=== PATIENT | female | born 1990 | race Caucasian/White ===

== ENCOUNTER 2016-06-21 19:31 | Inpatient (IN) | payer OTHER ==
[2016-06-21] MEDS ORDERED: Ondansetron INJ* 2 MG/ML VIAL IV ONE (19:47)
[2016-06-21] MEDS ORDERED: LORazepam INJ* 2 MG/ML 1 ML VIAL IV PUSH ONE (19:47)
[2016-06-21] MEDS ORDERED: NS 0.9% 1000 ML* 1,000 ML IV ONE ×2 (19:47→22:04)
[2016-06-21 20:26] LABS: Add Diff/Slide Review? Slide Review Added; Comments Flag Yes; Hematocrit 42 % (35-47); Hemoglobin 14.4 g/dl (12.0-16.0); Mean Corpuscular HGB Conc 34 g/dl (31-36); Mean Corpuscular Hemoglobin 31 pg (27-31); Mean Corpuscular Volume 91 fL (80-97); Mean Platelet Volume 9 um3 (7.4-10.4); Red Blood Count 4.63 10^6/ul (4.0-5.4); Red Cell Distribution Width 13 % (10.5-15); White Blood Count 10.9 10^3/ul (3.5-10.8)
[2016-06-21 20:47] LABS: Acetaminophen < 15 mcg/mL; Alcohol < 10 mg/dL (<10); Salicylate < 2.50 mg/dL (<30)
[2016-06-21 21:05] LABS: ALT 10 U/L (7-52); Albumin 3.9 g/dL (3.2-5.2); Alkaline Phosphatase 56 U/L (34-104); BUN/Creatinine Ratio 13.5 (8-20); Blood Urea Nitrogen 10 mg/dL (6-24); CO2 Carbon Dioxide 19 mmol/L (22-32); Calcium 9.1 mg/dL (8.6-10.3); Chloride 110 mmol/L (101-111); EGFR Non-African American 94.9 (>60); Globulin 2.8 g/dL (2-4); Glucose 117 mg/dL (70-100); Sodium 138 mmol/L (133-145); Total Protein 6.7 g/dL (6.4-8.9)
[2016-06-21 21:07] LABS: AST 14 U/L (13-39); Anion Gap 9 mmol/L (2-11); Potassium 3.5 mmol/L (3.5-5.0)
[2016-06-21 21:08] LABS: TSH (Thyroid Stimulating Horm) 0.39 mcIU/mL (0.34-5.60)
[2016-06-21 22:29] LABS: Urine Bilirubin Negative (Negative); Urine Glucose Negative (Negative); Urine Nitrite Negative (Negative)
[2016-06-21 22:46] LABS: Benzodiazepine Urine Screen None Detected (None Detect)
--- NOTE | 2016-06-21 22:47 | ED ---
Gabriela Escamilla Michael, scribed for Sarah Frias MD on 06/21/16 at 2013 . Substance Abuse/Use - HPI Summary HPI Summary: 25 y/o female was BIBA to the ED after an overdose today. The pt reports to taking 10 tablets of 30 mg Buspar between 1100 and 1400 today. She also took 15- 20 Prazosin at 1730. She notes an increased recent stress for "multiple bad things". The pt also c/o self-cutting on left forearm, decreased sleep, anxiety , nausea, and denies diarrhea. The EMS report she had chest pain and rapid palpitations. - History Of Current Complaint Chief Complaint: EDOverdose Stated Complaint: SI/OVERDOSE Time Seen by Provider: 06/21/16 19:37 Hx Obtained From: Patient, EMS, Medical Records Hx Last Menstrual Period: 03/05/16 Onset/Duration of Drug/ETOH Abuse: Hours Ingestion History: Type/Name Of Drug - See HPI, Amount Ingested - she HPI Overdose Characteristics: Oral Timing Of Abuse: Binge Use Severity Initially: Moderate Severity Currently: Moderate Character: Anxious Aggravating Factor(s): Recent Stress Associated Signs And Symptoms: Negative - diarrhea, Sleep Disturbance, Palpitations, Chest Pain, Nausea, Intentional Ingestion, Other: - self-cutting - Allergies/Home Medications Allergies/Adverse Reactions: Allergies Allergy/AdvReac Type Severity Reaction Status Date / Time Penicillins [PCN] Allergy Hives Verified 06/21/16 19:55 Trazodone Allergy Hives Verified 06/21/16 19:55 Zolpidem [From Ambien] Allergy See Comment Verified 06/21/16 19:55 PMH/Surg Hx/FS Hx/Imm Hx Endocrine/Hematology History: Denies: Hx Diabetes, Hx Thyroid Disease Cardiovascular History: Denies: Hx Hypertension Respiratory History: Denies: Hx Asthma, Hx Chronic Obstructive Pulmonary Disease (COPD) GI History: Denies: Hx Ulcer Neurological History: Reports: Other Neuro Impairments/Disorders - HX of banging head Psychiatric History: Reports: Hx Anxiety, Hx Eating Disorder - hx bulimia, Hx Depression, Hx Post Traumatic Stress Disorder, Hx Inpatient Treatment, Hx Community Mental Health Tx, Hx Suicide Attempt, Other Psychiatric Issues/ Disorders - HX suicide attempts Denies: Hx of Violent Episodes Against Others - Surgical History Surgery Procedure, Year, and Place: RUE fx Infectious Disease History: No Infectious Disease History: Denies: Hx Hepatitis, Hx Human Immunodeficiency Virus (HIV), Traveled Outside the [place] in Last 30 Days - Family History Known Family History: Positive: Hypertension, Respiratory Disease - COPD, Other - aunt - bipolar disorder, depression. mom/sister/grandmother - anxiety. Family History: FHx of anxiety, depression - Social History Alcohol Use: None Hx Substance Use: Yes Substance Use Type: Reports: Marijuana Substance Use Comment - Amount & Last Used: Occassional use Hx Tobacco Use: Yes Smoking Status (MU): Heavy Every Day Tobacco Smoker Type: Cigarettes Amount Used/How Often: 1 ppd Have You Smoked in the Last Year: Yes Review of Systems Positive: Other - overdose and self-cutting. Negative: Fever Positive: Palpitations, Chest Pain Positive: Nausea. Negative: Diarrhea Positive: Anxious, Other - decreased sleep All Other Systems Reviewed And Are Negative: Yes Physical Exam Triage Information Reviewed: Yes Vital Signs On Initial Exam: Initial Vitals Temp Pulse Resp BP Pulse Ox 97.9 F 131 18 109/58 98 06/21/16 19:35 06/21/16 19:35 06/21/16 19:35 06/21/16 19:35 06/21/16 19:35 Vital Signs Reviewed: Yes Appearance: Positive: Well-Appearing, No Pain Distress Skin: Positive: Warm, Skin Color Reflects Adequate Perfusion, Dry, Other - abrasions LUE from cutting Eyes: Positive: EOMI, [place] ROS[place] ENT: Positive: Pharynx normal, TMs normal Neck: Positive: Supple, Nontender Respiratory/Lung Sounds: Positive: Clear to Auscultation, Breath Sounds Present. Negative: Rales, Rhonchi, Wheezes Cardiovascular: Positive: RRR, Other - no gallops. Negative: Murmur, Rub Abdomen Description: Positive: Nontender, Soft, Other: - no rebound. Negative: Distended, Guarding Musculoskeletal: Positive: Strength/ROM Intact. Negative: Edema Left, Edema Right Neurological: Positive: Sensory/Motor Intact, Alert, Oriented to Person Place, Time, CN Intact II-III Psychiatric: Positive: Affect/Mood Appropriate Diagnostics - Vital Signs Vital Signs Temp Pulse Resp BP Pulse Ox 06/21/16 19:55 20 06/21/16 19:35 97.9 F 131 18 109/58 98 - Laboratory Lab Results: Lab Results 06/21/16 06/21/16 06/21/16 Range/Units 19:47 19:47 22:15 WBC 10.9 H (3.5-10.8) 10^3/ul RBC 4.63 (4.0-5.4) 10^6/ul Hgb 14.4 (12.0-16.0) g/dl Hct 42 (35-47) % MCV 91 (80-97) fL MCH 31 (27-31) pg MCHC 34 (31-36) g/dl RDW 13 (10.5-15) % Plt Count 78 L (150-450) 10^3/ul MPV 9 (7.4-10.4) um3 Neut % (Auto) 67.1 (38-83) % Lymph % (Auto) 25.9 (25-47) % [place] % (Auto) 6.1 (1-9) % Eos % (Auto) 0.2 (0-6) % Baso % (Auto) 0.7 (0-2) % Absolute Neuts (auto) 7.3 (1.5-7.7) 10^3/ul Absolute Lymphs (auto) 2.8 (1.0-4.8) 10^3/ul Absolute Monos (auto) 0.7 (0-0.8) 10^3/ul Absolute Eos (auto) 0 (0-0.6) 10^3/ul Absolute Basos (auto) 0.1 (0-0.2) 10^3/ul Absolute Nucleated RBC 0.01 10^3/ul Nucleated RBC % 0.1 Sodium 138 (133-145) mmol/L Potassium 3.5 (3.5-5.0) mmol/L Chloride 110 (101-111) mmol/L Carbon Dioxide 19 L (22-32) mmol/L Anion Gap 9 (2-11) mmol/L BUN 10 (6-24) mg/dL Creatinine 0.74 (0.51-0.95) mg/dL Est GFR ( Amer) 122.0 (>60) Est GFR (Non-Af Amer) 94.9 (>60) BUN/Creatinine Ratio 13.5 (8-20) Glucose 117 H (70-100) mg/dL Calcium 9.1 (8.6-10.3) mg/dL Total Bilirubin 0.30 (0.2-1.0) mg/dL AST 14 (13-39) U/L ALT 10 (7-52) U/L Alkaline Phosphatase 56 (34-104) U/L Troponin I 0.00 (<0.04) ng/mL Total Protein 6.7 (6.4-8.9) g/dL Albumin 3.9 (3.2-5.2) g/dL Globulin 2.8 (2-4) g/dL Albumin/Globulin Ratio 1.4 (1-3) TSH 0.39 (0.34-5.60) mcIU/mL Urine Color Yellow Urine Appearance Cloudy Urine pH 5.0 (5-9) Ur Specific [place] 1.029 (1.010-1.030) Urine Protein Negative (Negative) Urine Ketones Trace H (Negative) Urine Blood Negative (Negative) Urine Nitrate Negative (Negative) Urine Bilirubin Negative (Negative) Urine Urobilinogen Negative (Negative) Ur Leukocyte Esterase Negative (Negative) Urine Glucose Negative (Negative) Salicylates < 2.50 (<30) mg/dL Acetaminophen < 15 mcg/mL Serum Alcohol < 10 (<10) mg/dL Result Diagrams: 06/21/16 19:47 06/21/16 19:47 Lab Statement: Any lab studies that have been ordered have been reviewed, and results considered in the medical decision making process. - EKG EK EKG Rhythm: Sinus Tachycardia - 120 bpm EKG Comparison: No Significant Change Course/Dx - Course Course Of Treatment: Consulted posion control-pt will be given Ativan for tachycardia, Trop, and will be medically cleared after 6 hours at 0200 after her second Trop. baseline labs look good first trop is negative. Will sign pt out to Dr. Baldwin for further disposition - Diagnoses Provider Diagnoses: Drug overdose, intentional Discharge - Discharge Plan Condition: Stable Disposition: OTHER Discharge Disposition Comment: disposition to be decided by mental health team The documentation as recorded by the Gabriela crouch Michael accurately reflects the service I personally performed and the decisions made by me, Sarah Frias MD.
[2016-06-22] MEDS ORDERED: Nicotine GUM* 2 MG PO PRN (11:47)
[2016-06-22] MEDS ORDERED: Acetaminophen TAB* 325 MG PO PRN (11:47)
[2016-06-22] MEDS ORDERED: Nicotine Inhaler* 10 MG AMP INH PRN (11:47)
[2016-06-22] MEDS ORDERED: Al Hydrox/Mg Hydrox/Simet LIQ* 30 ML UDC PO PRN (11:47)
[2016-06-22] MEDS: clonazePAM TAB(*) 0.5 MG PO SCH ×2 (15:55→20:21)
[2016-06-22] MEDS: Prazosin CAP* 1 MG PO SCH (20:21)
[2016-06-22] MEDS: Prazosin CAP* 5 MG PO SCH (20:21)
[2016-06-22] MEDS: QUEtiapine TAB* 100 MG PO SCH (20:21)
[2016-06-22] MEDS: Topiramate TAB(*) 100 MG PO SCH (20:21)
[2016-06-23] MEDS: clonazePAM TAB(*) 0.5 MG PO SCH ×3 (08:13→21:25)
[2016-06-23] MEDS: Topiramate TAB(*) 100 MG PO SCH ×2 (08:13→21:27)
[2016-06-23] MEDS: cloNIDine TAB* 0.1 MG PO PRN (15:36)
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
[2016-06-23] MEDS: Cyclobenzaprine TAB* 10 MG PO SCH (21:25)
[2016-06-23] MEDS: Prazosin CAP* 5 MG PO SCH (21:26)
[2016-06-23] MEDS: QUEtiapine TAB* 100 MG PO SCH (21:27)
[2016-06-23] MEDS: Prazosin CAP* 1 MG PO SCH (21:27)
[2016-06-24] MEDS: clonazePAM TAB(*) 0.5 MG PO SCH ×4 (10:01→20:10)
[2016-06-24] MEDS: Topiramate TAB(*) 100 MG PO SCH ×2 (10:01→20:10)
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
[2016-06-24] MEDS: cloNIDine TAB* 0.1 MG PO PRN (15:16)
[2016-06-24] MEDS: Cyclobenzaprine TAB* 10 MG PO SCH (20:09)
[2016-06-24] MEDS: QUEtiapine TAB* 100 MG PO SCH (20:10)
[2016-06-24] MEDS: Prazosin CAP* 5 MG PO SCH (21:13)
[2016-06-24] MEDS: Prazosin CAP* 1 MG PO SCH (21:14)
[2016-06-25] MEDS: clonazePAM TAB(*) 0.5 MG PO SCH ×3 (10:32→20:43)
[2016-06-25] MEDS: Topiramate TAB(*) 100 MG PO SCH ×2 (10:33→20:44)
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
[2016-06-25] MEDS: cloNIDine TAB* 0.1 MG PO PRN (18:22)
[2016-06-25] MEDS: Prazosin CAP* 1 MG PO SCH (20:43)
[2016-06-25] MEDS: Prazosin CAP* 5 MG PO SCH (20:43)
[2016-06-25] MEDS: Cyclobenzaprine TAB* 10 MG PO SCH (20:44)
[2016-06-25] MEDS: QUEtiapine TAB* 100 MG PO SCH (20:44)
[2016-06-26] MEDS: clonazePAM TAB(*) 0.5 MG PO SCH ×3 (10:16→21:36)
[2016-06-26] MEDS: Topiramate TAB(*) 100 MG PO SCH ×2 (10:16→21:37)
[2016-06-26] MEDS: cloNIDine TAB* 0.1 MG PO PRN ×2 (10:17→16:44)
[2016-06-26] MEDS: QUEtiapine TAB* 100 MG PO SCH (21:36)
[2016-06-26] MEDS: Prazosin CAP* 1 MG PO SCH (21:36)
[2016-06-26] MEDS: Prazosin CAP* 5 MG PO SCH (21:36)
[2016-06-26] MEDS: Cyclobenzaprine TAB* 10 MG PO SCH (21:36)
[2016-06-27] MEDS: clonazePAM TAB(*) 0.5 MG PO SCH ×3 (09:55→20:41)
[2016-06-27] MEDS: Topiramate TAB(*) 100 MG PO SCH ×2 (09:55→20:41)
[2016-06-27] MEDS: cloNIDine TAB* 0.1 MG PO PRN ×2 (09:55→16:50)
--- NOTE | 2016-06-27 18:21 | PN ---
Subjective - Subjective Service Type: 75552 Hosp care 15 min low complexity Subjective: Basically no change of her mental status and continues to be labile, irritable, confrontational, looking for a reason to start crying and mostly staying to self. continues to verbalize wish to be and wanting to take maximum amount of meds/drugs to end her life if sent home today. Says she has no where to go, no money or support in the community. Objective - Appearance Appearance: Obese Dysmorphic Features: No Hygiene: Normal Grooming: Fairly Well Kept - Behavior Psychomotor Activities: Normal Exhibits Abnormal Movement: No - Attitude and Relatedness Attitude and Relatedness: Irritable Eye Contact: Poor - Speech Quality: Unpressured Latencies: Normal Quantity: Appropriate - Mood Patient's Decription of Mood: "Terrible" - Affect Observed Affect: Tearful - Thought Process Patient's Thought Process: Coherent, Goal Directed Thought Content: Yes Passive Wish, Yes Suicidal Planning - OD, No Homicidal Ideation, No Paranoid Ideation - Sensorium Experiencing Hallucinations: No, Sensorium is Clear Type of Hallucinations: Visual: No, Auditory: No, Command: No - Level of Consciousness Orientation: Yes Intact, Yes Orientated to Time, Yes Orientated to Place, Yes Orientated to Person - Impulse Control Impulse Control: Poor - Insight and Judgement Insight and Judgement: Impaired - Group Participation Particating in Group Activities: No - Medication Management Medication Management Adherence: Yes Assessment - Assessment Merits Inpatient Hospitalization: For Stabilization, Pending Safe DC Plan Inpatient DSM-IV Dx: Unspecified Depressive DO Plan - Plan Treatment Plan: Name: GREG CRAWFORD Birthdate: 1990 [id number] Continued Medication Management: Continue Outpt Medication Medications: Current Medications Acetaminophen (Tylenol Tab*) 650 mg PO Q4H PRN PRN Reason: for pain; or Temp >101 F Al Hydrox/Mg Hydrox/Simethicone (Maalox Plus*) 30 ml PO Q4H PRN PRN Reason: INDIGESTION Clonazepam (Klonopin Tab(*)) 0.5 mg PO TID [facility] Last Admin: 06/27/16 14:28 Dose: 0.5 mg Clonidine HCl (Catapres Tab*) 0.05 mg PO TID PRN PRN Reason: ANXIETY Last Admin: 06/27/16 16:50 Dose: 0.05 mg Cyclobenzaprine HCl (Flexeril Tab*) 5 mg PO BEDTIME [facility] Last Admin: 06/26/16 21:36 Dose: Not Given Nicotine (Nicotine Inhaler*) 10 mg INH Q2H PRN PRN Reason: CRAVING Nicotine Polacrilex (Nicotine Gum*) 2 mg PO Q2H PRN PRN Reason: CRAVING Prazosin HCl (Minipress Cap*) 5 mg PO BEDTIME [facility] Last Admin: 06/26/16 21:36 Dose: Not Given Prazosin HCl (Minipress Cap*) 3 mg PO BEDTIME [facility] Last Admin: 06/26/16 21:36 Dose: Not Given Quetiapine Fumarate (Seroquel Tab*) 200 mg PO BEDTIME [facility] Last Admin: 06/26/16 21:36 Dose: Not Given Topiramate (Topamax(*)) 100 mg PO BID [facility] Last Admin: 06/27/16 09:55 Dose: 100 mg - Discharge Plan Discharge Plan: Outpatient Follow Up Outpatient Program: [facility]
[2016-06-27] MEDS: Prazosin CAP* 1 MG PO SCH (20:39)
[2016-06-27] MEDS: QUEtiapine TAB* 100 MG PO SCH (20:40)
[2016-06-27] MEDS: Prazosin CAP* 5 MG PO SCH (20:40)
[2016-06-27] MEDS: Cyclobenzaprine TAB* 10 MG PO SCH (20:41)
[2016-06-28] MEDS: Topiramate TAB(*) 100 MG PO SCH ×2 (09:35→21:30)
[2016-06-28] MEDS: clonazePAM TAB(*) 0.5 MG PO SCH ×3 (09:35→21:10)
[2016-06-28] MEDS: cloNIDine TAB* 0.1 MG PO PRN ×2 (09:36→15:31)
--- NOTE | 2016-06-28 15:24 | PN ---
Subjective - Subjective Service Type: 07604 Hosp care 15 min low complexity Subjective: Greg continues to remain to self with occsional crying outburst. Says she doesn't see a reason to continue like this and wishes to take all her meds if sent home. Reports that shot time hospitalization has not been helpful to her and she want to go to a [facility] care facility this time. Objective - Appearance Appearance: Healthy Appearing Dysmorphic Features: No Hygiene: Normal Grooming: Well Kept - Behavior Psychomotor Activities: Normal Exhibits Abnormal Movement: No - Attitude and Relatedness Attitude and Relatedness: Appropriate Eye Contact: Poor - Speech Quality: Unpressured Latencies: Normal Quantity: Copious - Mood Patient's Decription of Mood: "Terrible" - Affect Observed Affect: Tearful - Thought Process Patient's Thought Process: Coherent, Goal Directed, Circumstantial Thought Content: Yes Passive Wish, No Suicidal Planning, No Homicidal Ideation, No Paranoid Ideation - Sensorium Experiencing Hallucinations: No, Sensorium is Clear Type of Hallucinations: Visual: No, Auditory: No, Command: No - Level of Consciousness Level of Consciousness: Alert Orientation: Yes Intact, Yes Orientated to Time, Yes Orientated to Place, Yes Orientated to Person - Impulse Control Impulse Control: Tenuous - Insight and Judgement Insight and Judgement: Poor - Group Participation Particating in Group Activities: No - Medication Management Medication Management Adherence: Yes Assessment - Assessment Merits Inpatient Hospitalization: For Immediate Safety, For Stabilization, Pending Safe DC Plan Inpatient DSM-IV Dx: Unspecified Depressive DO Plan - Plan Treatment Plan: Name: GREG CRAWFORD Birthdate: 1990 [id number] Continued Medication Management: Continue Outpt Medication Medications: Current Medications Acetaminophen (Tylenol Tab*) 650 mg PO Q4H PRN PRN Reason: for pain; or Temp >101 F Al Hydrox/Mg Hydrox/Simethicone (Maalox Plus*) 30 ml PO Q4H PRN PRN Reason: INDIGESTION Clonazepam (Klonopin Tab(*)) 0.5 mg PO TID [facility] Last Admin: 06/28/16 14:29 Dose: 0.5 mg Clonidine HCl (Catapres Tab*) 0.05 mg PO TID PRN PRN Reason: ANXIETY Last Admin: 06/28/16 09:36 Dose: 0.05 mg Cyclobenzaprine HCl (Flexeril Tab*) 5 mg PO BEDTIME [facility] Last Admin: 06/27/16 20:41 Dose: 5 mg Nicotine (Nicotine Inhaler*) 10 mg INH Q2H PRN PRN Reason: CRAVING Nicotine Polacrilex (Nicotine Gum*) 2 mg PO Q2H PRN PRN Reason: CRAVING Prazosin HCl (Minipress Cap*) 5 mg PO BEDTIME [facility] Last Admin: 06/27/16 20:40 Dose: 5 mg Prazosin HCl (Minipress Cap*) 3 mg PO BEDTIME [facility] Last Admin: 06/27/16 20:39 Dose: 3 mg Quetiapine Fumarate (Seroquel Tab*) 200 mg PO BEDTIME [facility] Last Admin: 06/27/16 20:40 Dose: 200 mg Topiramate (Topamax(*)) 100 mg PO BID [facility] Last Admin: 06/28/16 09:35 Dose: 100 mg - Discharge Plan Outpatient Program: [facility]
[2016-06-28] MEDS: Prazosin CAP* 1 MG PO SCH (21:11)
[2016-06-28] MEDS: Prazosin CAP* 5 MG PO SCH (21:11)
[2016-06-28] MEDS: QUEtiapine TAB* 100 MG PO SCH (21:12)
[2016-06-28] MEDS: Cyclobenzaprine TAB* 10 MG PO SCH (21:13)
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
[2016-06-29] MEDS: clonazePAM TAB(*) 0.5 MG PO SCH (11:01)
[2016-06-29] MEDS: Topiramate TAB(*) 100 MG PO SCH (11:01)
[2016-06-29] MEDS: QUEtiapine TAB* 25 MG PO PRN ×2 (11:19→18:10)
[2016-06-29] MEDS: Prenatal Vitamin TAB PO SCH (15:32)
[2016-06-29] MEDS: QUEtiapine TAB* 100 MG PO SCH (21:10)
[2016-06-30] MEDS: Prenatal Vitamin TAB PO SCH (08:16)
[2016-06-30] MEDS: QUEtiapine TAB* 25 MG PO PRN ×2 (08:17→17:02)
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
[2016-06-30] MEDS: QUEtiapine TAB* 100 MG PO SCH (21:08)
[2016-07-01 07:57] VITALS: BP 124/70
[2016-07-01] MEDS: Prenatal Vitamin TAB PO SCH (08:21)
--- NOTE | 2016-07-01 20:20 | DS ---
DISCHARGE SUMMARY: DATE OF ADMISSION: 06/22/16 DATE OF DISCHARGE: 07/01/16 DISCHARGE DIAGNOSES: As follows: [place] I: Unspecified depressive disorder, posttraumatic stress disorder. [place] II: Borderline personality disorder. [place] III: First trimester . [place] IV: Severe primary support and housing stressors. [place] V: At the time of admission was 30 and at the time of discharge is 60. CONDITION AT THE TIME OF DISCHARGE: Stable. The patient is denying suicidality. In fact, she is future oriented indicating that her intention is to carry her to term and have the baby. She is agreeable with outpatient followup treatment at [facility] and she has been cooperative with our efforts to place some social service supports around her during this time of . The patient is tolerating her medications well and she denies any thoughts of hurting herself or anyone else. MENTAL STATUS EXAM: The patient is a young white female with dyed reddish- purple hair, who is wearing a nose ring. She is dressed in casual, comfortable clothing and she appears to be well groomed. The patient is calm and cooperative. She is easy to establish a rapport with. Speech has a normal rate , tone, and volume. Mood is euthymic with a full affect. Thought process is linear and goal directed. Thought content is significant for her desire to be a fit mother for her baby and to resolve some of the differences between her and her boyfriend, who is presumably the child's father. She is denying suicidal or homicidal ideation. She denies auditory or visual hallucinations. Insight and judgment appear to be fair given the fact that she is willing to follow up with outpatient mental health and obstetric services in the community. Cognitively, she is awake and alert with what appears to be an average intellect. DISCHARGE INSTRUCTIONS: To the patient are as follows: A. Medications: 1. The patient is taking Seroquel 200 mg p.o. q.h.s. 2. She is also taking Seroquel 25 mg p.o. q.6h. p.r.n. for anxiety. 3. She has been placed on a vitamin supplement daily. B. Diet is regular. C. Activities as tolerated. The patient was a smoker until discovering her . At this time, she is indicating that she has no intention to continue smoking and she declines nicotine replacement therapy given the fact that she does not want this getting into the baby's system either. D. Followup care. She will have a followup appointment with [facility]. She will also be following up with obstetric services through [facility]. HOSPITAL COURSE - PART A: Reason for admission: The patient is a 25-year-old single white female with a history of very severe borderline personality disorder, who is well-known to me from two recent admissions here on the behavioral health unit in May of 2016, who now returns to our facility via the ambulance after intentionally taking an overdose of approximately 7 tablets of BuSpar and 20 tablets of prazosin. The patient does have a long history of similar behavior and states that at this time, she has had over 50 inpatient psychiatric admissions in her lifetime. She also has a history of cutting and it is notable that she has numerous superficial cuts to her left arm. The patient is upset with her boyfriend indicating they had had some type of argument and she is stating "everybody gives up on me eventually, I know you will too." She was extremely emotional crying most of the time during the evaluation and we could not get her to contract for safety and therefore, she has been readmitted to our facility. At this time, she continues to endorse suicidal ideations, indicating that she will either overdose on her medications or jump in front of a car if she were allowed to go home. HOSPITAL COURSE - PART B: Psychiatric treatment rendered: The patient was admitted to the adult behavioral health unit and placed on q.15-minute checks for her own safety. We resumed her medications as prescribed on an outpatient basis including Seroquel, Topamax, Klonopin, prazosin, and BuSpar. The patient continued to be suicidal and hopeless about the future until discovering on routine screening that she is approximately 2 weeks' . The patient was quite shocked by this given her assertion that she thought that her boyfriend was impotent. At any rate, she took it in stride and actually appeared to have some reduction in her anxiety and depression. Due to fears of teratogenicity, we discontinued Topamax, Klonopin, prazosin, and BuSpar, but left her on Seroquel 200 at night. We did allow her to have up to 25 mg of Seroquel every 6 hours as needed for anxiety. She was also placed on a vitamin. Her serum beta hCG was repeated and noted to be a larger than the previous day indicating that, for all we know at this point, the is viable. The patient was agreeable to being referred to case management services as well as the "[facility]" which is for women with limited social support. There, she will be receiving referral for obstetric services as well as the [facility] for nutritional assistance. The patient is now denying suicidality. In fact, she is quite future-oriented wanting to be a good mother for her child. She has contacted both her boyfriend and her family to rally social support and they appeared to be helping her. She is eager for discharge today and willing to follow up with [facility]. [id number]/CPS #: [id number] FELICIANO
== END 2016-07-01 13:10 | disposition home or self-care (01) | DRG 754 ==
LOC: ED 19:31 → BSU 06-22 14:42
PROVIDERS: ADMIT Psychiatry & Neurology Psychiatry; ATTEND Psychiatry & Neurology Psychiatry
PROC: GZ3ZZZZ Medication Management (ICD-10-PCS; principal; 2016-06-22)
DX: F32.9 Major depressive disorder, single episode, unspecified (principal); F50.2 Bulimia nervosa; Z91.5 Personal history of self-harm; Z91.410 Personal history of adult physical and sexual abuse; Z88.2 Allergy status to sulfonamides; Z88.8 Allergy status to other drugs, medicaments and biological substances; Z81.1 Family history of alcohol abuse and dependence; Z81.4 Family history of other substance abuse and dependence; F17.210 Nicotine dependence, cigarettes, uncomplicated; F60.3 Borderline personality disorder; F43.10 Post-traumatic stress disorder, unspecified; T43.592A Poisoning by other antipsychotics and neuroleptics, intentional self-harm, initial encounter; F41.9 Anxiety disorder, unspecified; Z82.49 Family history of ischemic heart disease and other diseases of the circulatory system; Z81.8 Family history of other mental and behavioral disorders; Z82.5 Family history of asthma and other chronic lower respiratory diseases; F12.90 Cannabis use, unspecified, uncomplicated; Z33.1 Pregnant state, incidental
CPT/HCPCS: 36415; 80053; 80307; 80320; 80329; 81003; 84443; 84484; 84702; 85025; 93005; 99222; 99231; 99232; 99233; 99238; 99406; A9270-GY; G0480; J2060; J2405

== ENCOUNTER 2016-07-10 15:55 | Emergency (ER) | payer OTHER ==
[2016-07-10 16:07] VITALS: BP 123/78
[2016-07-10 17:12] LABS: Hematocrit 42 % (35-47); Hemoglobin 14.2 g/dl (12.0-16.0); Mean Corpuscular HGB Conc 34 g/dl (31-36); Mean Corpuscular Hemoglobin 31 pg (27-31); Mean Corpuscular Volume 91 fL (80-97); Mean Platelet Volume 7 um3 (7.4-10.4); Red Blood Count 4.58 10^6/ul (4.0-5.4); Red Cell Distribution Width 13 % (10.5-15); White Blood Count 7.7 10^3/ul (3.5-10.8)
[2016-07-10 17:15] LABS: Urine Bacteria Absent (Absent); Urine Bilirubin Negative (Negative); Urine Glucose Negative (Negative); Urine Nitrite Negative (Negative)
[2016-07-10 17:31] LABS: Albumin 4.2 g/dL (3.2-5.2); BUN/Creatinine Ratio 12.1 (8-20); Calcium 9.2 mg/dL (8.6-10.3); EGFR African American 139.2 (>60); EGFR Non-African American 108.3 (>60); Globulin 2.9 g/dL (2-4); Potassium 3.4 mmol/L (3.5-5.0); Total Bilirubin 0.3 mg/dL (0.2-1.0); Total Protein 7.1 g/dL (6.4-8.9)
--- NOTE | 2016-07-10 18:40 | RAD ---
Indication: Early . Real-time sonography of the was performed utilizing endovaginal technique. There is a small gestational sac with a mean sac size of 10 mm. No evidence of pole is noted. A yolk sac is identified. There may be a crescent of subchorionic hemorrhage noted. The right ovary measures 2.9 x 2.2 x 1.7 cm. Left ovary measures 2.5 x 3.7 x 1.9 cm. IMPRESSION: There is an intrauterine gestational sac however no pole is identified. A yolk sac is identified. There may be a small subchorionic hemorrhage noted. Follow-up exam is suggested.
--- NOTE | 2016-07-10 20:56 | ED ---
Sergio Escamilla Billy, scribed for Jarocho Funes MD on 07/10/16 at 1708 . GI/ HPI - HPI Summary HPI Summary: Patient is a 25 year-old female coming to [facility] presenting with vaginal bleeding starting 2 hours ago. She describes bright red blood that she can " feel flowing." She is approximately 6 weeks , LMP > 1 month ago. She also describes intermittent, cramping abdominal pain starting 2 weeks ago, worsening over time since onset. She also reports that she has been vomiting until several days ago. She denies any abnormal vaginal discharge. She denies any history of STD. A0. - History of Current Complaint Chief Complaint: EDVaginalBleeding Time Seen by Provider: 07/10/16 16:13 Stated Complaint: VAG BLEEDING Hx Obtained From: Patient Onset/Duration: Started Hours Ago, Still Present Timing: Constant Severity: Moderate Current Severity: Moderate Vaginal Bleeding Description: Bright Red Pain Intensity: 2 Additional Signs & Symptoms: Positive: Vaginal Bleeding - Additional Pertinent History Primary Care Physician: ANEESH - Allergy/Home Medications Allergies/Adverse Reactions: Allergies Allergy/AdvReac Type Severity Reaction Status Date / Time Penicillins [PCN] Allergy Hives Verified 06/22/16 16:24 Trazodone Allergy Hives Verified 06/22/16 16:24 Zolpidem [From Ambien] Allergy See Comment Verified 06/22/16 16:24 PMH/Surg Hx/FS Hx/Imm Hx Endocrine/Hematology History: Denies: Hx Diabetes, Hx Thyroid Disease Cardiovascular History: Denies: Hx Hypertension Respiratory History: Reports: Hx Chronic Bronchitis Denies: Hx Asthma, Hx Chronic Obstructive Pulmonary Disease (COPD) GI History: Denies: Hx Ulcer Sensory History: Reports: Hx Contacts or Glasses Opthamlomology History: Reports: Hx Contacts or Glasses Neurological History: Reports: Hx Headaches, Other Neuro Impairments/Disorders - HX of banging head Psychiatric History: Reports: Hx Anxiety, Hx Eating Disorder - hx bulimia, Hx Depression, Hx Post Traumatic Stress Disorder, Hx Inpatient Treatment, Hx Community Mental Health Tx, Hx Suicide Attempt, Hx of Violent Episodes Against Others, Other Psychiatric Issues/Disorders - HX suicide attempts - Surgical History Surgery Procedure, Year, and Place: RUE fx Infectious Disease History: No Infectious Disease History: Denies: Hx Hepatitis, Hx Human Immunodeficiency Virus (HIV), Traveled Outside the US in Last 30 Days - Family History Known Family History: Positive: Hypertension, Respiratory Disease - COPD, Other - aunt - bipolar disorder, depression. mom/sister/grandmother - anxiety. Family History: FHx of anxiety, depression - Social History Alcohol Use: None Hx Substance Use: Yes Substance Use Type: Reports: Marijuana Substance Use Comment - Amount & Last Used: occasionaly Hx Tobacco Use: Yes Smoking Status (MU): Former Smoker Type: Cigarettes Amount Used/How Often: 1 ppd Have You Smoked in the Last Year: Yes Review of Systems Positive: Abdominal Pain Positive: other - vaginal bleeding. Negative: discharge All Other Systems Reviewed And Are Negative: Yes Physical Exam Triage Information Reviewed: Yes Vital Signs On Initial Exam: Initial Vitals Temp Pulse Resp BP Pulse Ox 98.3 F 98 16 123/78 99 07/10/16 16:02 07/10/16 16:02 07/10/16 16:02 07/10/16 16:02 07/10/16 16:02 Vital Signs Reviewed: Yes Appearance: Positive: Well-Appearing - Nontoxic, No Pain Distress Eyes: Positive: ALMA ROSA ENT: Positive: Other - MMM Neck: Positive: Supple, Nontender, No Lymphadenopathy Respiratory/Lung Sounds: Positive: Clear to Auscultation, Breath Sounds Present. Negative: Rales, Wheezes Cardiovascular: Positive: RRR, Other - No gallops., S1, S2. Negative: Murmur, Rub Abdomen Description: Positive: Other: - Mild pelvic tenderness.. Negative: CVA Tenderness (R), CVA Tenderness (L) Pelvic Exam: Positive: other - With Jessie (RN) as female driller and reamer: External: older-appearing dark blood. Internal: no lesions, there is no pooling of blood, but there is a small amount of blood in the vaginal vault, which appears older and quite dark. No tissue, no cervical friability, no dischharge, no active bleeding. No CMT. Musculoskeletal: Positive: Other - Calves are soft and nontender.. Negative: Edema Left, Edema Right Neurological: Positive: Alert, Oriented to Person Place, Time Psychiatric: Positive: Affect/Mood Appropriate - Logical and coherent. AVPU Assessment: Alert - [place] Coma Scale Coma Scale Total: 15 Diagnostics - Vital Signs Vital Signs Temp Pulse Resp BP Pulse Ox 07/10/16 16:02 98.3 F 98 16 123/78 99 - Laboratory Lab Results: Lab Results 07/10/16 07/10/16 07/10/16 Range/Units 17:06 17:06 17:06 WBC 7.7 (3.5-10.8) 10^3/ul RBC 4.58 (4.0-5.4) 10^6/ul Hgb 14.2 (12.0-16.0) g/dl Hct 42 (35-47) % MCV 91 (80-97) fL MCH 31 (27-31) pg MCHC 34 (31-36) g/dl RDW 13 (10.5-15) % Plt Count 245 (150-450) 10^3/ul MPV 7 L (7.4-10.4) um3 Neut % (Auto) 67.2 (38-83) % Lymph % (Auto) 23.9 L (25-47) % [place] % (Auto) 7.7 (1-9) % Eos % (Auto) 0.8 (0-6) % Baso % (Auto) 0.4 (0-2) % Absolute Neuts (auto) 5.2 (1.5-7.7) 10^3/ul Absolute Lymphs (auto) 1.9 (1.0-4.8) 10^3/ul Absolute Monos (auto) 0.6 (0-0.8) 10^3/ul Absolute Eos (auto) 0.1 (0-0.6) 10^3/ul Absolute Basos (auto) 0 (0-0.2) 10^3/ul Absolute Nucleated RBC 0 10^3/ul Nucleated RBC % 0.1 INR (Anticoag Therapy) 0.97 (0.89-1.11) APTT 26.9 (26.0-36.3) seconds Sodium (133-145) mmol/L Potassium (3.5-5.0) mmol/L Chloride (101-111) mmol/L Carbon Dioxide (22-32) mmol/L Anion Gap (2-11) mmol/L BUN (6-24) mg/dL Creatinine (0.51-0.95) mg/dL Est GFR ( Amer) (>60) Est GFR (Non-Af Amer) (>60) BUN/Creatinine Ratio (8-20) Glucose (70-100) mg/dL Calcium (8.6-10.3) mg/dL Total Bilirubin (0.2-1.0) mg/dL AST (13-39) U/L ALT (7-52) U/L Alkaline Phosphatase (34-104) U/L Total Protein (6.4-8.9) g/dL Albumin (3.2-5.2) g/dL Globulin (2-4) g/dL Albumin/Globulin Ratio (1-3) Beta HCG, Quant mIU/mL Urine Color Yellow Urine Appearance Cloudy Urine pH 5.0 (5-9) Ur Specific [place] 1.020 (1.010-1.030) Urine Protein Negative (Negative) Urine Ketones Trace H (Negative) Urine Blood 3+ H (Negative) Urine Nitrate Negative (Negative) Urine Bilirubin Negative (Negative) Urine Urobilinogen Negative (Negative) Ur Leukocyte Esterase Negative (Negative) Urine WBC (Auto) Trace(0-5/hpf) (Absent) Urine RBC (Auto) 3+(>10/hpf) H (Absent) Ur Squamous Epith Cells Present H (Absent) Urine Bacteria Absent (Absent) Urine Glucose Negative (Negative) Urine Ascorbic Acid * H (Negative) Blood Type Antibody Screen 07/10/16 07/10/16 Range/Units 17:06 17:06 WBC (3.5-10.8) 10^3/ul RBC (4.0-5.4) 10^6/ul Hgb (12.0-16.0) g/dl Hct (35-47) % MCV (80-97) fL MCH (27-31) pg MCHC (31-36) g/dl RDW (10.5-15) % Plt Count (150-450) 10^3/ul MPV (7.4-10.4) um3 Neut % (Auto) (38-83) % Lymph % (Auto) (25-47) % [place] % (Auto) (1-9) % Eos % (Auto) (0-6) % Baso % (Auto) (0-2) % Absolute Neuts (auto) (1.5-7.7) 10^3/ul Absolute Lymphs (auto) (1.0-4.8) 10^3/ul Absolute Monos (auto) (0-0.8) 10^3/ul Absolute Eos (auto) (0-0.6) 10^3/ul Absolute Basos (auto) (0-0.2) 10^3/ul Absolute Nucleated RBC 10^3/ul Nucleated RBC % INR (Anticoag Therapy) (0.89-1.11) APTT (26.0-36.3) seconds Sodium 134 (133-145) mmol/L Potassium 3.4 L (3.5-5.0) mmol/L Chloride 103 (101-111) mmol/L Carbon Dioxide 25 (22-32) mmol/L Anion Gap 6 (2-11) mmol/L BUN 8 (6-24) mg/dL Creatinine 0.66 (0.51-0.95) mg/dL Est GFR ( Amer) 139.2 (>60) Est GFR (Non-Af Amer) 108.3 (>60) BUN/Creatinine Ratio 12.1 (8-20) Glucose 79 (70-100) mg/dL Calcium 9.2 (8.6-10.3) mg/dL Total Bilirubin 0.30 (0.2-1.0) mg/dL AST 16 (13-39) U/L ALT 11 (7-52) U/L Alkaline Phosphatase 53 (34-104) U/L Total Protein 7.1 (6.4-8.9) g/dL Albumin 4.2 (3.2-5.2) g/dL Globulin 2.9 (2-4) g/dL Albumin/Globulin Ratio 1.4 (1-3) Beta HCG, Quant 9602.00 mIU/mL Urine Color Urine Appearance Urine pH (5-9) Ur Specific [place] (1.010-1.030) Urine Protein (Negative) Urine Ketones (Negative) Urine Blood (Negative) Urine Nitrate (Negative) Urine Bilirubin (Negative) Urine Urobilinogen (Negative) Ur Leukocyte Esterase (Negative) Urine WBC (Auto) (Absent) Urine RBC (Auto) (Absent) Ur Squamous Epith Cells (Absent) Urine Bacteria (Absent) Urine Glucose (Negative) Urine Ascorbic Acid (Negative) Blood Type A Negative Antibody Screen Negative Result Diagrams: 07/10/16 17:06 07/10/16 17:06 Lab Statement: Any lab studies that have been ordered have been reviewed, and results considered in the medical decision making process. - Ultrasound No standard instances Ultrasound Interpretation Completed By: Radiologist - Transvaginal US: There is an intrauterine gestational sac however no pole is identified. A yolk sac is identified. There may be a small subchorionic hemorrhage noted. Follow-up exam is suggested. GIGU Course/Dx - Course Assessment/Plan: Vaginal bleeding and cramping early in . Gestational sack and yolk sac identified. No ectopic identified. She has ob f/u but they wanted to wait until she was at least 10 wks . B negative. We will give rhogam. She agrees to return for severe bleeding which was described, fever, increasing pain. otherwise she will f/u here in 3-5 days for repeat hcg as there is a small chance that she could continue to have a . this is unlikely and more likely this will progress to miscarriage and likely this is blighted ovum at very early stage. - Diagnoses Differential Diagnoses - Female: , Pelvic Inflammatory Disease, Peptic Ulcer Disease, Threatened , Tubo-Ovarian Abscess Provider Diagnoses: Threatened miscarriage Discharge - Discharge Plan Condition: Good Disposition: HOME Patient Education Materials: Threatened Miscarriage (ED) Referrals: No Primary Care Phys,NOPCP [Primary Care Provider] - Claudia Ty MD [Medical Doctor] - Additional Instructions: You may also f/u at the Obstetrics doctor that you have already contacted earlier. The documentation as recorded by the Sergio crouch Billy accurately reflects the service I personally performed and the decisions made by me, Jarocho Funes MD.
[2016-07-10] MEDS ORDERED: RHO D Immune Globulin (HUMAN)* 300 MCG = 1,500 I.U. INJ IM SCH (21:00)
== END 2016-07-10 21:58 | disposition home or self-care (01) ==
LOC: ED 15:55
DX: O20.0 Threatened abortion (principal); N93.9 Abnormal uterine and vaginal bleeding, unspecified; Z87.891 Personal history of nicotine dependence; Z3A.00 Weeks of gestation of pregnancy not specified
CPT/HCPCS: 36415; 76817; 80053; 81003; 81015; 84702; 85025; 85610; 85730; 86850; 86900; 86901; 87480; 87491; 87510; 87591; 87661; 99282; J2790

== ENCOUNTER 2016-07-23 00:44 | Emergency (ER) | payer OTHER ==
[2016-07-23 02:28] VITALS: BP 114/68
--- NOTE | 2016-07-23 04:55 | ED ---
Abdominal Pain/Female - HPI Summary HPI Summary: Patient presents for evaluation. Patient has known and miscarriage verified at two different hospitals. Has intermittent nausea and no OBGYN FU. She is uncertain why she is in the ED. - History of Current Complaint Chief Complaint: EDVaginalBleeding Stated Complaint: VAG BLEEDING Time Seen by Provider: 07/23/16 01:41 Hx Last Menstrual Period: 03/05/16 Pain Intensity: 0 Pain Scale Used: 0-10 Numeric Allergies/Adverse Reactions: Allergies Allergy/AdvReac Type Severity Reaction Status Date / Time Penicillins [PCN] Allergy Hives Verified 06/22/16 16:24 Trazodone Allergy Hives Verified 06/22/16 16:24 Zolpidem [From Ambien] Allergy See Comment Verified 06/22/16 16:24 PMH/Surg Hx/FS Hx/Imm Hx Previously Healthy: Yes Endocrine/Hematology History: Denies: Hx Diabetes, Hx Thyroid Disease Cardiovascular History: Denies: Hx Hypertension Respiratory History: Reports: Hx Chronic Bronchitis Denies: Hx Asthma, Hx Chronic Obstructive Pulmonary Disease (COPD) GI History: Denies: Hx Ulcer Sensory History: Reports: Hx Contacts or Glasses Opthamlomology History: Reports: Hx Contacts or Glasses Neurological History: Reports: Hx Headaches, Other Neuro Impairments/Disorders - HX of banging head Psychiatric History: Reports: Hx Anxiety, Hx Eating Disorder - hx bulimia, Hx Depression, Hx Post Traumatic Stress Disorder, Hx Inpatient Treatment, Hx Community Mental Health Tx, Hx Suicide Attempt, Hx of Violent Episodes Against Others, Other Psychiatric Issues/Disorders - HX suicide attempts - Surgical History Surgery Procedure, Year, and Place: RUE fx Infectious Disease History: No Infectious Disease History: Denies: Hx Hepatitis, Hx Human Immunodeficiency Virus (HIV), Traveled Outside the [place] in Last 30 Days - Family History Known Family History: Positive: Hypertension, Respiratory Disease - COPD, Other - aunt - bipolar disorder, depression. mom/sister/grandmother - anxiety. Family History: FHx of anxiety, depression - Social History Alcohol Use: None Hx Substance Use: Yes Substance Use Type: Reports: Marijuana Substance Use Comment - Amount & Last Used: occasionaly Hx Tobacco Use: Yes Smoking Status (MU): Former Smoker Type: Cigarettes Amount Used/How Often: 1 ppd Have You Smoked in the Last Year: Yes Review of Systems Positive: other - Vaginal Bleeding All Other Systems Reviewed And Are Negative: Yes Physical Exam Triage Information Reviewed: Yes Vital Signs On Initial Exam: Initial Vitals Temp Pulse Resp BP Pulse Ox 98.4 F 135 20 136/80 98 07/23/16 00:49 07/23/16 00:49 07/23/16 00:49 07/23/16 00:49 07/23/16 00:49 Vital Signs Reviewed: Yes Appearance: Positive: Well-Appearing, No Pain Distress, Well-Nourished Skin: Positive: Warm, Skin Color Reflects Adequate Perfusion, Dry Neck: Positive: Supple, Nontender Respiratory/Lung Sounds: Positive: Clear to Auscultation, Breath Sounds Present Cardiovascular: Positive: RRR, Pulses are Symmetrical in both Upper and Lower Extremities, Tachycardia Abdomen Description: Positive: Nontender, No Organomegaly, Soft Musculoskeletal: Positive: Normal, Strength/ROM Intact Neurological: Positive: Normal, Sensory/Motor Intact, Alert, Oriented to Person Place, Time, CN Intact II-III, Reflexes Intact, Normal Gait Diagnostics - Vital Signs Vital Signs Temp Pulse Resp BP Pulse Ox 07/23/16 02:27 98.2 F 98 18 114/68 07/23/16 00:49 98.4 F 135 20 136/80 98 - Laboratory Lab Statement: Any lab studies that have been ordered have been reviewed, and results considered in the medical decision making process. Abdominal Pain Fem Course/Dx - Diagnoses Differential Diagnosis: Positive: , Other - She is visibly upset, but uncertain as to what she is needing from her ED visit. Instead keeps asking what she should do to arrange FU. We discussed the alrady given 3 references for FU. She has yet to follow through. When offered US, lab testing, she is uncertain whether she wants them done. Deferred mental health evaluation for possible anxiety over the which was unplanned. Provider Diagnoses: Incomplete miscarriage Discharge - Discharge Plan Condition: Stable Disposition: HOME Prescriptions: Ondansetron TAB* [Zofran Tab*] 8 mg PO Q6H PRN #10 tab MDD 4 tablets per day PRN Reason: Nausea Patient Education Materials: Miscarriage (ED) Referrals: Hernando Shah MD [Medical Doctor] - 3 Days No Primary Care Phys,NOPCP [Primary Care Provider] -
== END 2016-07-23 02:27 | disposition home or self-care (01) ==
LOC: ED 00:44
DX: O03.4 Incomplete spontaneous abortion without complication (principal); Z88.0 Allergy status to penicillin; F41.9 Anxiety disorder, unspecified; F32.9 Major depressive disorder, single episode, unspecified; F43.10 Post-traumatic stress disorder, unspecified; O99.341 Other mental disorders complicating pregnancy, first trimester; O99.331 Smoking (tobacco) complicating pregnancy, first trimester; F17.210 Nicotine dependence, cigarettes, uncomplicated
CPT/HCPCS: 99282

== ENCOUNTER 2016-09-09 15:48 | Inpatient (IN) | payer OTHER ==
[2016-09-09 16:27] LABS: Hematocrit 40 % (35-47); Hemoglobin 13.9 g/dl (12.0-16.0); Mean Corpuscular HGB Conc 35 g/dl (31-36); Mean Corpuscular Hemoglobin 31 pg (27-31); Mean Corpuscular Volume 90 fL (80-97); Mean Platelet Volume 8 um3 (7.4-10.4); Red Blood Count 4.45 10^6/ul (4.0-5.4); Red Cell Distribution Width 13 % (10.5-15); White Blood Count 10.4 10^3/ul (3.5-10.8)
[2016-09-09 16:29] LABS: Urine Bilirubin Negative (Negative); Urine Glucose Negative (Negative); Urine Nitrite Negative (Negative)
[2016-09-09 16:55] LABS: Benzodiazepine Urine Screen None Detected (None Detect)
[2016-09-09 16:56] LABS: ALT 12 U/L (7-52); AST 16 U/L (13-39); Albumin 4.2 g/dL (3.2-5.2); Alkaline Phosphatase 66 U/L (34-104); Anion Gap 6 mmol/L (2-11); Blood Urea Nitrogen 13 mg/dL (6-24); CO2 Carbon Dioxide 24 mmol/L (22-32); Calcium 9.4 mg/dL (8.6-10.3); Chloride 106 mmol/L (101-111); EGFR African American 141.7 (>60); EGFR Non-African American 110.2 (>60); Globulin 2.9 g/dL (2-4); Glucose 80 mg/dL (70-100); Potassium 3.7 mmol/L (3.5-5.0); Sodium 136 mmol/L (133-145); Total Protein 7.1 g/dL (6.4-8.9)
[2016-09-09 17:35] LABS: Acetaminophen < 15 mcg/mL; Alcohol < 10 mg/dL (<10); Salicylate < 2.50 mg/dL (<30)
[2016-09-09 17:44] LABS: TSH (Thyroid Stimulating Horm) 0.62 mcIU/mL (0.34-5.60)
[2016-09-09] MEDS ORDERED: Al Hydrox/Mg Hydrox/Simet LIQ* 30 ML UDC PO PRN (18:32)
[2016-09-09] MEDS ORDERED: Acetaminophen TAB* 325 MG PO PRN (18:32)
[2016-09-09] MEDS ORDERED: QUEtiapine TAB* 25 MG PO PRN (18:33)
--- NOTE | 2016-09-09 18:38 | ED ---
Sergio Escamilla Billy, scribed for Raymon Canchola MD on 09/09/16 at 1658 . Psychiatric Complaint - HPI Summary HPI Summary: Patient is a 25 year-old female sent to [facility] by her counselor for MHE. Patient reports SI without any clear and definite plans. She reports sleep disturbance. Denies any auditory/visual hallucinations or paranoid delusions. She has been seen in [facility] numerous times in the past for similar symptoms. Significant psychiatric history. - History Of Current Complaint Chief Complaint: EDMentalHealth Time Seen by Provider: 09/09/16 15:56 Hx Obtained From: Patient Hx Last Menstrual Period: 03/05/16 Onset/Duration: Gradual Onset, Still Present Timing: Constant Severity Initially: Moderate Severity Currently: Moderate Character: Depressed Aggravating Factor(s): Nothing Alleviating Factor(s): Nothing Associated Signs And Symptoms: Positive: Sleep Disturbance. Negative: Hallucinating, Paranoid Behavior Related History: Positive For: Prior Psychiatric Issues Has Suicidal: Reports: Thoughts. Denies: With A Plan Has Homicidal: Denies: Thoughts, With A Plan - Allergies/Home Medications Allergies/Adverse Reactions: Allergies Allergy/AdvReac Type Severity Reaction Status Date / Time Penicillins [PCN] Allergy Hives Verified 06/22/16 16:24 Trazodone Allergy Hives Verified 06/22/16 16:24 Zolpidem [From Ambien] Allergy See Comment Verified 06/22/16 16:24 PMH/Surg Hx/FS Hx/Imm Hx Endocrine/Hematology History: Denies: Hx Diabetes, Hx Thyroid Disease Cardiovascular History: Denies: Hx Hypertension Respiratory History: Reports: Hx Chronic Bronchitis Denies: Hx Asthma, Hx Chronic Obstructive Pulmonary Disease (COPD) GI History: Denies: Hx Ulcer Sensory History: Reports: Hx Contacts or Glasses Opthamlomology History: Reports: Hx Contacts or Glasses Neurological History: Reports: Hx Headaches, Other Neuro Impairments/Disorders - HX of banging head Psychiatric History: Reports: Hx Anxiety, Hx Eating Disorder - hx bulimia, Hx Depression, Hx Post Traumatic Stress Disorder, Hx Inpatient Treatment, Hx Community Mental Health Tx, Hx Suicide Attempt, Hx of Violent Episodes Against Others, Other Psychiatric Issues/Disorders - HX suicide attempts - Surgical History Surgery Procedure, Year, and Place: RUE fx Infectious Disease History: No Infectious Disease History: Denies: Hx Hepatitis, Hx Human Immunodeficiency Virus (HIV), Traveled Outside the [place] in Last 30 Days - Family History Known Family History: Positive: Hypertension, Respiratory Disease - COPD, Other - aunt - bipolar disorder, depression. mom/sister/grandmother - anxiety. Family History: FHx of anxiety, depression - Social History Alcohol Use: None Hx Substance Use: Yes Substance Use Type: Reports: Marijuana Substance Use Comment - Amount & Last Used: occasionaly Hx Tobacco Use: Yes Smoking Status (MU): Former Smoker Type: Cigarettes Amount Used/How Often: 1 ppd Have You Smoked in the Last Year: Yes Review of Systems Negative: Fever Positive: Depressed, Other - SI All Other Systems Reviewed And Are Negative: Yes Physical Exam - Summary Physical Exam Summary: The patient is well-nourished in no acute distress and in no acute pain. The skin is warm and dry and skin color reflects adequate perfusion. Multiple superficial lacerations on the left arm. HEENT: The head is normocephalic and atraumatic. The pupils are equal and reactive. The conjunctivae are clear and without drainage. Nares are patent and without drainage. Mouth reveals moist mucous membranes and the throat is without erythema and exudate. The external ears are intact. The ear canals are patent and without drainage. The tympanic membranes are intact. Neck is supple with full range of motion and non-tender. There is no neck vein distension. Respiratory: Chest is non-tender. Lungs are clear to auscultation and breath sounds are symmetrical and equal. Cardiovascular: Hear is regular rate and rhythm. There is no murmur or rub auscultated. There is no peripheral edema and pulses are symmetrical and equal. Abdomen: The abdomen is soft and non-tender. There are normal bowel sounds heard in all four quadrants and there is no organomegaly palpated. Musculoskeletal: There is no back pain noted. Extremities are non-tender with full range of motion. There is good capillary refill. There is no peripheral edema or calf tenderness elicited. Neurological: Patient is alert and oriented to person, place and time. The patient has symmetrical motor strength in all four extremities. Psychiatric: The patient has a flat affect. Depressed. SI without a clear plan. Triage Information Reviewed: Yes Vital Signs On Initial Exam: Initial Vitals Temp Pulse Resp BP Pulse Ox 98.8 F 89 16 115/69 98 09/09/16 16:35 09/09/16 16:35 09/09/16 16:35 09/09/16 16:35 09/09/16 16:35 Vital Signs Reviewed: Yes Diagnostics - Vital Signs Vital Signs Temp Pulse Resp BP Pulse Ox 09/09/16 16:35 98.8 F 89 16 115/69 98 - Laboratory Lab Results: Lab Results 09/09/16 09/09/16 09/09/16 Range/Units 16:05 16:05 16:05 WBC 10.4 (3.5-10.8) 10^3/ul RBC 4.45 (4.0-5.4) 10^6/ul Hgb 13.9 (12.0-16.0) g/dl Hct 40 (35-47) % MCV 90 (80-97) fL MCH 31 (27-31) pg MCHC 35 (31-36) g/dl RDW 13 (10.5-15) % Plt Count 263 (150-450) 10^3/ul MPV 8 (7.4-10.4) um3 Neut % (Auto) 69.4 (38-83) % Lymph % (Auto) 23.4 L (25-47) % [place] % (Auto) 5.9 (1-9) % Eos % (Auto) 0.5 (0-6) % Baso % (Auto) 0.8 (0-2) % Absolute Neuts (auto) 7.2 (1.5-7.7) 10^3/ul Absolute Lymphs (auto) 2.4 (1.0-4.8) 10^3/ul Absolute Monos (auto) 0.6 (0-0.8) 10^3/ul Absolute Eos (auto) 0.1 (0-0.6) 10^3/ul Absolute Basos (auto) 0.1 (0-0.2) 10^3/ul Absolute Nucleated RBC 0.01 10^3/ul Nucleated RBC % 0.1 Sodium Pending Potassium Pending Chloride Pending Carbon Dioxide Pending Anion Gap Pending BUN Pending Creatinine Pending Est GFR ( Amer) Pending Est GFR (Non-Af Amer) Pending BUN/Creatinine Ratio Pending Glucose Pending Calcium Pending Total Bilirubin Pending AST Pending ALT Pending Alkaline Phosphatase Pending Total Protein Pending Albumin Pending Globulin Pending Albumin/Globulin Ratio Pending TSH Pending Beta HCG, Quant < 0.60 mIU/mL Urine Color Yellow Urine Appearance Clear Urine pH 6.0 (5-9) Ur Specific [place] 1.024 (1.010-1.030) Urine Protein Negative (Negative) Urine Ketones Negative (Negative) Urine Blood Negative (Negative) Urine Nitrate Negative (Negative) Urine Bilirubin Negative (Negative) Urine Urobilinogen Negative (Negative) Ur Leukocyte Esterase Negative (Negative) Urine Glucose Negative (Negative) Salicylates Pending Acetaminophen Pending Serum Alcohol Pending Result Diagrams: 09/09/16 16:05 09/09/16 16:05 Lab Statement: Any lab studies that have been ordered have been reviewed, and results considered in the medical decision making process. Course/Dx - Course Assessment/Plan: Patient is a 25 year-old female coming to [facility] for MHE. Labs reviewed in the ED. Patient is medically clear for MHE at 1633. We signed voluntary admit paper and she will be admitted to the [facility]. - Differential Dx/Clinical Impression Differential Diagnosis/HQI/PQRI: Positive: Bipolar Disorder, Depression, Suicidal Ideation Provider Diagnosis: Depression Discharge - Discharge Plan Condition: Stable Disposition: PSYCHIATRIC FACILITY-[facility] Referrals: No Primary Care Phys,NOPCP [Primary Care Provider] - The documentation as recorded by the Sergio crouch Billy accurately reflects the service I personally performed and the decisions made by Jesika smith Drew, MD.
[2016-09-09] MEDS: cloNIDine TAB* 0.1 MG PO SCH (20:20)
[2016-09-09] MEDS: CloZAPine TAB* 100 MG TAB PO SCH (20:20)
[2016-09-09] MEDS: QUEtiapine TAB* 100 MG PO SCH (20:20)
[2016-09-10] MEDS ORDERED: Influenza VAC *QUAD* 2016-17* 0.5 ML SYRINGE IM ONE (09:00)
[2016-09-10] MEDS: cloNIDine TAB* 0.1 MG PO SCH ×2 (09:27→20:26)
[2016-09-10] MEDS: Vitamin THERAPEUTIC TAB PO SCH (09:27)
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
[2016-09-10] MEDS: QUEtiapine TAB* 100 MG PO SCH (20:25)
[2016-09-10] MEDS: Topiramate TAB(*) 25 MG PO SCH (20:26)
[2016-09-10] MEDS: CloZAPine TAB* 100 MG TAB PO SCH (20:39)
[2016-09-10] MEDS ORDERED: traZODone TAB* 50 MG TAB PO SCH (21:00)
[2016-09-11] MEDS: Topiramate TAB(*) 25 MG PO SCH ×2 (09:01→20:54)
[2016-09-11] MEDS: Vitamin THERAPEUTIC TAB PO SCH (09:01)
[2016-09-11] MEDS: cloNIDine TAB* 0.1 MG PO SCH ×2 (09:01→20:53)
[2016-09-11] MEDS: QUEtiapine TAB* 25 MG PO PRN ×2 (10:13→17:33)
[2016-09-11] MEDS: CloZAPine TAB* 100 MG TAB PO SCH (20:53)
[2016-09-11] MEDS: QUEtiapine TAB* 100 MG PO SCH (20:54)
[2016-09-12] MEDS: cloNIDine TAB* 0.1 MG PO SCH ×2 (08:17→20:14)
[2016-09-12] MEDS: Vitamin THERAPEUTIC TAB PO SCH (08:17)
[2016-09-12] MEDS: Topiramate TAB(*) 25 MG PO SCH ×2 (08:17→20:14)
[2016-09-12] MEDS: QUEtiapine TAB* 25 MG PO PRN ×2 (10:47→17:41)
--- NOTE | 2016-09-12 12:22 | PN ---
Subjective - Subjective Subjective: I had the opportunity to meet with Greg in her room today for follow-up visit. Greg did not readily make eye contact, admitted that she was feeling "edgy" stating that she is having trouble "looking" at people because she feels irritable, and because of this, she is opting to stay in her room. She is reporting that she is still having nightmares and that she feels tired from her current medication regimen. Educated, re: side effects associated with her current medications. She acknowledged same and reported that she feels "anxious" but sleepy. Objective - Appearance Dysmorphic Features: No Hygiene: Normal Grooming: Disheveled - Behavior Psychomotor Activities: Normal Exhibits Abnormal Movement: No - Attitude and Relatedness Attitude and Relatedness: Irritable Eye Contact: Poor - Speech Quality: Unpressured Latencies: Normal Quantity: Appropriate - Mood Patient's Decription of Mood: "Irritable" - Affect Observed Affect: Constricted Affect Consistent with: Dysphoria - Thought Process Patient's Thought Process: Coherent Thought Content: Yes Passive Wish, No Suicidal Planning, No Homicidal Ideation, No Paranoid Ideation - Sensorium Experiencing Hallucinations: No, Sensorium is Clear Type of Hallucinations: Visual: No, Auditory: No, Command: No - Level of Consciousness Level of Consciousness: Lethargic Orientation: Yes Intact, Yes Orientated to Time, Yes Orientated to Place, Yes Orientated to Person - Impulse Control Impulse Control: Impaired - Insight and Judgement Insight and Judgement: Fair - Medication Management Medication Management Adherence: Yes Plan - Plan Treatment Plan: Name: GREG CRAWFORD Birthdate: 1990 [id number] Medications: Current Medications Acetaminophen (Tylenol Tab*) 650 mg PO Q4H PRN PRN Reason: PAIN or TEMP > 101 F Al Hydrox/Mg Hydrox/Simethicone (Maalox Plus*) 30 ml PO Q4H PRN PRN Reason: INDIGESTION Clonidine HCl (Catapres Tab*) 0.1 mg PO BID [facility] Last Admin: 09/12/16 08:17 Dose: 0.1 mg Clozapine (Clozapine Tab*) 100 mg PO BEDTIME [facility] Last Admin: 09/11/16 20:53 Dose: Not Given Multivitamins (Theragran Tab*) 1 tab PO DAILY [facility] Last Admin: 09/12/16 08:17 Dose: 1 tab Quetiapine Fumarate (Seroquel Tab*) 200 mg PO BEDTIME [facility] Last Admin: 09/11/16 20:54 Dose: 200 mg Quetiapine Fumarate (Seroquel Tab*) 100 mg PO TID PRN PRN Reason: ANXIETY Last Admin: 09/12/16 10:47 Dose: 100 mg Topiramate (Topamax(*)) 50 mg PO BID [facility] Last Admin: 09/12/16 08:17 Dose: 50 mg
[2016-09-12] MEDS: QUEtiapine TAB* 100 MG PO SCH (20:14)
[2016-09-12] MEDS: CloZAPine TAB* 100 MG TAB PO SCH (22:32)
[2016-09-13] MEDS: cloNIDine TAB* 0.1 MG PO SCH ×2 (08:19→20:55)
[2016-09-13] MEDS: Topiramate TAB(*) 25 MG PO SCH ×2 (08:19→20:55)
[2016-09-13] MEDS: Vitamin THERAPEUTIC TAB PO SCH (08:19)
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
[2016-09-13] MEDS ORDERED: CloZAPine TAB* 25 MG TAB PO SCH ×2 (10:23→21:00)
[2016-09-13] MEDS: QUEtiapine TAB* 100 MG PO SCH (20:55)
[2016-09-14 07:44] VITALS: BP 110/60
[2016-09-14] MEDS: Topiramate TAB(*) 25 MG PO SCH (08:31)
[2016-09-14] MEDS: cloNIDine TAB* 0.1 MG PO SCH (08:31)
[2016-09-14] MEDS: Vitamin THERAPEUTIC TAB PO SCH (08:31)
--- NOTE | 2016-09-14 11:49 | PN ---
MHU: Group Therapy Note - Service Type Service Type: 44907 Group Psychotherapy - Cognitive Behavioral Group Therapy ( CBT):Patient was attentive and participatory in CBT programming this morning, and remained in good behavioral control. Patient expressed positive insights regarding relevant treatment interventions and goals.
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
== END 2016-09-14 15:30 | disposition home or self-care (01) | DRG 755 ==
LOC: ED 15:48 → BSU 18:49
PROVIDERS: ADMIT Psychiatry & Neurology Psychiatry; ATTEND Psychiatry & Neurology Psychiatry
DX: F43.10 Post-traumatic stress disorder, unspecified (principal); F60.3 Borderline personality disorder; F17.210 Nicotine dependence, cigarettes, uncomplicated; Z79.899 Other long term (current) drug therapy; Z88.0 Allergy status to penicillin; Z88.8 Allergy status to other drugs, medicaments and biological substances; Z81.1 Family history of alcohol abuse and dependence; Z81.3 Family history of other psychoactive substance abuse and dependence
CPT/HCPCS: 36415; 80053; 80307; 80320; 80329; 81003; 84443; 84702; 85025; 90686; 90853; 99222; 99231; 99238; A9270-GY; G0480

== ENCOUNTER 2016-10-11 14:01 | Inpatient (IN) | payer MEDICAID, OTHER ==
[2016-10-11] MEDS ORDERED: LORazepam TAB(*) 1 MG PO ONE (14:30)
--- NOTE | 2016-10-11 14:37 | ED ---
Psychiatric Complaint - HPI Summary HPI Summary: Patient arrives to the ED from counselors office with CC of worsening anxiety since yesterday. She denies recent stressors. She notes to taking Topimax last night with ETOH. She takes seroquel daily and is prescribed Klonidine but refuses to take it d/t the side effects so hasn't been using it. She endorses self-cutting behavior recently last evening, but nothing today. Denies SI/HI. Has not ingested other medications and denies other ETOH use other than last evening. She is a smoker and lives with her . She states there is a chance of . She also endorses pain near her eyes, but denies other pain. Denies urinary symptoms, weakness, N/V/C/D or abdominal pain. - History Of Current Complaint Chief Complaint: EDMentalHealth Time Seen by Provider: 10/11/16 14:19 Hx Obtained From: Patient Hx Last Menstrual Period: 03/05/16 ?: No Onset/Duration: Gradual Onset Timing: Constant Severity Initially: Moderate Severity Currently: Moderate Character: Depressed, Anxious Aggravating Factor(s): Nothing Alleviating Factor(s): Medication, Counseling Associated Signs And Symptoms: Positive: Paranoid Behavior, Sleep Disturbance, Appetite Change Related History: Positive For: Prior Psychiatric Issues Ingestion History: Type/Name Of Drug - topimax and ETOH, Approximate Time Of Ingestion - last evening - Risk Factor(s) Completed Suicide Risk Factors: [place], Past Suicide Attempt - Allergies/Home Medications Allergies/Adverse Reactions: Allergies Allergy/AdvReac Type Severity Reaction Status Date / Time Penicillins [PCN] Allergy Hives Verified 09/09/16 21:25 Trazodone Allergy Hives Verified 09/09/16 21:25 Zolpidem [From Ambien] Allergy See Comment Verified 09/09/16 21:25 PMH/Surg Hx/FS Hx/Imm Hx Previously Healthy: Yes Endocrine/Hematology History: Denies: Hx Diabetes, Hx Thyroid Disease Cardiovascular History: Denies: Hx Hypertension Respiratory History: Reports: Hx Chronic Bronchitis Denies: Hx Asthma, Hx Chronic Obstructive Pulmonary Disease (COPD) GI History: Denies: Hx Ulcer Sensory History: Reports: Hx Contacts or Glasses Denies: Hx Hearing Aid Opthamlomology History: Reports: Hx Contacts or Glasses Neurological History: Reports: Hx Headaches, Other Neuro Impairments/Disorders - HX of banging head Psychiatric History: Reports: Hx Anxiety, Hx Eating Disorder - hx bulimia, Hx Depression, Hx Post Traumatic Stress Disorder, Hx Inpatient Treatment, Hx Community Mental Health Tx, Hx Suicide Attempt, Hx of Violent Episodes Against Others, Other Psychiatric Issues/Disorders - HX suicide attempts - Surgical History Surgery Procedure, Year, and Place: RUE fx Infectious Disease History: No Infectious Disease History: Denies: Hx Hepatitis, Hx Human Immunodeficiency Virus (HIV), Traveled Outside the [place] in Last 30 Days - Family History Known Family History: Positive: Hypertension, Respiratory Disease - COPD, Other - aunt - bipolar disorder, depression. mom/sister/grandmother - anxiety. Family History: FHx of anxiety, depression - Social History Alcohol Use: Occasionally Hx Substance Use: Yes Substance Use Type: Reports: Marijuana Substance Use Comment - Amount & Last Used: occasionaly Hx Tobacco Use: Yes Smoking Status (MU): Former Smoker Type: Cigarettes Amount Used/How Often: 1 ppd Have You Smoked in the Last Year: Yes Review of Systems Constitutional: Negative Cardiovascular: Negative Respiratory: Negative Gastrointestinal: Negative Positive: no symptoms reported, see HPI Musculoskeletal: Negative Positive: Other - self cutting to left forearm over dorsum Positive: Headache Positive: Anxious, Depressed All Other Systems Reviewed And Are Negative: Yes Physical Exam Triage Information Reviewed: Yes Vital Signs On Initial Exam: Initial Vitals Temp Pulse Resp BP Pulse Ox 98.1 F 102 22 121/83 96 10/11/16 14:18 10/11/16 14:18 10/11/16 14:18 10/11/16 14:18 10/11/16 14:18 Vital Signs Reviewed: Yes Appearance: Positive: Well-Appearing, No Pain Distress, Well-Nourished Skin: Positive: Warm, Skin Color Reflects Adequate Perfusion Head/Face: Positive: Normal Head/Face Inspection Eyes: Positive: EOMI, ALMA ROSA, Conjunctiva Clear Neck: Positive: Supple, Nontender, No Lymphadenopathy Respiratory/Lung Sounds: Positive: Clear to Auscultation, Breath Sounds Present Cardiovascular: Positive: Normal, RRR, Pulses are Symmetrical in both Upper and Lower Extremities Musculoskeletal: Positive: Normal, Strength/ROM Intact Neurological: Positive: Sensory/Motor Intact, Alert, Oriented to Person Place, Time Psychiatric: Positive: Anxious, Depressed AVPU Assessment: Alert - Vowinckel Coma Scale Best Eye Response: 4 - Spontaneous Best Motor Response: 6 - Obeys Commands Best Verbal Response: 5 - Oriented Coma Scale Total: 15 Diagnostics - Vital Signs Vital Signs Temp Pulse Resp BP Pulse Ox 10/11/16 14:18 98.1 F 102 22 121/83 96 - Laboratory Result Diagrams: 10/11/16 14:37 10/11/16 14:37 Lab Statement: Any lab studies that have been ordered have been reviewed, and results considered in the medical decision making process. Course/Dx - Course Course Of Treatment: Patients labs drawn with HCG d/t suspician of . Patient arrives with noticable self-injury of cutting hbehavior over dorsum of left arm. She states worsening anxiety with depression. She is refusing to take her prescribed Klonidine and states she took topimax last night with ETOH. She arrives today as a 945 from her counselors office for worsening anxiety. Denies SI/HI. MHU evaluation. - Differential Dx/Clinical Impression Differential Diagnosis/HQI/PQRI: Positive: Alcohol Intoxication, Anxiety, Depression, Suicidal Gesture Provider Diagnosis: Depression, Mood disorder Discharge - Discharge Plan Condition: Stable Disposition: [facility]
[2016-10-11 14:38] LABS: Urine Bilirubin Negative (Negative); Urine Glucose Negative (Negative); Urine Nitrite Negative (Negative)
[2016-10-11 14:48] LABS: Benzodiazepine Urine Screen None Detected (None Detect)
[2016-10-11 14:53] LABS: Hematocrit 44 % (35-47); Hemoglobin 14.7 g/dl (12.0-16.0); Mean Corpuscular HGB Conc 33 g/dl (31-36); Mean Corpuscular Hemoglobin 30 pg (27-31); Mean Corpuscular Volume 90 fL (80-97); Mean Platelet Volume 8 um3 (7.4-10.4); Red Blood Count 4.88 10^6/ul (4.0-5.4); Red Cell Distribution Width 13 % (10.5-15); White Blood Count 10.5 10^3/ul (3.5-10.8)
[2016-10-11 15:08] LABS: ALT 12 U/L (7-52); AST 16 U/L (13-39); Albumin 4.3 g/dL (3.2-5.2); Alkaline Phosphatase 62 U/L (34-104); Anion Gap 7 mmol/L (2-11); BUN/Creatinine Ratio 17.1 (8-20); Blood Urea Nitrogen 13 mg/dL (6-24); CO2 Carbon Dioxide 21 mmol/L (22-32); Calcium 9.4 mg/dL (8.6-10.3); Chloride 106 mmol/L (101-111); EGFR African American 118.3 (>60); Globulin 3.3 g/dL (2-4); Glucose 86 mg/dL (70-100); Potassium 3.8 mmol/L (3.5-5.0); Sodium 134 mmol/L (133-145); Total Protein 7.6 g/dL (6.4-8.9)
[2016-10-11 15:28] LABS: Acetaminophen < 15 mcg/mL; Alcohol < 10 mg/dL (<10); Salicylate < 2.50 mg/dL (<30)
[2016-10-11 15:38] LABS: TSH (Thyroid Stimulating Horm) 0.55 mcIU/mL (0.34-5.60)
[2016-10-11 16:04] LABS: Benzodiazepine Urine Screen None Detected (None Detect)
--- NOTE | 2016-10-11 19:54 | ED ---
Cyn Escamilla Auryana, scribed for Raymon Canchola MD on 10/11/16 at 1952 . Progress - Progress Note Progress Note: 19: 50 signed 9.13 Voluntary admission to [facility] behavioral [facility] diagnosis: depression, mood disorder - Consult/PCP Time Called: 15:45 Course/Dx - Diagnoses Provider Diagnoses: Depression, Mood disorder - Provider Notifications Discussed Care Of Patient With: Behavioral health staff Time Discussed With Above Provider: 19:50 - sign voluntary admission Instructed by Provider To: Admit As Inpatient - to [facility] behavioral [facility] The documentation as recorded by the Cyn crouch Auryana accurately reflects the service I personally performed and the decisions made by , Raymon Canchola MD.
[2016-10-12] MEDS ORDERED: Al Hydrox/Mg Hydrox/Simet LIQ* 30 ML UDC PO PRN (04:50)
[2016-10-12] MEDS ORDERED: Acetaminophen TAB* 325 MG PO PRN (04:50)
[2016-10-12] MEDS: Vitamin THERAPEUTIC TAB PO SCH (08:16)
[2016-10-12] MEDS: Topiramate TAB(*) 25 MG PO SCH ×2 (08:16→21:27)
[2016-10-12] MEDS: cloNIDine TAB* 0.1 MG PO SCH ×2 (08:16→21:27)
[2016-10-12] MEDS: QUEtiapine TAB* 100 MG PO PRN ×2 (08:17→15:40)
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
[2016-10-12] MEDS: QUEtiapine TAB* 100 MG PO SCH (21:26)
[2016-10-13] MEDS: Topiramate TAB(*) 25 MG PO SCH ×2 (09:08→20:23)
[2016-10-13] MEDS: cloNIDine TAB* 0.1 MG PO SCH ×2 (09:08→20:24)
[2016-10-13] MEDS: Vitamin THERAPEUTIC TAB PO SCH (09:08)
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
[2016-10-13] MEDS: QUEtiapine TAB* 100 MG PO PRN (18:49)
[2016-10-13] MEDS: QUEtiapine TAB* 100 MG PO SCH (20:24)
[2016-10-14] MEDS: Topiramate TAB(*) 25 MG PO SCH (08:33)
[2016-10-14] MEDS: Vitamin THERAPEUTIC TAB PO SCH (08:33)
[2016-10-14] MEDS: cloNIDine TAB* 0.1 MG PO SCH ×2 (08:33→21:13)
--- NOTE | 2016-10-14 13:31 | PN ---
MHU: Group Therapy Note - Service Type Service Type: [id number] Group Psychotherapy - Cognitive Behavioral Group Therapy ( CBT):Patient presented in CBT programming as disorganized and disruptive in discussion and needed repeated redirection to attend to presented materials.
--- NOTE | 2016-10-14 13:46 | PN ---
Subjective - Subjective Service Type: 47355 Hosp care 15 min low complexity Subjective: The patient is tearful and labile, at one point slamming her fist against the wall. She is still not able to tolerate eating anything and questions whether her topiramate is causing this. She is not participating in group and is isolative mostly to her room. Objective - Appearance Appearance: Well Developed/Nourished Dysmorphic Features: No Hygiene: Normal Grooming: Well Kept - Behavior Psychomotor Activities: Normal Exhibits Abnormal Movement: No - Attitude and Relatedness Attitude and Relatedness: Needy Eye Contact: Poor - Speech Quality: Unpressured Latencies: Normal Quantity: Appropriate - Mood Patient's Decription of Mood: "Terrible" - Affect Observed Affect: Tearful - Thought Process Patient's Thought Process: Coherent Thought Content: Yes Suicidal Planning, No Passive Wish, No Homicidal Ideation, No Paranoid Ideation - Sensorium Experiencing Hallucinations: No, Sensorium is Clear Type of Hallucinations: Visual: No, Auditory: No, Command: No - Level of Consciousness Level of Consciousness: Agitated Orientation: Yes Intact, Yes Orientated to Time, Yes Orientated to Place, Yes Orientated to Person - Impulse Control Impulse Control: Tenuous - Insight and Judgement Insight and Judgement: Fair - Group Participation Particating in Group Activities: No - Medication Management Medication Management Adherence: Yes Assessment - Assessment Merits Inpatient Hospitalization: For Immediate Safety, For Stabilization Inpatient DSM-IV Dx: PTSD Clinical Impression: 25 y.o. single, white female with a history of early life trauma, complex PTSD and borderline PD, who returns to the hospital on a 9.45 from [facility], where she presented with symptoms of severe dissociation and suicidality with plans to either cut herself or overdose on medications. Plan - Plan Treatment Plan: Name: GREG CRAWFORD Birthdate: 1990 [id number] We have continued outpatient medications including quetiapine, topiramate and clonidine. Will d/c topiramate, as may be suppressing appetite. Low dose clonazepam available prn for anxiety. A healthy, supportive relationship is offered. Continued Medication Management: Continue Outpt Medication Medications: Current Medications Acetaminophen (Tylenol Tab*) 650 mg PO Q4H PRN PRN Reason: PAIN or TEMP > 101 F Al Hydrox/Mg Hydrox/Simethicone (Maalox Plus*) 30 ml PO Q4H PRN PRN Reason: INDIGESTION Clonidine HCl (Catapres Tab*) 0.1 mg PO BID [facility] Last Admin: 10/14/16 08:33 Dose: 0.1 mg Multivitamins (Theragran Tab*) 1 tab PO DAILY [facility] Last Admin: 10/14/16 08:33 Dose: 1 tab Quetiapine Fumarate (Seroquel Tab*) 200 mg PO BEDTIME [facility] Last Admin: 10/13/16 20:24 Dose: 200 mg Quetiapine Fumarate (Seroquel Tab*) 100 mg PO TID PRN PRN Reason: ANXIETY Last Admin: 10/13/16 18:49 Dose: 100 mg - Discharge Plan Discharge Plan: Inpatient Hospitalization
[2016-10-14] MEDS: clonazePAM TAB(*) 0.5 MG PO PRN (13:49)
[2016-10-14] MEDS: QUEtiapine TAB* 100 MG PO PRN (18:38)
[2016-10-14] MEDS: QUEtiapine TAB* 100 MG PO SCH ×2 (21:20→21:40)
[2016-10-15] MEDS: clonazePAM TAB(*) 0.5 MG PO PRN (06:51)
[2016-10-15 08:03] VITALS: BP 118/71
[2016-10-15] MEDS: Vitamin THERAPEUTIC TAB PO SCH (08:18)
[2016-10-15] MEDS: cloNIDine TAB* 0.1 MG PO SCH (08:18)
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
== END 2016-10-15 15:25 | disposition home or self-care (01) | DRG 882 ==
LOC: ED 14:01 → BSU 23:20
PROVIDERS: ADMIT Psychiatry & Neurology Psychiatry; ATTEND Psychiatry & Neurology Psychiatry
PROC: GZHZZZZ Group Psychotherapy (ICD-10-PCS; principal; 2016-10-14)
DX: F43.10 Post-traumatic stress disorder, unspecified (principal); F50.2 Bulimia nervosa; F60.3 Borderline personality disorder; Z62.810 Personal history of physical and sexual abuse in childhood; F32.9 Major depressive disorder, single episode, unspecified; F41.9 Anxiety disorder, unspecified; J42 Unspecified chronic bronchitis; F12.90 Cannabis use, unspecified, uncomplicated; Z91.410 Personal history of adult physical and sexual abuse; Z88.0 Allergy status to penicillin; Z88.8 Allergy status to other drugs, medicaments and biological substances; Z81.1 Family history of alcohol abuse and dependence; Z81.4 Family history of other substance abuse and dependence; Z91.5 Personal history of self-harm; Z82.49 Family history of ischemic heart disease and other diseases of the circulatory system; Z82.5 Family history of asthma and other chronic lower respiratory diseases; Z81.8 Family history of other mental and behavioral disorders; Z87.891 Personal history of nicotine dependence; Z72.89 Other problems related to lifestyle
CPT/HCPCS: 36415; 80053; 80307; 80320; 80329; 81003; 84443; 84702; 85025; 90853; 99222; 99231; 99238; 99406; A9270-GY; G0480

== ENCOUNTER 2016-10-21 18:42 | Inpatient (IN) | payer MEDICAID ==
[2016-10-21 20:10] LABS: Hematocrit 40 % (35-47); Hemoglobin 13.4 g/dl (12.0-16.0); Mean Corpuscular HGB Conc 34 g/dl (31-36); Mean Corpuscular Hemoglobin 31 pg (27-31); Mean Corpuscular Volume 90 fL (80-97); Mean Platelet Volume 8 um3 (7.4-10.4); Red Blood Count 4.39 10^6/ul (4.0-5.4); Red Cell Distribution Width 13 % (10.5-15); White Blood Count 9.4 10^3/ul (3.5-10.8)
[2016-10-21 20:12] LABS: Urine Bilirubin Negative (Negative); Urine Glucose Negative (Negative); Urine Nitrite Negative (Negative)
[2016-10-21] MEDS ORDERED: Ondansetron ODT TAB* 4 MG PO ONE (20:19)
[2016-10-21 20:21] LABS: ALT 9 U/L (7-52); AST 16 U/L (13-39); Albumin 3.9 g/dL (3.2-5.2); Alkaline Phosphatase 56 U/L (34-104); Anion Gap 5 mmol/L (2-11); BUN/Creatinine Ratio 14.7 (8-20); Blood Urea Nitrogen 11 mg/dL (6-24); CO2 Carbon Dioxide 24 mmol/L (22-32); Chloride 105 mmol/L (101-111); EGFR African American 120.1 (>60); EGFR Non-African American 93.4 (>60); Globulin 3.1 g/dL (2-4); Glucose 89 mg/dL (70-100); Potassium 3.8 mmol/L (3.5-5.0); Sodium 134 mmol/L (133-145)
[2016-10-21 20:23] LABS: Benzodiazepine Urine Screen None Detected (None Detect)
[2016-10-21 20:30] LABS: Acetaminophen < 15 mcg/mL; Alcohol < 10 mg/dL (<10); Salicylate < 2.50 mg/dL (<30)
[2016-10-21 20:41] LABS: TSH (Thyroid Stimulating Horm) 1.19 mcIU/mL (0.34-5.60)
[2016-10-21] MEDS ORDERED: Albuterol HFA INHALER* 8 gm MDI INH PRN (21:03)
--- NOTE | 2016-10-21 22:30 | ED ---
Neela Escamilla Alok, scribed for Jude Blunt MD on 10/21/16 at 2036 . Psychiatric Complaint - HPI Summary HPI Summary: 25F presents to the ED after cutting her left arm. Pt has cut her arm before and takes seroquel and klonopin for depression. Pt has h/o suicide attempts. - History Of Current Complaint Chief Complaint: EDMentalHealth Time Seen by Provider: 10/21/16 19:52 Hx Obtained From: Patient Hx Last Menstrual Period: 03/05/16 Severity Initially: Moderate Severity Currently: Moderate Character: Depressed Has Suicidal: Reports: Has Prior Attempt(s) - Allergies/Home Medications Allergies/Adverse Reactions: Allergies Allergy/AdvReac Type Severity Reaction Status Date / Time Penicillins [PCN] Allergy Hives Verified 09/09/16 21:25 Trazodone Allergy Hives Verified 09/09/16 21:25 Zolpidem [From Ambien] Allergy See Comment Verified 09/09/16 21:25 PMH/Surg Hx/FS Hx/Imm Hx Endocrine/Hematology History: Denies: Hx Diabetes, Hx Thyroid Disease Cardiovascular History: Denies: Hx Hypertension Respiratory History: Reports: Hx Chronic Bronchitis Denies: Hx Asthma, Hx Chronic Obstructive Pulmonary Disease (COPD) GI History: Denies: Hx Ulcer Sensory History: Reports: Hx Contacts or Glasses Denies: Hx Hearing Aid Opthamlomology History: Reports: Hx Contacts or Glasses Neurological History: Reports: Hx Headaches, Other Neuro Impairments/Disorders - HX of banging head Psychiatric History: Reports: Hx Anxiety, Hx Eating Disorder - hx bulimia, Hx Depression, Hx Post Traumatic Stress Disorder, Hx Inpatient Treatment, Hx Community Mental Health Tx, Hx Suicide Attempt, Hx of Violent Episodes Against Others, Other Psychiatric Issues/Disorders - HX suicide attempts - Surgical History Surgery Procedure, Year, and Place: RUE fx Infectious Disease History: Denies: Hx Hepatitis, Hx Human Immunodeficiency Virus (HIV), Traveled Outside the [place] in Last 30 Days - Family History Known Family History: Positive: Hypertension, Respiratory Disease - COPD, Other - aunt - bipolar disorder, depression. mom/sister/grandmother - anxiety. Family History: FHx of anxiety, depression - Social History Occupation: Unemployed Alcohol Use: states she drank several times prior to admission- "unlike me" Hx Substance Use: Yes Substance Use Type: Reports: Marijuana Substance Use Comment - Amount & Last Used: drug screen positive for marijuana Hx Tobacco Use: Yes Smoking Status (MU): Light Every Day Tobacco Smoker Type: Cigarettes Amount Used/How Often: 1/2 PPD Have You Smoked in the Last Year: Yes Review of Systems Negative: Fever Positive: Other - multiple superficial lacerations left forearm All Other Systems Reviewed And Are Negative: Yes Physical Exam Triage Information Reviewed: Yes Vital Signs On Initial Exam: Initial Vitals Temp Pulse Resp BP Pulse Ox 97.9 F 88 16 137/92 100 10/21/16 18:49 10/21/16 18:49 10/21/16 18:49 10/21/16 18:49 10/21/16 18:49 Vital Signs Reviewed: Yes Appearance: Positive: Well-Appearing, No Pain Distress Skin: Positive: Other - multiple superficial lacerations left dorsal forearm Head/Face: Positive: Normal Head/Face Inspection Eyes: Positive: Normal ENT: Positive: Normal ENT inspection Neck: Positive: Supple, Nontender Respiratory/Lung Sounds: Positive: Clear to Auscultation, Breath Sounds Present Cardiovascular: Positive: RRR Abdomen Description: Positive: Nontender, Soft Bowel Sounds: Positive: Present Musculoskeletal: Positive: Normal Neurological: Positive: Normal Psychiatric: Positive: Other - Flat/Affect Diagnostics - Vital Signs Vital Signs Temp Pulse Resp BP Pulse Ox 10/21/16 20:08 98.0 F 60 16 101/61 98 10/21/16 18:49 97.9 F 88 16 137/92 100 - Laboratory Lab Results: Lab Results 10/21/16 10/21/16 10/21/16 Range/Units 19:30 19:30 19:42 WBC 9.4 (3.5-10.8) 10^3/ul RBC 4.39 (4.0-5.4) 10^6/ul Hgb 13.4 (12.0-16.0) g/dl Hct 40 (35-47) % MCV 90 (80-97) fL MCH 31 (27-31) pg MCHC 34 (31-36) g/dl RDW 13 (10.5-15) % Plt Count 250 (150-450) 10^3/ul MPV 8 (7.4-10.4) um3 Neut % (Auto) 62.8 (38-83) % Lymph % (Auto) 30.5 (25-47) % Dodge % (Auto) 5.2 (1-9) % Eos % (Auto) 1.1 (0-6) % Baso % (Auto) 0.4 (0-2) % Absolute Neuts (auto) 5.9 (1.5-7.7) 10^3/ul Absolute Lymphs (auto) 2.9 (1.0-4.8) 10^3/ul Absolute Monos (auto) 0.5 (0-0.8) 10^3/ul Absolute Eos (auto) 0.1 (0-0.6) 10^3/ul Absolute Basos (auto) 0 (0-0.2) 10^3/ul Absolute Nucleated RBC 0.01 10^3/ul Nucleated RBC % 0.1 Sodium (133-145) mmol/L Potassium (3.5-5.0) mmol/L Chloride (101-111) mmol/L Carbon Dioxide (22-32) mmol/L Anion Gap (2-11) mmol/L BUN (6-24) mg/dL Creatinine (0.51-0.95) mg/dL Est GFR ( Amer) (>60) Est GFR (Non-Af Amer) (>60) BUN/Creatinine Ratio (8-20) Glucose (70-100) mg/dL Calcium (8.6-10.3) mg/dL Total Bilirubin (0.2-1.0) mg/dL AST (13-39) U/L ALT (7-52) U/L Alkaline Phosphatase (34-104) U/L Total Protein (6.4-8.9) g/dL Albumin (3.2-5.2) g/dL Globulin (2-4) g/dL Albumin/Globulin Ratio (1-3) TSH Beta HCG, Quant Urine Color Straw Urine Appearance Clear Urine pH 7.0 (5-9) Ur Specific [place] 1.008 L (1.010-1.030) Urine Protein Negative (Negative) Urine Ketones Negative (Negative) Urine Blood Negative (Negative) Urine Nitrate Negative (Negative) Urine Bilirubin Negative (Negative) Urine Urobilinogen Negative (Negative) Ur Leukocyte Esterase Negative (Negative) Urine Glucose Negative (Negative) Salicylates (<30) mg/dL Urine Opiates Screen None detected (None Detect) Acetaminophen mcg/mL Ur Barbiturates Screen None detected (None Detect) Ur Phencyclidine Scrn None detected (None Detect) Ur Amphetamines Screen None detected (None Detect) U Benzodiazepines Scrn None detected (None Detect) Urine Cocaine Screen None detected (None Detect) U Cannabinoids Screen Presumptive positive H (None Detect) Serum Alcohol (<10) mg/dL 10/21/16 Range/Units 19:42 WBC (3.5-10.8) 10^3/ul RBC (4.0-5.4) 10^6/ul Hgb (12.0-16.0) g/dl Hct (35-47) % MCV (80-97) fL MCH (27-31) pg MCHC (31-36) g/dl RDW (10.5-15) % Plt Count (150-450) 10^3/ul MPV (7.4-10.4) um3 Neut % (Auto) (38-83) % Lymph % (Auto) (25-47) % Dodge % (Auto) (1-9) % Eos % (Auto) (0-6) % Baso % (Auto) (0-2) % Absolute Neuts (auto) (1.5-7.7) 10^3/ul Absolute Lymphs (auto) (1.0-4.8) 10^3/ul Absolute Monos (auto) (0-0.8) 10^3/ul Absolute Eos (auto) (0-0.6) 10^3/ul Absolute Basos (auto) (0-0.2) 10^3/ul Absolute Nucleated RBC 10^3/ul Nucleated RBC % Sodium 134 (133-145) mmol/L Potassium 3.8 (3.5-5.0) mmol/L Chloride 105 (101-111) mmol/L Carbon Dioxide 24 (22-32) mmol/L Anion Gap 5 (2-11) mmol/L BUN 11 (6-24) mg/dL Creatinine 0.75 (0.51-0.95) mg/dL Est GFR ( Amer) 120.1 (>60) Est GFR (Non-Af Amer) 93.4 (>60) BUN/Creatinine Ratio 14.7 (8-20) Glucose 89 (70-100) mg/dL Calcium 9.0 (8.6-10.3) mg/dL Total Bilirubin 0.30 (0.2-1.0) mg/dL AST 16 (13-39) U/L ALT 9 (7-52) U/L Alkaline Phosphatase 56 (34-104) U/L Total Protein 7.0 (6.4-8.9) g/dL Albumin 3.9 (3.2-5.2) g/dL Globulin 3.1 (2-4) g/dL Albumin/Globulin Ratio 1.3 (1-3) TSH Pending Beta HCG, Quant Pending Urine Color Urine Appearance Urine pH (5-9) Ur Specific [place] (1.010-1.030) Urine Protein (Negative) Urine Ketones (Negative) Urine Blood (Negative) Urine Nitrate (Negative) Urine Bilirubin (Negative) Urine Urobilinogen (Negative) Ur Leukocyte Esterase (Negative) Urine Glucose (Negative) Salicylates < 2.50 (<30) mg/dL Urine Opiates Screen (None Detect) Acetaminophen < 15 mcg/mL Ur Barbiturates Screen (None Detect) Ur Phencyclidine Scrn (None Detect) Ur Amphetamines Screen (None Detect) U Benzodiazepines Scrn (None Detect) Urine Cocaine Screen (None Detect) U Cannabinoids Screen (None Detect) Serum Alcohol < 10 (<10) mg/dL Result Diagrams: 10/21/16 19:42 10/21/16 19:42 Lab Statement: Any lab studies that have been ordered have been reviewed, and results considered in the medical decision making process. Course/Dx - Differential Dx/Clinical Impression Provider Diagnosis: Depression, Laceration of left upper arm Discharge - Discharge Plan Condition: Stable Disposition: OTHER Discharge Disposition Comment: change of shift The documentation as recorded by the Neela crouch Alok accurately reflects the service I personally performed and the decisions made by me, Jude Blunt MD.
[2016-10-22] MEDS ORDERED: Acetaminophen TAB* 325 MG PO PRN (08:14)
[2016-10-22] MEDS ORDERED: Nicotine Inhaler* 10 MG AMP INH PRN (08:14)
[2016-10-22] MEDS ORDERED: Nicotine GUM* 2 MG PO PRN (08:14)
[2016-10-22] MEDS ORDERED: Al Hydrox/Mg Hydrox/Simet LIQ* 30 ML UDC PO PRN (08:14)
[2016-10-22] MEDS ORDERED: Mouth Piece, Nicotine* 1 EACH CARTRIDGE INH SCH (08:14)
[2016-10-22] MEDS: clonazePAM TAB(*) 0.5 MG PO PRN (09:17)
[2016-10-22] MEDS: cloNIDine TAB* 0.1 MG PO SCH ×2 (09:18→21:10)
[2016-10-22] MEDS: QUEtiapine TAB* 100 MG PO PRN (09:18)
[2016-10-22] MEDS: Vitamin THERAPEUTIC TAB PO SCH (09:18)
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
[2016-10-22] MEDS: QUEtiapine TAB* 100 MG PO SCH (21:10)
[2016-10-23] MEDS: cloNIDine TAB* 0.1 MG PO SCH ×2 (08:17→21:37)
[2016-10-23] MEDS: Vitamin THERAPEUTIC TAB PO SCH (08:17)
[2016-10-23] MEDS: QUEtiapine TAB* 100 MG PO PRN (08:20)
--- NOTE | 2016-10-23 13:16 | PN ---
Subjective - Subjective Subjective: Today I had the opportunity to see Greg on follow-up. Greg was seen in her room and was in bed, but did sit up when I entered her room to speak with her. She is reporting that she is still having high levels of anxiety, and states that the anti-anxiety medication is making her quite sleepy. She is also concerned about her ongoing issues with "losing time." She discussed with me today her multiple recent hospitalizations and the acknowledgement that her brother is a "big trigger" for her. Her left forearm area remains wrapped, she is denying any pain in the area; reporting only "itching." She continues to acknowledge the presence of suicidal ideation if discharged- but assures me that she is "safe in here" (referring to the hospital). Case reviewed with Dr. Gould. Objective - Appearance Dysmorphic Features: No Hygiene: Normal Grooming: Disheveled - Behavior Psychomotor Activities: Normal Exhibits Abnormal Movement: No - Attitude and Relatedness Attitude and Relatedness: Cooperative Eye Contact: Fair - Speech Quality: Unpressured Latencies: Normal Quantity: Appropriate - Mood Patient's Decription of Mood: "Anxious" - Affect Observed Affect: Constricted - Thought Process Patient's Thought Process: Coherent Thought Content: Yes Passive Wish - Admits to same when questioned, Yes Suicidal Planning - If discharged, No Homicidal Ideation, No Paranoid Ideation - Sensorium Experiencing Hallucinations: No, Sensorium is Clear Type of Hallucinations: Visual: No, Auditory: No, Command: No - Level of Consciousness Level of Consciousness: Lethargic Orientation: Yes Orientated to Place, Yes Orientated to Person, No Orientated to Time - Impulse Control Impulse Control: Tenuous - Insight and Judgement Insight and Judgement: Fair - Group Participation Particating in Group Activities: No Assessment - Assessment Clinical Impression: Greg is a 25 year old female admitted after cutting left arm in a suicide attempt who is reporting dissociative symptoms and maintains suicidal ideation, if discharged. Plan - Plan Treatment Plan: Name: GREG CRAWFORD Birthdate: 1990 [id number] Medications: Current Medications Acetaminophen (Tylenol Tab*) 650 mg PO Q4H PRN PRN Reason: PAIN or TEMP > 101 F Al Hydrox/Mg Hydrox/Simethicone (Maalox Plus*) 30 ml PO Q4H PRN PRN Reason: INDIGESTION Clonazepam (Klonopin Tab(*)) 0.5 mg PO TID PRN PRN Reason: AGITATION, ANXIETY, INSOMNIA Last Admin: 10/22/16 09:17 Dose: 0.5 mg Clonidine HCl (Catapres Tab*) 0.1 mg PO BID [facility] Last Admin: 10/23/16 08:17 Dose: 0.1 mg Device (Nicotine Mouth Piece*) 1 each INH .[facility] Multivitamins (Theragran Tab*) 1 tab PO DAILY [facility] Last Admin: 10/23/16 08:17 Dose: 1 tab Nicotine (Nicotine Inhaler*) 10 mg INH Q2H PRN PRN Reason: CRAVING Nicotine Polacrilex (Nicotine Gum*) 2 mg PO Q2H PRN PRN Reason: CRAVING Quetiapine Fumarate (Seroquel Tab*) 100 mg PO TID PRN PRN Reason: ANXIETY Last Admin: 10/23/16 08:20 Dose: 100 mg Quetiapine Fumarate (Seroquel Tab*) 200 mg PO BEDTIME [facility] Last Admin: 10/22/16 21:10 Dose: 200 mg
[2016-10-23] MEDS: clonazePAM TAB(*) 0.5 MG PO PRN ×2 (16:35→20:04)
[2016-10-23] MEDS: QUEtiapine TAB* 100 MG PO SCH (20:03)
[2016-10-24] MEDS: QUEtiapine TAB* 100 MG PO PRN (08:09)
[2016-10-24] MEDS: Vitamin THERAPEUTIC TAB PO SCH (09:42)
[2016-10-24] MEDS: cloNIDine TAB* 0.1 MG PO SCH ×2 (09:42→23:15)
[2016-10-24] MEDS: clonazePAM TAB(*) 0.5 MG PO PRN ×2 (15:52→20:20)
[2016-10-24] MEDS: QUEtiapine TAB* 100 MG PO SCH (23:15)
[2016-10-25] MEDS ORDERED: diPHENhydraMINE PO* 50 MG PO PRN (00:55)
[2016-10-25] MEDS: cloNIDine TAB* 0.1 MG PO SCH ×2 (01:21→09:47)
[2016-10-25] MEDS: QUEtiapine TAB* 100 MG PO SCH (01:21)
[2016-10-25 07:37] VITALS: BP 109/66
[2016-10-25] MEDS: Vitamin THERAPEUTIC TAB PO SCH (09:47)
[2016-10-25] MEDS: clonazePAM TAB(*) 0.5 MG PO PRN (09:48)
--- NOTE | 2016-10-26 00:33 | DS ---
DISCHARGE SUMMARY: DATE OF ADMISSION: 10/22/16 DATE OF DISCHARGE: 10/25/16 DISCHARGE DIAGNOSES: As follows: Shelton I: Complex posttraumatic stress disorder. Shelton II: Borderline personality disorder. Shelton III: None. Shelton IV: Severe primary support, housing stressors. Shelton V: At the time of admission was 30 and at the time of discharge is 55. CONDITION AT THE TIME OF DISCHARGE: Improved. The patient is no longer having thoughts of cutting herself or harming herself in any way. She is future oriented indicating that she would like to follow up with her outpatient provider on , October 28. She has been visited both by her fiance, Sina, as well as her mother, who are both in agreement with the discharge plan and they are here to pick her up and take her home. The patient gives numerous reason for wanting to stay alive, most notably her pending marriage to her fiance. Furthermore, the patient is tolerating her medications well and she is compliant with these and looking to continue taking them on an outpatient basis. One change in her set of stressors is that we have identified her social isolation as a main trigger for this admission. It is being recommended that she seek residential treatment in [facility] and this process has already been started by the [facility]. We are strongly in support of this plan and the patient is in agreement to move forward with this on the outpatient basis. MENTAL STATUS EXAM: At the time of discharge is as follows: The patient is a young white female with dyed blue hair, which is short. She has a nasal piercing. She is dressed in casual comfortable clothing including black T-shirt and black shorts. She appears to be fairly well groomed. The patient is calm and cooperative, expressive, and making good eye contact with this clinician. Her speech has a normal rate, tone, and volume. Mood is anxious with a corresponding anxious affect. Thought process is linear and goal directed. Thought content is significant for her desire to be discharged from the hospital. She denies suicidal or homicidal ideations. She denies auditory or visualization hallucinations. There is no evidence of paranoid thought process. Insight and judgment are fair giving her willingness to follow up with outpatient services. Cognitively, she is awake and alert with what would appear to be an average intellect. DISCHARGE INSTRUCTIONS: For the patient are as follows: A. Medications: 1. The patient is taking quetiapine 200 mg p.o. nightly. 2. She takes clonidine 0.1 mg p.o. b.i.d. 3. She is also taking quetiapine 100 mg 3 times daily on an as needed basis for anxiety. 4. Klonopin 0.5 mg up to 3 times daily also p.r.n. for anxiety. B. Diet: Regular. C. Activities: As tolerated. The patient is strongly encouraged to abstain from tobacco products; however, she is declining the offer of continuing nicotine replacement therapy indicating her preference at this time to continue smoking cigarettes. There are no diagnostic studies pending at the time of discharge. D. Followup Care: The patient has a followup appointment at [facility] on , 10/28/16. HOSPITAL COURSE: As follows: PART-A. Reason for admission: The patient is a 25-year-old, single, white female with a history of very severe borderline personality disorder as well as affective problems and early life trauma, who is well known to me from 5 recent admissions here on the behavioral health unit between May 2016 and October 2016 , who now returns to our facility via ambulance only 6 days following her most recent discharge and again presenting with suicidal ideation. Apparently, the patient has cut herself earlier on the day of her presentation and had similarly cut herself the day just prior to that. She endorses ongoing suicidal ideations stating that she is tired of living like this and does not believe that she will ever feel better. She expresses that she feels like she is wasting people's time and that when they try to help her, they can never fully get her feeling better. She indicates that she has a large quantity of medications that she has been keeping at home, which she can take to end her life. She states that she has attempted suicide in the past and felt disappointment when this was not successful. She was ambivalent about admission but was agreeable to come in on a voluntary basis. Symptoms at the time of admission include depressed mood with associated neurovegetative symptoms as well as dissociative anxiety. PART-B. Psychiatric treatment rendered: The patient was admitted to the adult behavioral health unit where she was placed on q.30-minute checks for her own safety. She did act out on one occasion banging her head against the wall of her bathroom and needed to be redirected from this. She was socially isolative throughout the hospitalization and never did engage in group therapies. It seems at this time that the stressor is that she is highly socially isolative living in [place]. Because of this, her providers at [facility] had already initiated the process of getting her into an SRO, which she understands is a process that will take some time. She was visited by both her mother and her fiance. The patient did note that the day of discharge is her birthday and she stated that she wanted to spend this with her family and the family felt that she could be safely treated on an outpatient basis at this time. The patient's wounds to her left forearm were cared for, cleaned, and bandaged appropriately. She is denying any thoughts of cutting herself at this time. I do think the best thing for her would be to get into an SRO and start getting back into social activities including finishing her college degree, perhaps at [employer]. We did not make any changes to her medications at this time and she was continued on quetiapine, clonidine, and clonazepam. She tolerated these well and is agreeable with continuing them on an outpatient basis. At this time, we feel that her acute suicidality is resolved and she is requesting treatment in a less restrictive setting. Given her history of doing poorly on inpatient units, it is my sense that sooner she gets out of the inpatient setting, the healthier she will be. For this reason, she is being discharged to follow up treatment at [facility]. She and her family are in agreement with this. [id number]/[facility] #: [id number] FELICIANO
== END 2016-10-25 12:30 | disposition home or self-care (01) | DRG 755 ==
LOC: ED 18:42 → BSU 10-22 02:45
PROVIDERS: ADMIT Psychiatry & Neurology Psychiatry; ATTEND Psychiatry & Neurology Psychiatry
DX: F43.10 Post-traumatic stress disorder, unspecified (principal); R45.851 Suicidal ideations; F60.3 Borderline personality disorder; F17.210 Nicotine dependence, cigarettes, uncomplicated; Z79.899 Other long term (current) drug therapy; Z88.0 Allergy status to penicillin; Z88.8 Allergy status to other drugs, medicaments and biological substances; Z81.1 Family history of alcohol abuse and dependence; Z81.3 Family history of other psychoactive substance abuse and dependence
CPT/HCPCS: 36415; 80053; 80307; 80320; 80329; 81003; 84443; 84702; 85025; 99222; 99231; 99238; A9270-GY; G0480

== ENCOUNTER 2016-12-29 12:43 | Inpatient (IN) | payer OTHER ==
[2016-12-29 13:14] LABS: Hematocrit 41 % (35-47); Hemoglobin 13.8 g/dl (12.0-16.0); Mean Corpuscular HGB Conc 34 g/dl (31-36); Mean Corpuscular Hemoglobin 31 pg (27-31); Mean Corpuscular Volume 93 fL (80-97); Mean Platelet Volume 8 um3 (7.4-10.4); Red Blood Count 4.42 10^6/ul (4.0-5.4); Red Cell Distribution Width 14 % (10.5-15); White Blood Count 9.2 10^3/ul (3.5-10.8)
[2016-12-29 13:20] LABS: Urine Bilirubin Negative (Negative); Urine Glucose Negative (Negative); Urine Nitrite Negative (Negative)
[2016-12-29 13:29] LABS: ALT 9 U/L (7-52); AST 14 U/L (13-39); Albumin 4.2 g/dL (3.2-5.2); Alkaline Phosphatase 78 U/L (34-104); Anion Gap 6 mmol/L (2-11); BUN/Creatinine Ratio 13.3 (8-20); Blood Urea Nitrogen 8 mg/dL (6-24); CO2 Carbon Dioxide 24 mmol/L (22-32); Calcium 9.2 mg/dL (8.6-10.3); Chloride 104 mmol/L (101-111); EGFR African American 154.2 (>60); EGFR Non-African American 119.9 (>60); Globulin 2.8 g/dL (2-4); Glucose 94 mg/dL (70-100); Sodium 134 mmol/L (133-145)
[2016-12-29] MEDS ORDERED: LORazepam TAB(*) 0.5 MG PO ONE (13:33)
[2016-12-29 13:41] LABS: Acetaminophen < 15 mcg/mL; Alcohol < 10 mg/dL (<10); Benzodiazepine Urine Screen None Detected (None Detect); Salicylate < 2.50 mg/dL (<30)
[2016-12-29 13:51] LABS: TSH (Thyroid Stimulating Horm) 0.27 mcIU/mL (0.34-5.60)
[2016-12-29] MEDS ORDERED: Acetaminophen TAB* 325 MG PO PRN (14:16)
[2016-12-29] MEDS: Vitamin THERAPEUTIC TAB PO SCH (15:59)
[2016-12-29] MEDS: Nicotine Inhaler* 10 MG AMP INH PRN (17:15)
[2016-12-29] MEDS ORDERED: Mouth Piece, Nicotine* 1 EACH CARTRIDGE ONE (17:16)
--- NOTE | 2016-12-29 17:46 | ED ---
Boyd Escamilla Alfonso, scribed for Flako Laurent MD on 12/29/16 at 1337 . Altered Mental Status - HPI Summary HPI Summary: This patient is a 26 year old F BIBA with police 945 to [facility] with a chief complaint of SI since yesterday. Patient states I got sent here for mental health because I took a whole 30 day prescription of Seroquel yesterday and meant to bring glass to hurt myself but I forgot it. She reportsI was hoping I would sleep for 4 days and , I slept for 24 hours and felt like I am hallucinating, and I want it to be over. Pt rates the pain 4/10 in severity. Symptoms aggravated by drug abuse and alleviated by nothing. - History Of Current Complaint Chief Complaint: EDMentalHealth Stated Complaint: 945 Time Seen by Provider: 12/29/16 12:49 Hx Obtained From: Patient Onset/Duration: Still Present Timing: Constant, Lasting Days - Yesterday Severity Initially: Moderate Severity Currently: Moderate Aggravating Factor(s): Drug Abuse Alleviating Factor(s): Nothing Associated Signs And Symptoms: Positive: Negative Has Suicidal: Thoughts, With A Plan - Allergies/Home Medications Allergies/Adverse Reactions: Allergies Allergy/AdvReac Type Severity Reaction Status Date / Time Penicillins [PCN] Allergy Hives Verified 09/09/16 21:25 Trazodone Allergy Hives Verified 09/09/16 21:25 Zolpidem [From Ambien] Allergy See Comment Verified 09/09/16 21:25 Home Medications: Home Medications QUEtiapine TAB* [Seroquel TAB*] 100 mg PO DAILY 12/29/16 [History Confirmed ] PMH/Surg Hx/FS Hx/Imm Hx Endocrine/Hematology History: Denies: Hx Diabetes, Hx Thyroid Disease Cardiovascular History: Denies: Hx Hypertension Respiratory History: Reports: Hx Chronic Bronchitis Denies: Hx Asthma, Hx Chronic Obstructive Pulmonary Disease (COPD) GI History: Denies: Hx Ulcer Sensory History: Reports: Hx Contacts or Glasses Denies: Hx Hearing Aid Opthamlomology History: Reports: Hx Contacts or Glasses Neurological History: Reports: Hx Headaches, Other Neuro Impairments/Disorders - HX of banging head Psychiatric History: Reports: Hx Anxiety, Hx Eating Disorder, Hx Depression, Hx Post Traumatic Stress Disorder, Hx Inpatient Treatment, Hx Community Mental Health Tx, Hx Suicide Attempt, Hx of Violent Episodes Against Others, Other Psychiatric Issues/Disorders - HX suicide attempts - Surgical History Surgery Procedure, Year, and Place: SIGRIDE trey Infectious Disease History: No Infectious Disease History: Denies: Hx Hepatitis, Hx Human Immunodeficiency Virus (HIV), Traveled Outside the [place] in Last 30 Days - Family History Known Family History: Positive: Hypertension, Respiratory Disease - COPD, Other - aunt - bipolar disorder, depression. mom/sister/grandmother - anxiety. Family History: FHx of anxiety, depression - Social History Alcohol Use: Occasionally Hx Substance Use: Yes Substance Use Type: Reports: Marijuana Substance Use Comment - Amount & Last Used: drug screen positive for marijuana Hx Tobacco Use: Yes Smoking Status (MU): Light Every Day Tobacco Smoker Type: Cigarettes Amount Used/How Often: 1/2 PPD Have You Smoked in the Last Year: Yes Review of Systems Negative: Fever Neurological: Other - Positive SI and Seroquel abuse. All Other Systems Reviewed And Are Negative: Yes Physical Exam - Summary Physical Exam Summary: VITAL SIGNS: Reviewed. GENERAL: Patient is a well-developed and nourished female who is lying comfortable in the stretcher. Patient is not in any acute respiratory distress. HEAD AND FACE: No signs of trauma. No ecchymosis, hematomas or skull depressions. No sinus tenderness. EYES: PERRLA, EOMI x 2, No injected conjunctiva, no nystagmus. EARS: Hearing grossly intact. Ear canals and tympanic membranes are within normal limits. MOUTH: Oropharynx within normal limits. NECK: Supple, trachea is midline, no adenopathy, no JVD, no carotid bruit, no c- spine tenderness, neck with full ROM. CHEST: Symmetric, no tenderness at palpation LUNGS: Clear to auscultation bilaterally. No wheezing or crackles. CVS: Regular rate and rhythm, S1 and S2 present, no murmurs or gallops appreciated. ABDOMEN: Soft, non-tender. No signs of distention. No rebound no guarding, and no masses palpated. Bowel sounds are normal. EXTREMITIES: FROM in all major joints, no edema, no cyanosis or clubbing. NEURO: Alert and oriented x 3. No acute neurological deficits. Speech is normal and follows commands. SKIN: Dry and warm PSYCH: Anxiety and suicidal thoughts with a plan. Triage Information Reviewed: Yes Vital Signs On Initial Exam: Initial Vitals Temp Pulse Resp BP Pulse Ox 98.6 F 95 18 131/69 98 12/29/16 12:47 12/29/16 12:47 12/29/16 12:47 12/29/16 12:47 12/29/16 12:47 Vital Signs Reviewed: Yes - Oxford Coma Scale Coma Scale Total: 15 Diagnostics - Vital Signs Vital Signs Temp Pulse Resp BP Pulse Ox 12/29/16 12:47 98.6 F 95 18 131/69 98 - Laboratory Lab Results: Lab Results 12/29/16 12/29/16 12/29/16 Range/Units 13:05 13:05 13:05 WBC 9.2 (3.5-10.8) 10^3/ul RBC 4.42 (4.0-5.4) 10^6/ul Hgb 13.8 (12.0-16.0) g/dl Hct 41 (35-47) % MCV 93 (80-97) fL MCH 31 (27-31) pg MCHC 34 (31-36) g/dl RDW 14 (10.5-15) % Plt Count 247 (150-450) 10^3/ul MPV 8 (7.4-10.4) um3 Neut % (Auto) 78.8 (38-83) % Lymph % (Auto) 15.4 L (25-47) % [place]ier % (Auto) 4.7 (1-9) % Eos % (Auto) 0.4 (0-6) % Baso % (Auto) 0.7 (0-2) % Absolute Neuts (auto) 7.3 (1.5-7.7) 10^3/ul Absolute Lymphs (auto) 1.4 (1.0-4.8) 10^3/ul Absolute Monos (auto) 0.4 (0-0.8) 10^3/ul Absolute Eos (auto) 0 (0-0.6) 10^3/ul Absolute Basos (auto) 0.1 (0-0.2) 10^3/ul Absolute Nucleated RBC 0 10^3/ul Nucleated RBC % 0 Sodium 134 (133-145) mmol/L Potassium 4.0 (3.5-5.0) mmol/L Chloride 104 (101-111) mmol/L Carbon Dioxide 24 (22-32) mmol/L Anion Gap 6 (2-11) mmol/L BUN 8 (6-24) mg/dL Creatinine 0.60 (0.51-0.95) mg/dL Est GFR ( Amer) 154.2 (>60) Est GFR (Non-Af Amer) 119.9 (>60) BUN/Creatinine Ratio 13.3 (8-20) Glucose 94 (70-100) mg/dL Calcium 9.2 (8.6-10.3) mg/dL Total Bilirubin 0.30 (0.2-1.0) mg/dL AST 14 (13-39) U/L ALT 9 (7-52) U/L Alkaline Phosphatase 78 (34-104) U/L Total Protein 7.0 (6.4-8.9) g/dL Albumin 4.2 (3.2-5.2) g/dL Globulin 2.8 (2-4) g/dL Albumin/Globulin Ratio 1.5 (1-3) TSH Pending Urine Color Colorless Urine Appearance Clear Urine pH 6.0 (5-9) Ur Specific [place] 1.002 L (1.010-1.030) Urine Protein Negative (Negative) Urine Ketones Negative (Negative) Urine Blood Negative (Negative) Urine Nitrate Negative (Negative) Urine Bilirubin Negative (Negative) Urine Urobilinogen Negative (Negative) Ur Leukocyte Esterase Negative (Negative) Urine Glucose Negative (Negative) Salicylates Pending Acetaminophen Pending Serum Alcohol Pending Result Diagrams: 12/29/16 13:05 12/29/16 13:05 Lab Statement: Any lab studies that have been ordered have been reviewed, and results considered in the medical decision making process. Altered Mental Statu Course/Dx - Course Course Of Treatment: This patient is a 26 year old F BIBA with police 945 to [facility] with a chief complaint of SI since yesterday. Patient states I got sent here for mental health because I took a whole 30 day prescription of Seroquel yesterday and meant to bring glass to hurt myself but I forgot it. She reports I was hoping I would sleep for 4 days and , I slept for 24 hours and felt like I am hallucinating, and I want it to be over. Pt rates the pain 4/10 in severity. Symptoms aggravated and alleviated by nothing. Assessment/Plan: Test results without any significant abnormalities, except for TSH at a low level. Urine toxicology positive for cannabinoids. Patient medically cleared and will be awaiting a MHE. Dr. Lanza from psychiatry did a mental health evaluation and accepted the patient under his services for further work up and management. Diagnosis for this patient is borderline personality disorder and PTSD. - Diagnoses Discharge Diagnoses: Borderline personality disorder, PTSD (post-traumatic stress disorder) Discharge - Discharge Plan Condition: Stable Disposition: ADMITTED TO [facility] The documentation as recorded by the Boyd crouch Alfonso accurately reflects the service I personally performed and the decisions made by me, Flako Laurent MD.
[2016-12-29] MEDS: clonazePAM TAB(*) 0.5 MG PO PRN (20:14)
[2016-12-29] MEDS ORDERED: QUEtiapine TAB* 100 MG PO SCH (21:00)
[2016-12-30] MEDS: clonazePAM TAB(*) 0.5 MG PO PRN (08:24)
[2016-12-30] MEDS: Vitamin THERAPEUTIC TAB PO SCH (08:25)
[2016-12-30] MEDS ORDERED: QUEtiapine XR TAB* 50 MG ONE (13:14)
[2016-12-30] MEDS ORDERED: QUEtiapine XR TAB* 50 MG PO ONE (14:00)
[2016-12-30] MEDS: clonazePAM TAB(*) 1 MG PO PRN (16:16)
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
[2016-12-30] MEDS: Nicotine Inhaler* 10 MG AMP INH PRN (17:40)
[2016-12-30] MEDS: Al Hydrox/Mg Hydrox/Simet LIQ* 30 ML UDC PO PRN (18:08)
[2016-12-30] MEDS: QUEtiapine XR TAB* 200 MG PO SCH (20:54)
[2016-12-31] MEDS: QUEtiapine XR TAB* 50 MG PO SCH (09:33)
[2016-12-31] MEDS: Vitamin THERAPEUTIC TAB PO SCH (09:34)
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
[2016-12-31] MEDS: clonazePAM TAB(*) 1 MG PO PRN ×2 (13:18→18:18)
[2016-12-31] MEDS: QUEtiapine XR TAB* 200 MG PO SCH (20:32)
[2016-12-31] MEDS ORDERED: Mouth Piece, Nicotine* 1 EACH CARTRIDGE ONE (20:35)
[2016-12-31] MEDS: Nicotine Inhaler* 10 MG AMP INH PRN (20:36)
[2017-01-01] MEDS: QUEtiapine XR TAB* 50 MG PO SCH (08:06)
[2017-01-01] MEDS: Vitamin THERAPEUTIC TAB PO SCH (08:06)
[2017-01-01 08:11] LABS: HDL Cholesterol 35.9 mg/dL
[2017-01-01] MEDS: Nicotine Inhaler* 10 MG AMP INH PRN (08:30)
[2017-01-01] MEDS: clonazePAM TAB(*) 1 MG PO PRN ×3 (09:37→20:30)
[2017-01-01] MEDS: Al Hydrox/Mg Hydrox/Simet LIQ* 30 ML UDC PO PRN (17:11)
[2017-01-01] MEDS: QUEtiapine XR TAB* 200 MG PO SCH (20:31)
[2017-01-02] MEDS: Vitamin THERAPEUTIC TAB PO SCH (08:20)
[2017-01-02] MEDS: QUEtiapine XR TAB* 50 MG PO SCH (08:20)
[2017-01-02] MEDS: clonazePAM TAB(*) 1 MG PO PRN ×3 (08:20→19:53)
--- NOTE | 2017-01-02 18:53 | PN ---
Subjective - Subjective Service Type: 38556 Hosp care 15 min low complexity Subjective: No change of mental status as per nursing reports and patient report. During assessment Jamia showed her typical dramatic mood and affect with frequent obscene language and curse words and claims that no one wants or willing to help her and nothing works for her and so on. Asys she cannot sleep more than 2 hours at nights and no one cares about that. Objective - Appearance Appearance: Healthy Appearing Dysmorphic Features: No Hygiene: Normal Grooming: Fairly Well Kept - Behavior Psychomotor Activities: Normal Exhibits Abnormal Movement: No - Attitude and Relatedness Attitude and Relatedness: Irritable Eye Contact: Poor - Speech Quality: Pressured Latencies: Short Quantity: Terse - Mood Patient's Decription of Mood: "Terrible" - Affect Observed Affect: Tearful - Thought Process Patient's Thought Process: Coherent, Circumstantial, Over Inclusive Thought Content: No Passive Wish, No Suicidal Planning, No Homicidal Ideation, No Paranoid Ideation - Sensorium Experiencing Hallucinations: No, Sensorium is Clear Type of Hallucinations: Visual: No, Auditory: No, Command: No - Level of Consciousness Orientation: Yes Intact, Yes Orientated to Time, Yes Orientated to Place, Yes Orientated to Person - Impulse Control Impulse Control: Tenuous - Insight and Judgement Insight and Judgement: Poor - Group Participation Particating in Group Activities: No - Medication Management Medication Management Adherence: Yes Assessment - Assessment Merits Inpatient Hospitalization: For Stabilization, Pending Safe DC Plan Inpatient DSM-IV Dx: PTSD Plan - Plan Treatment Plan: Name: GREG CRAWFORD Birthdate: 1990 [id number] Continued Medication Management: Continue Outpt Medication Medications: Current Medications Acetaminophen (Tylenol Tab*) 650 mg PO Q4H PRN PRN Reason: for pain; or Temp >101 F Last Admin: 12/31/16 16:54 Dose: 650 mg Al Hydrox/Mg Hydrox/Simethicone (Maalox Plus*) 30 ml PO Q4H PRN PRN Reason: INDIGESTION Last Admin: 01/01/17 17:11 Dose: 30 ml Clonazepam (Klonopin Tab(*)) 1 mg PO TID PRN PRN Reason: AGITATION, ANXIETY, OR SLEEP Last Admin: 01/02/17 15:16 Dose: 1 mg Multivitamins (Theragran Tab*) 1 tab PO DAILY [facility] Last Admin: 01/02/17 08:20 Dose: 1 tab Nicotine (Nicotine Inhaler*) 10 mg INH Q2H PRN PRN Reason: CRAVING Last Admin: 01/01/17 08:30 Dose: 10 mg Quetiapine Fumarate (Seroquel Xr Tab*) 100 mg PO DAILY [facility] Last Admin: 01/02/17 08:20 Dose: 100 mg Quetiapine Fumarate (Seroquel Xr Tab*) 200 mg PO BEDTIME [facility] Last Admin: 01/01/17 20:31 Dose: 200 mg - Discharge Plan Discharge Plan: Outpatient Follow Up Outpatient Program: [facility]
[2017-01-02] MEDS ORDERED: diPHENhydraMINE PO* 50 MG PO PRN (19:01)
[2017-01-02] MEDS ORDERED: diPHENhydraMINE PO* 50 MG PO ONE (19:04)
[2017-01-02] MEDS: QUEtiapine XR TAB* 200 MG PO SCH (19:53)
[2017-01-03 07:46] VITALS: BP 107/69
[2017-01-03] MEDS: QUEtiapine XR TAB* 50 MG PO SCH (08:30)
[2017-01-03] MEDS: Vitamin THERAPEUTIC TAB PO SCH (08:30)
[2017-01-03] MEDS: clonazePAM TAB(*) 1 MG PO PRN (08:31)
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
== END 2017-01-03 13:30 | disposition home or self-care (01) | DRG 755 ==
LOC: ED 12:43 → BSU 15:37
PROVIDERS: ADMIT Psychiatry & Neurology Psychiatry; ATTEND Psychiatry & Neurology Psychiatry
DX: F43.10 Post-traumatic stress disorder, unspecified (principal); F50.9 Eating disorder, unspecified; F32.9 Major depressive disorder, single episode, unspecified; F12.90 Cannabis use, unspecified, uncomplicated; F60.3 Borderline personality disorder; F41.9 Anxiety disorder, unspecified; Z91.410 Personal history of adult physical and sexual abuse; Z88.0 Allergy status to penicillin; Z88.8 Allergy status to other drugs, medicaments and biological substances; Z81.1 Family history of alcohol abuse and dependence; F10.10 Alcohol abuse, uncomplicated; Y90.9 Presence of alcohol in blood, level not specified; F17.210 Nicotine dependence, cigarettes, uncomplicated; Z56.0 Unemployment, unspecified; J42 Unspecified chronic bronchitis; Z82.49 Family history of ischemic heart disease and other diseases of the circulatory system; Z81.8 Family history of other mental and behavioral disorders; Z83.6 Family history of other diseases of the respiratory system; T43.592A Poisoning by other antipsychotics and neuroleptics, intentional self-harm, initial encounter; Y92.9 Unspecified place or not applicable
CPT/HCPCS: 36415; 80053; 80061; 80307; 80320; 80329; 81003; 83036; 84443; 85025; 99222; 99231; 99238; A9270-GY; G0480

== ENCOUNTER 2017-01-09 23:02 | Inpatient (IN) | payer OTHER ==
[2017-01-10 00:56] LABS: Hematocrit 43 % (35-47); Hemoglobin 14.7 g/dl (12.0-16.0); Mean Corpuscular HGB Conc 34 g/dl (31-36); Mean Corpuscular Hemoglobin 31 pg (27-31); Mean Corpuscular Volume 92 fL (80-97); Mean Platelet Volume 9 um3 (7.4-10.4); Red Blood Count 4.68 10^6/ul (4.0-5.4); Red Cell Distribution Width 14 % (10.5-15); White Blood Count 15.2 10^3/ul (3.5-10.8)
[2017-01-10 01:04] LABS: Urine Bilirubin Negative (Negative); Urine Glucose Negative (Negative); Urine Nitrite Negative (Negative)
[2017-01-10 01:09] LABS: ALT 10 U/L (7-52); AST 15 U/L (13-39); Acetaminophen < 15 mcg/mL; Albumin 4.1 g/dL (3.2-5.2); Alcohol < 10 mg/dL (<10); Alkaline Phosphatase 67 U/L (34-104); Anion Gap 5 mmol/L (2-11); BUN/Creatinine Ratio 14.6 (8-20); Blood Urea Nitrogen 13 mg/dL (6-24); CO2 Carbon Dioxide 24 mmol/L (22-32); Calcium 9.2 mg/dL (8.6-10.3); Chloride 104 mmol/L (101-111); EGFR African American 97.8 (>60); EGFR Non-African American 76.1 (>60); Globulin 3.2 g/dL (2-4); Glucose 97 mg/dL (70-100); Potassium 4.1 mmol/L (3.5-5.0); Salicylate < 2.50 mg/dL (<30); Sodium 133 mmol/L (133-145); Total Protein 7.3 g/dL (6.4-8.9)
[2017-01-10 01:11] LABS: Benzodiazepine Urine Screen None Detected (None Detect)
[2017-01-10 01:21] LABS: TSH (Thyroid Stimulating Horm) 0.61 mcIU/mL (0.34-5.60)
--- NOTE | 2017-01-10 01:29 | ED ---
Psychiatric Complaint - HPI Summary HPI Summary: 26F presents to ED because she wants to kill herself. She states she will take insulin. She has history of cutting her self. She states that she is only living for her without him she would kill herself. She states her symptoms are getting worst due to the way people are treating her. She does smoke marijuana and cigarettes. She does admit to abdominal pain which says is due to anxiety. - History Of Current Complaint Chief Complaint: EDMentalHealth Time Seen by Provider: 01/10/17 00:15 Hx Last Menstrual Period: 03/05/16 - Allergies/Home Medications Allergies/Adverse Reactions: Allergies Allergy/AdvReac Type Severity Reaction Status Date / Time Penicillins [PCN] Allergy Hives Verified 01/10/17 13:58 Trazodone Allergy Hives Verified 01/10/17 13:58 Zolpidem [From Ambien] Allergy See Comment Verified 01/10/17 13:58 PMH/Surg Hx/FS Hx/Imm Hx Endocrine/Hematology History: Denies: Hx Diabetes, Hx Thyroid Disease Cardiovascular History: Denies: Hx Hypertension Respiratory History: Reports: Hx Chronic Bronchitis Denies: Hx Asthma, Hx Chronic Obstructive Pulmonary Disease (COPD) GI History: Denies: Hx Ulcer Sensory History: Reports: Hx Contacts or Glasses Denies: Hx Hearing Aid Opthamlomology History: Reports: Hx Contacts or Glasses Neurological History: Reports: Hx Headaches, Other Neuro Impairments/Disorders - HX of banging head Psychiatric History: Reports: Hx Anxiety, Hx Eating Disorder, Hx Depression, Hx Post Traumatic Stress Disorder, Hx Inpatient Treatment, Hx Community Mental Health Tx, Hx Suicide Attempt, Hx of Violent Episodes Against Others, Hx Substance Abuse - marijuana regularly, Other Psychiatric Issues/Disorders - HX suicide attempts - Surgical History Surgery Procedure, Year, and Place: RUE fx Infectious Disease History: No Infectious Disease History: Denies: Hx Hepatitis, Hx Human Immunodeficiency Virus (HIV), Traveled Outside the [place] in Last 30 Days - Family History Known Family History: Positive: Hypertension, Respiratory Disease - COPD, Other - aunt - bipolar disorder, depression. mom/sister/grandmother - anxiety. Family History: FHx of anxiety, depression - Social History Alcohol Use: Occasionally Alcohol Amount: PT denies drinking any alcohol Hx Substance Use: Yes Substance Use Type: Reports: Marijuana Substance Use Comment - Amount & Last Used: today Hx Tobacco Use: Yes Smoking Status (MU): Heavy Every Day Tobacco Smoker Type: Cigarettes Amount Used/How Often: 1/2 PPD Have You Smoked in the Last Year: Yes Review of Systems Negative: Fever Negative: Chest Pain Negative: Shortness Of Breath Positive: Abdominal Pain Positive: Depressed All Other Systems Reviewed And Are Negative: Yes Physical Exam Triage Information Reviewed: Yes Vital Signs On Initial Exam: Initial Vitals Temp Pulse Resp BP Pulse Ox 98.3 F 101 18 127/80 98 01/09/17 23:04 01/09/17 23:04 01/09/17 23:04 01/09/17 23:04 01/09/17 23:04 Vital Signs Reviewed: Yes Appearance: Positive: Well-Appearing Skin: Positive: Other - multiple cuts on arms Head/Face: Positive: Normal Head/Face Inspection Eyes: Positive: Normal, Conjunctiva Clear Respiratory/Lung Sounds: Positive: Clear to Auscultation, Breath Sounds Present Cardiovascular: Positive: Normal, RRR Abdomen Description: Positive: Nontender, Soft Bowel Sounds: Positive: Present - Clara Coma Scale Coma Scale Total: 15 Diagnostics - Vital Signs Vital Signs Temp Pulse Resp BP Pulse Ox 01/09/17 23:48 98.3 F 101 18 127/80 99 01/09/17 23:04 98.3 F 101 18 127/80 98 - Laboratory Lab Results: Lab Results 01/09/17 01/09/17 01/09/17 Range/Units 23:34 23:34 23:34 WBC 15.2 H (3.5-10.8) 10^3/ul RBC 4.68 (4.0-5.4) 10^6/ul Hgb 14.7 (12.0-16.0) g/dl Hct 43 (35-47) % MCV 92 (80-97) fL MCH 31 (27-31) pg MCHC 34 (31-36) g/dl RDW 14 (10.5-15) % Plt Count 285 (150-450) 10^3/ul MPV 9 (7.4-10.4) um3 Neut % (Auto) 76.5 (38-83) % Lymph % (Auto) 18.1 L (25-47) % [place] % (Auto) 4.3 (1-9) % Eos % (Auto) 0.7 (0-6) % Baso % (Auto) 0.4 (0-2) % Absolute Neuts (auto) 11.6 H (1.5-7.7) 10^3/ul Absolute Lymphs (auto) 2.7 (1.0-4.8) 10^3/ul Absolute Monos (auto) 0.7 (0-0.8) 10^3/ul Absolute Eos (auto) 0.1 (0-0.6) 10^3/ul Absolute Basos (auto) 0.1 (0-0.2) 10^3/ul Absolute Nucleated RBC 0 10^3/ul Nucleated RBC % 0 Sodium 133 (133-145) mmol/L Potassium 4.1 (3.5-5.0) mmol/L Chloride 104 (101-111) mmol/L Carbon Dioxide 24 (22-32) mmol/L Anion Gap 5 (2-11) mmol/L BUN 13 (6-24) mg/dL Creatinine 0.89 (0.51-0.95) mg/dL Est GFR ( Amer) 97.8 (>60) Est GFR (Non-Af Amer) 76.1 (>60) BUN/Creatinine Ratio 14.6 (8-20) Glucose 97 (70-100) mg/dL Calcium 9.2 (8.6-10.3) mg/dL Total Bilirubin 0.30 (0.2-1.0) mg/dL AST 15 (13-39) U/L ALT 10 (7-52) U/L Alkaline Phosphatase 67 (34-104) U/L Total Protein 7.3 (6.4-8.9) g/dL Albumin 4.1 (3.2-5.2) g/dL Globulin 3.2 (2-4) g/dL Albumin/Globulin Ratio 1.3 (1-3) TSH 0.61 (0.34-5.60) mcIU/mL Urine Color Yellow Urine Appearance Cloudy Urine pH 6.0 (5-9) Ur Specific [place] 1.021 (1.010-1.030) Urine Protein Negative (Negative) Urine Ketones Trace H (Negative) Urine Blood Negative (Negative) Urine Nitrate Negative (Negative) Urine Bilirubin Negative (Negative) Urine Urobilinogen Negative (Negative) Ur Leukocyte Esterase Negative (Negative) Urine Glucose Negative (Negative) Urine Ascorbic Acid * H (Negative) Salicylates < 2.50 (<30) mg/dL Urine Opiates Screen (None Detect) Acetaminophen < 15 mcg/mL Ur Barbiturates Screen (None Detect) Ur Phencyclidine Scrn (None Detect) Ur Amphetamines Screen (None Detect) U Benzodiazepines Scrn (None Detect) Urine Cocaine Screen (None Detect) U Cannabinoids Screen (None Detect) Serum Alcohol < 10 (<10) mg/dL 01/09/17 Range/Units 23:34 WBC (3.5-10.8) 10^3/ul RBC (4.0-5.4) 10^6/ul Hgb (12.0-16.0) g/dl Hct (35-47) % MCV (80-97) fL MCH (27-31) pg MCHC (31-36) g/dl RDW (10.5-15) % Plt Count (150-450) 10^3/ul MPV (7.4-10.4) um3 Neut % (Auto) (38-83) % Lymph % (Auto) (25-47) % [place] % (Auto) (1-9) % Eos % (Auto) (0-6) % Baso % (Auto) (0-2) % Absolute Neuts (auto) (1.5-7.7) 10^3/ul Absolute Lymphs (auto) (1.0-4.8) 10^3/ul Absolute Monos (auto) (0-0.8) 10^3/ul Absolute Eos (auto) (0-0.6) 10^3/ul Absolute Basos (auto) (0-0.2) 10^3/ul Absolute Nucleated RBC 10^3/ul Nucleated RBC % Sodium (133-145) mmol/L Potassium (3.5-5.0) mmol/L Chloride (101-111) mmol/L Carbon Dioxide (22-32) mmol/L Anion Gap (2-11) mmol/L BUN (6-24) mg/dL Creatinine (0.51-0.95) mg/dL Est GFR ( Amer) (>60) Est GFR (Non-Af Amer) (>60) BUN/Creatinine Ratio (8-20) Glucose (70-100) mg/dL Calcium (8.6-10.3) mg/dL Total Bilirubin (0.2-1.0) mg/dL AST (13-39) U/L ALT (7-52) U/L Alkaline Phosphatase (34-104) U/L Total Protein (6.4-8.9) g/dL Albumin (3.2-5.2) g/dL Globulin (2-4) g/dL Albumin/Globulin Ratio (1-3) TSH (0.34-5.60) mcIU/mL Urine Color Urine Appearance Urine pH (5-9) Ur Specific Pavilion (1.010-1.030) Urine Protein (Negative) Urine Ketones (Negative) Urine Blood (Negative) Urine Nitrate (Negative) Urine Bilirubin (Negative) Urine Urobilinogen (Negative) Ur Leukocyte Esterase (Negative) Urine Glucose (Negative) Urine Ascorbic Acid (Negative) Salicylates (<30) mg/dL Urine Opiates Screen None detected (None Detect) Acetaminophen mcg/mL Ur Barbiturates Screen None detected (None Detect) Ur Phencyclidine Scrn None detected (None Detect) Ur Amphetamines Screen None detected (None Detect) U Benzodiazepines Scrn None detected (None Detect) Urine Cocaine Screen None detected (None Detect) U Cannabinoids Screen Presumptive positive H (None Detect) Serum Alcohol (<10) mg/dL Result Diagrams: 01/09/17 23:34 01/09/17 23:34 Lab Statement: Any lab studies that have been ordered have been reviewed, and results considered in the medical decision making process. Course/Dx - Course Course Of Treatment: 26F presents to ED because she wants to kill herself. She states she will take insulin. She has history of cutting her self. She states that she is only living for her without him she would kill herself. She states her symptoms are getting worst due to the way people are treating her. She does smoke marijuana and cigarettes. She does admit to abdominal pain which says is due to anxiety. nontender abdominal exam. declined GI cocktail, medically clear to [facility]. signed out to dr mas pending [facility] - Differential Dx/Clinical Impression Differential Diagnosis/HQI/PQRI: Positive: Depression, Suicidal Ideation, Suicidal Gesture Provider Diagnosis: Persistent mood [affective] disorder, unspecified Discharge - Discharge Plan Condition: Good Disposition: PSYCHIATRIC FACILITY-[facility] [place]
[2017-01-10] MEDS ORDERED: Nicotine GUM* 2 MG PO PRN (11:16)
[2017-01-10] MEDS ORDERED: Al Hydrox/Mg Hydrox/Simet LIQ* 30 ML UDC PO PRN (11:16)
[2017-01-10] MEDS ORDERED: Nicotine Inhaler* 10 MG AMP INH PRN (11:16)
[2017-01-10] MEDS ORDERED: Acetaminophen TAB* 325 MG PO PRN (11:16)
--- NOTE | 2017-01-10 12:01 | ED ---
Progress - Progress Note Progress Note: voluntary admission in stable condition dx: ptsd - Consult/PCP Time Called: 01:09 Course/Dx - Course Course Of Treatment: 26F presents to ED because she wants to kill herself. She states she will take insulin. She has history of cutting her self. She states that she is only living for her without him she would kill herself. She states her symptoms are getting worst due to the way people are treating her. She does smoke marijuana and cigarettes. She does admit to abdominal pain which says is due to anxiety. nontender abdominal exam. declined GI cocktail, medically clear to [facility]. - Diagnoses Provider Diagnoses: Persistent mood [affective] disorder, unspecified
[2017-01-10] MEDS: clonazePAM TAB(*) 1 MG PO PRN (13:43)
[2017-01-10] MEDS ORDERED: LORazepam INJ* 2 MG/ML 1 ML VIAL IM ONE (18:10)
[2017-01-10] MEDS ORDERED: LORazepam INJ* 2 MG/ML 1 ML VIAL ONE (18:13)
[2017-01-10] MEDS ORDERED: QUEtiapine TAB* 100 MG PO SCH (21:00)
[2017-01-11 07:54] VITALS: BP 99/59
[2017-01-11] MEDS ORDERED: QUEtiapine TAB* 100 MG PO SCH (09:00)
[2017-01-11] MEDS: clonazePAM TAB(*) 1 MG PO PRN (10:39)
[2017-01-11] MEDS ORDERED: Nicotine Inhaler* 10 MG AMP INH PRN (12:17)
[2017-01-11] MEDS ORDERED: Nicotine GUM* 2 MG PO PRN (12:17)
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
== END 2017-01-11 12:55 | disposition home or self-care (01) | DRG 755 ==
LOC: ED 23:02 → BSU 01-10 11:16
PROVIDERS: ADMIT Psychiatry & Neurology Psychiatry; ATTEND Psychiatry & Neurology Psychiatry
DX: F43.10 Post-traumatic stress disorder, unspecified (principal); R45.851 Suicidal ideations; F12.10 Cannabis abuse, uncomplicated; F60.3 Borderline personality disorder; Z79.899 Other long term (current) drug therapy; Z88.0 Allergy status to penicillin; Z88.8 Allergy status to other drugs, medicaments and biological substances; F17.210 Nicotine dependence, cigarettes, uncomplicated
CPT/HCPCS: 36415; 80053; 80307; 80320; 80329; 81003; 84443; 85025; A9270-GY; G0480; J2060

== ENCOUNTER 2017-01-19 15:52 | Emergency (ER) | payer OTHER ==
[2017-01-19 16:25] LABS: Urine Bilirubin Negative (Negative); Urine Glucose Negative (Negative); Urine Nitrite Negative (Negative)
[2017-01-19 16:37] LABS: Hematocrit 41 % (35-47); Mean Corpuscular HGB Conc 34 g/dl (31-36); Mean Corpuscular Hemoglobin 32 pg (27-31); Mean Corpuscular Volume 93 fL (80-97); Mean Platelet Volume 8 um3 (7.4-10.4); Red Blood Count 4.42 10^6/ul (4.0-5.4); Red Cell Distribution Width 14 % (10.5-15); White Blood Count 9.5 10^3/ul (3.5-10.8)
[2017-01-19 16:41] LABS: Benzodiazepine Urine Screen None Detected (None Detect)
[2017-01-19 17:08] LABS: ALT 9 U/L (7-52); AST 14 U/L (13-39); Alkaline Phosphatase 57 U/L (34-104); Anion Gap 3 mmol/L (2-11); BUN/Creatinine Ratio 16.1 (8-20); Blood Urea Nitrogen 10 mg/dL (6-24); CO2 Carbon Dioxide 28 mmol/L (22-32); Calcium 9.1 mg/dL (8.6-10.3); Chloride 106 mmol/L (101-111); EGFR African American 148.5 (>60); EGFR Non-African American 115.5 (>60); Globulin 2.8 g/dL (2-4); Glucose 91 mg/dL (70-100); Potassium 3.6 mmol/L (3.5-5.0); Sodium 137 mmol/L (133-145); Total Protein 6.8 g/dL (6.4-8.9)
[2017-01-19 17:31] LABS: Acetaminophen < 15 mcg/mL; Alcohol < 10 mg/dL (<10); Salicylate < 2.50 mg/dL (<30)
[2017-01-19 17:41] LABS: TSH (Thyroid Stimulating Horm) 0.34 mcIU/mL (0.34-5.60)
--- NOTE | 2017-01-19 21:09 | ED ---
Warren Escamilla Angela, scribed for Alberto Graves MD on 01/19/17 at 1612 . Psychiatric Complaint - HPI Summary HPI Summary: 26 y/o female presents to the ED via EMS from [facility] on a 9.45 due to instability. Pt reports she was told by her therapist she was "reckless." She admits SI. Pt denies any drug or alcohol use today. - History Of Current Complaint Chief Complaint: EDMentalHealth Time Seen by Provider: 01/19/17 16:05 Hx Obtained From: Patient, EMS Hx Last Menstrual Period: 03/05/16 Onset/Duration: Still Present Character: Angry - "reckless" Aggravating Factor(s): Nothing Alleviating Factor(s): Nothing - Allergies/Home Medications Allergies/Adverse Reactions: Allergies Allergy/AdvReac Type Severity Reaction Status Date / Time Penicillins [PCN] Allergy Hives Verified 01/10/17 13:58 Trazodone Allergy Hives Verified 01/10/17 13:58 Zolpidem [From Ambien] Allergy See Comment Verified 01/10/17 13:58 Home Medications: Home Medications Gabapentin TAB(NF) [Neurontin 600 mg TAB(NF)] 600 mg PO TID 01/19/17 [History Confirmed 01/19/17] QUEtiapine TAB* [Seroquel TAB*] 100 mg PO QAM 01/19/17 [History Confirmed ] PMH/Surg Hx/FS Hx/Imm Hx Endocrine/Hematology History: Denies: Hx Diabetes, Hx Thyroid Disease Cardiovascular History: Denies: Hx Hypertension Respiratory History: Reports: Hx Chronic Bronchitis Denies: Hx Asthma, Hx Chronic Obstructive Pulmonary Disease (COPD) GI History: Denies: Hx Ulcer Sensory History: Reports: Hx Contacts or Glasses Denies: Hx Hearing Aid Opthamlomology History: Reports: Hx Contacts or Glasses Neurological History: Reports: Hx Headaches, Other Neuro Impairments/Disorders - HX of banging head Psychiatric History: Reports: Hx Anxiety, Hx Eating Disorder, Hx Depression, Hx Post Traumatic Stress Disorder, Hx Inpatient Treatment, Hx Community Mental Health Tx, Hx Suicide Attempt, Hx of Violent Episodes Against Others, Hx Substance Abuse - marijuana regularly, Other Psychiatric Issues/Disorders - HX suicide attempts - Surgical History Surgery Procedure, Year, and Place: RUE fx Infectious Disease History: Denies: Hx Hepatitis, Hx Human Immunodeficiency Virus (HIV) - Family History Known Family History: Positive: Hypertension, Respiratory Disease - COPD, Other - aunt - bipolar disorder, depression. mom/sister/grandmother - anxiety. Family History: FHx of anxiety, depression - Social History Alcohol Use: Occasionally Alcohol Amount: PT denies drinking any alcohol Hx Substance Use: Yes Substance Use Type: Reports: Marijuana Substance Use Comment - Amount & Last Used: today Hx Tobacco Use: Yes Smoking Status (MU): Heavy Every Day Tobacco Smoker Type: Cigarettes Amount Used/How Often: 1/2 PPD Have You Smoked in the Last Year: Yes Review of Systems Negative: Fever Positive: Other - Suicidal ideation. "Reckless" All Other Systems Reviewed And Are Negative: Yes Physical Exam - Summary Physical Exam Summary: General: well-appearing, no pain distress Skin: warm, color reflects adequate perfusion, dry. She has healing scars on left forearm completely scabbed. No new cuts to L forearm. Head: normal Eyes: EOMI, [place] ROSA ENT: normal Neck: supple, nontender Respiratory: CTA, breath sounds present Cardiovascular: RRR Abdomen: soft, nontender Bowel: present Musculoskeletal: normal, strength/ROM intact Neurological: normal, sensory/motor intact, A&O x3 Psychological: Pt is slightly angry. Triage Information Reviewed: Yes Vital Signs On Initial Exam: Initial Vitals Temp Pulse Resp BP Pulse Ox 98.3 F 96 18 114/65 97 01/19/17 16:11 01/19/17 16:11 01/19/17 16:11 01/19/17 16:11 01/19/17 16:11 Vital Signs Reviewed: Yes Diagnostics - Vital Signs Vital Signs Temp Pulse Resp BP Pulse Ox 01/19/17 16:11 98.3 F 96 18 114/65 97 - Laboratory Lab Results: Lab Results 01/19/17 01/19/17 01/19/17 Range/Units 16:11 16:11 16:24 WBC 9.5 (3.5-10.8) 10^3/ul RBC 4.42 (4.0-5.4) 10^6/ul Hgb 14.0 (12.0-16.0) g/dl Hct 41 (35-47) % MCV 93 (80-97) fL MCH 32 H (27-31) pg MCHC 34 (31-36) g/dl RDW 14 (10.5-15) % Plt Count 280 (150-450) 10^3/ul MPV 8 (7.4-10.4) um3 Neut % (Auto) 72.5 (38-83) % Lymph % (Auto) 21.8 L (25-47) % [place] % (Auto) 4.6 (1-9) % Eos % (Auto) 0.5 (0-6) % Baso % (Auto) 0.6 (0-2) % Absolute Neuts (auto) 6.9 (1.5-7.7) 10^3/ul Absolute Lymphs (auto) 2.1 (1.0-4.8) 10^3/ul Absolute Monos (auto) 0.4 (0-0.8) 10^3/ul Absolute Eos (auto) 0.1 (0-0.6) 10^3/ul Absolute Basos (auto) 0.1 (0-0.2) 10^3/ul Absolute Nucleated RBC 0 10^3/ul Nucleated RBC % 0 Sodium (133-145) mmol/L Potassium (3.5-5.0) mmol/L Chloride (101-111) mmol/L Carbon Dioxide (22-32) mmol/L Anion Gap (2-11) mmol/L BUN (6-24) mg/dL Creatinine (0.51-0.95) mg/dL Est GFR ( Amer) (>60) Est GFR (Non-Af Amer) (>60) BUN/Creatinine Ratio (8-20) Glucose (70-100) mg/dL Calcium (8.6-10.3) mg/dL Total Bilirubin (0.2-1.0) mg/dL AST (13-39) U/L ALT (7-52) U/L Alkaline Phosphatase (34-104) U/L Total Protein (6.4-8.9) g/dL Albumin (3.2-5.2) g/dL Globulin (2-4) g/dL Albumin/Globulin Ratio (1-3) TSH (0.34-5.60) mcIU/mL Beta HCG, Quant mIU/mL Urine Color Yellow Urine Appearance Clear Urine pH 5.0 (5-9) Ur Specific Reading 1.012 (1.010-1.030) Urine Protein Negative (Negative) Urine Ketones Negative (Negative) Urine Blood Negative (Negative) Urine Nitrate Negative (Negative) Urine Bilirubin Negative (Negative) Urine Urobilinogen Negative (Negative) Ur Leukocyte Esterase Negative (Negative) Urine Glucose Negative (Negative) Urine Ascorbic Acid * H (Negative) Salicylates (<30) mg/dL Urine Opiates Screen None detected (None Detect) Acetaminophen mcg/mL Ur Barbiturates Screen None detected (None Detect) Ur Phencyclidine Scrn None detected (None Detect) Ur Amphetamines Screen None detected (None Detect) U Benzodiazepines Scrn None detected (None Detect) Urine Cocaine Screen None detected (None Detect) U Cannabinoids Screen Presumptive positive H (None Detect) Serum Alcohol (<10) mg/dL 01/19/17 Range/Units 16:24 WBC (3.5-10.8) 10^3/ul RBC (4.0-5.4) 10^6/ul Hgb (12.0-16.0) g/dl Hct (35-47) % MCV (80-97) fL MCH (27-31) pg MCHC (31-36) g/dl RDW (10.5-15) % Plt Count (150-450) 10^3/ul MPV (7.4-10.4) um3 Neut % (Auto) (38-83) % Lymph % (Auto) (25-47) % [place] % (Auto) (1-9) % Eos % (Auto) (0-6) % Baso % (Auto) (0-2) % Absolute Neuts (auto) (1.5-7.7) 10^3/ul Absolute Lymphs (auto) (1.0-4.8) 10^3/ul Absolute Monos (auto) (0-0.8) 10^3/ul Absolute Eos (auto) (0-0.6) 10^3/ul Absolute Basos (auto) (0-0.2) 10^3/ul Absolute Nucleated RBC 10^3/ul Nucleated RBC % Sodium 137 (133-145) mmol/L Potassium 3.6 (3.5-5.0) mmol/L Chloride 106 (101-111) mmol/L Carbon Dioxide 28 (22-32) mmol/L Anion Gap 3 (2-11) mmol/L BUN 10 (6-24) mg/dL Creatinine 0.62 (0.51-0.95) mg/dL Est GFR ( Amer) 148.5 (>60) Est GFR (Non-Af Amer) 115.5 (>60) BUN/Creatinine Ratio 16.1 (8-20) Glucose 91 (70-100) mg/dL Calcium 9.1 (8.6-10.3) mg/dL Total Bilirubin 0.30 (0.2-1.0) mg/dL AST 14 (13-39) U/L ALT 9 (7-52) U/L Alkaline Phosphatase 57 (34-104) U/L Total Protein 6.8 (6.4-8.9) g/dL Albumin 4.0 (3.2-5.2) g/dL Globulin 2.8 (2-4) g/dL Albumin/Globulin Ratio 1.4 (1-3) TSH 0.34 (0.34-5.60) mcIU/mL Beta HCG, Quant < 0.60 mIU/mL Urine Color Urine Appearance Urine pH (5-9) Ur Specific Reading (1.010-1.030) Urine Protein (Negative) Urine Ketones (Negative) Urine Blood (Negative) Urine Nitrate (Negative) Urine Bilirubin (Negative) Urine Urobilinogen (Negative) Ur Leukocyte Esterase (Negative) Urine Glucose (Negative) Urine Ascorbic Acid (Negative) Salicylates < 2.50 (<30) mg/dL Urine Opiates Screen (None Detect) Acetaminophen < 15 mcg/mL Ur Barbiturates Screen (None Detect) Ur Phencyclidine Scrn (None Detect) Ur Amphetamines Screen (None Detect) U Benzodiazepines Scrn (None Detect) Urine Cocaine Screen (None Detect) U Cannabinoids Screen (None Detect) Serum Alcohol < 10 (<10) mg/dL Result Diagrams: 01/19/17 16:24 01/19/17 16:24 Lab Statement: Any lab studies that have been ordered have been reviewed, and results considered in the medical decision making process. Course/Dx - Course Course Of Treatment: Medically cleared at 18:11. MHE PENDING AT SHIFT CHANGE. - Differential Dx/Clinical Impression Provider Diagnosis: Mental health problem Discharge - Discharge Plan Condition: Stable Disposition: OTHER Discharge Disposition Comment: Pt will be signed out pending dispo and is awaiting MH eval. Referrals: No Primary Care Phys,NOPCP [Primary Care Provider] - The documentation as recorded by the Warren crouch Angela accurately reflects the service I personally performed and the decisions made by me, Alberto Graves MD.
[2017-01-19 22:43] VITALS: BP 104/62
== END 2017-01-19 22:15 | disposition home or self-care (01) ==
LOC: ED 15:52
DX: F99 Mental disorder, not otherwise specified (principal); F17.210 Nicotine dependence, cigarettes, uncomplicated; Z88.0 Allergy status to penicillin
CPT/HCPCS: 36415; 80053; 80307; 80320; 80329; 81003; 84443; 84702; 85025; 99284; G0480

== ENCOUNTER 2017-02-01 11:33 | Inpatient (IN) | payer OTHER ==
--- NOTE | 2017-02-01 11:59 | ED ---
Psychiatric Complaint - HPI Summary HPI Summary: Pt here as 945 - reports her counselor called her in today as she did not deny SI during appt. When asking pt how she feels, she says not well over past month. Lives with and he has not been feeling well and she doesn't handle it well - too stressful and she takes his comments personally. Denies abuse. Reports stopping a medication yesterday and restarting seroquel today but admits it was not ER version as chart reveals h/o seroquel OD. She denies current use of ETOH, drugs coping but does report somewhat routine sativa use which she states doesn't help her, just makes her numb. Smokes occasionally and is requesting nicotine gum while here today. She would also like a test. Has had a cough over the month. Intermittent and no trouble breathing, no SOB, no CP. Denies h/o asthma but admits to using albuterl in the past for relief of bronchitis - does not feel she needs this at this time and declines chest XR. Denies fever, chills, N/V/D, ab pain, no dysuria, no vaginal sx reported. Bruising easier past month - not sure if she's anemic and does not have a PCP. "I just don't feel good in general". NOTE: h/o eating d/o. Asked if she feels this has been triggered lately - not really but tough to say. - History Of Current Complaint Hx Obtained From: Patient Hx Last Menstrual Period: 03/05/16 <Nanda Strauss - Last Filed: 02/01/17 18:11> <Felicia Hand - Last Filed: 02/01/17 23:16> <Reena Alcaraz - Last Filed: 02/03/17 08:37> - History Of Current Complaint Chief Complaint: EDMentalHealth Time Seen by Provider: 02/01/17 11:41 - Allergies/Home Medications Allergies/Adverse Reactions: Allergies Allergy/AdvReac Type Severity Reaction Status Date / Time Penicillins [PCN] Allergy Hives Verified 01/10/17 13:58 Trazodone Allergy Hives Verified 01/10/17 13:58 Zolpidem [From Ambien] Allergy See Comment Verified 01/10/17 13:58 PMH/Surg Hx/FS Hx/Imm Hx Previously Healthy: Yes Endocrine/Hematology History: Denies: Hx Anticoagulant Therapy, Hx Blood Disorders, Hx Diabetes, Hx Thyroid Disease, Hx Unexplained Bleeding Cardiovascular History: Denies: Hx Hypertension Respiratory History: Reports: Hx Chronic Bronchitis Denies: Hx Asthma, Hx Chronic Obstructive Pulmonary Disease (COPD) GI History: Denies: Hx Ulcer Sensory History: Reports: Hx Contacts or Glasses Denies: Hx Hearing Aid Opthamlomology History: Reports: Hx Contacts or Glasses Neurological History: Reports: Hx Headaches, Other Neuro Impairments/Disorders - HX of banging head Psychiatric History: Reports: Hx Anxiety, Hx Eating Disorder - restricts and purges, Hx Depression, Hx Post Traumatic Stress Disorder, Hx Inpatient Treatment , Hx Community Mental Health Tx, Hx Suicide Attempt, Hx of Violent Episodes Against Others, Hx Substance Abuse - marijuana regularly, Other Psychiatric Issues/Disorders - HX suicide attempts - Surgical History Surgery Procedure, Year, and Place: RUE fx Infectious Disease History: Denies: Hx Hepatitis, Hx Human Immunodeficiency Virus (HIV) - Family History Known Family History: Positive: Hypertension, Respiratory Disease - COPD, Other - aunt - bipolar disorder, depression. mom/sister/grandmother - anxiety. Family History: FHx of anxiety, depression - Social History Alcohol Use: Occasionally Alcohol Amount: PT denies drinking any alcohol Hx Substance Use: Yes Substance Use Type: Reports: Marijuana Substance Use Comment - Amount & Last Used: today Hx Tobacco Use: Yes Smoking Status (MU): Heavy Every Day Tobacco Smoker Type: Cigarettes Amount Used/How Often: 1/2 PPD Have You Smoked in the Last Year: Yes <Nanda Strauss - Last Filed: 02/01/17 18:11> Previously Healthy: Yes <Reena Alcaraz - Last Filed: 02/03/17 08:37> Review of Systems Constitutional: Other - see HPI Negative: Fever, Chills Eyes: Negative ENT: Negative Negative: Sore Throat, Ear Ache, Nasal Discharge Cardiovascular: Negative Positive: Cough - see HPI. Negative: Shortness Of Breath Gastrointestinal: Negative Genitourinary: Negative Musculoskeletal: Negative Positive: Bruising - see HPI Neurological: Negative Psychological: Other - see HPI All Other Systems Reviewed And Are Negative: Yes <Nanda Strauss - Last Filed: 02/01/17 18:11> Physical Exam Triage Information Reviewed: Yes Vital Signs Reviewed: Yes Appearance: Positive: Well-Appearing, No Pain Distress, Well-Nourished Skin: Positive: Warm, Dry - healing areas of ecchymosis diffusely dispersed over LE's; healed linear lacerations over Lt UE Head/Face: Positive: Normal Head/Face Inspection Eyes: Positive: Normal, EOMI, Conjunctiva Clear ENT: Positive: Normal ENT inspection, Hearing grossly normal, Pharynx normal - mucosa moist Neck: Positive: Supple - no gross thyromegaly Respiratory/Lung Sounds: Positive: Clear to Auscultation, Breath Sounds Present. Negative: Rales, Rhonchi, Stridor, Wheezes Cardiovascular: Positive: Normal, RRR, S1, S2. Negative: Murmur, Rub Abdomen Description: Positive: Nontender, No Organomegaly, Soft Bowel Sounds: Positive: Present Musculoskeletal: Positive: Normal, Strength/ROM Intact Neurological: Positive: Normal, Sensory/Motor Intact, Alert, Oriented to Person Place, Time, CN Intact II-III Psychiatric: Positive: Other - mildy irritable but overall calm and cooperative - when asked about SI, pt clearly states "I'm not going to implicate myself but my counselor just knows" <Nanda Strauss - Last Filed: 02/01/17 18:11> Vital Signs On Initial Exam: Initial Vitals Temp Pulse Resp BP Pulse Ox 98.1 F 74 16 107/59 99 02/01/17 11:48 02/01/17 11:48 02/01/17 11:48 02/01/17 11:48 02/01/17 11:48 <Reena Alcaraz - Last Filed: 02/03/17 08:37> Diagnostics - Laboratory Result Diagrams: 02/01/17 12:10 02/01/17 12:10 Lab Statement: Any lab studies that have been ordered have been reviewed, and results considered in the medical decision making process. <Nanda Strauss - Last Filed: 02/01/17 18:11> - Vital Signs Vital Signs Temp Pulse Resp BP Pulse Ox 02/02/17 06:55 98.4 F 110 16 123/73 02/01/17 19:05 16 02/01/17 13:24 98.2 F 68 16 120/80 98 02/01/17 11:48 98.1 F 74 16 107/59 99 - Laboratory Lab Results: Lab Results 02/01/17 02/01/17 02/01/17 Range/Units 11:39 11:39 12:10 WBC 10.1 (3.5-10.8) 10^3/ul RBC 4.69 (4.0-5.4) 10^6/ul Hgb 14.7 (12.0-16.0) g/dl Hct 43 (35-47) % MCV 91 (80-97) fL MCH 32 H (27-31) pg MCHC 35 (31-36) g/dl RDW 14 (10.5-15) % Plt Count 244 (150-450) 10^3/ul MPV 9 (7.4-10.4) um3 Neut % (Auto) 77.6 (38-83) % Lymph % (Auto) 15.7 L (25-47) % [place] % (Auto) 5.7 (1-9) % Eos % (Auto) 0.2 (0-6) % Baso % (Auto) 0.8 (0-2) % Absolute Neuts (auto) 7.9 H (1.5-7.7) 10^3/ul Absolute Lymphs (auto) 1.6 (1.0-4.8) 10^3/ul Absolute Monos (auto) 0.6 (0-0.8) 10^3/ul Absolute Eos (auto) 0 (0-0.6) 10^3/ul Absolute Basos (auto) 0.1 (0-0.2) 10^3/ul Absolute Nucleated RBC 0.01 10^3/ul Nucleated RBC % 0.1 Sodium (133-145) mmol/L Potassium (3.5-5.0) mmol/L Chloride (101-111) mmol/L Carbon Dioxide (22-32) mmol/L Anion Gap (2-11) mmol/L BUN (6-24) mg/dL Creatinine (0.51-0.95) mg/dL Est GFR ( Amer) (>60) Est GFR (Non-Af Amer) (>60) BUN/Creatinine Ratio (8-20) Glucose (70-100) mg/dL Calcium (8.6-10.3) mg/dL Iron (50-212) ug/dL TIBC (250-450) mcg/dL % Saturation (15-55) % Unsat Iron Binding ug/dL Ferritin (11-307) ng/mL Total Bilirubin (0.2-1.0) mg/dL AST (13-39) U/L ALT (7-52) U/L Alkaline Phosphatase (34-104) U/L Total Protein (6.4-8.9) g/dL Albumin (3.2-5.2) g/dL Globulin (2-4) g/dL Albumin/Globulin Ratio (1-3) TSH (0.34-5.60) mcIU/mL Beta HCG, Quant mIU/mL Urine Color Yellow Urine Appearance Clear Urine pH 6.0 (5-9) Ur Specific [place] 1.015 (1.010-1.030) Urine Protein Negative (Negative) Urine Ketones Negative (Negative) Urine Blood Negative (Negative) Urine Nitrate Negative (Negative) Urine Bilirubin Negative (Negative) Urine Urobilinogen Negative (Negative) Ur Leukocyte Esterase Negative (Negative) Urine Glucose Negative (Negative) Urine Ascorbic Acid * H (Negative) Salicylates (<30) mg/dL Urine Opiates Screen None detected (None Detect) Acetaminophen mcg/mL Ur Barbiturates Screen None detected (None Detect) Ur Phencyclidine Scrn None detected (None Detect) Ur Amphetamines Screen None detected (None Detect) U Benzodiazepines Scrn None detected (None Detect) Urine Cocaine Screen None detected (None Detect) U Cannabinoids Screen Presumptive positive H (None Detect) Serum Alcohol (<10) mg/dL 02/01/17 Range/Units 12:10 WBC (3.5-10.8) 10^3/ul RBC (4.0-5.4) 10^6/ul Hgb (12.0-16.0) g/dl Hct (35-47) % MCV (80-97) fL MCH (27-31) pg MCHC (31-36) g/dl RDW (10.5-15) % Plt Count (150-450) 10^3/ul MPV (7.4-10.4) um3 Neut % (Auto) (38-83) % Lymph % (Auto) (25-47) % [place] % (Auto) (1-9) % Eos % (Auto) (0-6) % Baso % (Auto) (0-2) % Absolute Neuts (auto) (1.5-7.7) 10^3/ul Absolute Lymphs (auto) (1.0-4.8) 10^3/ul Absolute Monos (auto) (0-0.8) 10^3/ul Absolute Eos (auto) (0-0.6) 10^3/ul Absolute Basos (auto) (0-0.2) 10^3/ul Absolute Nucleated RBC 10^3/ul Nucleated RBC % Sodium 133 (133-145) mmol/L Potassium 4.0 (3.5-5.0) mmol/L Chloride 106 (101-111) mmol/L Carbon Dioxide 22 (22-32) mmol/L Anion Gap 5 (2-11) mmol/L BUN 13 (6-24) mg/dL Creatinine 0.63 (0.51-0.95) mg/dL Est GFR ( Amer) 145.8 (>60) Est GFR (Non-Af Amer) 113.4 (>60) BUN/Creatinine Ratio 20.6 H (8-20) Glucose 93 (70-100) mg/dL Calcium 9.5 (8.6-10.3) mg/dL Iron 33 L (50-212) ug/dL TIBC 354 (250-450) mcg/dL % Saturation 9 L (15-55) % Unsat Iron Binding 321 ug/dL Ferritin 13.0 (11-307) ng/mL Total Bilirubin 0.30 (0.2-1.0) mg/dL AST 16 (13-39) U/L ALT 9 (7-52) U/L Alkaline Phosphatase 60 (34-104) U/L Total Protein 7.6 (6.4-8.9) g/dL Albumin 4.4 (3.2-5.2) g/dL Globulin 3.2 (2-4) g/dL Albumin/Globulin Ratio 1.4 (1-3) TSH 0.57 (0.34-5.60) mcIU/mL Beta HCG, Quant < 0.60 mIU/mL Urine Color Urine Appearance Urine pH (5-9) Ur Specific [place] (1.010-1.030) Urine Protein (Negative) Urine Ketones (Negative) Urine Blood (Negative) Urine Nitrate (Negative) Urine Bilirubin (Negative) Urine Urobilinogen (Negative) Ur Leukocyte Esterase (Negative) Urine Glucose (Negative) Urine Ascorbic Acid (Negative) Salicylates < 2.50 (<30) mg/dL Urine Opiates Screen (None Detect) Acetaminophen < 15 mcg/mL Ur Barbiturates Screen (None Detect) Ur Phencyclidine Scrn (None Detect) Ur Amphetamines Screen (None Detect) U Benzodiazepines Scrn (None Detect) Urine Cocaine Screen (None Detect) U Cannabinoids Screen (None Detect) Serum Alcohol < 10 (<10) mg/dL Result Diagrams: 02/01/17 12:10 02/01/17 12:10 Lab Statement: Any lab studies that have been ordered have been reviewed, and results considered in the medical decision making process. <Reena Alcaraz - Last Filed: 02/03/17 08:37> Course/Dx - Course Course Of Treatment: Pt here w/ reported concerns for suicide. High risk w/ previous attempts and recent med change with stressful home environment. Pt reports weight loss over the month from not eating and easy bruising. Labs indicate stable Fe def anemia - recommend starting iron supplement with follow- up labs in 1-3 months. Recommend admission to [facility]. Signed out to Felicia Hand PA-C at 18:14 <Nanda Strauss - Last Filed: 02/01/17 18:11> <Felicia Hand - Last Filed: 02/01/17 23:16> <Reena Alcaraz - Last Filed: 02/03/17 08:37> - Differential Dx/Clinical Impression Provider Diagnosis: Borderline personality disorder, PTSD (post-traumatic stress disorder) Discharge - Discharge Plan Discharge Disposition Comment: signed out to Felicia Hand PA-C <Nanda Strauss - Last Filed: 02/01/17 18:11> <Felicia Hand - Last Filed: 02/01/17 23:16> <Reena Alcaraz - Last Filed: 02/03/17 08:37> - Discharge Plan Condition: Fair Disposition: ADMITTED TO [facility] Attestation Statement User Type: Provider <Reena Alcaraz - Last Filed: 02/03/17 08:37> Addendum entered and electronically signed by Felicia Hand PA 02/01/17 23: 17: ED Addendum Addendum: sign out from Nanda Strauss PA-C. patient was later signed out to Dr Blunt/ Dr Edwards who had to have a doc to doc with [facility] due to no psychiatrist on site. no concerns. normal PE exam. Accepted at [facility] by Dr Villarreal at 9:30pm per Dr Blunt.
[2017-02-01 12:00] LABS: Urine Bilirubin Negative (Negative); Urine Glucose Negative (Negative); Urine Nitrite Negative (Negative)
[2017-02-01 12:21] LABS: Benzodiazepine Urine Screen None Detected (None Detect)
[2017-02-01 12:27] LABS: Hematocrit 43 % (35-47); Hemoglobin 14.7 g/dl (12.0-16.0); Mean Corpuscular HGB Conc 35 g/dl (31-36); Mean Corpuscular Hemoglobin 32 pg (27-31); Mean Corpuscular Volume 91 fL (80-97); Mean Platelet Volume 9 um3 (7.4-10.4); Red Blood Count 4.69 10^6/ul (4.0-5.4); Red Cell Distribution Width 14 % (10.5-15); White Blood Count 10.1 10^3/ul (3.5-10.8)
[2017-02-01 12:43] LABS: ALT 9 U/L (7-52); AST 16 U/L (13-39); Albumin 4.4 g/dL (3.2-5.2); Alkaline Phosphatase 60 U/L (34-104); Anion Gap 5 mmol/L (2-11); BUN/Creatinine Ratio 20.6 (8-20); Blood Urea Nitrogen 13 mg/dL (6-24); CO2 Carbon Dioxide 22 mmol/L (22-32); Calcium 9.5 mg/dL (8.6-10.3); Chloride 106 mmol/L (101-111); EGFR African American 145.8 (>60); EGFR Non-African American 113.4 (>60); Globulin 3.2 g/dL (2-4); Glucose 93 mg/dL (70-100); Sodium 133 mmol/L (133-145); Total Protein 7.6 g/dL (6.4-8.9)
[2017-02-01 13:02] LABS: Acetaminophen < 15 mcg/mL; Alcohol < 10 mg/dL (<10); Iron 33 ug/dL (50-212); Salicylate < 2.50 mg/dL (<30); Total Iron Binding Capacity 354 mcg/dL (250-450); Transferrin 253 mg/dL (203-362)
[2017-02-01 13:12] LABS: TSH (Thyroid Stimulating Horm) 0.57 mcIU/mL (0.34-5.60)
[2017-02-01] MEDS ORDERED: LORazepam TAB(*) 1 MG PO ONE (18:35)
[2017-02-01] MEDS: Nicotine GUM* 2 MG PO PRN (19:05)
[2017-02-02] MEDS ORDERED: LORazepam TAB(*) 1 MG PO ONE (10:27)
[2017-02-02] MEDS: QUEtiapine TAB* 100 MG PO SCH ×2 (12:13→20:31)
[2017-02-02] MEDS: clonazePAM TAB(*) 1 MG PO PRN (12:14)
[2017-02-02] MEDS: Nicotine GUM* 2 MG PO PRN ×2 (12:20→18:34)
--- NOTE | 2017-02-02 14:01 | ED ---
Progress - Progress Note Progress Note: The patient is a sign out from Dr. Blunt. I discussed patient care with the patients case briefer, who supplies the patients history. The patient has been a patient at the [facility] 9-11 times in the past two months. Dr. Lieberman, psychiatry, believes that the patient has not received adequate treatment from this facility, so he recommends transfer to higher level of care. Previously, the patient was an inpatient at [facility] 3 years ago. About 1 year ago, the patient started to come to [facility]. I went to the flex unit to evaluate the patient. When I first saw her, she was sleeping. The patient inquires what is the plan of care going forward. She denies any medical complaints at this time. Regarding her psychiatric state, the patient reports suicidal ideation recently. The patient will be transferred to higher level of care at [facility]. 00:32: Hold on transfer to [facility], pending verifiction of whether [facility] can provide higher level of care vs lateral transfer. For re-eval in am with Dr. Lieberman. 10:00am: Per Dr. Lieberman, admit [facility]. Abbey Edwards MD 02/02/17 10:00am - Consult/PCP Time Called: 13:00 Course/Dx - Course Course Of Treatment: Pt here w/ reported concerns for suicide. High risk w/ previous attempts and recent med change with stressful home environment. Pt reports weight loss over the month from not eating and easy bruising. Labs indicate stable Fe def anemia - recommend starting iron supplement with follow- up labs in 1-3 months. Recommend admission to [facility]. Signed out to Felicia Hand PA-C at 18:14 - Diagnoses Provider Diagnoses: Borderline personality disorder, PTSD (post-traumatic stress disorder)
--- NOTE | 2017-02-02 14:03 | ED ---
Vimal Escamilla Thomas, scribed for Amna Edwards MD on 02/01/17 at 2248 . Progress - Progress Note Progress Note: The patient is a sign out from Dr. Blunt. I discussed patient care with the patients bilingual patient support caseworker, who supplies the patients history. The patient [facility] a [facility] at the [facility] 9[facility]11 times in the past two months. Dr. Lieberman, psychiatry, believes that the patient has not received adequate treatment from this facility, so he recommends transfer to higher level of care. Previously, the patient was an inpatient at [facility] 3 years ago. About 1 year ago, the patient started to come to [facility]. I went to the flex unit to evaluate the patient. When I first saw her, she was sleeping. The patient inquires what is the plan of care going forward. She denies any medical complaints at this time. Regarding her psychiatric state, the patient reports suicidal ideation recently. The patient will be transferred to higher level of care at [facility]. Course/Dx - Diagnoses Provider Diagnoses: Borderline personality disorder, PTSD (post-traumatic stress disorder) The documentation as recorded by the Vimal crouch Thomas accurately reflects the service I personally performed and the decisions made by me, Amna Edwards MD.
[2017-02-02] MEDS: Gabapentin CAP(*) 300 MG PO SCH ×2 (14:34→20:31)
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
[2017-02-03] MEDS: clonazePAM TAB(*) 1 MG PO PRN ×2 (08:49→16:07)
[2017-02-03] MEDS: Gabapentin CAP(*) 300 MG PO SCH ×3 (08:49→21:01)
[2017-02-03] MEDS: QUEtiapine TAB* 100 MG PO SCH ×2 (08:49→21:02)
[2017-02-03] MEDS: Nicotine GUM* 2 MG PO PRN ×4 (08:51→21:02)
--- NOTE | 2017-02-03 11:31 | PN ---
Subjective - Subjective Service Type: 70374 Hosp care 15 min low complexity Subjective: Greg is seen along with ANNIE Martinez. Jamia bob is dysphoric with symptoms of derealization "like my mind is floating somewhere above [place] and I'm seeing myself through a huge telescope." She is c/o chest pain, although EKG is normal. The patient is pessimistic and hopeless. "I feel like there's nothing I can do to make my life any better and it's basically unfair that I'm still alive." She continues to endorse passive SI. Objective - Appearance Appearance: Well Developed/Nourished Dysmorphic Features: No Hygiene: Normal Grooming: Disheveled - Behavior Psychomotor Activities: Normal Exhibits Abnormal Movement: No - Attitude and Relatedness Attitude and Relatedness: Needy Eye Contact: Poor - Speech Quality: Unpressured Latencies: Normal Quantity: Appropriate - Mood Patient's Decription of Mood: "Terrible" - Affect Observed Affect: Tearful Affect Consistent with: Dysphoria - Thought Process Patient's Thought Process: Coherent Thought Content: Yes Passive Wish, No Suicidal Planning, No Homicidal Ideation, No Paranoid Ideation - Sensorium Experiencing Hallucinations: No, Sensorium is Clear Type of Hallucinations: Visual: No, Auditory: No, Command: No - Level of Consciousness Level of Consciousness: Alert Orientation: Yes Intact, Yes Orientated to Time, Yes Orientated to Place, Yes Orientated to Person - Impulse Control Impulse Control: Poor - Insight and Judgement Insight and Judgement: Impaired - Group Participation Particating in Group Activities: No - Medication Management Medication Management Adherence: Yes Assessment - Assessment Merits Inpatient Hospitalization: For Immediate Safety, For Stabilization Inpatient DSM-IV Dx: PTSD Clinical Impression: 26 y.o. engaged, white female with an extensive history of early life trauma, mood instability, borderline personality pathology and complex PTSD who presents on a 9.45 status from [facility] due to lessening self care and SI. Plan - Plan Treatment Plan: Name: GREG CRAWFORD Birthdate: 1990 [id number] We have resumed outpatient meds, including quetiapine 100mg PO qam and 200mg PO qhs, gabapentin 600mg PO TID and prn clonazepam. She is encouraged to participate in the milieu as much as is tolerable. She has signed a behavioral contract to promise not to destroy property on the unit while admitted and refrain from self-harm. Continued Medication Management: Continue Outpt Medication Medications: Current Medications Acetaminophen (Tylenol Tab*) 650 mg PO Q4H PRN PRN Reason: for pain; or Temp >101 F Al Hydrox/Mg Hydrox/Simethicone (Maalox Plus*) 30 ml PO Q4H PRN PRN Reason: INDIGESTION Clonazepam (Klonopin Tab(*)) 1 mg PO Q8H PRN PRN Reason: AGITATION/ANXIETY/INSOMNIA Last Admin: 02/03/17 08:49 Dose: 1 mg Gabapentin (Neurontin Cap(*)) 600 mg PO TID [facility] Last Admin: 02/03/17 08:49 Dose: 600 mg Nicotine Polacrilex (Nicotine Gum*) 2 mg PO Q2H PRN PRN Reason: CRAVING Last Admin: 02/03/17 11:00 Dose: 2 mg Quetiapine Fumarate (Seroquel Tab*) 100 mg PO DAILY [facility] Last Admin: 02/03/17 08:49 Dose: 100 mg Quetiapine Fumarate (Seroquel Tab*) 200 mg PO BEDTIME [facility] Last Admin: 02/02/17 20:31 Dose: 200 mg - Discharge Plan Discharge Plan: Inpatient Hospitalization
--- NOTE | 2017-02-03 11:41 | PN ---
MHU: Group Therapy Note - Service Type Service Type: [id number] Group Psychotherapy - Cognitive Behavioral Group Therapy ( CBT):Patient was attentive and participatory in CBT programming this morning, and remained in good behavioral control. Patient expressed positive insights regarding relevant treatment interventions and goals.
[2017-02-03] MEDS: Al Hydrox/Mg Hydrox/Simet LIQ* 30 ML UDC PO PRN (16:53)
[2017-02-04] MEDS: clonazePAM TAB(*) 1 MG PO PRN ×2 (07:50→16:32)
[2017-02-04] MEDS: Gabapentin CAP(*) 300 MG PO SCH ×3 (07:50→20:26)
[2017-02-04] MEDS: QUEtiapine TAB* 100 MG PO SCH ×2 (07:51→20:27)
[2017-02-04 09:15] LABS: HDL Cholesterol 49.3 mg/dL
[2017-02-04] MEDS: Nicotine GUM* 2 MG PO PRN ×3 (10:30→18:42)
[2017-02-04] MEDS: Al Hydrox/Mg Hydrox/Simet LIQ* 30 ML UDC PO PRN (12:54)
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
[2017-02-05] MEDS: Nicotine GUM* 2 MG PO PRN ×2 (06:33→12:55)
[2017-02-05] MEDS: Gabapentin CAP(*) 300 MG PO SCH ×3 (08:47→21:27)
[2017-02-05] MEDS: QUEtiapine TAB* 100 MG PO SCH ×2 (08:48→21:26)
[2017-02-05] MEDS: clonazePAM TAB(*) 1 MG PO PRN ×2 (08:48→16:12)
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
[2017-02-05] MEDS ORDERED: Mouth Piece, Nicotine* 1 EACH CARTRIDGE ONE (16:11)
[2017-02-05] MEDS: Nicotine Inhaler* 10 MG AMP INH PRN (16:12)
[2017-02-05] MEDS: Mouth Piece, Nicotine* 1 EACH CARTRIDGE INH SCH (16:12)
[2017-02-06] MEDS: Gabapentin CAP(*) 300 MG PO SCH ×3 (08:13→20:52)
[2017-02-06] MEDS: QUEtiapine TAB* 100 MG PO SCH ×2 (08:14→20:51)
[2017-02-06] MEDS: Acetaminophen TAB* 325 MG PO PRN (08:15)
[2017-02-06] MEDS: Nicotine GUM* 2 MG PO PRN (10:47)
[2017-02-06] MEDS: Mouth Piece, Nicotine* 1 EACH CARTRIDGE INH SCH (10:49)
[2017-02-06] MEDS: Nicotine Inhaler* 10 MG AMP INH PRN ×2 (10:50→16:40)
[2017-02-06] MEDS: clonazePAM TAB(*) 1 MG PO PRN (11:25)
[2017-02-06] MEDS: clonazePAM TAB(*) 1 MG PO SCH ×2 (14:31→20:52)
[2017-02-07] MEDS: Nicotine Inhaler* 10 MG AMP INH PRN (08:23)
[2017-02-07] MEDS: QUEtiapine TAB* 100 MG PO SCH ×2 (08:24→20:55)
[2017-02-07] MEDS: Gabapentin CAP(*) 300 MG PO SCH ×3 (08:24→20:53)
[2017-02-07] MEDS: clonazePAM TAB(*) 1 MG PO SCH ×3 (08:24→20:54)
--- NOTE | 2017-02-07 11:56 | PN ---
MHU: Group Therapy Note - Service Type Service Type: [id number] Group Psychotherapy - Cognitive Behavioral Group Therapy ( CBT):Patient was attentive and participatory in CBT programming this morning, and remained in good behavioral control. Patient expressed positive insights regarding relevant treatment interventions and goals.
--- NOTE | 2017-02-07 12:01 | PN ---
Subjective - Subjective Service Type: 02182 Hosp care 15 min low complexity Subjective: Patient seen along with SW Zuleima Michelle. 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 Patient agrees to have SW [facility] to pursue [facility] placement. Patient also willing to fill out her own SPO[employer] application to pursue more permanent supportive housing in the community. Patient reportedly cut herself with a plastic fork over the weekend and states she is struggling with the behavior contract that stipulates that she must attend groups and avoid self-harm and property destruction. She also complains of over-sedation from medications, particularly in the AM, making group participation more difficult. She does not feel safe leaving the hospital. Objective - Appearance Appearance: Well Developed/Nourished Dysmorphic Features: No Hygiene: Normal Grooming: Fairly Well Kept - Behavior Psychomotor Activities: Normal Exhibits Abnormal Movement: No - Attitude and Relatedness Attitude and Relatedness: Needy Eye Contact: Fair - Speech Quality: Unpressured Latencies: Normal Quantity: Appropriate - Mood Patient's Decription of Mood: "Terrible" - Affect Observed Affect: Tearful Affect Consistent with: Dysphoria - Thought Process Patient's Thought Process: Coherent Thought Content: Yes Suicidal Planning, No Passive Wish, No Homicidal Ideation, No Paranoid Ideation - Sensorium Experiencing Hallucinations: No, Sensorium is Clear Type of Hallucinations: Visual: No, Auditory: No, Command: No - Level of Consciousness Level of Consciousness: Alert Orientation: Yes Intact, Yes Orientated to Time, Yes Orientated to Place, Yes Orientated to Person - Impulse Control Impulse Control: Poor - Insight and Judgement Insight and Judgement: Impaired - Group Participation Particating in Group Activities: No - Medication Management Medication Management Adherence: Yes Assessment - Assessment Merits Inpatient Hospitalization: For Immediate Safety, For Stabilization Inpatient DSM-IV Dx: PTSD Clinical Impression: 26 y.o. engaged, white female with an extensive history of early life trauma, mood instability, borderline personality pathology and complex PTSD who presents on a 9.45 status from [facility] due to lessening self care and SI. Plan - Plan Treatment Plan: Name: GREG CRAWFORD Birthdate: 1990 [id number] We have resumed outpatient meds, including quetiapine 100mg PO qam and 200mg PO qhs, gabapentin 600mg PO TID and prn clonazepam. Will decrease AM quetiapine to 50mg to improve sedation. She is encouraged to participate in the milieu as much as is tolerable. She has signed a behavioral contract to promise not to destroy property on the unit while admitted and refrain from self-harm. Patient will now require housing placement. Continued Medication Management: Continue Outpt Medication Medications: Current Medications Acetaminophen (Tylenol Tab*) 650 mg PO Q4H PRN PRN Reason: for pain; or Temp >101 F Last Admin: 02/06/17 08:15 Dose: 650 mg Al Hydrox/Mg Hydrox/Simethicone (Maalox Plus*) 30 ml PO Q4H PRN PRN Reason: INDIGESTION Last Admin: 02/04/17 12:54 Dose: 30 ml Clonazepam (Klonopin Tab(*)) 1 mg PO TID [facility] Last Admin: 02/07/17 08:24 Dose: 1 mg Device (Nicotine Mouth Piece*) 1 each INH .CARTRIDGE [facility] Last Admin: 02/06/17 10:49 Dose: 1 each Gabapentin (Neurontin Cap(*)) 600 mg PO TID [facility] Last Admin: 02/07/17 08:24 Dose: 600 mg Nicotine (Nicotine Inhaler*) 10 mg INH Q2H PRN PRN Reason: CRAVING Last Admin: 02/07/17 08:23 Dose: 10 mg Nicotine Polacrilex (Nicotine Gum*) 2 mg PO Q2H PRN PRN Reason: CRAVING Last Admin: 02/06/17 10:47 Dose: 2 mg Quetiapine Fumarate (Seroquel Tab*) 200 mg PO BEDTIME [facility] Last Admin: 02/06/17 20:51 Dose: 200 mg Quetiapine Fumarate (Seroquel Tab*) 50 mg PO DAILY [facility] - Discharge Plan Discharge Plan: Inpatient Hospitalization
[2017-02-07] MEDS: Nicotine GUM* 2 MG PO PRN (17:47)
[2017-02-08] MEDS: Gabapentin CAP(*) 300 MG PO SCH ×3 (08:14→20:29)
[2017-02-08] MEDS: Acetaminophen TAB* 325 MG PO PRN (08:14)
[2017-02-08] MEDS: QUEtiapine TAB* 25 MG PO SCH (08:15)
[2017-02-08] MEDS: clonazePAM TAB(*) 1 MG PO SCH (08:15)
[2017-02-08] MEDS: Nicotine GUM* 2 MG PO PRN ×2 (08:31→13:08)
[2017-02-08] MEDS: Mouth Piece, Nicotine* 1 EACH CARTRIDGE INH SCH (09:26)
[2017-02-08] MEDS: Nicotine Inhaler* 10 MG AMP INH PRN (09:26)
--- NOTE | 2017-02-08 13:03 | PN ---
Subjective - Subjective Service Type: 64350 Hosp care 15 min low complexity Subjective: Patient continues to endorse hopelessness and urges to cut herself and . She is working with SW to find alternative housing, now that her fiancee has ended their relationship. Patient has not damaged property nor struck her head against the rhoades as of yet. Patient is going to groups and requests use of the comfort room. Objective - Appearance Appearance: Well Developed/Nourished Dysmorphic Features: No Hygiene: Normal Grooming: Fairly Well Kept - Behavior Psychomotor Activities: Normal Exhibits Abnormal Movement: No - Attitude and Relatedness Attitude and Relatedness: Needy Eye Contact: Fair - Speech Quality: Unpressured Latencies: Normal Quantity: Appropriate - Mood Patient's Decription of Mood: "Terrible" - Affect Observed Affect: Tearful Affect Consistent with: Dysphoria - Thought Process Patient's Thought Process: Coherent Thought Content: Yes Passive Wish, No Suicidal Planning, No Homicidal Ideation, No Paranoid Ideation - Sensorium Experiencing Hallucinations: No, Sensorium is Clear Type of Hallucinations: Visual: No, Auditory: No, Command: No - Level of Consciousness Level of Consciousness: Alert Orientation: Yes Intact, Yes Orientated to Time, Yes Orientated to Place, Yes Orientated to Person - Impulse Control Impulse Control: Tenuous - Insight and Judgement Insight and Judgement: Fair - Group Participation Particating in Group Activities: Yes - Medication Management Medication Management Adherence: Yes Assessment - Assessment Merits Inpatient Hospitalization: For Immediate Safety, For Stabilization Inpatient DSM-IV Dx: PTSD Clinical Impression: 26 y.o. engaged, white female with an extensive history of early life trauma, mood instability, borderline personality pathology and complex PTSD who presents on a 9.45 status from [facility] due to lessening self care and SI. Plan - Plan Treatment Plan: Name: GREG CRAWFORD Birthdate: 1990 [id number] We have resumed outpatient meds, including quetiapine 100mg PO qam and 200mg PO qhs, gabapentin 600mg PO TID and prn clonazepam. Will decrease AM quetiapine to 50mg to improve sedation. She is encouraged to participate in the milieu as much as is tolerable. She has signed a behavioral contract to promise not to destroy property on the unit while admitted and refrain from self-harm. Patient will now require housing placement. Continued Medication Management: Continue Outpt Medication Medications: Current Medications Acetaminophen (Tylenol Tab*) 650 mg PO Q4H PRN PRN Reason: for pain; or Temp >101 F Last Admin: 02/08/17 08:14 Dose: 650 mg Al Hydrox/Mg Hydrox/Simethicone (Maalox Plus*) 30 ml PO Q4H PRN PRN Reason: INDIGESTION Last Admin: 02/04/17 12:54 Dose: 30 ml Clonazepam (Klonopin Tab(*)) 1 mg PO TID PRN PRN Reason: AGITATION/ANXIETY/INSOMNIA Device (Nicotine Mouth Piece*) 1 each INH .CARTRIDGE [facility] Last Admin: 02/08/17 09:26 Dose: 1 each Gabapentin (Neurontin Cap(*)) 600 mg PO TID [facility] Last Admin: 02/08/17 08:14 Dose: 600 mg Nicotine (Nicotine Inhaler*) 10 mg INH Q2H PRN PRN Reason: CRAVING Last Admin: 02/08/17 09:26 Dose: 10 mg Nicotine Polacrilex (Nicotine Gum*) 2 mg PO Q2H PRN PRN Reason: CRAVING Last Admin: 02/08/17 08:31 Dose: 2 mg Quetiapine Fumarate (Seroquel Tab*) 200 mg PO BEDTIME [facility] Last Admin: 02/07/17 20:55 Dose: 200 mg Quetiapine Fumarate (Seroquel Tab*) 50 mg PO DAILY [facility] Last Admin: 02/08/17 08:15 Dose: 50 mg - Discharge Plan Discharge Plan: Inpatient Hospitalization
[2017-02-08] MEDS: clonazePAM TAB(*) 1 MG PO PRN (16:24)
[2017-02-08] MEDS: QUEtiapine TAB* 100 MG PO SCH (20:29)
[2017-02-09] MEDS: QUEtiapine TAB* 25 MG PO SCH (08:35)
[2017-02-09] MEDS: Gabapentin CAP(*) 300 MG PO SCH ×3 (08:35→21:14)
[2017-02-09] MEDS: clonazePAM TAB(*) 1 MG PO PRN (10:28)
[2017-02-09] MEDS: Nicotine Inhaler* 10 MG AMP INH PRN (10:28)
--- NOTE | 2017-02-09 11:41 | PN ---
MHU: Group Therapy Note - Service Type Service Type: [id number] Group Psychotherapy - Cognitive Behavioral Group Therapy ( CBT):Patient was attentive and participatory in CBT programming this morning, and remained in good behavioral control. Patient expressed positive insights regarding relevant treatment interventions and goals.
--- NOTE | 2017-02-09 12:22 | PN ---
Subjective - Subjective Service Type: 53352 Hosp care 15 min low complexity Subjective: Carolin is anxious and tearful today after meeting with the [facility] metals sales representative, who, apparently informed her that they do not have any immediate openings in their crisis residence beds. "It just hit me full on that I'm homeless now. I have no place to stay and no way to feed myself. This is the lowest I've ever felt." She remains behaviorally in control on the unit and has been attending groups compliantly. The patient reports irregular menses and requests repeat test. She complains of insomnia and anxiety with occasional SI without plan. Objective - Appearance Appearance: Well Developed/Nourished Dysmorphic Features: No Hygiene: Normal Grooming: Fairly Well Kept - Behavior Psychomotor Activities: Normal Exhibits Abnormal Movement: No - Attitude and Relatedness Attitude and Relatedness: Needy Eye Contact: Good - Speech Quality: Unpressured Latencies: Normal Quantity: Appropriate - Mood Patient's Decription of Mood: "Anxious" - Affect Observed Affect: Tearful Affect Consistent with: Dysphoria - Thought Process Patient's Thought Process: Coherent Thought Content: Yes Passive Wish, No Suicidal Planning, No Homicidal Ideation, No Paranoid Ideation - Sensorium Experiencing Hallucinations: No, Sensorium is Clear Type of Hallucinations: Visual: No, Auditory: No, Command: No - Level of Consciousness Level of Consciousness: Alert Orientation: Yes Intact, Yes Orientated to Time, Yes Orientated to Place, Yes Orientated to Person - Impulse Control Impulse Control: Tenuous - Insight and Judgement Insight and Judgement: Fair - Group Participation Particating in Group Activities: Yes - Medication Management Medication Management Adherence: Yes Assessment - Assessment Merits Inpatient Hospitalization: For Immediate Safety, For Stabilization Inpatient DSM-IV Dx: PTSD Clinical Impression: 26 y.o. engaged, white female with an extensive history of early life trauma, mood instability, borderline personality pathology and complex PTSD who presents on a 9.45 status from [facility] due to lessening self care and SI. Plan - Plan Treatment Plan: Name: GREG CRAWFORD Birthdate: 1990 [id number] We have resumed outpatient meds, including quetiapine 50mg PO qam and 200mg PO qhs, gabapentin 600mg PO TID and prn clonazepam. Will increase HS quetiapine to 300mg to improve insomnia. Will change prn from clonazepam to lorazepam. She is encouraged to participate in the milieu as much as is tolerable. She has signed a behavioral contract to promise not to destroy property on the unit while admitted and refrain from self-harm. Patient will now require housing placement. Continued Medication Management: Continue Outpt Medication Medications: Current Medications Acetaminophen (Tylenol Tab*) 650 mg PO Q4H PRN PRN Reason: for pain; or Temp >101 F Last Admin: 02/08/17 08:14 Dose: 650 mg Al Hydrox/Mg Hydrox/Simethicone (Maalox Plus*) 30 ml PO Q4H PRN PRN Reason: INDIGESTION Last Admin: 02/04/17 12:54 Dose: 30 ml Device (Nicotine Mouth Piece*) 1 each INH .CARTRIDGE [facility] Last Admin: 02/08/17 09:26 Dose: 1 each Gabapentin (Neurontin Cap(*)) 600 mg PO TID [facility] Last Admin: 02/09/17 08:35 Dose: 600 mg Nicotine (Nicotine Inhaler*) 10 mg INH Q2H PRN PRN Reason: CRAVING Last Admin: 02/09/17 10:28 Dose: 10 mg Nicotine Polacrilex (Nicotine Gum*) 2 mg PO Q2H PRN PRN Reason: CRAVING Last Admin: 02/08/17 13:08 Dose: 2 mg Quetiapine Fumarate (Seroquel Tab*) 50 mg PO DAILY [facility] Last Admin: 02/09/17 08:35 Dose: 50 mg - Discharge Plan Discharge Plan: Inpatient Hospitalization
[2017-02-09] MEDS: LORazepam TAB(*) 1 MG PO PRN ×2 (13:25→20:25)
[2017-02-09] MEDS: Nicotine GUM* 2 MG PO PRN (16:46)
[2017-02-09] MEDS: QUEtiapine TAB* 100 MG PO SCH (21:14)
[2017-02-10] MEDS: LORazepam TAB(*) 1 MG PO PRN ×2 (08:12→15:37)
[2017-02-10] MEDS: Gabapentin CAP(*) 300 MG PO SCH ×3 (08:13→20:32)
[2017-02-10] MEDS: QUEtiapine TAB* 25 MG PO SCH (08:13)
[2017-02-10] MEDS: Nicotine GUM* 2 MG PO PRN (09:10)
--- NOTE | 2017-02-10 14:47 | PN ---
Subjective - Subjective Service Type: 83705 Hosp care 15 min low complexity Subjective: Patient presents as irritable and emotional but not overtly anxious or tearful. She is going to groups and adhering to her behavioral modification plan. Patient denies SI today. Objective - Appearance Appearance: Well Developed/Nourished Dysmorphic Features: No Hygiene: Normal Grooming: Fairly Well Kept - Behavior Psychomotor Activities: Normal Exhibits Abnormal Movement: No - Attitude and Relatedness Attitude and Relatedness: Needy Eye Contact: Fair - Speech Quality: Unpressured Latencies: Normal Quantity: Appropriate - Mood Patient's Decription of Mood: "Anxious" - Affect Observed Affect: Fair Affect Consistent with: Dysphoria - Thought Process Patient's Thought Process: Coherent Thought Content: No Passive Wish, No Suicidal Planning, No Homicidal Ideation, No Paranoid Ideation - Sensorium Experiencing Hallucinations: No, Sensorium is Clear Type of Hallucinations: Visual: No, Auditory: No, Command: No - Level of Consciousness Level of Consciousness: Alert Orientation: Yes Intact, Yes Orientated to Time, Yes Orientated to Place, Yes Orientated to Person - Impulse Control Impulse Control: Tenuous - Insight and Judgement Insight and Judgement: Fair - Group Participation Particating in Group Activities: Yes - Medication Management Medication Management Adherence: Yes Assessment - Assessment Merits Inpatient Hospitalization: For Immediate Safety, For Stabilization Inpatient DSM-IV Dx: PTSD Clinical Impression: 26 y.o. engaged, white female with an extensive history of early life trauma, mood instability, borderline personality pathology and complex PTSD who presents on a 9.45 status from [facility] due to lessening self care and SI. Plan - Plan Treatment Plan: Name: GREG CRAWFORD Birthdate: 1990 [id number] We have resumed outpatient meds, including quetiapine 50mg PO qam and 300mg PO qhs, gabapentin 600mg PO TID and prn lorazepam. She is encouraged to participate in the milieu as much as is tolerable. She has signed a behavioral contract to promise not to destroy property on the unit while admitted and refrain from self-harm. Patient will now require housing placement. Continued Medication Management: Continue Outpt Medication Medications: Current Medications Acetaminophen (Tylenol Tab*) 650 mg PO Q4H PRN PRN Reason: for pain; or Temp >101 F Last Admin: 02/08/17 08:14 Dose: 650 mg Al Hydrox/Mg Hydrox/Simethicone (Maalox Plus*) 30 ml PO Q4H PRN PRN Reason: INDIGESTION Last Admin: 02/04/17 12:54 Dose: 30 ml Device (Nicotine Mouth Piece*) 1 each INH .CARTRIDGE [facility] Last Admin: 02/08/17 09:26 Dose: 1 each Gabapentin (Neurontin Cap(*)) 600 mg PO TID [facility] Last Admin: 02/10/17 14:29 Dose: Not Given Lorazepam (Ativan Tab(*)) 1 mg PO Q6H PRN PRN Reason: ANXIETY Last Admin: 02/10/17 08:12 Dose: 1 mg Nicotine (Nicotine Inhaler*) 10 mg INH Q2H PRN PRN Reason: CRAVING Last Admin: 02/09/17 10:28 Dose: 10 mg Nicotine Polacrilex (Nicotine Gum*) 2 mg PO Q2H PRN PRN Reason: CRAVING Last Admin: 02/10/17 09:10 Dose: 2 mg Quetiapine Fumarate (Seroquel Tab*) 50 mg PO DAILY [facility] Last Admin: 02/10/17 08:13 Dose: 50 mg Quetiapine Fumarate (Seroquel Tab*) 300 mg PO BEDTIME [facility] Last Admin: 02/09/17 21:14 Dose: 300 mg - Discharge Plan Discharge Plan: Inpatient Hospitalization
[2017-02-10] MEDS: QUEtiapine TAB* 100 MG PO SCH (20:32)
[2017-02-11] MEDS: LORazepam TAB(*) 1 MG PO PRN ×3 (06:22→18:43)
[2017-02-11] MEDS: Nicotine Inhaler* 10 MG AMP INH PRN ×2 (08:12→15:45)
[2017-02-11] MEDS: QUEtiapine TAB* 25 MG PO SCH (08:13)
[2017-02-11] MEDS: Gabapentin CAP(*) 300 MG PO SCH ×3 (08:13→20:35)
[2017-02-11] MEDS: Nicotine GUM* 2 MG PO PRN ×2 (10:21→15:46)
--- NOTE | 2017-02-11 11:40 | PN ---
MHU: Group Therapy Note - Service Type Service Type: [id number] Group Psychotherapy - Cognitive Behavioral Group Therapy ( CBT):Patient was attentive and participatory in CBT programming this morning, and remained in good behavioral control. Patient expressed positive insights regarding relevant treatment interventions and goals.
[2017-02-11] MEDS ORDERED: Diazepam TAB(*) 5 MG PO ONE (13:01)
[2017-02-11] MEDS ORDERED: Diazepam TAB(*) 5 MG ONE (13:02)
--- NOTE | 2017-02-11 16:35 | PN ---
Subjective - Subjective Service Type: 10106 Hosp care 15 min low complexity Subjective: Patient hysterically crying, sobbing, wants to . Very upset about being on behavioral modification plan and thinks we're going to kick her out if she does not adhere to it. Currently homeless with nowhere to go. Objective - Appearance Appearance: Well Developed/Nourished Dysmorphic Features: No Hygiene: Normal Grooming: Fairly Well Kept - Behavior Psychomotor Activities: Normal Exhibits Abnormal Movement: No - Attitude and Relatedness Attitude and Relatedness: Needy Eye Contact: Fair - Speech Quality: Unpressured Latencies: Normal Quantity: Copious - Mood Patient's Decription of Mood: "Terrible" - Affect Observed Affect: Tearful Affect Consistent with: Dysphoria - Thought Process Patient's Thought Process: Coherent Thought Content: Yes Passive Wish, No Suicidal Planning, No Homicidal Ideation, No Paranoid Ideation - Sensorium Experiencing Hallucinations: No, Sensorium is Clear Type of Hallucinations: Visual: No, Auditory: No, Command: No - Level of Consciousness Level of Consciousness: Alert Orientation: Yes Intact, Yes Orientated to Time, Yes Orientated to Place, Yes Orientated to Person - Impulse Control Impulse Control: Poor - Insight and Judgement Insight and Judgement: Impaired - Group Participation Particating in Group Activities: Yes - Medication Management Medication Management Adherence: Yes Assessment - Assessment Merits Inpatient Hospitalization: For Immediate Safety, For Stabilization Inpatient DSM-IV Dx: PTSD Clinical Impression: 26 y.o. single, recently homeless, white female with an extensive history of early life trauma, mood instability, borderline personality pathology and complex PTSD who presents on a 9.45 status from [facility] due to lessening self care and SI. Plan - Plan Treatment Plan: Name: GREG CRAWFORD Birthdate: 1990 [id number] We have resumed outpatient meds, including quetiapine 50mg PO qam and 300mg PO qhs, gabapentin 600mg PO TID and prn lorazepam. She is encouraged to participate in the milieu as much as is tolerable. She has signed a behavioral contract to promise not to destroy property on the unit while admitted and refrain from self-harm. Patient will now require housing placement. Continued Medication Management: Continue Outpt Medication Medications: Current Medications Acetaminophen (Tylenol Tab*) 650 mg PO Q4H PRN PRN Reason: for pain; or Temp >101 F Last Admin: 02/08/17 08:14 Dose: 650 mg Al Hydrox/Mg Hydrox/Simethicone (Maalox Plus*) 30 ml PO Q4H PRN PRN Reason: INDIGESTION Last Admin: 02/04/17 12:54 Dose: 30 ml Device (Nicotine Mouth Piece*) 1 each INH .CARTRIDGE [facility] Last Admin: 02/08/17 09:26 Dose: 1 each Gabapentin (Neurontin Cap(*)) 600 mg PO TID [facility] Last Admin: 02/11/17 13:04 Dose: 600 mg Lorazepam (Ativan Tab(*)) 1 mg PO Q6H PRN PRN Reason: ANXIETY Last Admin: 02/11/17 12:28 Dose: 1 mg Nicotine (Nicotine Inhaler*) 10 mg INH Q2H PRN PRN Reason: CRAVING Last Admin: 02/11/17 15:45 Dose: 10 mg Nicotine Polacrilex (Nicotine Gum*) 2 mg PO Q2H PRN PRN Reason: CRAVING Last Admin: 02/11/17 15:46 Dose: 2 mg Quetiapine Fumarate (Seroquel Tab*) 50 mg PO DAILY [facility] Last Admin: 02/11/17 08:13 Dose: 50 mg Quetiapine Fumarate (Seroquel Tab*) 300 mg PO BEDTIME [facility] Last Admin: 02/10/17 20:32 Dose: 300 mg - Discharge Plan Discharge Plan: Inpatient Hospitalization Lab Results - Lab Results Lab Results: 02/09/17 14:04 Beta HCG, Quant < 0.60
[2017-02-11] MEDS: QUEtiapine TAB* 100 MG PO SCH (20:35)
[2017-02-12] MEDS: QUEtiapine TAB* 25 MG PO SCH (08:03)
[2017-02-12] MEDS: Gabapentin CAP(*) 300 MG PO SCH ×4 (08:03→23:46)
[2017-02-12] MEDS: Nicotine GUM* 2 MG PO PRN ×3 (08:05→18:51)
[2017-02-12] MEDS: LORazepam TAB(*) 1 MG PO PRN ×3 (08:48→23:46)
[2017-02-12] MEDS: Nicotine Inhaler* 10 MG AMP INH PRN ×3 (09:20→18:51)
[2017-02-12] MEDS: QUEtiapine TAB* 100 MG PO SCH ×2 (22:45→23:47)
[2017-02-13] MEDS: Gabapentin CAP(*) 300 MG PO SCH ×4 (08:22→19:45)
[2017-02-13] MEDS: QUEtiapine TAB* 25 MG PO SCH (08:22)
[2017-02-13] MEDS: Nicotine GUM* 2 MG PO PRN ×2 (08:24→19:48)
[2017-02-13] MEDS: Al Hydrox/Mg Hydrox/Simet LIQ* 30 ML UDC PO PRN ×2 (09:45→16:18)
[2017-02-13] MEDS: LORazepam TAB(*) 1 MG PO PRN ×2 (09:45→16:17)
[2017-02-13] MEDS: Nicotine Inhaler* 10 MG AMP INH PRN (09:46)
[2017-02-13] MEDS: Acetaminophen TAB* 325 MG PO PRN (17:28)
[2017-02-13] MEDS: QUEtiapine TAB* 100 MG PO SCH ×2 (17:56→19:46)
[2017-02-13] MEDS ORDERED: Prazosin CAP* 1 MG ONE (20:31)
[2017-02-13] MEDS: Prazosin CAP* 1 MG PO SCH (20:50)
[2017-02-14] MEDS: Nicotine Inhaler* 10 MG AMP INH PRN ×3 (07:41→17:30)
[2017-02-14] MEDS: LORazepam TAB(*) 1 MG PO PRN (07:50)
[2017-02-14] MEDS: QUEtiapine TAB* 25 MG PO SCH (08:36)
[2017-02-14] MEDS: Nicotine GUM* 2 MG PO PRN ×3 (08:37→17:30)
[2017-02-14] MEDS: Gabapentin CAP(*) 300 MG PO SCH ×3 (08:37→20:17)
[2017-02-14] MEDS: Al Hydrox/Mg Hydrox/Simet LIQ* 30 ML UDC PO PRN ×2 (11:10→15:53)
--- NOTE | 2017-02-14 13:10 | PN ---
Subjective - Subjective Service Type: 11284 Hosp care 15 min low complexity Subjective: Patient c/o anxiety. Feels lorazepam not helpful. Requesting prn diazepam. Also c/o abdominal pain in epigastric area. Feels PPI treatment has helped in the past. Denies overt SI today. Objective - Appearance Appearance: Well Developed/Nourished Dysmorphic Features: No Hygiene: Normal Grooming: Fairly Well Kept - Behavior Psychomotor Activities: Normal Exhibits Abnormal Movement: No - Attitude and Relatedness Attitude and Relatedness: Needy Eye Contact: Fair - Speech Quality: Unpressured Latencies: Normal Quantity: Appropriate - Mood Patient's Decription of Mood: "Anxious" - Affect Observed Affect: Constricted Affect Consistent with: Dysphoria - Thought Process Patient's Thought Process: Coherent Thought Content: No Passive Wish, No Suicidal Planning, No Homicidal Ideation, No Paranoid Ideation - Sensorium Experiencing Hallucinations: No, Sensorium is Clear Type of Hallucinations: Visual: No, Auditory: No, Command: No - Level of Consciousness Orientation: Yes Intact, Yes Orientated to Time, Yes Orientated to Place, Yes Orientated to Person - Impulse Control Impulse Control: Tenuous - Insight and Judgement Insight and Judgement: Fair - Group Participation Particating in Group Activities: No - Medication Management Medication Management Adherence: No Assessment - Assessment Merits Inpatient Hospitalization: For Immediate Safety, For Stabilization Inpatient DSM-IV Dx: PTSD Clinical Impression: 26 y.o. single, recently homeless, white female with an extensive history of early life trauma, mood instability, borderline personality pathology and complex PTSD who presents on a 9.45 status from [facility] due to lessening self care and SI. Plan - Plan Treatment Plan: Name: GREG CRAWFORD Birthdate: 1990 [id number] We have resumed outpatient meds, including quetiapine 50mg PO qam and 300mg PO qhs, gabapentin 600mg PO TID and prn lorazepam. Replace lorazepam with 5mg diazepam as prn for anxiety. Start omeprazole 20mg daily for GERD. She is encouraged to participate in the milieu as much as is tolerable. She has signed a behavioral contract to promise not to destroy property on the unit while admitted and refrain from self-harm. Patient will now require housing placement. Continued Medication Management: Continue Outpt Medication Medications: Current Medications Acetaminophen (Tylenol Tab*) 650 mg PO Q4H PRN PRN Reason: for pain; or Temp >101 F Last Admin: 02/13/17 17:28 Dose: 650 mg Al Hydrox/Mg Hydrox/Simethicone (Maalox Plus*) 30 ml PO Q4H PRN PRN Reason: INDIGESTION Last Admin: 02/14/17 11:10 Dose: 30 ml Device (Nicotine Mouth Piece*) 1 each INH .CARTRIDGE [facility] Last Admin: 02/08/17 09:26 Dose: 1 each Diazepam (Valium Tab(*)) 5 mg PO Q8H PRN PRN Reason: AGITATION/ANXIETY/INSOMNIA Gabapentin (Neurontin Cap(*)) 600 mg PO TID [facility] Last Admin: 02/14/17 08:37 Dose: 600 mg Nicotine (Nicotine Inhaler*) 10 mg INH Q2H PRN PRN Reason: CRAVING Last Admin: 02/14/17 07:41 Dose: 10 mg Nicotine Polacrilex (Nicotine Gum*) 2 mg PO Q2H PRN PRN Reason: CRAVING Last Admin: 02/14/17 08:37 Dose: 2 mg Omeprazole (Prilosec Cap*) 20 mg PO DAILY@0600 [facility] Prazosin HCl (Minipress Cap*) 4 mg PO BEDTIME [facility] Last Admin: 02/13/17 20:50 Dose: 4 mg Quetiapine Fumarate (Seroquel Tab*) 50 mg PO DAILY [facility] Last Admin: 02/14/17 08:36 Dose: 50 mg Quetiapine Fumarate (Seroquel Tab*) 300 mg PO BEDTIME [facility] Last Admin: 02/13/17 19:46 Dose: Not Given - Discharge Plan Discharge Plan: Inpatient Hospitalization
[2017-02-14] MEDS: Diazepam TAB(*) 5 MG PO PRN (13:51)
[2017-02-14] MEDS: Omeprazole CAP* 20 MG PO SCH (13:51)
[2017-02-14] MEDS: Acetaminophen TAB* 325 MG PO PRN (19:05)
[2017-02-14] MEDS: Prazosin CAP* 1 MG PO SCH (20:18)
[2017-02-14] MEDS: QUEtiapine TAB* 100 MG PO SCH (20:18)
[2017-02-15] MEDS: Diazepam TAB(*) 5 MG PO PRN ×3 (03:50→21:49)
[2017-02-15] MEDS: Nicotine GUM* 2 MG PO PRN ×2 (06:34→12:19)
[2017-02-15] MEDS: Gabapentin CAP(*) 300 MG PO SCH ×3 (08:33→20:25)
[2017-02-15] MEDS: QUEtiapine TAB* 25 MG PO SCH (08:34)
[2017-02-15] MEDS: Omeprazole CAP* 20 MG PO SCH (08:34)
[2017-02-15] MEDS ORDERED: Mouth Piece, Nicotine* 1 EACH CARTRIDGE ONE (08:35)
[2017-02-15] MEDS: Mouth Piece, Nicotine* 1 EACH CARTRIDGE INH SCH (08:36)
[2017-02-15] MEDS: Acetaminophen TAB* 325 MG PO PRN (08:36)
[2017-02-15] MEDS: Nicotine Inhaler* 10 MG AMP INH PRN ×2 (08:36→13:57)
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
[2017-02-15] MEDS: Al Hydrox/Mg Hydrox/Simet LIQ* 30 ML UDC PO PRN (17:20)
[2017-02-15] MEDS: Prazosin CAP* 1 MG PO SCH (20:24)
[2017-02-15] MEDS: QUEtiapine TAB* 100 MG PO SCH (20:25)
[2017-02-16] MEDS: Nicotine GUM* 2 MG PO PRN ×3 (06:09→14:20)
[2017-02-16] MEDS: Gabapentin CAP(*) 300 MG PO SCH ×3 (08:24→20:18)
[2017-02-16] MEDS: QUEtiapine TAB* 25 MG PO SCH (08:24)
[2017-02-16] MEDS: Omeprazole CAP* 20 MG PO SCH (08:24)
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
[2017-02-16] MEDS: Nicotine Inhaler* 10 MG AMP INH PRN (12:58)
[2017-02-16] MEDS: Diazepam TAB(*) 5 MG PO PRN (14:20)
[2017-02-16] MEDS: Acetaminophen TAB* 325 MG PO PRN (18:59)
[2017-02-16] MEDS: QUEtiapine TAB* 100 MG PO SCH (20:19)
[2017-02-16] MEDS: Prazosin CAP* 1 MG PO SCH (20:19)
[2017-02-17] MEDS: Nicotine GUM* 2 MG PO PRN ×2 (04:56→13:09)
[2017-02-17] MEDS: Diazepam TAB(*) 5 MG PO PRN ×2 (06:14→15:37)
[2017-02-17] MEDS: Omeprazole CAP* 20 MG PO SCH (08:27)
[2017-02-17] MEDS: Gabapentin CAP(*) 300 MG PO SCH ×2 (08:27→13:09)
[2017-02-17] MEDS: QUEtiapine TAB* 25 MG PO SCH (08:27)
[2017-02-17] MEDS: Nicotine Inhaler* 10 MG AMP INH PRN (13:09)
[2017-02-17 14:05] VITALS: BP 125/78
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
== END 2017-02-17 15:50 | DRG 755 ==
LOC: ED 11:33 → BSU 02-02 10:26
PROVIDERS: ADMIT Psychiatry & Neurology Psychiatry; ATTEND Psychiatry & Neurology Psychiatry
PROC: GZHZZZZ Group Psychotherapy (ICD-10-PCS; principal; 2017-02-03)
DX: F43.10 Post-traumatic stress disorder, unspecified (principal); R45.851 Suicidal ideations; F12.90 Cannabis use, unspecified, uncomplicated; F60.3 Borderline personality disorder; K21.9 Gastro-esophageal reflux disease without esophagitis; F41.8 Other specified anxiety disorders; Z62.810 Personal history of physical and sexual abuse in childhood; F10.10 Alcohol abuse, uncomplicated; F17.210 Nicotine dependence, cigarettes, uncomplicated; D64.9 Anemia, unspecified; J42 Unspecified chronic bronchitis; F32.9 Major depressive disorder, single episode, unspecified; Z82.49 Family history of ischemic heart disease and other diseases of the circulatory system; Z82.5 Family history of asthma and other chronic lower respiratory diseases; Z81.8 Family history of other mental and behavioral disorders; Z59.0 Homelessness; Z91.5 Personal history of self-harm; Z91.410 Personal history of adult physical and sexual abuse; Z88.0 Allergy status to penicillin; Z88.8 Allergy status to other drugs, medicaments and biological substances; Z81.1 Family history of alcohol abuse and dependence; Z81.4 Family history of other substance abuse and dependence
CPT/HCPCS: 36415; 80053; 80061; 80307; 80320; 80329; 81003; 82728; 83036; 83540; 83550; 84443; 84702; 85025; 90853; 93005; 99222; 99231; 99238; 99406; A9270-GY; G0480

== ENCOUNTER 2017-03-10 14:31 | Emergency (ER) | payer OTHER ==
[2017-03-10 14:53] VITALS: BP 132/75
[2017-03-10 15:14] LABS: Hematocrit 41 % (35-47); Hemoglobin 14.2 g/dl (12.0-16.0); Mean Corpuscular HGB Conc 35 g/dl (31-36); Mean Corpuscular Hemoglobin 31 pg (27-31); Mean Corpuscular Volume 89 fL (80-97); Mean Platelet Volume 7 um3 (7.4-10.4); Red Blood Count 4.63 10^6/ul (4.0-5.4); Red Cell Distribution Width 14 % (10.5-15); White Blood Count 13.3 10^3/ul (3.5-10.8)
[2017-03-10 15:29] LABS: ALT 9 U/L (7-52); AST 14 U/L (13-39); Albumin 4.2 g/dL (3.2-5.2); Alkaline Phosphatase 54 U/L (34-104); Anion Gap 6 mmol/L (2-11); BUN/Creatinine Ratio 12.9 (8-20); Blood Urea Nitrogen 9 mg/dL (6-24); CO2 Carbon Dioxide 22 mmol/L (22-32); Calcium 9.1 mg/dL (8.6-10.3); Chloride 107 mmol/L (101-111); EGFR African American 129.1 (>60); EGFR Non-African American 100.4 (>60); Globulin 3.1 g/dL (2-4); Glucose 90 mg/dL (70-100); Potassium 3.8 mmol/L (3.5-5.0); Sodium 135 mmol/L (133-145); Total Protein 7.3 g/dL (6.4-8.9)
[2017-03-10 15:52] LABS: Acetaminophen < 15 mcg/mL; Alcohol < 10 mg/dL (<10); Salicylate < 2.50 mg/dL (<30)
[2017-03-10 15:56] LABS: Urine Bacteria Absent (Absent); Urine Bilirubin Negative (Negative); Urine Glucose Negative (Negative); Urine Nitrite Negative (Negative)
[2017-03-10 16:01] LABS: Benzodiazepine Urine Screen None Detected (None Detect)
[2017-03-10 16:05] LABS: TSH (Thyroid Stimulating Horm) 0.75 mcIU/mL (0.34-5.60)
[2017-03-10] MEDS ORDERED: LORazepam TAB(*) 1 MG PO ONE (18:27)
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
== END 2017-03-10 19:36 ==
LOC: ED 14:31
DX: R45.851 Suicidal ideations (principal); F17.210 Nicotine dependence, cigarettes, uncomplicated
CPT/HCPCS: 36415; 80053; 80307; 80320; 80329; 81003; 81015; 84443; 85025; 87086; 99285; A9270-GY; G0480

== ENCOUNTER 2017-03-21 09:02 | Emergency (ER) | payer OTHER ==
[2017-03-21] MEDS ORDERED: NS 0.9% 1000 ML* 1,000 ML IV ONE (10:17)
[2017-03-21] MEDS ORDERED: Aspirin Low Dose CHEW TAB* 81 MG PO ONE (10:17)
[2017-03-21 10:40] LABS: Urine Bilirubin Negative (Negative); Urine Glucose Negative (Negative); Urine Nitrite Negative (Negative)
[2017-03-21 10:53] LABS: ALT 9 U/L (7-52); AST 13 U/L (13-39); Alkaline Phosphatase 59 U/L (34-104); Anion Gap 4 mmol/L (2-11); BUN/Creatinine Ratio 10.8 (8-20); Blood Urea Nitrogen 7 mg/dL (6-24); CO2 Carbon Dioxide 24 mmol/L (22-32); Calcium 8.8 mg/dL (8.6-10.3); Chloride 108 mmol/L (101-111); Creatine Kinase 52 U/L (10-223); EGFR African American 140.6 (>60); EGFR Non-African American 109.3 (>60); Globulin 2.7 g/dL (2-4); Glucose 84 mg/dL (70-100); Magnesium 1.9 mg/dL (1.9-2.7); Sodium 136 mmol/L (133-145); Total Protein 6.7 g/dL (6.4-8.9)
[2017-03-21 10:55] LABS: Hematocrit 41 % (35-47); Mean Corpuscular HGB Conc 34 g/dl (31-36); Mean Corpuscular Hemoglobin 31 pg (27-31); Mean Corpuscular Volume 91 fL (80-97); Mean Platelet Volume 8 um3 (7.4-10.4); Red Blood Count 4.52 10^6/ul (4.0-5.4); Red Cell Distribution Width 13 % (10.5-15)
--- NOTE | 2017-03-21 11:06 | RAD ---
HISTORY: Chest pain COMPARISONS: None VIEWS: 4: Frontal dual-energy and lateral views of the chest. FINDINGS: CARDIOMEDIASTINAL SILHOUETTE: The cardiomediastinal silhouette is normal. LIT: The lit are normal. PLEURA: The costophrenic angles are sharp. No pleural abnormalities are noted. LUNG PARENCHYMA: The lungs are clear. ABDOMEN: The upper abdomen is clear. There is no subphrenic gas. BONES AND SOFT TISSUES: No bone or soft tissue abnormalities are noted. OTHER: None. IMPRESSION: NO ACTIVE CARDIOPULMONARY DISEASE.
[2017-03-21 11:15] LABS: T4 5.97 mcg/mL (6.09-12.23)
[2017-03-21 11:23] LABS: TSH (Thyroid Stimulating Horm) 0.42 mcIU/mL (0.34-5.60)
[2017-03-21 11:46] VITALS: BP 100/80
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
== END 2017-03-21 11:46 | disposition home or self-care (01) ==
LOC: ED 09:02
DX: R07.9 Chest pain, unspecified (principal); R42 Dizziness and giddiness
CPT/HCPCS: 36415; 71020; 80053; 81003; 82550; 82553; 83605; 83735; 84436; 84443; 84484; 84702; 85025; 85379; 85610; 85730; 93005; 99282

== ENCOUNTER 2017-04-23 17:24 | Inpatient (IN) | payer OTHER ==
[2017-04-23] MEDS: clonazePAM TAB(*) 1 MG PO PRN (18:13)
[2017-04-23] MEDS: Al Hydrox/Mg Hydrox/Simet LIQ* 30 ML UDC PO PRN (20:14)
[2017-04-23] MEDS: Gabapentin CAP(*) 300 MG PO SCH (20:16)
[2017-04-23] MEDS: Prazosin CAP* 1 MG PO SCH ×2 (20:41→20:50)
[2017-04-24] MEDS: Nicotine Inhaler* 10 MG AMP INH PRN ×3 (04:25→12:53)
[2017-04-24] MEDS: Nicotine GUM* 2 MG PO PRN ×2 (04:25→08:54)
[2017-04-24] MEDS: clonazePAM TAB(*) 1 MG PO PRN ×2 (04:25→12:01)
[2017-04-24] MEDS: Mouth Piece, Nicotine* 1 EACH CARTRIDGE INH SCH (04:25)
[2017-04-24] MEDS: Gabapentin CAP(*) 300 MG PO SCH ×3 (08:31→20:40)
[2017-04-24] MEDS: Acetaminophen TAB* 325 MG PO PRN (08:31)
[2017-04-24] MEDS: Vitamin THERAPEUTIC TAB PO SCH (08:32)
[2017-04-24] MEDS: Al Hydrox/Mg Hydrox/Simet LIQ* 30 ML UDC PO PRN (09:09)
[2017-04-24] MEDS ORDERED: chlorproMAZINE TAB* 100 MG ONE (16:59)
[2017-04-24] MEDS ORDERED: chlorproMAZINE TAB* 100 MG PO ONE (17:00)
--- NOTE | 2017-04-24 18:57 | RAD ---
INDICATION: Right hand injury COMPARISON: None TECHNIQUE: 2 views were obtained. FINDINGS: The two-view show no definitive fracture. However, if there is persistent concern, suggest conventional 4 view follow-up imaging The joint spaces and soft tissues appear intact.. IMPRESSION: A PARTIAL EXAMINATION DEMONSTRATES NO DEFINITIVE ACUTE FINDINGS
[2017-04-24] MEDS: clonazePAM TAB(*) 1 MG PO SCH (20:40)
[2017-04-24] MEDS: Prazosin CAP* 1 MG PO SCH (20:41)
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
[2017-04-25] MEDS: Gabapentin CAP(*) 300 MG PO SCH ×3 (08:13→20:35)
[2017-04-25] MEDS: clonazePAM TAB(*) 1 MG PO SCH ×2 (08:13→12:47)
[2017-04-25] MEDS: Vitamin THERAPEUTIC TAB PO SCH (08:15)
[2017-04-25] MEDS: Nicotine GUM* 2 MG PO PRN ×2 (08:24→18:19)
[2017-04-25] MEDS: Nicotine Inhaler* 10 MG AMP INH PRN ×2 (08:24→18:19)
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
[2017-04-25] MEDS: LORazepam TAB(*) 1 MG PO PRN (16:37)
[2017-04-25] MEDS: Prazosin CAP* 1 MG PO SCH (20:36)
[2017-04-25] MEDS ORDERED: Temazepam CAP* 15 MG PO SCH (21:00)
[2017-04-26] MEDS: LORazepam TAB(*) 1 MG PO PRN ×2 (02:55→10:48)
[2017-04-26] MEDS: Gabapentin CAP(*) 300 MG PO SCH (09:14)
[2017-04-26] MEDS: Vitamin THERAPEUTIC TAB PO SCH (09:14)
[2017-04-26] MEDS: chlorproMAZINE TAB* 100 MG PO PRN ×2 (10:18→17:20)
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
[2017-04-26] MEDS ORDERED: ARIPiprazole TAB* 5 MG PO SCH (13:00)
[2017-04-26] MEDS: Temazepam CAP* 15 MG PO SCH (21:34)
[2017-04-26] MEDS: ARIPiprazole TAB* 5 MG PO SCH (21:34)
[2017-04-27] MEDS: Vitamin THERAPEUTIC TAB PO SCH (09:08)
[2017-04-27] MEDS: ARIPiprazole TAB* 5 MG PO SCH (09:09)
[2017-04-27] MEDS: Nicotine Inhaler* 10 MG AMP INH PRN (09:10)
[2017-04-27] MEDS: Mouth Piece, Nicotine* 1 EACH CARTRIDGE INH SCH (09:10)
[2017-04-27] MEDS: Nicotine GUM* 2 MG PO PRN (09:10)
[2017-04-27] MEDS: LORazepam TAB(*) 1 MG PO PRN ×2 (09:12→16:46)
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
[2017-04-27] MEDS: Al Hydrox/Mg Hydrox/Simet LIQ* 30 ML UDC PO PRN (11:33)
[2017-04-27] MEDS ORDERED: diPHENhydraMINE PO* 25 MG PO ONE (15:50)
[2017-04-27] MEDS: Temazepam CAP* 15 MG PO SCH (21:36)
[2017-04-28] MEDS: Al Hydrox/Mg Hydrox/Simet LIQ* 30 ML UDC PO PRN (05:09)
[2017-04-28] MEDS: ARIPiprazole TAB* 5 MG PO SCH (08:56)
[2017-04-28] MEDS: Vitamin THERAPEUTIC TAB PO SCH (08:56)
[2017-04-28] MEDS: Nicotine Inhaler* 10 MG AMP INH PRN (09:24)
[2017-04-28] MEDS: LORazepam TAB(*) 1 MG PO PRN ×2 (09:49→18:53)
[2017-04-28] MEDS: Acetaminophen TAB* 325 MG PO PRN (13:15)
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
[2017-04-28] MEDS: Temazepam CAP* 15 MG PO SCH (20:36)
[2017-04-29] MEDS: Al Hydrox/Mg Hydrox/Simet LIQ* 30 ML UDC PO PRN ×2 (01:46→08:26)
[2017-04-29] MEDS: ARIPiprazole TAB* 5 MG PO SCH (08:26)
[2017-04-29] MEDS: LORazepam TAB(*) 1 MG PO PRN (10:39)
[2017-04-29] MEDS: chlorproMAZINE TAB* 100 MG PO PRN (12:37)
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
[2017-04-29] MEDS: Prazosin CAP* 5 MG PO SCH (21:22)
[2017-04-29] MEDS: Temazepam CAP* 15 MG PO SCH (21:22)
[2017-04-30] MEDS: ARIPiprazole TAB* 5 MG PO SCH (08:41)
[2017-04-30] MEDS: LORazepam TAB(*) 1 MG PO PRN (08:43)
[2017-04-30] MEDS: Mouth Piece, Nicotine* 1 EACH CARTRIDGE INH SCH (13:05)
[2017-04-30] MEDS: Al Hydrox/Mg Hydrox/Simet LIQ* 30 ML UDC PO PRN (13:05)
[2017-04-30] MEDS: Nicotine Inhaler* 10 MG AMP INH PRN (13:05)
[2017-04-30] MEDS: Temazepam CAP* 15 MG PO SCH (20:24)
[2017-04-30] MEDS: Prazosin CAP* 5 MG PO SCH (20:24)
[2017-05-01] MEDS: Al Hydrox/Mg Hydrox/Simet LIQ* 30 ML UDC PO PRN (08:31)
[2017-05-01] MEDS: ARIPiprazole TAB* 5 MG PO SCH (08:31)
[2017-05-01] MEDS: Nicotine Inhaler* 10 MG AMP INH PRN (09:36)
[2017-05-01] MEDS: LORazepam TAB(*) 1 MG PO PRN (09:36)
[2017-05-01] MEDS: chlorproMAZINE TAB* 100 MG PO PRN (11:39)
[2017-05-01] MEDS ORDERED: hydrOXYzine HCL TAB* 25 MG PO PRN (12:48)
[2017-05-01] MEDS: Temazepam CAP* 15 MG PO SCH (20:48)
[2017-05-01] MEDS: Prazosin CAP* 5 MG PO SCH (20:48)
[2017-05-02] MEDS: ARIPiprazole TAB* 5 MG PO SCH (07:55)
[2017-05-02] MEDS: LORazepam TAB(*) 1 MG PO PRN (07:55)
[2017-05-02 08:38] VITALS: BP 128/64
--- NOTE | 2017-05-02 11:59 | PN ---
[facility]: Group Therapy Note - Service Type Service Type: [id number] Group Psychotherapy - Cognitive Behavioral Group Therapy ( CBT):Patient was attentive and participatory in CBT programming this morning, and remained in good behavioral control. Patient expressed positive insights regarding relevant treatment interventions and goals.
[2017-05-02] MEDS ORDERED: clonazePAM TAB(*) 1 MG PO PRN (13:22)
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
== END 2017-05-02 15:24 | disposition home or self-care (01) | DRG 755 ==
LOC: BSU 17:24
PROVIDERS: ADMIT Psychiatry & Neurology Psychiatry; ATTEND Psychiatry & Neurology Psychiatry
PROC: GZHZZZZ Group Psychotherapy (ICD-10-PCS; principal; 2017-05-02)
DX: F43.10 Post-traumatic stress disorder, unspecified (principal); R45.851 Suicidal ideations; F60.3 Borderline personality disorder; K21.9 Gastro-esophageal reflux disease without esophagitis; F12.20 Cannabis dependence, uncomplicated; R11.0 Nausea; R50.9 Fever, unspecified; E66.9 Obesity, unspecified; G47.00 Insomnia, unspecified; X78.8XXA Intentional self-harm by other sharp object, initial encounter; Y92.230 Patient room in hospital as the place of occurrence of the external cause; Z62.810 Personal history of physical and sexual abuse in childhood; S61.511A Laceration without foreign body of right wrist, initial encounter; F17.200 Nicotine dependence, unspecified, uncomplicated; Z91.5 Personal history of self-harm; Z68.27 Body mass index [BMI] 27.0-27.9, adult
CPT/HCPCS: 90853; 99222; 99231; 99232; 99238; A9270-GY

== ENCOUNTER 2017-06-11 00:23 | Emergency (ER) | payer OTHER ==
[2017-06-11] MEDS ORDERED: Lidocaine 1%* 5 ML VIAL INJ ONE (00:41)
[2017-06-11 00:58] LABS: ABS Basophils 0.1 10^3/ul (0-0.2); ABS Eosinophils 0.1 10^3/ul (0-0.6); ABS Lymphocytes 2.8 10^3/ul (1.0-4.8); ABS Monocytes 0.6 10^3/ul (0-0.8); ABS Neutrophils 7.6 10^3/ul (1.5-7.7); ABS Nucleated RBC 0.01 10^3/ul; Hematocrit 40 % (35-47); Hemoglobin 13.7 g/dl (12.0-16.0); Lymphocyte % 24.7 % (25-47); Mean Corpuscular HGB Conc 34 g/dl (31-36); Mean Corpuscular Hemoglobin 31 pg (27-31); Mean Corpuscular Volume 91 fL (80-97); Mean Platelet Volume 7 um3 (7.4-10.4); Nucleated Red Blood Cells % 0.1; Platelet Count 270 10^3/ul (150-450); Red Cell Distribution Width 13 % (10.5-15); White Blood Count 11.2 10^3/ul (3.5-10.8)
[2017-06-11 01:11] LABS: Urine Appearance Clear; Urine Blood 3+ (Negative); Urine Color Yellow; Urine Ketones Negative (Negative); Urine Protein Negative (Negative); Urine Specific Gravity 1.012 (1.010-1.030); Urine Urobilinogen Negative (Negative)
[2017-06-11 01:14] LABS: EGFR Non-African American 132.6 (>60)
--- NOTE | 2017-06-11 01:39 | PN ---
Progress Note - Progress Note Date of Service: 06/11/17 Note: performed by Yojana BARKSDALE placed 5 segundo Laceration Repair - Laceration Repair 1 Description: Linear Laceration Size After Repair: Length (cm) - 4cm Modified For Repair: No Type Injection: Local Anesthesia Used: 1.0% Lido Irrigation With Pressure Irrigation Device: Yes Closure Material: Kimberly - 5 Closure Method: Single Layer Suture Of: Skin
--- NOTE | 2017-06-11 09:53 | PN ---
ED Flex Patient Progress Note Subjective: This is a 26 year-old F who is pending 2nd opinion by psychiatrist secondary to self harm by cutting and anxiety . Pt offers no complaints at this time. Slept well and wound is closed w/ segundo and w/o pain. Ate dinner last night w/o difficulty - pending breakfast this morning - has been ordered. Objective: Vitals: Most recent vital signs documented below. General NAD, Alert and oriented x3. Heart: S1/S2, RRR Lungs: CTA, BREATHING EASILY AB: soft, NTTP INTEG: Lt dorsal forearm w/ approximated laceration via segundo - no drainage, no redness, no swelling, no streaking; other areas of forearms w/ old, healed linear scars Assessment: Self harm via laceration Anxiety Plan: 1) Appears to be healing well 2) Pending 2nd psychiatric opinion - will monitor daily while in ED Vital Signs Temp Pulse Resp BP Pulse Ox 98.4 F 84 16 104/61 98 06/11/17 07:08 06/11/17 07:08 06/11/17 07:08 06/11/17 07:08 06/11/17 07:08 Lab Results - Entire Visit 06/11/17 06/11/17 06/11/17 00:48 00:48 00:48 WBC 11.2 H RBC 4.40 Hgb 13.7 Hct 40 MCV 91 MCH 31 MCHC 34 RDW 13 Plt Count 270 MPV 7 L Neut % (Auto) 68.0 Lymph % (Auto) 24.7 L Sevier % (Auto) 5.3 Eos % (Auto) 1.0 Baso % (Auto) 1.0 Absolute Neuts (auto) 7.6 Absolute Lymphs (auto) 2.8 Absolute Monos (auto) 0.6 Absolute Eos (auto) 0.1 Absolute Basos (auto) 0.1 Absolute Nucleated RBC 0.01 Nucleated RBC % 0.1 Sodium Potassium Chloride Carbon Dioxide Anion Gap BUN Creatinine Est GFR ( Amer) Est GFR (Non-Af Amer) BUN/Creatinine Ratio Glucose Calcium Total Bilirubin AST ALT Alkaline Phosphatase Total Protein Albumin Globulin Albumin/Globulin Ratio TSH Beta HCG, Quant Urine Color Yellow Urine Appearance Clear Urine pH 5.0 Ur Specific Rockton 1.012 Urine Protein Negative Urine Ketones Negative Urine Blood 3+ H Urine Nitrate Negative Urine Bilirubin Negative Urine Urobilinogen Negative Ur Leukocyte Esterase Trace H Urine WBC (Auto) Trace(0-5/hpf) Urine RBC (Auto) 3+(>10/hpf) H Ur Squamous Epith Cells Present H Urine Bacteria Absent Urine Glucose Negative Salicylates Urine Opiates Screen None detected Acetaminophen Ur Barbiturates Screen None detected Ur Phencyclidine Scrn None detected Ur Amphetamines Screen None detected U Benzodiazepines Scrn None detected Urine Cocaine Screen None detected U Cannabinoids Screen Presumptive positive H Serum Alcohol 06/11/17 00:48 WBC RBC Hgb Hct MCV MCH MCHC RDW Plt Count MPV Neut % (Auto) Lymph % (Auto) Sevier % (Auto) Eos % (Auto) Baso % (Auto) Absolute Neuts (auto) Absolute Lymphs (auto) Absolute Monos (auto) Absolute Eos (auto) Absolute Basos (auto) Absolute Nucleated RBC Nucleated RBC % Sodium 136 Potassium 3.9 Chloride 107 Carbon Dioxide 23 Anion Gap 6 BUN 13 Creatinine 0.55 Est GFR ( Amer) 170.5 Est GFR (Non-Af Amer) 132.6 BUN/Creatinine Ratio 23.6 H Glucose 96 Calcium 9.3 Total Bilirubin 0.20 AST 13 ALT 9 Alkaline Phosphatase 50 Total Protein 6.5 Albumin 3.9 Globulin 2.6 Albumin/Globulin Ratio 1.5 TSH 1.00 Beta HCG, Quant < 0.60 Urine Color Urine Appearance Urine pH Ur Specific Rockton Urine Protein Urine Ketones Urine Blood Urine Nitrate Urine Bilirubin Urine Urobilinogen Ur Leukocyte Esterase Urine WBC (Auto) Urine RBC (Auto) Ur Squamous Epith Cells Urine Bacteria Urine Glucose Salicylates < 2.50 Urine Opiates Screen Acetaminophen < 15 Ur Barbiturates Screen Ur Phencyclidine Scrn Ur Amphetamines Screen U Benzodiazepines Scrn Urine Cocaine Screen U Cannabinoids Screen Serum Alcohol < 10
[2017-06-11 13:29] VITALS: BP 115/69
--- NOTE | 2017-06-11 14:23 | CONSULT ---
Consult Consult: Ms. Anthony presented on a previous shift for MHE as she was expressing SI and had cut her self. She has a long history of the same. She was medically cleared and evaluated with a MHE. She was then kept overnight in the ED and re- evaluated. They felt that she was at her baseline and safe to go home. It has been noted that she has an elevated lifetime risk of suicide due to her co- morbid borderline personality disorder and PTSD. She was D/C'd in stable condition with a diagnosis of borderline personality disorder.
--- NOTE | 2017-06-12 04:44 | ED ---
Opal Escamilla Gabriel, scribed for Fahad Villanueva on 06/11/17 at 0033 . Psychiatric Complaint - HPI Summary HPI Summary: This patient is a 26 year old F presenting to [facility] accompanied by the state police with a chief complaint of SI. Pt reports she doesnt know why she cuts herself. She reports SI, borderline personality disorder, anxiety and depression. - History Of Current Complaint Chief Complaint: EDMentalHealth Time Seen by Provider: 06/11/17 00:29 Hx Obtained From: Patient Hx Last Menstrual Period: 03/19/17 Onset/Duration: Still Present Timing: Constant Severity Initially: Moderate Severity Currently: Moderate Character: Depressed, Anxious Related History: Positive For: Prior Psychiatric Issues Has Suicidal: Reports: Thoughts, With A Plan, Demonstrates Gesture - Allergies/Home Medications Allergies/Adverse Reactions: Allergies Allergy/AdvReac Type Severity Reaction Status Date / Time Bacitracin Allergy Hives Verified 04/27/17 15:43 Penicillins [PCN] Allergy Hives Verified 04/12/17 12:45 Trazodone Allergy Hives Verified 04/12/17 12:45 Zolpidem [From Ambien] Allergy See Comment Verified 04/12/17 12:45 Home Medications: Home Medications Aripiprazole Maintena (NF) [Abilify Maintena (NF)] 350 mg IM Q28D 06/11/17 [ History Confirmed 06/11/17] PMH/Surg Hx/FS Hx/Imm Hx Endocrine/Hematology History: Denies: Hx Anticoagulant Therapy, Hx Blood Disorders, Hx Diabetes, Hx Thyroid Disease, Hx Anemia, Hx Unexplained Bleeding Cardiovascular History: Denies: Hx Aneurysm, Hx Angina, Hx Angioplasty, Hx Auto Implanted Cardiovert Defib, Hx Cardiac Arrest, Hx Cardiomegaly, Hx Congenital Heart Disease, Hx Congestive Heart Failure, Hx Coronary Artery Disease, Hx Deep Vein Thrombosis, Hx Hypertension Respiratory History: Denies: Hx Asthma, Hx Chronic Bronchitis, Hx Chronic Obstructive Pulmonary Disease (COPD), Hx Cystic Fibrosis GI History: Denies: Hx Ulcer Sensory History: Denies: Hx Cataracts, Hx Contacts or Glasses, Hx Eye Injury, Hx Hearing Aid Opthamlomology History: Denies: Hx Cataracts, Hx Contacts or Glasses, Hx Eye Injury Neurological History: Reports: Hx Headaches, Other Neuro Impairments/Disorders - HX of banging head Psychiatric History: Reports: Hx Anxiety, Hx Depression, Hx Post Traumatic Stress Disorder, Hx Inpatient Treatment, Hx Community Mental Health Tx, Hx Suicide Attempt, Hx of Violent Episodes Against Others, Hx Substance Abuse - marijuana regularly, Other Psychiatric Issues/Disorders - HX suicide attempts, hx banging head Denies: Hx Eating Disorder - Surgical History Surgery Procedure, Year, and Place: "screws and a plate in my right arm in 2012 " Hx Anesthesia Reactions: No Infectious Disease History: No Infectious Disease History: Denies: Hx Hepatitis, Hx Human Immunodeficiency Virus (HIV), Traveled Outside the [place] in Last 30 Days - Family History Known Family History: Positive: Hypertension, Respiratory Disease - COPD, Other - aunt - bipolar disorder, depression. mom/sister/grandmother - anxiety. Family History: FHx of anxiety, depression - Social History Alcohol Use: None Alcohol Amount: PT denies drinking any alcohol Hx Substance Use: Yes Substance Use Type: Reports: Marijuana Substance Use Comment - Amount & Last Used: weekly Hx Tobacco Use: Yes Smoking Status (MU): Heavy Every Day Tobacco Smoker Type: Cigarettes Amount Used/How Often: 1/2 PPD Length of Time of Smoking/Using Tobacco: several years Have You Smoked in the Last Year: Yes Review of Systems Negative: Fever Psychological: Other - SI Positive: Anxious, Depressed All Other Systems Reviewed And Are Negative: Yes Physical Exam - Summary Physical Exam Summary: Appearance: patient has a depressed affect, no pain distress Skin: warm, dry, reflects adequate perfusion, patient has a laceration over her left forearm that is 6cm in length Head/face: normal Eyes: EOMI, ALMA ROSA ENT: normal Neck: supple, non-tender Respiratory: CTA, breath sounds present Cardiovascular: RRR, pulses symmetrical Abdomen: non-tender, soft Bowel: present Musculoskeletal: normal, strength/ROM intact Neuro: normal, sensory motor intact, A&Ox3 Triage Information Reviewed: Yes Vital Signs On Initial Exam: Initial Vitals Temp Pulse Resp BP Pulse Ox 97.6 F 92 16 107/62 98 06/11/17 00:26 06/11/17 00:26 06/11/17 00:26 06/11/17 00:26 06/11/17 00:26 Vital Signs Reviewed: Yes Procedures - Laceration/Wound Repair 1 Suture Type: Prolene Diagnostics - Vital Signs Vital Signs Temp Pulse Resp BP Pulse Ox 06/11/17 00:26 97.6 F 92 16 107/62 98 - Laboratory Result Diagrams: 06/11/17 00:48 06/11/17 00:48 Lab Statement: Any lab studies that have been ordered have been reviewed, and results considered in the medical decision making process. Course/Dx - Course Course Of Treatment: waiting for psych consult - Differential Dx/Clinical Impression Differential Diagnosis/HQI/PQRI: Positive: Depression, Suicidal Ideation Provider Diagnosis: Depression, Suicidal ideation Discharge - Discharge Plan Condition: Stable Disposition: OTHER Discharge Disposition Comment: signed out to incoming MD Referrals: Maged Sanon MD [Primary Care Provider] - The documentation as recorded by the Opal crouch Gabriel accurately reflects the service I personally performed and the decisions made by , Fahad Villanueva.
== END 2017-06-11 13:25 ==
LOC: ED 00:23
DX: R45.851 Suicidal ideations (principal); F32.9 Major depressive disorder, single episode, unspecified; F17.210 Nicotine dependence, cigarettes, uncomplicated; S51.812A Laceration without foreign body of left forearm, initial encounter; X78.9XXA Intentional self-harm by unspecified sharp object, initial encounter; Y92.9 Unspecified place or not applicable
CPT/HCPCS: 12002; 36415; 80053; 80307; 80320; 80329; 81003; 81015; 84443; 84702; 85025; 87086; 96374; 99283; G0480

== ENCOUNTER 2017-07-07 11:53 | Inpatient (IN) | payer OTHER ==
[2017-07-07 13:07] LABS: ABS Basophils 0.1 10^3/ul (0-0.2); ABS Eosinophils 0 10^3/ul (0-0.6); ABS Lymphocytes 1.9 10^3/ul (1.0-4.8); ABS Monocytes 0.5 10^3/ul (0-0.8); ABS Neutrophils 8.4 10^3/ul (1.5-7.7); ABS Nucleated RBC 0 10^3/ul; Eosinophil % 0.2 % (0-6); Hematocrit 41 % (35-47); Hemoglobin 14.4 g/dl (12.0-16.0); Lymphocyte % 17.1 % (25-47); Mean Corpuscular HGB Conc 35 g/dl (31-36); Mean Corpuscular Hemoglobin 32 pg (27-31); Mean Corpuscular Volume 91 fL (80-97); Mean Platelet Volume 8 um3 (7.4-10.4); Nucleated Red Blood Cells % 0; Platelet Count 273 10^3/ul (150-450); Red Blood Count 4.55 10^6/ul (4.0-5.4); Red Cell Distribution Width 13 % (10.5-15); White Blood Count 10.8 10^3/ul (3.5-10.8)
[2017-07-07 13:27] LABS: EGFR Non-African American 100.4 (>60)
[2017-07-07 13:41] LABS: Urine Appearance Clear; Urine Blood Negative (Negative); Urine Color Yellow; Urine Ketones Trace (Negative); Urine Protein Negative (Negative); Urine Specific Gravity 1.019 (1.010-1.030); Urine Urobilinogen Negative (Negative)
--- NOTE | 2017-07-07 18:26 | ED ---
Opal Escamilla Gabriel, scribed for Flako Laurent MD on 07/07/17 at 1206 . Psychiatric Complaint - HPI Summary HPI Summary: This patient is a 26 year old F presenting to [facility] after being sent by her therapist for SI. Patient states her friend two days ago and she just cant take it. When asked if she has a plan for suicide she states I have a whole bag of glass at home just fucking waiting. - History Of Current Complaint Time Seen by Provider: 07/07/17 11:58 Hx Obtained From: Patient Hx Last Menstrual Period: 03/19/17 Onset/Duration: Still Present Timing: Constant Severity Initially: Moderate Severity Currently: Moderate Character: Depressed Aggravating Factor(s): Recent Stress Has Suicidal: Reports: Thoughts, With A Plan - Allergies/Home Medications Allergies/Adverse Reactions: Allergies Allergy/AdvReac Type Severity Reaction Status Date / Time Bacitracin Allergy Hives Verified 04/27/17 15:43 Penicillins [PCN] Allergy Hives Verified 04/12/17 12:45 Trazodone Allergy Hives Verified 04/12/17 12:45 Zolpidem [From Ambien] Allergy See Comment Verified 04/12/17 12:45 Home Medications: Home Medications Nicotine Lozenge* 1 mg PO Q2H PRN 07/07/17 [History Confirmed 07/07/17] clonazePAM TAB(*) [Klonopin TAB(*)] 1 mg PO DAILY PRN 07/07/17 [History Confirmed 07/07/17] PMH/Surg Hx/FS Hx/Imm Hx Endocrine/Hematology History: Denies: Hx Anticoagulant Therapy, Hx Blood Disorders, Hx Diabetes, Hx Thyroid Disease, Hx Anemia, Hx Unexplained Bleeding Cardiovascular History: Denies: Hx Aneurysm, Hx Angina, Hx Angioplasty, Hx Auto Implanted Cardiovert Defib, Hx Cardiac Arrest, Hx Cardiomegaly, Hx Congenital Heart Disease, Hx Congestive Heart Failure, Hx Coronary Artery Disease, Hx Deep Vein Thrombosis, Hx Hypertension Respiratory History: Denies: Hx Asthma, Hx Chronic Bronchitis, Hx Chronic Obstructive Pulmonary Disease (COPD), Hx Cystic Fibrosis GI History: Denies: Hx Ulcer Sensory History: Denies: Hx Cataracts, Hx Contacts or Glasses, Hx Eye Injury, Hx Hearing Aid Opthamlomology History: Denies: Hx Cataracts, Hx Contacts or Glasses, Hx Eye Injury Neurological History: Reports: Hx Headaches, Other Neuro Impairments/Disorders - HX of banging head Psychiatric History: Reports: Hx Anxiety, Hx Depression, Hx Post Traumatic Stress Disorder, Hx Inpatient Treatment, Hx Community Mental Health Tx, Hx Suicide Attempt, Hx of Violent Episodes Against Others, Hx Substance Abuse - marijuana regularly, Other Psychiatric Issues/Disorders - HX suicide attempts, hx banging head Denies: Hx Eating Disorder - Surgical History Surgery Procedure, Year, and Place: "screws and a plate in my right arm in 2012 " Hx Anesthesia Reactions: No - Immunization History Date of Tetanus Vaccine: utd Date of Influenza Vaccine: none Infectious Disease History: Denies: Hx Hepatitis, Hx Human Immunodeficiency Virus (HIV) - Family History Known Family History: Positive: Hypertension, Respiratory Disease - COPD, Other - aunt - bipolar disorder, depression. mom/sister/grandmother - anxiety. Family History: FHx of anxiety, depression - Social History Alcohol Use: None Alcohol Amount: PT denies drinking any alcohol Hx Substance Use: Yes Substance Use Type: Reports: Marijuana Substance Use Comment - Amount & Last Used: weekly Hx Tobacco Use: Yes Smoking Status (MU): Heavy Every Day Tobacco Smoker Type: Cigarettes Amount Used/How Often: 1/2 PPD Length of Time of Smoking/Using Tobacco: several years Have You Smoked in the Last Year: Yes Review of Systems Negative: Fever Positive: Depressed, Other - SI All Other Systems Reviewed And Are Negative: Yes Physical Exam - Summary Physical Exam Summary: VITAL SIGNS: Reviewed. GENERAL: Patient is a well-developed and nourished female who is lying comfortable in the stretcher. Patient is not in any acute respiratory distress. HEAD AND FACE: No signs of trauma. No ecchymosis, hematomas or skull depressions. No sinus tenderness. EYES: PERRLA, EOMI x 2, No injected conjunctiva, no nystagmus. EARS: Hearing grossly intact. Ear canals and tympanic membranes are within normal limits. MOUTH: Oropharynx within normal limits. NECK: Supple, trachea is midline, no adenopathy, no JVD, no carotid bruit, no c- spine tenderness, neck with full ROM. CHEST: Symmetric, no tenderness at palpation LUNGS: Clear to auscultation bilaterally. No wheezing or crackles. CVS: Regular rate and rhythm, S1 and S2 present, no murmurs or gallops appreciated. ABDOMEN: Soft, non-tender. No signs of distention. No rebound no guarding, and no masses palpated. Bowel sounds are normal. EXTREMITIES: FROM in all major joints, no edema, no cyanosis or clubbing. NEURO: Alert and oriented x 3. No acute neurological deficits. Speech is normal and follows commands. SKIN: Dry and warm PSYCH: Depressed, quiet, No homicidal thoughts or plan. No signs of psychosis or pressure speech. No tangential speech. Triage Information Reviewed: Yes Vital Signs On Initial Exam: Initial Vitals Temp Pulse Resp BP Pulse Ox 99.1 F 87 16 133/73 98 07/07/17 12:13 07/07/17 12:13 07/07/17 12:13 07/07/17 12:13 07/07/17 12:13 Vital Signs Reviewed: Yes Diagnostics - Vital Signs Vital Signs Temp Pulse Resp BP Pulse Ox 07/07/17 12:13 99.1 F 87 16 133/73 98 - Laboratory Lab Results: Lab Results 07/07/17 Range/Units 13:00 WBC 10.8 (3.5-10.8) 10^3/ul RBC 4.55 (4.0-5.4) 10^6/ul Hgb 14.4 (12.0-16.0) g/dl Hct 41 (35-47) % MCV 91 (80-97) fL MCH 32 H (27-31) pg MCHC 35 (31-36) g/dl RDW 13 (10.5-15) % Plt Count 273 (150-450) 10^3/ul MPV 8 (7.4-10.4) um3 Neut % (Auto) 77.8 (38-83) % Lymph % (Auto) 17.1 L (25-47) % [place] % (Auto) 4.3 (1-9) % Eos % (Auto) 0.2 (0-6) % Baso % (Auto) 0.6 (0-2) % Absolute Neuts (auto) 8.4 H (1.5-7.7) 10^3/ul Absolute Lymphs (auto) 1.9 (1.0-4.8) 10^3/ul Absolute Monos (auto) 0.5 (0-0.8) 10^3/ul Absolute Eos (auto) 0 (0-0.6) 10^3/ul Absolute Basos (auto) 0.1 (0-0.2) 10^3/ul Absolute Nucleated RBC 0 10^3/ul Nucleated RBC % 0 Result Diagrams: 07/07/17 13:00 07/07/17 13:00 Lab Statement: Any lab studies that have been ordered have been reviewed, and results considered in the medical decision making process. Course/Dx - Course Assessment/Plan: Blood work w/o a significant abnormality. He is medically cleared. He is awaiting for a MHE. Patient is hemodynamically stable and A+O x 3. Patient will be signed out to the next ER attending to f/u MHE recomendations. - Differential Dx/Clinical Impression Differential Diagnosis/HQI/PQRI: Positive: Anxiety, Depression, Homicidal Ideation, Suicidal Ideation Provider Diagnosis: Acute depression, Suicidal ideation Discharge - Discharge Plan Condition: Stable Disposition: OTHER Discharge Disposition Comment: Patient will be signed out to the next ER attending to f/u MHE recomendatio Referrals: Maged Sanon MD [Primary Care Provider] - The documentation as recorded by the Opal crouch Gabriel accurately reflects the service I personally performed and the decisions made by , Flako Laurent MD.
[2017-07-07] MEDS: clonazePAM TAB(*) 1 MG PO PRN (21:35)
[2017-07-07] MEDS: Prazosin CAP* 5 MG PO SCH (21:41)
[2017-07-08] MEDS: clonazePAM TAB(*) 1 MG PO PRN ×2 (08:37→20:38)
[2017-07-08] MEDS: Vitamin THERAPEUTIC TAB PO SCH (08:38)
[2017-07-08] MEDS ORDERED: Influenza VAC *QUAD* 2017-18* 0.5 ML SYRINGE IM ONE (09:00)
[2017-07-08] MEDS ORDERED: ARIPIPRAZOLE 400 MG IM ONE (09:00)
[2017-07-08] MEDS ORDERED: Diazepam TAB(*) 10 MG PO ONE (13:05)
[2017-07-08] MEDS ORDERED: Mouth Piece, Nicotine* 1 EACH CARTRIDGE INH ONE (16:15)
[2017-07-08] MEDS: Nicotine Inhaler* 10 MG AMP INH PRN (17:06)
[2017-07-08] MEDS: Nicotine GUM* 2 MG PO PRN (17:06)
[2017-07-08] MEDS: Prazosin CAP* 5 MG PO SCH (20:38)
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
[2017-07-09] MEDS: clonazePAM TAB(*) 1 MG PO PRN ×2 (06:16→14:12)
[2017-07-09] MEDS: Nicotine GUM* 2 MG PO PRN ×2 (06:16→12:58)
[2017-07-09] MEDS: Acetaminophen TAB* 325 MG PO PRN (07:46)
[2017-07-09] MEDS: Vitamin THERAPEUTIC TAB PO SCH (07:46)
[2017-07-09] MEDS ORDERED: Influenza VAC *QUAD* 2017-18* 0.5 ML SYRINGE IM ONE (09:00)
[2017-07-09] MEDS: Nicotine Inhaler* 10 MG AMP INH PRN (12:58)
[2017-07-09] MEDS: Prazosin CAP* 5 MG PO SCH (20:50)
[2017-07-10] MEDS: clonazePAM TAB(*) 1 MG PO PRN ×2 (06:05→13:51)
[2017-07-10] MEDS: Nicotine GUM* 2 MG PO PRN ×2 (08:44→13:52)
[2017-07-10] MEDS: Acetaminophen TAB* 325 MG PO PRN (08:44)
[2017-07-10] MEDS: Vitamin THERAPEUTIC TAB PO SCH (08:44)
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
[2017-07-10] MEDS: Prazosin CAP* 5 MG PO SCH (21:39)
[2017-07-11] MEDS ORDERED: Mouth Piece, Nicotine* 1 EACH CARTRIDGE ONE (05:43)
[2017-07-11] MEDS: clonazePAM TAB(*) 1 MG PO PRN ×3 (05:46→18:54)
[2017-07-11] MEDS: Nicotine Inhaler* 10 MG AMP INH PRN ×2 (05:47→13:08)
[2017-07-11] MEDS: Acetaminophen TAB* 325 MG PO PRN (08:01)
[2017-07-11] MEDS: Vitamin THERAPEUTIC TAB PO SCH (08:01)
[2017-07-11] MEDS: Al Hydrox/Mg Hydrox/Simet LIQ* 30 ML UDC PO PRN (10:01)
--- NOTE | 2017-07-11 11:55 | PN ---
[facility]: Group Therapy Note - Service Type Service Type: 25792 Group Psychotherapy - Cognitive Behavioral Group Therapy ( CBT):Patient was attentive and participatory in CBT programming this morning, and remained in good behavioral control. Patient expressed positive insights regarding relevant treatment interventions and goals.
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
[2017-07-11] MEDS: Prazosin CAP* 5 MG PO SCH ×2 (22:46→23:18)
[2017-07-12] MEDS: Acetaminophen TAB* 325 MG PO PRN ×2 (04:54→20:40)
[2017-07-12] MEDS: clonazePAM TAB(*) 1 MG PO PRN (08:42)
[2017-07-12] MEDS: Vitamin THERAPEUTIC TAB PO SCH (08:42)
[2017-07-12] MEDS: Nicotine Inhaler* 10 MG AMP INH PRN ×2 (09:49→14:00)
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
--- NOTE | 2017-07-12 12:56 | PN ---
MHU: Group Therapy Note - Service Type Service Type: [id number] Group Psychotherapy - Cognitive Behavioral Group Therapy ( CBT):Patient was attentive and participatory in CBT programming this morning, and remained in good behavioral control. Patient expressed positive insights regarding relevant treatment interventions and goals.
[2017-07-12] MEDS: Nicotine GUM* 2 MG PO PRN (14:00)
[2017-07-13] MEDS: Prazosin CAP* 1 MG PO SCH (02:15)
[2017-07-13] MEDS: Vitamin THERAPEUTIC TAB PO SCH (08:41)
[2017-07-13] MEDS: clonazePAM TAB(*) 1 MG PO PRN ×2 (10:26→13:59)
--- NOTE | 2017-07-13 11:56 | PN ---
MHU: Group Therapy Note - Service Type Service Type: [id number] Group Psychotherapy - Cognitive Behavioral Group Therapy ( CBT):Patient was attentive and participatory in CBT programming this morning, and remained in good behavioral control. Patient expressed positive insights regarding relevant treatment interventions and goals.
[2017-07-13] MEDS: Nicotine GUM* 2 MG PO PRN (13:59)
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
[2017-07-14] MEDS: Acetaminophen TAB* 325 MG PO PRN (01:35)
[2017-07-14] MEDS: Nicotine Inhaler* 10 MG AMP INH PRN ×2 (01:35→18:55)
[2017-07-14] MEDS: Prazosin CAP* 1 MG PO SCH (02:05)
[2017-07-14] MEDS: clonazePAM TAB(*) 1 MG PO PRN ×3 (03:31→18:54)
[2017-07-14] MEDS: Vitamin THERAPEUTIC TAB PO SCH (08:44)
[2017-07-14] MEDS ORDERED: Diazepam TAB(*) 5 MG PO ONE ×2 (11:31→21:20)
[2017-07-14] MEDS ORDERED: Ibuprofen TAB* 600 MG PO PRN (11:31)
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
[2017-07-14] MEDS ORDERED: Amoxicillin/Clavulanate TAB* 500 MG PO SCH (12:00)
[2017-07-14] MEDS: Clindamycin CAP* 150 MG PO SCH (13:52)
[2017-07-14] MEDS: Al Hydrox/Mg Hydrox/Simet LIQ* 30 ML UDC PO PRN ×2 (13:53→17:24)
[2017-07-14] MEDS: Nicotine GUM* 2 MG PO PRN (13:53)
--- NOTE | 2017-07-14 17:43 | PN ---
MHU: Group Therapy Note - Service Type Service Type: [id number] Group Psychotherapy - Medication Education Group: Patient was attentive and participatory in group, and remained in good behavioral control. Patient expressed positive insights regarding relevant treatment interventions. Patient stated understanding of material discussed and had appropriate questions.
[2017-07-14] MEDS ORDERED: Diazepam TAB(*) 5 MG ONE (21:25)
[2017-07-15] MEDS: clonazePAM TAB(*) 1 MG PO PRN ×2 (08:46→12:59)
[2017-07-15] MEDS: Clindamycin CAP* 150 MG PO SCH ×4 (08:47→20:31)
[2017-07-15] MEDS: Vitamin THERAPEUTIC TAB PO SCH (08:47)
[2017-07-15] MEDS: Prazosin CAP* 1 MG PO SCH ×2 (08:52→20:31)
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
[2017-07-15] MEDS: Diazepam TAB(*) 5 MG PO PRN (17:12)
[2017-07-16] MEDS: Vitamin THERAPEUTIC TAB PO SCH (08:06)
[2017-07-16] MEDS: Clindamycin CAP* 150 MG PO SCH ×3 (08:06→21:18)
[2017-07-16] MEDS: Diazepam TAB(*) 5 MG PO PRN ×2 (08:17→13:13)
[2017-07-16] MEDS: Nicotine GUM* 2 MG PO PRN ×2 (12:54→16:42)
[2017-07-16] MEDS: chlorproMAZINE TAB* 50 MG ONE (17:00)
[2017-07-16] MEDS: diPHENhydraMINE PO* 50 MG ONE (17:00)
[2017-07-16] MEDS: Prazosin CAP* 1 MG PO SCH (21:18)
[2017-07-17] MEDS: Diazepam TAB(*) 5 MG PO PRN ×4 (05:10→17:29)
[2017-07-17] MEDS: Nicotine GUM* 2 MG PO PRN ×3 (05:10→13:27)
[2017-07-17] MEDS: Clindamycin CAP* 150 MG PO SCH ×3 (08:28→22:35)
[2017-07-17] MEDS: Vitamin THERAPEUTIC TAB PO SCH (08:29)
[2017-07-17] MEDS: Diazepam TAB(*) 5 MG ONE ×2 (11:22→11:24)
[2017-07-17] MEDS ORDERED: Diazepam TAB(*) 5 MG PO ONE (12:00)
[2017-07-17] MEDS: Acetaminophen TAB* 325 MG PO PRN (14:49)
[2017-07-17] MEDS ORDERED: diPHENhydraMINE PO* 50 MG ONE (17:50)
[2017-07-17] MEDS ORDERED: chlorproMAZINE TAB* 50 MG ONE (17:51)
[2017-07-17] MEDS: chlorproMAZINE TAB* 50 MG ONE (17:51)
[2017-07-17] MEDS: diPHENhydraMINE PO* 50 MG ONE (17:51)
[2017-07-17] MEDS: Prazosin CAP* 1 MG PO SCH (22:35)
[2017-07-18] MEDS: Vitamin THERAPEUTIC TAB PO SCH (08:33)
[2017-07-18] MEDS: Nicotine GUM* 2 MG PO PRN (08:33)
[2017-07-18] MEDS: Clindamycin CAP* 150 MG PO SCH ×3 (08:33→20:33)
[2017-07-18] MEDS: Diazepam TAB(*) 5 MG PO PRN ×2 (08:33→12:26)
[2017-07-18] MEDS: Acetaminophen TAB* 325 MG PO PRN (13:38)
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
[2017-07-18] MEDS: Al Hydrox/Mg Hydrox/Simet LIQ* 30 ML UDC PO PRN (17:16)
[2017-07-18] MEDS: clonazePAM TAB(*) 1 MG PO PRN (19:14)
[2017-07-18] MEDS ORDERED: Prazosin CAP* 5 MG PO SCH (21:00)
[2017-07-19] MEDS ORDERED: Mouth Piece, Nicotine* 1 EACH CARTRIDGE ONE (07:42)
[2017-07-19] MEDS: Nicotine Inhaler* 10 MG AMP INH PRN (07:43)
[2017-07-19] MEDS: clonazePAM TAB(*) 1 MG PO PRN ×2 (07:43→12:41)
[2017-07-19] MEDS: Vitamin THERAPEUTIC TAB PO SCH (07:43)
[2017-07-19] MEDS: Clindamycin CAP* 150 MG PO SCH ×2 (07:43→13:29)
[2017-07-19] MEDS: Nicotine GUM* 2 MG PO PRN (07:44)
[2017-07-19 08:08] VITALS: BP 106/54
[2017-07-19] MEDS: Al Hydrox/Mg Hydrox/Simet LIQ* 30 ML UDC PO PRN (09:53)
[2017-07-19] MEDS: Acetaminophen TAB* 325 MG PO PRN (09:53)
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
--- NOTE | 2017-07-20 01:16 | DS ---
DISCHARGE SUMMARY: DATE OF ADMISSION: 07/07/17 DATE OF DISCHARGE: 07/19/17 DISCHARGE DIAGNOSES: Are as follows: [place] I: Complex posttraumatic stress disorder, cannabis use disorder. [place] II: Borderline personality disorder. [place] III: None. [place] IV: Severe primary support and housing stressors. [place] V: At the time of admission was 40 and at the time of discharge is 60. CONDITION AT THE TIME OF DISCHARGE: Improved. The patient is no longer endorsing suicidal ideations. She is requesting discharge to home. The patient is agreeable with referral to the [facility]. She is on an injectable long-acting antipsychotic medication and tolerates this well. She is taking adjunctive medications properly. We have spoken with her fiance, who lives with her in her apartment in [place], he has agreed to remove all sharp instruments including an alleged bag of glass shards from the apartment to limit her means to self-harm. The patient is requesting discharge at this time and kristi for safety. It should be noted that the patient has a poor lifetime prognosis given the severity of her borderline personality disorder. This is a condition that requires intensive outpatient treatment, which she has shown some reluctance to enroll in. For this reason, we are referring her to the highest level of outpatient services, which is the [facility]. Her fiance is aware of this and supportive of this decision. Her chronic elevated risk for suicidality has been mitigated by the fact that we have treated her acute depressive illness given her intensive inpatient services and she is now ready for outpatient treatment. MENTAL STATUS EXAM AT THE TIME OF DISCHARGE: The patient is a young white female with dyed greenish hair. She has a nasal piercing. She is dressed in casual comfortable clothing. She appears to be fairly well groomed. She is calm and cooperative. Makes good eye contact. Speech has a normal rate, tone, and volume. Mood is euthymic with full affect. Thought process is linear and goal directed. Thought content is significant for her desire to be discharged from the hospital. She is denying suicidal or homicidal ideations. She denies auditory or visual hallucinations. There is no evidence of psychotic thinking. Insight and judgment are fair given her willingness to follow up with outpatient treatment. Cognitively, she is awake and alert with what would appear to be an average intellect. LABS: Hemoglobin A1c drawn on 07/12/17 was 4.8%. Lipid panel drawn on revealed triglycerides of 76, cholesterol 171, LDL cholesterol 105, and HDL cholesterol 50.8. DISCHARGE INSTRUCTIONS: To the patient are as follows: A. Medications: She is taking aripiprazole Maintena 400 mg every 4 weeks, next injection due on 08/05/17. The patient is also taking prazosin 5 mg p.o. q.h.s. and Klonopin 1 mg 3 times daily as a p.r.n. for anxiety. B. Diet is regular. C. Activities as tolerated. The patient is offered continued nicotine replacement therapy, but she is refusing this stating that her intention is to continue smoking cigarettes for the time being. There are no laboratory or diagnostic studies pending at the time of discharge. D. Followup care. The patient will be seen by the [facility] team within 2 weeks of discharge. In the meantime, she is to continue with [facility], where she has an appointment with Dr. Anuel Lowery on , 07/21/17 at 2:30 p.m. She also has an appointment with her primary therapist, Taylor, on Tuesday, 07/27 at 2:30 p.m. SUBSTANCE ABUSE FOLLOWUP: The patient was offered substance abuse referrals for her chronic cannabis use; however, she refused. HOSPITAL COURSE: PART A - Reason for admission: The patient is a 26-year-old engaged white female with a history of very severe borderline personality disorder as well as complex PTSD and affective problems as well as early life trauma, who is well known to us from 11 prior recent admissions here on the behavioral health unit between May 2016 and April 2017, who now returns to our facility on a voluntary status due to suicidal ideations. The patient was apparently brought in by ambulance with thoughts of self-cutting. She, apparently, has a bag of glass shards that she has been saving at home in the event of needing something to cut herself. In our ED, she presented as tearful stating that she has been having a hard time since the of one of her friends, who had also attended the outpatient clinic. She stated that she did not feel safe going home stating "I can't think straight, I am so confused." She is supposed to be on a shot of monthly aripiprazole, but was recently unsure if she was , so did not take it. We have since confirmed that she is in fact not . At any rate, after a brief stay with her parents in [place] in April, she decided to return to live with her fiance in [place]. She does remain unemployed with no transportation and spends most of her time at the [facility] program at [facility]. Symptomatically, she endorsed to superficial cutting, increased depression, anxiety, difficulty sleeping as well as disordered eating and a pattern of restriction and vomiting up her food. She denies any significant weight loss, however. PART B - Psychiatric treatment rendered. The patient was admitted to the adult behavioral health unit, where she was placed on q.15-minute checks for her own safety. We immediately resumed her aripiprazole Maintena with a dose of 400 mg being administered on 07/08/17, which she tolerated well. I did add a dose of prazosin 5 mg at night due to the fact that she was experiencing poor sleep and nightmares. We added clonazepam 1 mg 3 times daily as a p.r.n. for anxiety. Initially she wanted a trial of Valium, but 5 mg of this 3 times daily were insufficient and so she was changed back to clonazepam. The patient did complain of a tooth infection, for which she has been reluctant to go to a dentist. We put her on a trial of clindamycin 300 mg t.i.d., which she tolerated well with good effect and reduced tooth pain. The patient requested transfer to the critical access hospital hospital system and we did put in referrals to both [facility] as well as [facility]. She was declined by both organizations with the thinking being that her primary pathology is borderline personality disorder, which is not amenable to inpatient treatment. I did inform the patient of this decision by the state on 07/18/17, at which time she immediately requested discharge. Prior to discharging her, I wanted to speak with her fiance and make sure that he removed the glass shards as well as any other sharp instruments from the household, which he agreed to do. We did discuss treatment options and ultimately decided on a referral to the [facility] team here in the [facility]. It will take 2 weeks to be enrolled; however, the referral was placed and in the meantime, she is to follow up with services at [facility]. It should be noted that the patient has a poor prognosis given the severity of her borderline personality traits. She seems to be willing to harm herself as a means of controlling situations, receiving attention, and getting back at people. She appears to be dissatisfied with this hospitalization given the fact that she was not accepted from the [facility]; however, our facility has no control over this. The best we can do is put her in touch with the ACT team, which she is agreeable with. She is on antipsychotic therapy through an injectable, which I think is highly beneficial. We certainly wish Maida the tal for a safe and healthy future. [id number]/CPS #: [id number] FELICIANO
== END 2017-07-19 16:00 | disposition home or self-care (01) | DRG 755 ==
LOC: ED 11:53 → BSU 20:40
PROVIDERS: ADMIT Psychiatry & Neurology Psychiatry; ATTEND Psychiatry & Neurology Psychiatry
PROC: GZHZZZZ Group Psychotherapy (ICD-10-PCS; principal; 2017-07-07)
DX: F43.10 Post-traumatic stress disorder, unspecified (principal); F10.10 Alcohol abuse, uncomplicated; F12.90 Cannabis use, unspecified, uncomplicated; F60.3 Borderline personality disorder; K08.89 Other specified disorders of teeth and supporting structures; F32.9 Major depressive disorder, single episode, unspecified; F41.9 Anxiety disorder, unspecified; F17.210 Nicotine dependence, cigarettes, uncomplicated; Z62.810 Personal history of physical and sexual abuse in childhood; K21.9 Gastro-esophageal reflux disease without esophagitis; Y90.9 Presence of alcohol in blood, level not specified; Z82.49 Family history of ischemic heart disease and other diseases of the circulatory system; Z83.6 Family history of other diseases of the respiratory system; Z88.8 Allergy status to other drugs, medicaments and biological substances; Z88.0 Allergy status to penicillin; Z88.1 Allergy status to other antibiotic agents; Z81.8 Family history of other mental and behavioral disorders
CPT/HCPCS: 36415; 80053; 80061; 80307; 80320; 80329; 81003; 83036; 84443; 84702; 85025; 90686; 90853; 99222; 99231; 99232; 99238; A9270-GY; G0480

== ENCOUNTER 2017-08-02 15:44 | Emergency (ER) | payer OTHER ==
[2017-08-02 16:21] LABS: Urine Appearance Clear; Urine Blood Negative (Negative); Urine Color Straw; Urine Ketones Negative (Negative); Urine Protein Negative (Negative); Urine Specific Gravity 1.004 (1.010-1.030); Urine Urobilinogen Negative (Negative)
[2017-08-02 16:41] LABS: ABS Basophils 0 10^3/ul (0-0.2); ABS Eosinophils 0 10^3/ul (0-0.6); ABS Monocytes 0.5 10^3/ul (0-0.8); ABS Neutrophils 6.3 10^3/ul (1.5-7.7); ABS Nucleated RBC 0 10^3/ul; Eosinophil % 0.2 % (0-6); Hematocrit 40 % (35-47); Hemoglobin 13.9 g/dl (12.0-16.0); Lymphocyte % 22.4 % (25-47); Mean Corpuscular HGB Conc 35 g/dl (31-36); Mean Corpuscular Hemoglobin 32 pg (27-31); Mean Corpuscular Volume 91 fL (80-97); Mean Platelet Volume 8 um3 (7.4-10.4); Nucleated Red Blood Cells % 0; Platelet Count 280 10^3/ul (150-450); Red Blood Count 4.38 10^6/ul (4.0-5.4); Red Cell Distribution Width 13 % (10.5-15); White Blood Count 8.8 10^3/ul (3.5-10.8)
[2017-08-02] MEDS ORDERED: Cephalexin CAP* 500 MG PO ONE (16:53)
[2017-08-02 16:56] LABS: EGFR Non-African American 94.1 (>60)
--- NOTE | 2017-08-02 17:14 | ED ---
Psychiatric Complaint - HPI Summary HPI Summary: 26-year-old female presents with laceration on left arm yesterday. She states she was very anxious concerning her family members in ICU. She states she intentionally self harm herself. She denies any suicidal or homicidal ideation. She has not been taking her anxiety medication to has not followed up with psych. Last time she was here she was admitted. She states that laceration arm continues to bleed. States every time removes bandage states that rips open. She believes her immunizations are up-to-date. She has history of cutting. - History Of Current Complaint Chief Complaint: EDMentalHealth Time Seen by Provider: 08/02/17 15:55 Hx Last Menstrual Period: 03/19/17 - Allergies/Home Medications Allergies/Adverse Reactions: Allergies Allergy/AdvReac Type Severity Reaction Status Date / Time zolpidem Allergy Severe "out of Verified 07/18/17 13:55 control sleep walking." Penicillins Allergy Hives Verified 07/18/17 13:55 Sulfa (Sulfonamide Allergy Hives Verified 07/18/17 13:55 Antibiotics) trazodone Allergy Hives Verified 07/18/17 13:55 PMH/Surg Hx/FS Hx/Imm Hx Endocrine/Hematology History: Denies: Hx Anticoagulant Therapy, Hx Blood Disorders, Hx Diabetes, Hx Thyroid Disease, Hx Anemia, Hx Unexplained Bleeding Cardiovascular History: Denies: Hx Aneurysm, Hx Angina, Hx Angioplasty, Hx Auto Implanted Cardiovert Defib, Hx Cardiac Arrest, Hx Cardiomegaly, Hx Congenital Heart Disease, Hx Congestive Heart Failure, Hx Coronary Artery Disease, Hx Deep Vein Thrombosis, Hx Hypertension Respiratory History: Denies: Hx Asthma, Hx Chronic Bronchitis, Hx Chronic Obstructive Pulmonary Disease (COPD), Hx Cystic Fibrosis GI History: Denies: Hx Ulcer Sensory History: Denies: Hx Cataracts, Hx Contacts or Glasses, Hx Eye Injury, Hx Hearing Aid Opthamlomology History: Denies: Hx Cataracts, Hx Contacts or Glasses, Hx Eye Injury Neurological History: Reports: Hx Headaches Denies: Other Neuro Impairments/Disorders Psychiatric History: Reports: Hx Anxiety, Hx Depression, Hx Post Traumatic Stress Disorder, Hx Inpatient Treatment, Hx Community Mental Health Tx, Hx Suicide Attempt, Hx of Violent Episodes Against Others, Hx Substance Abuse - marijuana regularly, Other Psychiatric Issues/Disorders - HX suicide attempts, hx banging head Denies: Hx Eating Disorder - Surgical History Surgery Procedure, Year, and Place: "screws and a plate in my right arm in 2013 " Hx Anesthesia Reactions: No - Immunization History Date of Tetanus Vaccine: utd Date of Influenza Vaccine: none Infectious Disease History: No Infectious Disease History: Denies: Hx Hepatitis, Hx Human Immunodeficiency Virus (HIV), Traveled Outside the [place] in Last 30 Days - Family History Known Family History: Positive: Hypertension, Respiratory Disease - COPD, Other - aunt - bipolar disorder, depression. mom/sister/grandmother - anxiety. Family History: FHx of anxiety, depression - Social History Alcohol Use: Rare Alcohol Amount: PT denies drinking any alcohol Hx Substance Use: Yes Substance Use Type: Reports: Marijuana Substance Use Comment - Amount & Last Used: weekly Hx Tobacco Use: Yes Smoking Status (MU): Heavy Every Day Tobacco Smoker Type: Cigarettes Amount Used/How Often: 1/2 PPD for last 30 days. Length of Time of Smoking/Using Tobacco: several years Have You Smoked in the Last Year: Yes Review of Systems Negative: Fever Negative: Chest Pain Negative: Shortness Of Breath Positive: Other - laceration left arm Positive: Anxious All Other Systems Reviewed And Are Negative: Yes Physical Exam Triage Information Reviewed: Yes Vital Signs On Initial Exam: Initial Vitals Temp Pulse Resp BP Pulse Ox 99.6 F 125 18 120/70 100 08/02/17 15:45 08/02/17 15:45 08/02/17 15:45 08/02/17 15:45 08/02/17 15:45 Vital Signs Reviewed: Yes Appearance: Positive: Well-Appearing Skin: Positive: Warm, Dry, Other - 4cm by 1/2cm laceration of left arm Head/Face: Positive: Normal Head/Face Inspection Eyes: Positive: Normal, Conjunctiva Clear Respiratory/Lung Sounds: Positive: Clear to Auscultation, Breath Sounds Present Cardiovascular: Positive: Normal, RRR Musculoskeletal: Positive: Normal Neurological: Positive: Normal Psychiatric: Positive: Normal Diagnostics - Vital Signs Vital Signs Temp Pulse Resp BP Pulse Ox 08/02/17 15:45 99.6 F 125 18 120/70 100 - Laboratory Lab Results: Lab Results 08/02/17 08/02/17 08/02/17 Range/Units 14:04 14:04 16:23 WBC (3.5-10.8) 10^3/ul RBC (4.0-5.4) 10^6/ul Hgb (12.0-16.0) g/dl Hct (35-47) % MCV (80-97) fL MCH (27-31) pg MCHC (31-36) g/dl RDW (10.5-15) % Plt Count (150-450) 10^3/ul MPV (7.4-10.4) um3 Neut % (Auto) (38-83) % Lymph % (Auto) (25-47) % Sunflower % (Auto) (1-9) % Eos % (Auto) (0-6) % Baso % (Auto) (0-2) % Absolute Neuts (auto) (1.5-7.7) 10^3/ul Absolute Lymphs (auto) (1.0-4.8) 10^3/ul Absolute Monos (auto) (0-0.8) 10^3/ul Absolute Eos (auto) (0-0.6) 10^3/ul Absolute Basos (auto) (0-0.2) 10^3/ul Absolute Nucleated RBC 10^3/ul Nucleated RBC % Sodium 135 (133-145) mmol/L Potassium 3.7 (3.5-5.0) mmol/L Chloride 104 (101-111) mmol/L Carbon Dioxide 26 (22-32) mmol/L Anion Gap 5 (2-11) mmol/L BUN 7 (6-24) mg/dL Creatinine 0.74 (0.51-0.95) mg/dL Est GFR ( Amer) 121.1 (>60) Est GFR (Non-Af Amer) 94.1 (>60) BUN/Creatinine Ratio 9.5 (8-20) Glucose 98 (70-100) mg/dL Calcium 9.5 (8.6-10.3) mg/dL Total Bilirubin 0.50 (0.2-1.0) mg/dL AST 16 (13-39) U/L ALT 11 (7-52) U/L Alkaline Phosphatase 46 (34-104) U/L Total Protein 7.1 (6.4-8.9) g/dL Albumin 4.2 (3.2-5.2) g/dL Globulin 2.9 (2-4) g/dL Albumin/Globulin Ratio 1.4 (1-3) TSH Pending Urine Color Straw Urine Appearance Clear Urine pH 7.0 (5-9) Ur Specific [place] 1.004 L (1.010-1.030) Urine Protein Negative (Negative) Urine Ketones Negative (Negative) Urine Blood Negative (Negative) Urine Nitrate Negative (Negative) Urine Bilirubin Negative (Negative) Urine Urobilinogen Negative (Negative) Ur Leukocyte Esterase Negative (Negative) Urine Glucose Negative (Negative) Salicylates Pending Urine Opiates Screen None detected (None Detect) Acetaminophen Pending Ur Barbiturates Screen None detected (None Detect) Ur Phencyclidine Scrn None detected (None Detect) Ur Amphetamines Screen None detected (None Detect) U Benzodiazepines Scrn None detected (None Detect) Urine Cocaine Screen None detected (None Detect) U Cannabinoids Screen Presumptive positive H (None Detect) Serum Alcohol Pending 08/02/17 Range/Units 16:23 WBC 8.8 (3.5-10.8) 10^3/ul RBC 4.38 (4.0-5.4) 10^6/ul Hgb 13.9 (12.0-16.0) g/dl Hct 40 (35-47) % MCV 91 (80-97) fL MCH 32 H (27-31) pg MCHC 35 (31-36) g/dl RDW 13 (10.5-15) % Plt Count 280 (150-450) 10^3/ul MPV 8 (7.4-10.4) um3 Neut % (Auto) 71.5 (38-83) % Lymph % (Auto) 22.4 L (25-47) % Sunflower % (Auto) 5.5 (1-9) % Eos % (Auto) 0.2 (0-6) % Baso % (Auto) 0.4 (0-2) % Absolute Neuts (auto) 6.3 (1.5-7.7) 10^3/ul Absolute Lymphs (auto) 2.0 (1.0-4.8) 10^3/ul Absolute Monos (auto) 0.5 (0-0.8) 10^3/ul Absolute Eos (auto) 0 (0-0.6) 10^3/ul Absolute Basos (auto) 0 (0-0.2) 10^3/ul Absolute Nucleated RBC 0 10^3/ul Nucleated RBC % 0 Sodium (133-145) mmol/L Potassium (3.5-5.0) mmol/L Chloride (101-111) mmol/L Carbon Dioxide (22-32) mmol/L Anion Gap (2-11) mmol/L BUN (6-24) mg/dL Creatinine (0.51-0.95) mg/dL Est GFR ( Amer) (>60) Est GFR (Non-Af Amer) (>60) BUN/Creatinine Ratio (8-20) Glucose (70-100) mg/dL Calcium (8.6-10.3) mg/dL Total Bilirubin (0.2-1.0) mg/dL AST (13-39) U/L ALT (7-52) U/L Alkaline Phosphatase (34-104) U/L Total Protein (6.4-8.9) g/dL Albumin (3.2-5.2) g/dL Globulin (2-4) g/dL Albumin/Globulin Ratio (1-3) TSH Urine Color Urine Appearance Urine pH (5-9) Ur Specific [place] (1.010-1.030) Urine Protein (Negative) Urine Ketones (Negative) Urine Blood (Negative) Urine Nitrate (Negative) Urine Bilirubin (Negative) Urine Urobilinogen (Negative) Ur Leukocyte Esterase (Negative) Urine Glucose (Negative) Salicylates Urine Opiates Screen (None Detect) Acetaminophen Ur Barbiturates Screen (None Detect) Ur Phencyclidine Scrn (None Detect) Ur Amphetamines Screen (None Detect) U Benzodiazepines Scrn (None Detect) Urine Cocaine Screen (None Detect) U Cannabinoids Screen (None Detect) Serum Alcohol Result Diagrams: 08/02/17 16:23 08/02/17 16:23 Lab Statement: Any lab studies that have been ordered have been reviewed, and results considered in the medical decision making process. Course/Dx - Course Course Of Treatment: 26-year-old female presents with laceration on left arm yesterday. She states she was very anxious concerning her family members in ICU. She states she intentionally self harm herself. She denies any suicidal or homicidal ideation. She has not been taking her anxiety medication to has not followed up with psych. Last time she was here she was admitted. She states that laceration arm continues to bleed. States every time removes bnadage states that rips open. She believes her immunizations are up-to-date. She has history of cutting. On exam has a 4 cm by half centimeter laceration on left forearm. No infection seen. Due to the length laceration present cleaned area and placed steristrips and occulsive dressing to stop bleeding. will have start Keflex. Cannot suture at this point due to amount of time since cut self. Will have change bandage and wash area daily. Will continue Keflex. Medically clear for mental health. [facility] signout [facility] pending mental health exam. - Differential Dx/Clinical Impression Differential Diagnosis/HQI/PQRI: Positive: Anxiety, Depression, Other - laceration Provider Diagnosis: Laceration of left upper arm, Anxiety Discharge - Discharge Plan Condition: Stable Disposition: OTHER Discharge Disposition Comment: signed out to [facility] pending MHE Prescriptions: Cephalexin CAP* [Keflex CAP*] 500 mg PO BID #[id number] cap Patient Education Materials: Laceration Without Closure (ED) Referrals: Maged Sanon MD [Primary Care Provider] - Additional Instructions: Take keflex twice a day for 7 days Wash wound once a day and change bandage Return to ED if develop any signs of infection
[2017-08-02 20:19] VITALS: BP 113/64
--- NOTE | 2017-08-02 20:24 | PN ---
Progress Note - Progress Note Date of Service: 08/02/17 Note: Patient was a sign out from [facility] pending MHE and disposition. Spoke with mental health creative art director and patient was cleared to discharge home with outpatient services and safe place to stay by Dr Gould. Patient did not want admission and denied suicidal thoughts at this time. condition: stable discharge: home
== END 2017-08-02 20:28 ==
LOC: ED 15:44
DX: S41.112A Laceration without foreign body of left upper arm, initial encounter (principal); F41.9 Anxiety disorder, unspecified; X83.8XXA Intentional self-harm by other specified means, initial encounter; Y92.9 Unspecified place or not applicable
CPT/HCPCS: 36415; 80053; 80307; 80320; 80329; 81003; 84443; 85025; 99284; A9270-GY; G0480

== ENCOUNTER 2017-08-11 12:49 | Emergency (ER) | payer OTHER ==
[2017-08-11 14:24] LABS: ABS Basophils 0.1 10^3/ul (0-0.2); ABS Eosinophils 0 10^3/ul (0-0.6); ABS Lymphocytes 1.8 10^3/ul (1.0-4.8); ABS Monocytes 0.5 10^3/ul (0-0.8); ABS Neutrophils 7.8 10^3/ul (1.5-7.7); ABS Nucleated RBC 0 10^3/ul; Eosinophil % 0.3 % (0-6); Hematocrit 40 % (35-47); Hemoglobin 13.7 g/dl (12.0-16.0); Lymphocyte % 17.9 % (25-47); Mean Corpuscular HGB Conc 35 g/dl (31-36); Mean Corpuscular Hemoglobin 32 pg (27-31); Mean Corpuscular Volume 91 fL (80-97); Mean Platelet Volume 8 um3 (7.4-10.4); Nucleated Red Blood Cells % 0; Platelet Count 239 10^3/ul (150-450); Red Blood Count 4.34 10^6/ul (4.0-5.4); Red Cell Distribution Width 13 % (10.5-15); White Blood Count 10.2 10^3/ul (3.5-10.8)
[2017-08-11 14:38] LABS: Urine Appearance Clear; Urine Blood Negative (Negative); Urine Color Yellow; Urine Ketones Trace (Negative); Urine Protein Negative (Negative); Urine Specific Gravity 1.028 (1.010-1.030); Urine Urobilinogen Negative (Negative)
[2017-08-11 14:42] LABS: EGFR Non-African American 102.1 (>60)
--- NOTE | 2017-08-11 21:09 | ED ---
Vimal Escamilla Thomas, scribed for Alberto Graves MD on 08/11/17 at 1341 . Psychiatric Complaint - HPI Summary HPI Summary: The patient is a 26 year old female with self-inflicted cuts to her left arm. She has been having suicidal ideation for the last couple of days. She says I m afraid I wont stop cutting the next time I do it. She is up to date on her tetanus shots. She denies alcohol or drug use today. - History Of Current Complaint Chief Complaint: EDMentalHealth Time Seen by Provider: 08/11/17 13:09 Hx Obtained From: Patient Hx Last Menstrual Period: 03/19/17 Onset/Duration: Lasting Days - 2, Still Present Severity Currently: Moderate Aggravating Factor(s): Other - Unknown Alleviating Factor(s): Other - Unknown Related History: Positive For: Prior Psychiatric Issues Has Suicidal: Reports: Thoughts - Allergies/Home Medications Allergies/Adverse Reactions: Allergies Allergy/AdvReac Type Severity Reaction Status Date / Time zolpidem Allergy Severe "out of Verified 07/18/17 13:55 control sleep walking." Penicillins Allergy Hives Verified 07/18/17 13:55 Sulfa (Sulfonamide Allergy Hives Verified 07/18/17 13:55 Antibiotics) trazodone Allergy Hives Verified 07/18/17 13:55 PMH/Surg Hx/FS Hx/Imm Hx Endocrine/Hematology History: Denies: Hx Anticoagulant Therapy, Hx Blood Disorders, Hx Diabetes, Hx Thyroid Disease, Hx Anemia, Hx Unexplained Bleeding Cardiovascular History: Denies: Hx Aneurysm, Hx Angina, Hx Angioplasty, Hx Auto Implanted Cardiovert Defib, Hx Cardiac Arrest, Hx Cardiomegaly, Hx Congenital Heart Disease, Hx Congestive Heart Failure, Hx Coronary Artery Disease, Hx Deep Vein Thrombosis, Hx Hypertension Respiratory History: Denies: Hx Asthma, Hx Chronic Bronchitis, Hx Chronic Obstructive Pulmonary Disease (COPD), Hx Cystic Fibrosis GI History: Denies: Hx Ulcer Sensory History: Denies: Hx Cataracts, Hx Contacts or Glasses, Hx Eye Injury, Hx Hearing Aid Opthamlomology History: Denies: Hx Cataracts, Hx Contacts or Glasses, Hx Eye Injury Neurological History: Reports: Hx Headaches Denies: Other Neuro Impairments/Disorders Psychiatric History: Reports: Hx Anxiety, Hx Eating Disorder - purge, Hx Depression, Hx Post Traumatic Stress Disorder, Hx Inpatient Treatment, Hx Community Mental Health Tx, Hx Suicide Attempt, Hx of Violent Episodes Against Others, Hx Substance Abuse - marijuana regularly, Other Psychiatric Issues/ Disorders - HX suicide attempts, hx banging head - Surgical History Surgery Procedure, Year, and Place: "screws and a plate in my right arm in 2013 " Hx Anesthesia Reactions: No - Immunization History Date of Tetanus Vaccine: utd Date of Influenza Vaccine: none Infectious Disease History: No Infectious Disease History: Denies: Hx Hepatitis, Hx Human Immunodeficiency Virus (HIV), Traveled Outside the [place] in Last 30 Days - Family History Known Family History: Positive: Hypertension, Respiratory Disease - COPD, Other - aunt - bipolar disorder, depression. mom/sister/grandmother - anxiety. Family History: FHx of anxiety, depression - Social History Alcohol Use: Rare Alcohol Amount: PT denies drinking any alcohol Hx Substance Use: Yes Substance Use Type: Reports: Marijuana Substance Use Comment - Amount & Last Used: weekly Hx Tobacco Use: Yes Smoking Status (MU): Heavy Every Day Tobacco Smoker Type: Cigarettes Amount Used/How Often: 1/2 PPD for last 30 days. Length of Time of Smoking/Using Tobacco: several years Have You Smoked in the Last Year: Yes Review of Systems Negative: Fever Positive: Other - Cuts Positive: Other - SI All Other Systems Reviewed And Are Negative: Yes Physical Exam - Summary Physical Exam Summary: General: well-appearing, no pain distress Skin: warm, color reflects adequate perfusion, dry Head: normal Eyes: EOMI, [place] ROS[place] ENT: normal Neck: supple, nontender Respiratory: CTA, breath sounds present Cardiovascular: RRR Abdomen: soft, nontender Bowel: present Musculoskeletal: normal, strength/ROM intact Extremities: There are some healing lacerations scabbed over to left forearm. She has good ROM and good strength. Neurological: normal, sensory/motor intact, A&O x3 Psychological: affect/mood appropriate Triage Information Reviewed: Yes Vital Signs On Initial Exam: Initial Vitals Temp Pulse Resp BP Pulse Ox 99.3 F 116 24 113/78 98 08/11/17 12:56 08/11/17 12:56 08/11/17 12:56 08/11/17 12:56 08/11/17 12:56 Vital Signs Reviewed: Yes Diagnostics - Vital Signs Vital Signs Temp Pulse Resp BP Pulse Ox 08/11/17 12:56 99.3 F 116 24 113/78 98 - Laboratory Lab Results: Lab Results 08/11/17 08/11/17 08/11/17 Range/Units 13:18 13:18 14:10 WBC (3.5-10.8) 10^3/ul RBC (4.0-5.4) 10^6/ul Hgb (12.0-16.0) g/dl Hct (35-47) % MCV (80-97) fL MCH (27-31) pg MCHC (31-36) g/dl RDW (10.5-15) % Plt Count (150-450) 10^3/ul MPV (7.4-10.4) um3 Neut % (Auto) (38-83) % Lymph % (Auto) (25-47) % Long % (Auto) (0-7) % Eos % (Auto) (0-6) % Baso % (Auto) (0-2) % Absolute Neuts (auto) (1.5-7.7) 10^3/ul Absolute Lymphs (auto) (1.0-4.8) 10^3/ul Absolute Monos (auto) (0-0.8) 10^3/ul Absolute Eos (auto) (0-0.6) 10^3/ul Absolute Basos (auto) (0-0.2) 10^3/ul Absolute Nucleated RBC 10^3/ul Nucleated RBC % Sodium 135 (133-145) mmol/L Potassium 3.9 (3.5-5.0) mmol/L Chloride 104 (101-111) mmol/L Carbon Dioxide 23 (22-32) mmol/L Anion Gap 8 (2-11) mmol/L BUN 15 (6-24) mg/dL Creatinine 0.69 (0.51-0.95) mg/dL Est GFR ( Amer) 131.3 (>60) Est GFR (Non-Af Amer) 102.1 (>60) BUN/Creatinine Ratio 21.7 H (8-20) Glucose 85 (70-100) mg/dL Calcium 9.5 (8.6-10.3) mg/dL Total Bilirubin 0.40 (0.2-1.0) mg/dL AST 12 L (13-39) U/L ALT 8 (7-52) U/L Alkaline Phosphatase 53 (34-104) U/L Total Protein 7.1 (6.4-8.9) g/dL Albumin 4.3 (3.2-5.2) g/dL Globulin 2.8 (2-4) g/dL Albumin/Globulin Ratio 1.5 (1-3) TSH 0.52 (0.34-5.60) mcIU/mL Beta HCG, Quant < 0.60 mIU/mL Urine Color Yellow Urine Appearance Clear Urine pH 6.0 (5-9) Ur Specific [place] 1.028 (1.010-1.030) Urine Protein Negative (Negative) Urine Ketones Trace A (Negative) Urine Blood Negative (Negative) Urine Nitrate Negative (Negative) Urine Bilirubin Negative (Negative) Urine Urobilinogen Negative (Negative) Ur Leukocyte Esterase Negative (Negative) Urine Glucose Negative (Negative) Urine Ascorbic Acid * A (Negative) Salicylates < 2.50 (<30) mg/dL Urine Opiates Screen None detected (None Detect) Acetaminophen < 15 mcg/mL Ur Barbiturates Screen None detected (None Detect) Ur Phencyclidine Scrn None detected (None Detect) Ur Amphetamines Screen None detected (None Detect) U Benzodiazepines Scrn None detected (None Detect) Urine Cocaine Screen None detected (None Detect) U Cannabinoids Screen Presumptive positive A (None Detect) Serum Alcohol < 10 (<10) mg/dL 08/11/17 Range/Units 14:10 WBC 10.2 (3.5-10.8) 10^3/ul RBC 4.34 (4.0-5.4) 10^6/ul Hgb 13.7 (12.0-16.0) g/dl Hct 40 (35-47) % MCV 91 (80-97) fL MCH 32 H (27-31) pg MCHC 35 (31-36) g/dl RDW 13 (10.5-15) % Plt Count 239 (150-450) 10^3/ul MPV 8 (7.4-10.4) um3 Neut % (Auto) 76.1 (38-83) % Lymph % (Auto) 17.9 L (25-47) % Long % (Auto) 5.0 (0-7) % Eos % (Auto) 0.3 (0-6) % Baso % (Auto) 0.7 (0-2) % Absolute Neuts (auto) 7.8 H (1.5-7.7) 10^3/ul Absolute Lymphs (auto) 1.8 (1.0-4.8) 10^3/ul Absolute Monos (auto) 0.5 (0-0.8) 10^3/ul Absolute Eos (auto) 0 (0-0.6) 10^3/ul Absolute Basos (auto) 0.1 (0-0.2) 10^3/ul Absolute Nucleated RBC 0 10^3/ul Nucleated RBC % 0 Sodium (133-145) mmol/L Potassium (3.5-5.0) mmol/L Chloride (101-111) mmol/L Carbon Dioxide (22-32) mmol/L Anion Gap (2-11) mmol/L BUN (6-24) mg/dL Creatinine (0.51-0.95) mg/dL Est GFR ( Amer) (>60) Est GFR (Non-Af Amer) (>60) BUN/Creatinine Ratio (8-20) Glucose (70-100) mg/dL Calcium (8.6-10.3) mg/dL Total Bilirubin (0.2-1.0) mg/dL AST (13-39) U/L ALT (7-52) U/L Alkaline Phosphatase (34-104) U/L Total Protein (6.4-8.9) g/dL Albumin (3.2-5.2) g/dL Globulin (2-4) g/dL Albumin/Globulin Ratio (1-3) TSH (0.34-5.60) mcIU/mL Beta HCG, Quant mIU/mL Urine Color Urine Appearance Urine pH (5-9) Ur Specific [place] (1.010-1.030) Urine Protein (Negative) Urine Ketones (Negative) Urine Blood (Negative) Urine Nitrate (Negative) Urine Bilirubin (Negative) Urine Urobilinogen (Negative) Ur Leukocyte Esterase (Negative) Urine Glucose (Negative) Urine Ascorbic Acid (Negative) Salicylates (<30) mg/dL Urine Opiates Screen (None Detect) Acetaminophen mcg/mL Ur Barbiturates Screen (None Detect) Ur Phencyclidine Scrn (None Detect) Ur Amphetamines Screen (None Detect) U Benzodiazepines Scrn (None Detect) Urine Cocaine Screen (None Detect) U Cannabinoids Screen (None Detect) Serum Alcohol (<10) mg/dL Result Diagrams: 08/11/17 14:10 08/11/17 14:10 Lab Statement: Any lab studies that have been ordered have been reviewed, and results considered in the medical decision making process. Course/Dx - Course Course Of Treatment: Medications reviewed. Allergies noted. MHE AND DISPOSITION PENDING AT SHIFT CHANGE. - Differential Dx/Clinical Impression Provider Diagnosis: Mental health problem Discharge - Discharge Plan Condition: Stable Disposition: OTHER Discharge Disposition Comment: . Referrals: Maged Sanon MD [Primary Care Provider] - The documentation as recorded by the Vimal rcouch Thomas accurately reflects the service I personally performed and the decisions made by me, Alberto Graves MD.
--- NOTE | 2017-08-12 07:24 | ED ---
Toi Escamilla Jennifer, scribed for Roderick Palm MD on 08/11/17 at 2146 . Progress - Progress Note Progress Note: The pt is a sign out from Dr. Graves pending mental health evaluation. - Consult/PCP Time Called: 15:00 Course/Dx - Course Course Of Treatment: Medications reviewed. Allergies noted. MHE AND DISPOSITION PENDING AT SHIFT CHANGE. Pt stable thru night -- signed out to Dr Blunt at 7am. - Diagnoses Provider Diagnoses: Mental health problem - Provider Notifications Discussed Care Of Patient With: Jude Blunt Time Discussed With Above Provider: 07:00 The documentation as recorded by the Toi crouch Jennifer accurately reflects the service I personally performed and the decisions made by , Roderick Palm MD.
--- NOTE | 2017-08-12 09:34 | PN ---
ED Flex Patient Progress Note Date of Service: 08/12/17 Subjective: This is a 26 year-old F who is pending psychiatric eval/disposition and is on hold until case is presented with Dr Lieberman and decision is made, secondary to suicidal thoughts and gesture. Pt offers no complaints at this time is eating and sleeping. Objective: Vitals: Most recent vital signs documented below. General NAD, Alert and oriented x3. Heart: rrr at 90 bpm Lungs: CTA or with rales, rhonchi, wheezing Laboratory: Current laboratory results documented below. Assessment: pending psych eval and dispo by Dr Lieberman suicidal gesture/ideation depression/anxiety Plan: Pending psychiatric consultation by Dr Lieberman. will follow up daily. Vital Signs Temp Pulse Resp BP Pulse Ox 99.5 F 90 18 119/63 99 08/12/17 08:37 08/12/17 08:37 08/12/17 08:37 08/12/17 08:37 08/12/17 08:37 Lab Results - Entire Visit 08/11/17 08/11/17 08/11/17 14:10 14:10 13:18 WBC 10.2 RBC 4.34 Hgb 13.7 Hct 40 MCV 91 MCH 32 H MCHC 35 RDW 13 Plt Count 239 MPV 8 Neut % (Auto) 76.1 Lymph % (Auto) 17.9 L [place] % (Auto) 5.0 Eos % (Auto) 0.3 Baso % (Auto) 0.7 Absolute Neuts (auto) 7.8 H Absolute Lymphs (auto) 1.8 Absolute Monos (auto) 0.5 Absolute Eos (auto) 0 Absolute Basos (auto) 0.1 Absolute Nucleated RBC 0 Nucleated RBC % 0 Sodium 135 Potassium 3.9 Chloride 104 Carbon Dioxide 23 Anion Gap 8 BUN 15 Creatinine 0.69 Est GFR ( Amer) 131.3 Est GFR (Non-Af Amer) 102.1 BUN/Creatinine Ratio 21.7 H Glucose 85 Calcium 9.5 Total Bilirubin 0.40 AST 12 L ALT 8 Alkaline Phosphatase 53 Total Protein 7.1 Albumin 4.3 Globulin 2.8 Albumin/Globulin Ratio 1.5 TSH 0.52 Beta HCG, Quant < 0.60 Urine Color Yellow Urine Appearance Clear Urine pH 6.0 Ur Specific [place] 1.028 Urine Protein Negative Urine Ketones Trace A Urine Blood Negative Urine Nitrate Negative Urine Bilirubin Negative Urine Urobilinogen Negative Ur Leukocyte Esterase Negative Urine Glucose Negative Urine Ascorbic Acid * A Salicylates < 2.50 Urine Opiates Screen Acetaminophen < 15 Ur Barbiturates Screen Ur Phencyclidine Scrn Ur Amphetamines Screen U Benzodiazepines Scrn Urine Cocaine Screen U Cannabinoids Screen Serum Alcohol < 10 08/11/17 13:18 WBC RBC Hgb Hct MCV MCH MCHC RDW Plt Count MPV Neut % (Auto) Lymph % (Auto) [place] % (Auto) Eos % (Auto) Baso % (Auto) Absolute Neuts (auto) Absolute Lymphs (auto) Absolute Monos (auto) Absolute Eos (auto) Absolute Basos (auto) Absolute Nucleated RBC Nucleated RBC % Sodium Potassium Chloride Carbon Dioxide Anion Gap BUN Creatinine Est GFR ( Amer) Est GFR (Non-Af Amer) BUN/Creatinine Ratio Glucose Calcium Total Bilirubin AST ALT Alkaline Phosphatase Total Protein Albumin Globulin Albumin/Globulin Ratio TSH Beta HCG, Quant Urine Color Urine Appearance Urine pH Ur Specific [place] Urine Protein Urine Ketones Urine Blood Urine Nitrate Urine Bilirubin Urine Urobilinogen Ur Leukocyte Esterase Urine Glucose Urine Ascorbic Acid Salicylates Urine Opiates Screen None detected Acetaminophen Ur Barbiturates Screen None detected Ur Phencyclidine Scrn None detected Ur Amphetamines Screen None detected U Benzodiazepines Scrn None detected Urine Cocaine Screen None detected U Cannabinoids Screen Presumptive positive A Serum Alcohol
--- NOTE | 2017-08-12 10:55 | PN ---
ED Flex Patient Progress Note Date of Service: 08/12/17 Subjective: Maida seen along with RN Karen Krishnamurthy. Patient denies SI. States she has sharp objects in the house. This clinician left a message on the voicemail of her fiance, Sina Guo ([phone]), to remove dangerous sharp items for the apartment. Maida complains that he has run out of oral meds and is not due to see her outpatient psychiatrist, Dr. Cathy Giordano, until September. She is due to start receiving all her outpatient services in one week through the ACT team. This was confirmed with ACT produce team member Radha Iniguez ([phone]). The patient is adherent with injectable aripiprazole Maintena and received her scheduled dose earlier this week. Objective: Patient calm and cooperative, depressed but denies SI or thoughts of self harm Assessment: Borderline PD Plan: Wrote an electronic Rx to [facility] for 30 day supply of 5mg prazosin and 0.5mg clonazepam. Follow up with ACT team in one week. Discharge to home. Vital Signs Temp Pulse Resp BP Pulse Ox 99.5 F 90 18 119/63 99 08/12/17 08:37 08/12/17 08:37 08/12/17 08:37 08/12/17 08:37 08/12/17 08:37 Lab Results - Entire Visit 08/11/17 08/11/17 08/11/17 14:10 14:10 13:18 WBC 10.2 RBC 4.34 Hgb 13.7 Hct 40 MCV 91 MCH 32 H MCHC 35 RDW 13 Plt Count 239 MPV 8 Neut % (Auto) 76.1 Lymph % (Auto) 17.9 L [place] % (Auto) 5.0 Eos % (Auto) 0.3 Baso % (Auto) 0.7 Absolute Neuts (auto) 7.8 H Absolute Lymphs (auto) 1.8 Absolute Monos (auto) 0.5 Absolute Eos (auto) 0 Absolute Basos (auto) 0.1 Absolute Nucleated RBC 0 Nucleated RBC % 0 Sodium 135 Potassium 3.9 Chloride 104 Carbon Dioxide 23 Anion Gap 8 BUN 15 Creatinine 0.69 Est GFR ( Amer) 131.3 Est GFR (Non-Af Amer) 102.1 BUN/Creatinine Ratio 21.7 H Glucose 85 Calcium 9.5 Total Bilirubin 0.40 AST 12 L ALT 8 Alkaline Phosphatase 53 Total Protein 7.1 Albumin 4.3 Globulin 2.8 Albumin/Globulin Ratio 1.5 TSH 0.52 Beta HCG, Quant < 0.60 Urine Color Yellow Urine Appearance Clear Urine pH 6.0 Ur Specific [place] 1.028 Urine Protein Negative Urine Ketones Trace A Urine Blood Negative Urine Nitrate Negative Urine Bilirubin Negative Urine Urobilinogen Negative Ur Leukocyte Esterase Negative Urine Glucose Negative Urine Ascorbic Acid * A Salicylates < 2.50 Urine Opiates Screen Acetaminophen < 15 Ur Barbiturates Screen Ur Phencyclidine Scrn Ur Amphetamines Screen U Benzodiazepines Scrn Urine Cocaine Screen U Cannabinoids Screen Serum Alcohol < 10 08/11/17 13:18 WBC RBC Hgb Hct MCV MCH MCHC RDW Plt Count MPV Neut % (Auto) Lymph % (Auto) [place] % (Auto) Eos % (Auto) Baso % (Auto) Absolute Neuts (auto) Absolute Lymphs (auto) Absolute Monos (auto) Absolute Eos (auto) Absolute Basos (auto) Absolute Nucleated RBC Nucleated RBC % Sodium Potassium Chloride Carbon Dioxide Anion Gap BUN Creatinine Est GFR ( Amer) Est GFR (Non-Af Amer) BUN/Creatinine Ratio Glucose Calcium Total Bilirubin AST ALT Alkaline Phosphatase Total Protein Albumin Globulin Albumin/Globulin Ratio TSH Beta HCG, Quant Urine Color Urine Appearance Urine pH Ur Specific [place] Urine Protein Urine Ketones Urine Blood Urine Nitrate Urine Bilirubin Urine Urobilinogen Ur Leukocyte Esterase Urine Glucose Urine Ascorbic Acid Salicylates Urine Opiates Screen None detected Acetaminophen Ur Barbiturates Screen None detected Ur Phencyclidine Scrn None detected Ur Amphetamines Screen None detected U Benzodiazepines Scrn None detected Urine Cocaine Screen None detected U Cannabinoids Screen Presumptive positive A Serum Alcohol
[2017-08-12 11:24] VITALS: BP 117/63
--- NOTE | 2017-08-12 18:50 | ED ---
Jose Escamilla Julia, scribed for Jude Blunt MD on 08/12/17 at 1155 . Progress - Progress Note Progress Note: This patient is signed out from Dr. Palm at shift change. He had a MHE and they felt that he was safe for D/C. He is D/C'd in stable condition with a diagnosis of depression. Course/Dx - Diagnoses Provider Diagnoses: Mental health problem - Provider Notifications Time Discussed With Above Provider: 07:00 The documentation as recorded by the Jose crouch Julia accurately reflects the service I personally performed and the decisions made by Jose Raul smith Richard L, MD.
== END 2017-08-12 12:14 ==
LOC: ED 12:49
DX: R45.851 Suicidal ideations (principal); F17.210 Nicotine dependence, cigarettes, uncomplicated
CPT/HCPCS: 36415; 80053; 80307; 80320; 80329; 81003; 84443; 84702; 85025; 99283; G0480

== ENCOUNTER 2017-10-17 14:24 | Inpatient (IN) | payer OTHER ==
[2017-10-17 15:49] LABS: Urine Appearance Clear; Urine Blood Negative (Negative); Urine Color Straw; Urine Ketones Negative (Negative); Urine Protein Negative (Negative); Urine Specific Gravity 1.005 (1.010-1.030); Urine Urobilinogen Negative (Negative)
[2017-10-17 15:52] LABS: ABS Basophils 0 10^3/ul (0-0.2); ABS Eosinophils 0 10^3/ul (0-0.6); ABS Lymphocytes 1.4 10^3/ul (1.0-4.8); ABS Monocytes 0.5 10^3/ul (0-0.8); ABS Neutrophils 11.4 10^3/ul (1.5-7.7); ABS Nucleated RBC 0 10^3/ul; Eosinophil % 0.1 % (0-6); Hematocrit 38 % (35-47); Hemoglobin 13.4 g/dl (12.0-16.0); Lymphocyte % 10.6 % (25-47); Mean Corpuscular HGB Conc 35 g/dl (31-36); Mean Corpuscular Hemoglobin 32 pg (27-31); Mean Corpuscular Volume 90 fL (80-97); Mean Platelet Volume 7.4 um3 (7.4-10.4); Nucleated Red Blood Cells % 0; Platelet Count 232 10^3/ul (150-450); Red Blood Count 4.21 10^6/ul (4.0-5.4); Red Cell Distribution Width 13 % (10.5-15); White Blood Count 13.3 10^3/ul (3.5-10.8)
[2017-10-17 16:22] LABS: EGFR Non-African American 105.6 (>60)
[2017-10-17] MEDS ORDERED: LORazepam TAB(*) 1 MG PO ONE (19:43)
--- NOTE | 2017-10-17 23:14 | ED ---
Kecia Escamilla Nilda, scribed for Alberto Garves MD on 10/17/17 at 1645 . Psychiatric Complaint - HPI Summary HPI Summary: This patient is a 26 year old F presenting to [facility] with a chief complaint of constant suicidal thoughts. Symptoms alleviated by nothing. Patient reports multiple self-inflicted lacerations on LUE (old). Patient denies ETOH today but has had marijuana this morning. PMHx anxiety and depression. - History Of Current Complaint Chief Complaint: EDMentalHealth Time Seen by Provider: 10/17/17 15:21 Hx Obtained From: Patient Hx Last Menstrual Period: 03/19/17 Onset/Duration: Gradual Onset, Still Present Timing: Constant Character: Depressed Alleviating Factor(s): Nothing Related History: Positive For: Prior Psychiatric Issues Has Suicidal: Reports: Thoughts - Allergies/Home Medications Allergies/Adverse Reactions: Allergies Allergy/AdvReac Type Severity Reaction Status Date / Time zolpidem Allergy Severe "out of Verified 07/18/17 13:55 control sleep walking." Penicillins Allergy Hives Verified 07/18/17 13:55 Sulfa (Sulfonamide Allergy Hives Verified 07/18/17 13:55 Antibiotics) trazodone Allergy Hives Verified 07/18/17 13:55 PMH/Surg Hx/FS Hx/Imm Hx Endocrine/Hematology History: Denies: Hx Anticoagulant Therapy, Hx Blood Disorders, Hx Diabetes, Hx Thyroid Disease, Hx Anemia, Hx Unexplained Bleeding Cardiovascular History: Denies: Hx Aneurysm, Hx Angina, Hx Angioplasty, Hx Auto Implanted Cardiovert Defib, Hx Cardiac Arrest, Hx Cardiomegaly, Hx Congenital Heart Disease, Hx Congestive Heart Failure, Hx Coronary Artery Disease, Hx Deep Vein Thrombosis, Hx Hypertension Respiratory History: Denies: Hx Asthma, Hx Chronic Bronchitis, Hx Chronic Obstructive Pulmonary Disease (COPD), Hx Cystic Fibrosis GI History: Denies: Hx Ulcer Sensory History: Denies: Hx Cataracts, Hx Contacts or Glasses, Hx Eye Injury, Hx Hearing Aid Opthamlomology History: Denies: Hx Cataracts, Hx Contacts or Glasses, Hx Eye Injury Neurological History: Reports: Hx Headaches Denies: Other Neuro Impairments/Disorders Psychiatric History: Reports: Hx Anxiety, Hx Eating Disorder - purge, Hx Depression, Hx Post Traumatic Stress Disorder, Hx Inpatient Treatment, Hx Community Mental Health Tx, Hx Suicide Attempt, Hx of Violent Episodes Against Others, Hx Substance Abuse - marijuana regularly, Other Psychiatric Issues/ Disorders - HX suicide attempts, hx banging head - Surgical History Surgery Procedure, Year, and Place: "screws and a plate in my right arm in 2012 " Hx Anesthesia Reactions: No - Immunization History Date of Tetanus Vaccine: utd Date of Influenza Vaccine: none Infectious Disease History: No Infectious Disease History: Denies: Hx Hepatitis, Hx Human Immunodeficiency Virus (HIV), Traveled Outside the [place] in Last 30 Days - Family History Known Family History: Positive: Hypertension, Respiratory Disease - COPD, Other - aunt - bipolar disorder, depression. mom/sister/grandmother - anxiety. Family History: FHx of anxiety, depression - Social History Alcohol Use: Rare Alcohol Amount: PT denies drinking any alcohol Hx Substance Use: Yes Substance Use Type: Reports: Marijuana Substance Use Comment - Amount & Last Used: weekly Hx Tobacco Use: Yes Smoking Status (MU): Heavy Every Day Tobacco Smoker Type: Cigarettes Amount Used/How Often: 1/2 PPD for last 30 days. Length of Time of Smoking/Using Tobacco: several years Have You Smoked in the Last Year: Yes Review of Systems Positive: Other - lacerations on LUE (old) Positive: Depressed - SI thoughts All Other Systems Reviewed And Are Negative: Yes Physical Exam - Summary Physical Exam Summary: General: well-appearing, no pain distress Skin: warm, color reflects adequate perfusion, dry; Cuts on right forearm that are not from today. No evidence of infection. Head: normal Eyes: EOMI, [place] ROSA ENT: normal Neck: supple, nontender Respiratory: CTA, breath sounds present Cardiovascular: RRR Abdomen: soft, nontender Bowel: present Musculoskeletal: normal, strength/ROM intact Neurological: normal, sensory/motor intact, A&O x3 Psychological: affect/mood appropriate Triage Information Reviewed: Yes Vital Signs On Initial Exam: Initial Vitals Temp Pulse Resp BP Pulse Ox 98.2 F 115 16 141/92 98 10/17/17 14:27 10/17/17 14:27 10/17/17 14:27 10/17/17 14:27 10/17/17 14:27 Vital Signs Reviewed: Yes Diagnostics - Vital Signs Vital Signs Temp Pulse Resp BP Pulse Ox 10/17/17 14:27 98.2 F 115 16 141/92 98 - Laboratory Lab Results: Lab Results 10/17/17 10/17/17 10/17/17 Range/Units 15:39 15:39 15:47 WBC 13.3 H (3.5-10.8) 10^3/ul RBC 4.21 (4.0-5.4) 10^6/ul Hgb 13.4 (12.0-16.0) g/dl Hct 38 (35-47) % MCV 90 (80-97) fL MCH 32 H (27-31) pg MCHC 35 (31-36) g/dl RDW 13 (10.5-15) % Plt Count 232 (150-450) 10^3/ul MPV 7.4 (7.4-10.4) um3 Neut % (Auto) 85.1 H (38-83) % Lymph % (Auto) 10.6 L (25-47) % [place] % (Auto) 3.9 (0-7) % Eos % (Auto) 0.1 (0-6) % Baso % (Auto) 0.3 (0-2) % Absolute Neuts (auto) 11.4 H (1.5-7.7) 10^3/ul Absolute Lymphs (auto) 1.4 (1.0-4.8) 10^3/ul Absolute Monos (auto) 0.5 (0-0.8) 10^3/ul Absolute Eos (auto) 0 (0-0.6) 10^3/ul Absolute Basos (auto) 0 (0-0.2) 10^3/ul Absolute Nucleated RBC 0 10^3/ul Nucleated RBC % 0 Sodium (139-145) mmol/L Potassium (3.5-5.0) mmol/L Chloride (101-111) mmol/L Carbon Dioxide (22-32) mmol/L Anion Gap (2-11) mmol/L BUN (6-24) mg/dL Creatinine (0.51-0.95) mg/dL Est GFR ( Amer) (>60) Est GFR (Non-Af Amer) (>60) BUN/Creatinine Ratio (8-20) Glucose (70-100) mg/dL Calcium (8.6-10.3) mg/dL Total Bilirubin (0.2-1.0) mg/dL AST (13-39) U/L ALT (7-52) U/L Alkaline Phosphatase (34-104) U/L Total Protein (6.4-8.9) g/dL Albumin (3.2-5.2) g/dL Globulin (2-4) g/dL Albumin/Globulin Ratio (1-3) TSH Beta HCG, Quant mIU/mL Urine Color Straw Urine Appearance Clear Urine pH 5.0 (5-9) Ur Specific [place] 1.005 L (1.010-1.030) Urine Protein Negative (Negative) Urine Ketones Negative (Negative) Urine Blood Negative (Negative) Urine Nitrate Negative (Negative) Urine Bilirubin Negative (Negative) Urine Urobilinogen Negative (Negative) Ur Leukocyte Esterase Negative (Negative) Urine Glucose Negative (Negative) Urine Ascorbic Acid * A (Negative) Salicylates (<30) mg/dL Urine Opiates Screen None detected (None Detect) Acetaminophen mcg/mL Ur Barbiturates Screen None detected (None Detect) Ur Phencyclidine Scrn None detected (None Detect) Ur Amphetamines Screen None detected (None Detect) U Benzodiazepines Scrn None detected (None Detect) Urine Cocaine Screen None detected (None Detect) U Cannabinoids Screen Presumptive positive A (None Detect) Serum Alcohol (<10) mg/dL 10/17/17 Range/Units 15:47 WBC (3.5-10.8) 10^3/ul RBC (4.0-5.4) 10^6/ul Hgb (12.0-16.0) g/dl Hct (35-47) % MCV (80-97) fL MCH (27-31) pg MCHC (31-36) g/dl RDW (10.5-15) % Plt Count (150-450) 10^3/ul MPV (7.4-10.4) um3 Neut % (Auto) (38-83) % Lymph % (Auto) (25-47) % [place] % (Auto) (0-7) % Eos % (Auto) (0-6) % Baso % (Auto) (0-2) % Absolute Neuts (auto) (1.5-7.7) 10^3/ul Absolute Lymphs (auto) (1.0-4.8) 10^3/ul Absolute Monos (auto) (0-0.8) 10^3/ul Absolute Eos (auto) (0-0.6) 10^3/ul Absolute Basos (auto) (0-0.2) 10^3/ul Absolute Nucleated RBC 10^3/ul Nucleated RBC % Sodium 137 L (139-145) mmol/L Potassium 4.0 (3.5-5.0) mmol/L Chloride 106 (101-111) mmol/L Carbon Dioxide 25 (22-32) mmol/L Anion Gap 6 (2-11) mmol/L BUN 8 (6-24) mg/dL Creatinine 0.67 (0.51-0.95) mg/dL Est GFR ( Amer) 135.8 (>60) Est GFR (Non-Af Amer) 105.6 (>60) BUN/Creatinine Ratio 11.9 (8-20) Glucose 82 (70-100) mg/dL Calcium 9.4 (8.6-10.3) mg/dL Total Bilirubin 0.30 (0.2-1.0) mg/dL AST 13 (13-39) U/L ALT 10 (7-52) U/L Alkaline Phosphatase 43 (34-104) U/L Total Protein 6.8 (6.4-8.9) g/dL Albumin 4.2 (3.2-5.2) g/dL Globulin 2.6 (2-4) g/dL Albumin/Globulin Ratio 1.6 (1-3) TSH Pending Beta HCG, Quant < 0.60 mIU/mL Urine Color Urine Appearance Urine pH (5-9) Ur Specific [place] (1.010-1.030) Urine Protein (Negative) Urine Ketones (Negative) Urine Blood (Negative) Urine Nitrate (Negative) Urine Bilirubin (Negative) Urine Urobilinogen (Negative) Ur Leukocyte Esterase (Negative) Urine Glucose (Negative) Urine Ascorbic Acid (Negative) Salicylates < 2.50 (<30) mg/dL Urine Opiates Screen (None Detect) Acetaminophen < 15 mcg/mL Ur Barbiturates Screen (None Detect) Ur Phencyclidine Scrn (None Detect) Ur Amphetamines Screen (None Detect) U Benzodiazepines Scrn (None Detect) Urine Cocaine Screen (None Detect) U Cannabinoids Screen (None Detect) Serum Alcohol < 10 (<10) mg/dL Result Diagrams: 10/17/17 15:47 10/17/17 15:47 Lab Statement: Any lab studies that have been ordered have been reviewed, and results considered in the medical decision making process. Course/Dx - Course Course Of Treatment: Medications reviewed. Medically cleared for MHE at 19:06. - Differential Dx/Clinical Impression Provider Diagnosis: Mental health problem Discharge - Sign-Out/Discharge Documenting (check all that apply): Sign-Out Patient Signing out patient TO: Berta Prieto - pending dispo, awaiting MHE. - Discharge Plan Condition: Stable Disposition: [facility]CHIATRIC FACILITY[place] Discharge Disposition Comment: pending dispo, awaiting MHE. Referrals: Maged Sanon MD [Primary Care Provider] - - Billing Disposition and Condition Condition: STABLE Disposition: [facility] The documentation as recorded by the Kecia crouch Nilda accurately reflects the service I personally performed and the decisions made by me, Alberto Graves MD.
--- NOTE | 2017-10-18 06:30 | ED ---
Mishel Escamilla Rebecca, scribed for Berta Prieto MD on 10/18/17 at 0608 . Progress - Progress Note Progress Note: Pt was signed out by Dr. Graves, pending dispo, awaiting MHE. Course/Dx - Course Course Of Treatment: Pt was signed out by Dr. Graves, pending disposition, awaiting MHE. At shift change, the case has been reviewed by Dr. Cruz ( psychiatrist) and pt has been designated as a MHU hold and will be signed out to the next ED attending, Dr. Allen. - Diagnoses Provider Diagnoses: Mental health problem Discharge - Sign-Out/Discharge Documenting (check all that apply): Sign-Out Patient, Receiving Sign-Out Signing out patient TO: Lee Allen Receiving patient FROM: Alberto Grvaes - Discharge Plan Condition: Stable Disposition: PS[facility]CHIATRIC FACILITY[facility] [place] Referrals: Maged Sanon MD [Primary Care Provider] - The documentation as recorded by the Mishel crouch Rebecca accurately reflects the service I personally performed and the decisions made by Ida smith Abdul, MD.
[2017-10-18] MEDS ORDERED: LORazepam TAB(*) 1 MG PO ONE (12:10)
--- NOTE | 2017-10-18 15:27 | PN ---
Subjective - Subjective Date of Service: 10/18/17 Service Type: 98452 Hosp care 15 min low complexity Subjective: Patient is dysphoric and endorses depersonalization. She states she cut herself this past weekend but does not recall specifics. She reports preference to be admitted to [facility] when bed available. Objective - Appearance Appearance: Well Developed/Nourished Dysmorphic Features: Yes Hygiene: Normal Grooming: Disheveled - Behavior Psychomotor Activities: Normal Exhibits Abnormal Movement: No - Attitude and Relatedness Attitude and Relatedness: Withdrawn Eye Contact: Fair - Speech Quality: Unpressured Latencies: Normal Quantity: Appropriate - Mood Patient's Decription of Mood: "i don't know" - Affect Observed Affect: Depressed Affect Consistent with: Dysphoria - Thought Process Patient's Thought Process: Impoverished Thought Content: Yes Passive Wish, Yes Suicidal Planning, No Homicidal Ideation, No Paranoid Ideation - Sensorium Experiencing Hallucinations: No, Sensorium is Clear Type of Hallucinations: Visual: No, Auditory: No, Command: No - Level of Consciousness Level of Consciousness: Alert Orientation: Yes Intact, Yes Orientated to Time, Yes Orientated to Place, Yes Orientated to Person - Impulse Control Impulse Control: Impaired - Insight and Judgement Insight and Judgement: Impaired Assessment - Assessment Merits Inpatient Hospitalization: For Immediate Safety, For Stabilization Inpatient DSM-V Dx: F43.12 Clinical Impression: 26yo white female with significant trauma history who presents with depersonalization and self-harm behaviors. She merits hospitalization for immediate safety and stabilization. Plan - Plan Treatment Plan: Name: GREG CRAWFORD Birthdate: 1990 [id number] voluntary admission pending bed availability.
--- NOTE | 2017-10-18 17:52 | PN ---
ED Flex Patient Progress Note Subjective: This is a 26 year-old F who is pending admission to [facility] [place] secondary to SI and self harm . Pt offers no complaints at this time. She is unsure of how old her wounds are as she does not recall inflicting them. Objective: Vitals: Most recent vital signs documented below. General NAD, Alert and oriented x3. Heart: rrr S1,2S Lungs: CTA, breathing easily AB: + bs, NTTP, soft INTEG: multiple superfiical linear laceratoins ovr Lt forearm - all are scabbed or completed healed - no erythema, no edema, no d/c- dry PSYCH: low mood Laboratory: Current laboratory results documented below. Assessment: 1) SI w/ self harm 2) Lacerations Plan: 1) Pending psychiatric admit. Will follow daily while in ED 2) apppear to be healing well - no further action other than monitoring for infection necessary. NOTE: Eval performed around 13:30 today Vital Signs Temp Pulse Resp BP Pulse Ox 98.1 F 81 16 106/61 98 10/18/17 16:15 10/18/17 16:15 10/18/17 16:15 10/18/17 16:15 10/18/17 16:15 Lab Results - Entire Visit 10/17/17 10/17/17 10/17/17 15:47 15:47 15:39 WBC 13.3 H RBC 4.21 Hgb 13.4 Hct 38 MCV 90 MCH 32 H MCHC 35 RDW 13 Plt Count 232 MPV 7.4 Neut % (Auto) 85.1 H Lymph % (Auto) 10.6 L [place] % (Auto) 3.9 Eos % (Auto) 0.1 Baso % (Auto) 0.3 Absolute Neuts (auto) 11.4 H Absolute Lymphs (auto) 1.4 Absolute Monos (auto) 0.5 Absolute Eos (auto) 0 Absolute Basos (auto) 0 Absolute Nucleated RBC 0 Nucleated RBC % 0 Sodium 137 L Potassium 4.0 Chloride 106 Carbon Dioxide 25 Anion Gap 6 BUN 8 Creatinine 0.67 Est GFR ( Amer) 135.8 Est GFR (Non-Af Amer) 105.6 BUN/Creatinine Ratio 11.9 Glucose 82 Calcium 9.4 Total Bilirubin 0.30 AST 13 ALT 10 Alkaline Phosphatase 43 Total Protein 6.8 Albumin 4.2 Globulin 2.6 Albumin/Globulin Ratio 1.6 TSH 0.47 Beta HCG, Quant < 0.60 Urine Color Urine Appearance Urine pH Ur Specific [place] Urine Protein Urine Ketones Urine Blood Urine Nitrate Urine Bilirubin Urine Urobilinogen Ur Leukocyte Esterase Urine Glucose Urine Ascorbic Acid Salicylates < 2.50 Urine Opiates Screen None detected Acetaminophen < 15 Ur Barbiturates Screen None detected Ur Phencyclidine Scrn None detected Ur Amphetamines Screen None detected U Benzodiazepines Scrn None detected Urine Cocaine Screen None detected U Cannabinoids Screen Presumptive positive A Serum Alcohol < 10 10/17/17 15:39 WBC RBC Hgb Hct MCV MCH MCHC RDW Plt Count MPV Neut % (Auto) Lymph % (Auto) [place] % (Auto) Eos % (Auto) Baso % (Auto) Absolute Neuts (auto) Absolute Lymphs (auto) Absolute Monos (auto) Absolute Eos (auto) Absolute Basos (auto) Absolute Nucleated RBC Nucleated RBC % Sodium Potassium Chloride Carbon Dioxide Anion Gap BUN Creatinine Est GFR ( Amer) Est GFR (Non-Af Amer) BUN/Creatinine Ratio Glucose Calcium Total Bilirubin AST ALT Alkaline Phosphatase Total Protein Albumin Globulin Albumin/Globulin Ratio TSH Beta HCG, Quant Urine Color Straw Urine Appearance Clear Urine pH 5.0 Ur Specific [place] 1.005 L Urine Protein Negative Urine Ketones Negative Urine Blood Negative Urine Nitrate Negative Urine Bilirubin Negative Urine Urobilinogen Negative Ur Leukocyte Esterase Negative Urine Glucose Negative Urine Ascorbic Acid * A Salicylates Urine Opiates Screen Acetaminophen Ur Barbiturates Screen Ur Phencyclidine Scrn Ur Amphetamines Screen U Benzodiazepines Scrn Urine Cocaine Screen U Cannabinoids Screen Serum Alcohol
--- NOTE | 2017-10-18 17:54 | ED ---
Toi Escamilla Jennifer, scribed for Lee Allen MD on 10/18/17 at 1150 . Progress - Progress Note Progress Note: Pt was signed out by Dr. Prieto pending dispo, awaiting MHE. The patient will be transferred to [facility] at [facility]. - Consult/PCP Time Called: 19:01 Course/Dx - Course Course Of Treatment: Pt was signed out by Dr. Prieto, pending disposition, awaiting MHE. The patient is diagnosed with depression. The patient was admitted to [facility] in [facility]. - Diagnoses Provider Diagnoses: Depression Discharge - Sign-Out/Discharge Documenting (check all that apply): Discharge/Admit/Transfer - Discharge Plan Condition: Stable Disposition: PSYCHIATRIC FACILITY-[facility] Referrals: Maged Sanon MD [Primary Care Provider] - The documentation as recorded by the Toi crouch Jennifer accurately reflects the service I personally performed and the decisions made by , Lee Allen MD.
[2017-10-18] MEDS ORDERED: Acetaminophen TAB* 325 MG PO PRN (19:37)
[2017-10-18] MEDS: Nicotine Patch Removal NOTE PATCH OFF SCH (23:00)
[2017-10-19] MEDS: Nicotine PATCH 14 MG/24 HR* PATCH TRANSDERM SCH (09:10)
[2017-10-19] MEDS: Vitamin THERAPEUTIC TAB PO SCH (09:11)
[2017-10-19] MEDS ORDERED: cloNIDine TAB* 0.1 MG ONE (10:14)
[2017-10-19] MEDS: cloNIDine TAB* 0.1 MG PO SCH ×2 (10:15→20:21)
[2017-10-19] MEDS: Nicotine Patch Removal NOTE PATCH OFF SCH (20:20)
[2017-10-19] MEDS: Nicotine GUM* 2 MG PO PRN (20:21)
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
[2017-10-20] MEDS: Nicotine PATCH 14 MG/24 HR* PATCH TRANSDERM SCH (07:47)
[2017-10-20] MEDS: Vitamin THERAPEUTIC TAB PO SCH (07:48)
[2017-10-20] MEDS: Nicotine GUM* 2 MG PO PRN (07:48)
[2017-10-20] MEDS: cloNIDine TAB* 0.1 MG PO SCH ×2 (10:30→20:42)
--- NOTE | 2017-10-20 11:32 | PN ---
[facility]: Group Therapy Note - Service Type Service Type: 62671 Group Psychotherapy - Cognitive Behavioral Group Therapy ( CBT):Patient was attentive and participatory in CBT programming this morning, and remained in good behavioral control. Patient expressed positive insights regarding relevant treatment interventions and goals.
[2017-10-20] MEDS ORDERED: cloNIDine TAB* 0.1 MG PO ONE (12:28)
--- NOTE | 2017-10-20 13:58 | PN ---
Subjective - Subjective Service Type: 04644 Hosp care 25 min moderate complexity Subjective: Patient is dysphoric with congruent affect. Patient states that she does not recall incidence of self-harm last evening. She is notified of plan to reinstate behavior modification plan to promote healthy behaviors. Glass Etcher reminded this is not punitive. She reports sleeping well and feeling tired. She reports frustration and worry because Baltazar is "ignoring me." She reports calling him multiple times this morning and he does not answer or call back. Patient encouraged to identify actions to utilize when having urges to harm self , either directly or indirectly. Objective - Appearance Appearance: Healthy Appearing Dysmorphic Features: Yes Hygiene: Normal Grooming: Well Kept - Behavior Psychomotor Activities: Normal Exhibits Abnormal Movement: No - Attitude and Relatedness Attitude and Relatedness: Needy Eye Contact: Poor - Speech Quality: Unpressured Latencies: Normal Quantity: Terse - Mood Patient's Decription of Mood: "I don't know" - Affect Observed Affect: Depressed Affect Consistent with: Dysphoria - Thought Process Patient's Thought Process: Circumstantial, Impoverished Thought Content: Yes Passive Wish, Yes Suicidal Planning, No Homicidal Ideation, No Paranoid Ideation - Sensorium Experiencing Hallucinations: No, Sensorium is Clear Type of Hallucinations: Visual: No, Auditory: No, Command: No - Level of Consciousness Level of Consciousness: Alert Orientation: Yes Intact, Yes Orientated to Time, Yes Orientated to Place, Yes Orientated to Person - Impulse Control Impulse Control: Impaired - Insight and Judgement Insight and Judgement: Poor - Group Participation Particating in Group Activities: No - Medication Management Medication Management Adherence: Yes Assessment - Assessment Merits Inpatient Hospitalization: For Immediate Safety, For Stabilization Inpatient DSM-V Dx: F43.12 Clinical Impression: 26yo white female with significant trauma history who presents with depersonalization and self-harm behaviors. She merits hospitalization for immediate safety and stabilization. Plan - Plan Treatment Plan: Name: GREG CRAWFORD Birthdate: 1990 [id number] continue acute intensive psychiatric treatment. initiate individualized behavior modification plan. discharge planning to include ACT team. Continued Medication Management: Different Medication Medications: Current Medications Acetaminophen (Tylenol Tab*) 650 mg PO Q4H PRN PRN Reason: PAIN or TEMP > 101 F Al Hydrox/Mg Hydrox/Simethicone (Maalox Plus*) 30 ml PO Q4H PRN PRN Reason: INDIGESTION Clonidine HCl (Catapres Tab*) 0.1 mg PO BID [facility] Last Admin: 10/20/17 10:30 Dose: Not Given Multivitamins (Theragran Tab*) 1 tab PO DAILY [facility] Last Admin: 10/20/17 07:48 Dose: Not Given Nicotine (Nicotine Patch 14 Mg/24 Hr*) 1 patch TRANSDERM DAILY [facility] Last Admin: 10/20/17 07:47 Dose: Not Given Nicotine Polacrilex (Nicotine Gum*) 2 mg PO Q2H PRN PRN Reason: CRAVING Last Admin: 10/20/17 07:48 Dose: 2 mg Pharmacy Profile Note (Nicotine Patch Removal Note*) 1 note PATCH OFF 2099 [facility] Last Admin: 10/19/17 20:20 Dose: Not Given - Discharge Plan Discharge Plan: Outpatient Follow Up Outpatient Program: ACT
[2017-10-20] MEDS: Nicotine Patch Removal NOTE PATCH OFF SCH (20:43)
[2017-10-21] MEDS: Nicotine GUM* 2 MG PO PRN ×3 (08:10→20:32)
[2017-10-21] MEDS: cloNIDine TAB* 0.1 MG PO SCH ×2 (08:31→20:32)
[2017-10-21] MEDS: Nicotine PATCH 14 MG/24 HR* PATCH TRANSDERM SCH (09:12)
[2017-10-21] MEDS: Vitamin THERAPEUTIC TAB PO SCH (09:13)
[2017-10-21] MEDS: Al Hydrox/Mg Hydrox/Simet LIQ* 30 ML UDC PO PRN (16:16)
--- NOTE | 2017-10-21 16:40 | PN ---
Subjective - Subjective Date of Service: 10/21/17 Service Type: 93670 Hosp care 25 min moderate complexity Subjective: Patient lying in bed, completely submerged under blankets. She sits up abruptly as Zuleima, SW and fiction and nonfiction prose writer approach. Patient tearful and reports concern about dissociative periods. Patient prompted to identify grounding techniques and practice while in the hospital. Patient receptive providers' presence and therapeutic interventions. Reviewed behavior mod plan and patient reports motivation to be able to attend staff pass. Objective - Appearance Appearance: Well Developed/Nourished Dysmorphic Features: Yes Hygiene: Normal Grooming: Fairly Well Kept - Behavior Psychomotor Activities: Normal Exhibits Abnormal Movement: No - Attitude and Relatedness Attitude and Relatedness: Needy Eye Contact: Fair - Speech Quality: Unpressured Latencies: Short Quantity: Terse - Mood Patient's Decription of Mood: "like my head is floating" - Affect Observed Affect: Depressed Affect Consistent with: Dysphoria - Thought Process Patient's Thought Process: Coherent, Circumstantial Thought Content: Yes Passive Wish, Yes Suicidal Planning, Yes Paranoid Ideation, No Homicidal Ideation - Sensorium Experiencing Hallucinations: No, Sensorium is Clear Type of Hallucinations: Visual: No, Auditory: No, Command: No - Level of Consciousness Level of Consciousness: Alert Orientation: Yes Intact, Yes Orientated to Time, Yes Orientated to Place, Yes Orientated to Person - Impulse Control Impulse Control: Impaired - Insight and Judgement Insight and Judgement: Poor - Group Participation Particating in Group Activities: No - Medication Management Medication Management Adherence: Yes Assessment - Assessment Merits Inpatient Hospitalization: For Immediate Safety, For Stabilization Inpatient DSM-V Dx: F43.12 Clinical Impression: 26yo white female with significant trauma history who presents with depersonalization and self-harm behaviors. She merits hospitalization for immediate safety and stabilization. Plan - Plan Treatment Plan: Name: GREG CRAWFORD Birthdate: 1990 [id number] continue acute intensive psychiatric treatment. continue individualized behavior modification plan. discharge planning to include ACT team. Continued Medication Management: Start Medication Medications: Current Medications Acetaminophen (Tylenol Tab*) 650 mg PO Q4H PRN PRN Reason: PAIN or TEMP > 101 F Al Hydrox/Mg Hydrox/Simethicone (Maalox Plus*) 30 ml PO Q4H PRN PRN Reason: INDIGESTION Last Admin: 10/21/17 16:16 Dose: 30 ml Clonidine HCl (Catapres Tab*) 0.1 mg PO BID [facility] Last Admin: 10/21/17 08:31 Dose: 0.1 mg Multivitamins (Theragran Tab*) 1 tab PO DAILY [facility] Last Admin: 10/21/17 09:13 Dose: Not Given Nicotine (Nicotine Patch 14 Mg/24 Hr*) 1 patch TRANSDERM DAILY [facility] Last Admin: 10/21/17 09:12 Dose: Not Given Nicotine Polacrilex (Nicotine Gum*) 2 mg PO Q2H PRN PRN Reason: CRAVING Last Admin: 10/21/17 11:57 Dose: 2 mg Pharmacy Profile Note (Nicotine Patch Removal Note*) 1 note PATCH OFF 2100 [facility] Last Admin: 10/20/17 20:43 Dose: Not Given - Discharge Plan Discharge Plan: Outpatient Follow Up Outpatient Program: ACT
[2017-10-21] MEDS: Nicotine Patch Removal NOTE PATCH OFF SCH (20:30)
[2017-10-22] MEDS: cloNIDine TAB* 0.1 MG PO SCH ×2 (08:59→22:33)
[2017-10-22] MEDS: Nicotine GUM* 2 MG PO PRN (09:00)
[2017-10-22] MEDS: Vitamin THERAPEUTIC TAB PO SCH (09:26)
[2017-10-22] MEDS: Nicotine PATCH 14 MG/24 HR* PATCH TRANSDERM SCH (09:26)
[2017-10-22] MEDS: Al Hydrox/Mg Hydrox/Simet LIQ* 30 ML UDC PO PRN (17:54)
[2017-10-22] MEDS: Nicotine Patch Removal NOTE PATCH OFF SCH (22:33)
[2017-10-23] MEDS: cloNIDine TAB* 0.1 MG PO SCH ×2 (08:21→20:01)
[2017-10-23] MEDS: Nicotine GUM* 2 MG PO PRN ×2 (08:22→13:12)
[2017-10-23] MEDS: Nicotine PATCH 14 MG/24 HR* PATCH TRANSDERM SCH (08:23)
[2017-10-23] MEDS: Vitamin THERAPEUTIC TAB PO SCH (08:23)
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
[2017-10-23] MEDS: Nicotine Patch Removal NOTE PATCH OFF SCH (23:19)
[2017-10-24] MEDS: cloNIDine TAB* 0.1 MG PO SCH (08:37)
[2017-10-24] MEDS: Nicotine GUM* 2 MG PO PRN (08:38)
[2017-10-24] MEDS: Vitamin THERAPEUTIC TAB PO SCH (08:38)
[2017-10-24] MEDS: Nicotine PATCH 14 MG/24 HR* PATCH TRANSDERM SCH (08:38)
[2017-10-24 09:19] VITALS: BP 107/59
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
== END 2017-10-24 14:15 | disposition home or self-care (01) | DRG 755 ==
LOC: ED 14:24 → BSU 10-18 17:33
PROVIDERS: ADMIT Psychiatry & Neurology Psychiatry; ATTEND Psychiatry & Neurology Psychiatry
DX: F43.12 Post-traumatic stress disorder, chronic (principal); R45.851 Suicidal ideations; F25.9 Schizoaffective disorder, unspecified; Z62.810 Personal history of physical and sexual abuse in childhood; K21.9 Gastro-esophageal reflux disease without esophagitis; F12.10 Cannabis abuse, uncomplicated; F17.210 Nicotine dependence, cigarettes, uncomplicated; F60.3 Borderline personality disorder; Z79.899 Other long term (current) drug therapy; Z88.0 Allergy status to penicillin; Z88.8 Allergy status to other drugs, medicaments and biological substances; Z81.1 Family history of alcohol abuse and dependence; Z81.3 Family history of other psychoactive substance abuse and dependence
CPT/HCPCS: 36415; 80053; 80061; 80307; 80320; 80329; 81003; 83036; 84443; 84702; 85025; 90853; 93005; 99222; 99231; 99232; 99238; 99284; A9270-GY; G0480

== ENCOUNTER 2017-11-29 20:50 | Emergency (ER) | payer MEDICAID ==
[2017-11-29 21:13] LABS: ABS Basophils 0.1 10^3/ul (0-0.2); ABS Eosinophils 0.1 10^3/ul (0-0.6); ABS Lymphocytes 2.3 10^3/ul (1.0-4.8); ABS Monocytes 0.7 10^3/ul (0-0.8); ABS Neutrophils 7.5 10^3/ul (1.5-7.7); ABS Nucleated RBC 0 10^3/ul; Hematocrit 41 % (35-47); Hemoglobin 14.8 g/dl (12.0-16.0); Lymphocyte % 21.1 % (25-47); Mean Corpuscular HGB Conc 36 g/dl (31-36); Mean Corpuscular Hemoglobin 32 pg (27-31); Mean Corpuscular Volume 91 fL (80-97); Mean Platelet Volume 7.3 um3 (7.4-10.4); Nucleated Red Blood Cells % 0; Platelet Count 222 10^3/ul (150-450); Red Blood Count 4.57 10^6/ul (4.00-5.40); Red Cell Distribution Width 13 % (10.5-15); White Blood Count 10.7 10^3/ul (3.5-10.8)
[2017-11-29 21:30] LABS: EGFR Non-African American 96.5 (>60)
[2017-11-29 21:32] LABS: Urine Appearance Clear; Urine Blood 2+ (Negative); Urine Color Yellow; Urine Ketones Negative (Negative); Urine Protein Negative (Negative); Urine Specific Gravity 1.016 (1.010-1.030); Urine Urobilinogen Negative (Negative)
--- NOTE | 2017-11-30 01:04 | ED ---
Mishel Escamilla Rebecca, scribed for Roderick Palm MD on 11/29/17 at 2123 . Psychiatric Complaint - HPI Summary HPI Summary: Pt is a 27 y/o F BIBA accompanied by police, as a 941, who presents to ED c/o depression with SIs and plan. Pt reports that she has been feeling suicidal every day for a long time, but tonight is worse than usual. States she cut herself with glass a few days ago and that tonight she had a suicide plan to use the glass. States that she was afraid that if she did not come to the ED tonight, she may commit suicide. Confirms she has been eating usually, though has not been drinking. Confirms her Tetanus is UTD. PMHx anxiety, depression, panic disorder. - History Of Current Complaint Chief Complaint: EDMentalHealth Time Seen by Provider: 11/29/17 21:15 Hx Obtained From: Patient Hx Last Menstrual Period: 03/19/17 Onset/Duration: Still Present, Worse Since - Tonight Character: Depressed Related History: Positive For: Prior Psychiatric Issues - Anxiety, depression, panic disorder Has Suicidal: Reports: Thoughts, With A Plan - Allergies/Home Medications Allergies/Adverse Reactions: Allergies Allergy/AdvReac Type Severity Reaction Status Date / Time zolpidem Allergy Severe "out of Verified 11/29/17 20:54 control sleep walking." bacitracin Allergy Mild Itching Verified 11/29/17 20:54 Penicillins Allergy Hives Verified 11/29/17 20:54 Sulfa (Sulfonamide Allergy Hives Verified 11/29/17 20:54 Antibiotics) trazodone Allergy Hives Verified 11/29/17 20:54 Home Medications: Home Medications hydrOXYzine HCl [Hydroxyzine HCl] 10 mg PO TID PRN 11/29/17 [History Confirmed 11/29/17] PMH/Surg Hx/FS Hx/Imm Hx Endocrine/Hematology History: Denies: Hx Anticoagulant Therapy, Hx Blood Disorders, Hx Diabetes, Hx Thyroid Disease, Hx Anemia, Hx Unexplained Bleeding Cardiovascular History: Denies: Hx Aneurysm, Hx Angina, Hx Angioplasty, Hx Auto Implanted Cardiovert Defib, Hx Cardiac Arrest, Hx Cardiomegaly, Hx Congenital Heart Disease, Hx Congestive Heart Failure, Hx Coronary Artery Disease, Hx Deep Vein Thrombosis, Hx Hypertension Respiratory History: Denies: Hx Asthma, Hx Chronic Bronchitis, Hx Chronic Obstructive Pulmonary Disease (COPD), Hx Cystic Fibrosis GI History: Denies: Hx Ulcer Sensory History: Denies: Hx Cataracts, Hx Contacts or Glasses, Hx Eye Injury, Hx Hearing Aid Opthamlomology History: Denies: Hx Cataracts, Hx Contacts or Glasses, Hx Eye Injury Neurological History: Reports: Hx Headaches Denies: Other Neuro Impairments/Disorders Psychiatric History: Reports: Hx Anxiety, Hx Eating Disorder - purge, Hx Depression, Hx Panic Disorder, Hx Post Traumatic Stress Disorder, Hx Inpatient Treatment, Hx Community Mental Health Tx, Hx Suicide Attempt, Hx of Violent Episodes Against Others, Hx Substance Abuse, Other Psychiatric Issues/Disorders - schizoaffective d/o and hx of SIB - Surgical History Surgery Procedure, Year, and Place: "screws and a plate in my right arm in 2012 " Hx Anesthesia Reactions: No - Immunization History Date of Tetanus Vaccine: utd Date of Influenza Vaccine: none Infectious Disease History: No Infectious Disease History: Denies: Hx Hepatitis, Hx Human Immunodeficiency Virus (HIV), Traveled Outside the [place] in Last 30 Days - Family History Known Family History: Positive: Hypertension, Respiratory Disease - COPD, Other - aunt - bipolar disorder, depression. mom/sister/grandmother - anxiety. Family History: FHx of anxiety, depression - Social History Alcohol Use: Rare Alcohol Amount: PT denies drinking any alcohol Hx Substance Use: Yes Substance Use Type: Reports: Marijuana Substance Use Comment - Amount & Last Used: weekly Hx Tobacco Use: Yes Smoking Status (MU): Heavy Every Day Tobacco Smoker Type: Cigarettes Amount Used/How Often: 1/2 PPD for last 30 days. Length of Time of Smoking/Using Tobacco: several years Have You Smoked in the Last Year: Yes Review of Systems Negative: Fever Positive: Depressed, Other - SIs and plan All Other Systems Reviewed And Are Negative: Yes Physical Exam - Summary Physical Exam Summary: Appearance: Well appearing, no pain distress Skin: warm, dry, reflects adequate perfusion, multiple horizontal scarred area on the left forearm, with one that is freshly scabbed from within the week Head/face: normal Eyes: EOMI, [place] ENT: normal Neck: supple, non-tender Respiratory: CTA, breath sounds present Cardiovascular: RRR, pulses symmetrical Abdomen: non-tender, soft Bowel Sounds: present Musculoskeletal: normal, strength/ROM intact Neuro: normal, sensory motor intact, A&Ox3 Psych: Tearful Triage Information Reviewed: Yes Vital Signs On Initial Exam: Initial Vitals Temp Pulse Resp BP Pulse Ox 98.7 F 79 11 104/67 98 11/29/17 20:51 11/29/17 20:51 11/29/17 20:51 11/29/17 20:51 11/29/17 20:51 Vital Signs Reviewed: Yes Diagnostics - Vital Signs Vital Signs Temp Pulse Resp BP Pulse Ox 11/29/17 20:51 98.7 F 79 11 104/67 98 - Laboratory Lab Results: Lab Results 11/29/17 Range/Units 21:06 WBC 10.7 (3.5-10.8) 10^3/ul RBC 4.57 (4.00-5.40) 10^6/ul Hgb 14.8 (12.0-16.0) g/dl Hct 41 (35-47) % MCV 91 (80-97) fL MCH 32 H (27-31) pg MCHC 36 (31-36) g/dl RDW 13 (10.5-15) % Plt Count 222 (150-450) 10^3/ul MPV 7.3 L (7.4-10.4) um3 Neut % (Auto) 70.4 (38-83) % Lymph % (Auto) 21.1 L (25-47) % [place] % (Auto) 6.9 (0-7) % Eos % (Auto) 1.0 (0-6) % Baso % (Auto) 0.6 (0-2) % Absolute Neuts (auto) 7.5 (1.5-7.7) 10^3/ul Absolute Lymphs (auto) 2.3 (1.0-4.8) 10^3/ul Absolute Monos (auto) 0.7 (0-0.8) 10^3/ul Absolute Eos (auto) 0.1 (0-0.6) 10^3/ul Absolute Basos (auto) 0.1 (0-0.2) 10^3/ul Absolute Nucleated RBC 0 10^3/ul Nucleated RBC % 0 Result Diagrams: 11/29/17 21:06 11/29/17 21:06 Lab Statement: Any lab studies that have been ordered have been reviewed, and results considered in the medical decision making process. Course/Dx - Course Course Of Treatment: Patient with long mental health history and history of self injury. She has ACT team following her. The patient was medically cleared for crisis evaluation. Following crisis evaluation was elected the patient be held through the night. She'll be reevaluated in the morning by the psychiatrist. - Differential Dx/Clinical Impression Provider Diagnosis: Schizoaffective disorder, Suicidal ideation Discharge - Sign-Out/Discharge Documenting (check all that apply): Sign-Out Patient Signing out patient TO: Lee Brannon Andrzej Hold - Discharge Plan Referrals: Maged Sanon MD [Primary Care Provider] - The documentation as recorded by the Mishel crouch Rebecca accurately reflects the service I personally performed and the decisions made by , Roderick Palm MD.
--- NOTE | 2017-11-30 08:18 | PN ---
ED Flex Patient Progress Note Date of Service: 11/29/17 Subjective: This is a 27 year-old F who is pending admission to [facility] / transfer to another psychiatric facility / discharge to home / or being observed secondary to SI. Pt. examined around 0815 in the flex unit. She offers no complaints. Objective: Vitals: Most recent vital signs documented below. General NAD, Alert and oriented x3. Laboratory: Current laboratory results documented below. Assessment: Pending MHE and disop. Plan: Pending psychiatric or medical consultation to observe / transfer / admit / discharge will follow up daily . Vital Signs Temp Pulse Resp BP Pulse Ox 98.1 F 64 16 95/54 100 11/29/17 22:33 11/29/17 22:33 11/29/17 22:33 11/29/17 22:33 11/29/17 22:33 Lab Results - Entire Visit 11/29/17 11/29/17 11/29/17 21:06 21:06 21:03 WBC 10.7 RBC 4.57 Hgb 14.8 Hct 41 MCV 91 MCH 32 H MCHC 36 RDW 13 Plt Count 222 MPV 7.3 L Neut % (Auto) 70.4 Lymph % (Auto) 21.1 L [place] % (Auto) 6.9 Eos % (Auto) 1.0 Baso % (Auto) 0.6 Absolute Neuts (auto) 7.5 Absolute Lymphs (auto) 2.3 Absolute Monos (auto) 0.7 Absolute Eos (auto) 0.1 Absolute Basos (auto) 0.1 Absolute Nucleated RBC 0 Nucleated RBC % 0 Sodium 138 Potassium 3.3 L Chloride 106 Carbon Dioxide 28 Anion Gap 4 BUN 14 Creatinine 0.72 Est GFR ( Amer) 124.0 Est GFR (Non-Af Amer) 96.5 BUN/Creatinine Ratio 19.4 Glucose 76 Calcium 9.3 Total Bilirubin 0.30 AST 15 ALT 9 Alkaline Phosphatase 47 Total Protein 7.0 Albumin 4.1 Globulin 2.9 Albumin/Globulin Ratio 1.4 TSH 1.44 Beta HCG, Quant < 0.60 Urine Color Urine Appearance Urine pH Ur Specific [place] Urine Protein Urine Ketones Urine Blood Urine Nitrate Urine Bilirubin Urine Urobilinogen Ur Leukocyte Esterase Urine WBC (Auto) Urine RBC (Auto) Ur Squamous Epith Cells Urine Bacteria Urine Glucose Salicylates < 2.50 Urine Opiates Screen None detected Acetaminophen < 15 Ur Barbiturates Screen None detected Ur Phencyclidine Scrn None detected Ur Amphetamines Screen None detected U Benzodiazepines Scrn None detected Urine Cocaine Screen None detected U Cannabinoids Screen Presumptive positive A Serum Alcohol < 10 11/29/17 21:03 WBC RBC Hgb Hct MCV MCH MCHC RDW Plt Count MPV Neut % (Auto) Lymph % (Auto) [place] % (Auto) Eos % (Auto) Baso % (Auto) Absolute Neuts (auto) Absolute Lymphs (auto) Absolute Monos (auto) Absolute Eos (auto) Absolute Basos (auto) Absolute Nucleated RBC Nucleated RBC % Sodium Potassium Chloride Carbon Dioxide Anion Gap BUN Creatinine Est GFR ( Amer) Est GFR (Non-Af Amer) BUN/Creatinine Ratio Glucose Calcium Total Bilirubin AST ALT Alkaline Phosphatase Total Protein Albumin Globulin Albumin/Globulin Ratio TSH Beta HCG, Quant Urine Color Yellow Urine Appearance Clear Urine pH 6.0 Ur Specific [place] 1.016 Urine Protein Negative Urine Ketones Negative Urine Blood 2+ A Urine Nitrate Negative Urine Bilirubin Negative Urine Urobilinogen Negative Ur Leukocyte Esterase Negative Urine WBC (Auto) Absent Urine RBC (Auto) Absent Ur Squamous Epith Cells Present A Urine Bacteria Absent Urine Glucose Negative Salicylates Urine Opiates Screen Acetaminophen Ur Barbiturates Screen Ur Phencyclidine Scrn Ur Amphetamines Screen U Benzodiazepines Scrn Urine Cocaine Screen U Cannabinoids Screen Serum Alcohol
[2017-11-30 13:57] VITALS: BP 101/59
== END 2017-11-30 13:45 | disposition home or self-care (01) ==
LOC: ED 20:50
DX: F25.9 Schizoaffective disorder, unspecified (principal); R45.851 Suicidal ideations; Z88.3 Allergy status to other anti-infective agents; Z88.0 Allergy status to penicillin; Z88.2 Allergy status to sulfonamides; Z88.8 Allergy status to other drugs, medicaments and biological substances; F17.210 Nicotine dependence, cigarettes, uncomplicated; Z82.49 Family history of ischemic heart disease and other diseases of the circulatory system; Z83.6 Family history of other diseases of the respiratory system; Z81.8 Family history of other mental and behavioral disorders
CPT/HCPCS: 36415; 80053; 80307; 80320; 80329; 81003; 81015; 84443; 84702; 85025; 99283; G0480

== ENCOUNTER 2018-01-08 16:17 | Emergency (ER) | payer OTHER ==
[2018-01-08] MEDS ORDERED: Sodium Bicarbonate 8.4% SYR* 10 ML SYRINGE IV ONE (18:34)
--- NOTE | 2018-01-08 19:32 | ED ---
Skin Complaint - HPI Summary HPI Summary: [id number] patient here with self-inflicted wound to left wrist at about 11:00am today. She has been cutting for the past 15 years as a coping mechanism for her stress. She reports this is what she was doing today - this was not an attempt to kill herself. Denies suicidal or homicidal ideations - follows with the ACT team and is in the process of gaining residence to [place]. Reports she was stressed from an argument she had with her last night inducing the cutting session this morning however they are fine now. She lives at home with him and feels safe there with him. Immunizations are up-to-date. She used a clean piece of glass to cut herself. Cleaned her wound and has had it covered until arrival here. Came as she is concerned about depth. Bleeding stopped prior to arrival. - History of Current Complaint Chief Complaint: EDLacSutureRecheck Time Seen by Provider: 01/08/18 18:20 Stated Complaint: MHE/LT WRIST LAC Hx Obtained From: Patient Hx Last Menstrual Period: 03/19/17 Pain Intensity: 0 - Additional Pertinent History Primary Care Physician: [id number] - Allergy/Home Medications Allergies/Adverse Reactions: Allergies Allergy/AdvReac Type Severity Reaction Status Date / Time zolpidem Allergy Severe "out of Verified 01/08/18 16:21 control sleep walking." bacitracin Allergy Mild Itching Verified 01/08/18 16:21 Penicillins Allergy Hives Verified 01/08/18 16:21 Sulfa (Sulfonamide Allergy Hives Verified 01/08/18 16:21 Antibiotics) trazodone Allergy Hives Verified 01/08/18 16:21 Home Medications: Home Medications clonazePAM [Clonazepam] 1 tab PO BID 01/08/18 [History Confirmed 01/08/18] PMH/Surg Hx/FS Hx/Imm Hx Previously Healthy: Yes Endocrine/Hematology History: Denies: Hx Anticoagulant Therapy, Hx Blood Disorders, Hx Diabetes, Hx Thyroid Disease, Hx Anemia, Hx Unexplained Bleeding Cardiovascular History: Denies: Hx Aneurysm, Hx Angina, Hx Angioplasty, Hx Auto Implanted Cardiovert Defib, Hx Cardiac Arrest, Hx Cardiomegaly, Hx Congenital Heart Disease, Hx Congestive Heart Failure, Hx Coronary Artery Disease, Hx Deep Vein Thrombosis, Hx Hypertension Respiratory History: Denies: Hx Asthma, Hx Chronic Bronchitis, Hx Chronic Obstructive Pulmonary Disease (COPD), Hx Cystic Fibrosis GI History: Denies: Hx Ulcer Sensory History: Denies: Hx Cataracts, Hx Contacts or Glasses, Hx Eye Injury, Hx Hearing Aid Opthamlomology History: Denies: Hx Cataracts, Hx Contacts or Glasses, Hx Eye Injury Neurological History: Reports: Hx Headaches Denies: Other Neuro Impairments/Disorders Psychiatric History: Reports: Hx Anxiety, Hx Eating Disorder - purge, Hx Depression, Hx Panic Disorder, Hx Post Traumatic Stress Disorder, Hx Inpatient Treatment, Hx Community Mental Health Tx, Hx Suicide Attempt, Hx of Violent Episodes Against Others, Hx Substance Abuse, Other Psychiatric Issues/Disorders - schizoaffective d/o and hx of SIB - Cancer History Hx Palliative Cancer Treatment: Yes - Surgical History Surgery Procedure, Year, and Place: "screws and a plate in my right arm in 2012 " Hx Anesthesia Reactions: No - Immunization History Date of Tetanus Vaccine: utd Date of Influenza Vaccine: none Infectious Disease History: No Infectious Disease History: Denies: Hx Hepatitis, Hx Human Immunodeficiency Virus (HIV), Traveled Outside the [place] in Last 30 Days - Family History Known Family History: Positive: Hypertension, Respiratory Disease - COPD, Other - aunt - bipolar disorder, depression. mom/sister/grandmother - anxiety. Family History: FHx of anxiety, depression - Social History Occupation: Disabled - anxiety Lives: With Family - Alcohol Use: Rare Hx Substance Use: Yes Substance Use Type: Reports: Marijuana Substance Use Comment - Amount & Last Used: weekly Hx Tobacco Use: Yes Smoking Status (MU): Heavy Every Day Tobacco Smoker Type: Cigarettes Amount Used/How Often: 1/2 PPD for last 30 days. Length of Time of Smoking/Using Tobacco: several years Have You Smoked in the Last Year: Yes Review of Systems Musculoskeletal: Negative Skin: Other - lac Neurological: Negative Negative: Weakness, Paresthesia, Numbness Psychological: Normal All Other Systems Reviewed And Are Negative: Yes Physical Exam Triage Information Reviewed: Yes Vital Signs On Initial Exam: Initial Vitals Temp Pulse Resp BP Pulse Ox 99.6 F 107 15 130/79 97 01/08/18 16:18 01/08/18 16:18 01/08/18 16:18 01/08/18 16:18 01/08/18 16:18 Vital Signs Reviewed: Yes Appearance: Positive: Well-Appearing, No Pain Distress, Well-Nourished Skin: Positive: Warm, Skin Color Reflects Adequate Perfusion, Dry - 3cm x 3mm lac over Lt wrist (radial aspect) - lac is through subcutaneous tissue - no nerve, vessle or tendon observed Head/Face: Positive: Normal Head/Face Inspection Eyes: Positive: EOMI ENT: Positive: Hearing grossly normal, Pharynx normal - mucosa moist Respiratory/Lung Sounds: Positive: Breath Sounds Present Cardiovascular: Positive: Pulses are Symmetrical in both Upper and Lower Extremities Musculoskeletal: Positive: Normal, Strength/ROM Intact Neurological: Positive: Normal, Sensory/Motor Intact, Alert, Oriented to Person Place, Time, CN Intact II-III Psychiatric: Positive: Normal - denies SI/HI, Other Procedures - Laceration/Wound Repair 1 Location: upper extremity - Lt wrist Description: Linear Anesthesia: Local, 1.0%, Lido, Bicarb Length, Depth and Shape: 3CM X 3MM Betadine Prep?: No - CHLORHEXADINE Laceration/Wound Explored: clean Closure: Single Layer Suture Type: Prolene - 5-0 Number of Sutures: 7 Layer Closure?: No Sterile Dressing Applied?: Yes - TRIPLE ANBX + GAUZE + VINAYAK - HEMODYNAMICALLY STABLE Diagnostics - Vital Signs Vital Signs Temp Pulse Resp BP Pulse Ox 01/08/18 16:18 99.6 F 107 15 130/79 97 - Laboratory Lab Statement: Any lab studies that have been ordered have been reviewed, and results considered in the medical decision making process. Course/Dx - Course Course Of Treatment: Pt here w/ self-harm lac to Lt wrist - denies SI/HI and reports she feels better now than this morning. Has not intention of further harm. Linked w/ ACT team and agrees to contact them after she leaves today to update of events. Understands she may call ACT team, return to ED or call 911 if she has SI/HI. - Diagnoses Provider Diagnoses: Laceration of left wrist Discharge - Sign-Out/Discharge Documenting (check all that apply): Patient Departure - Discharge Plan Condition: Stable Disposition: HOME Patient Education Materials: Laceration (ED), Care For Your Stitches (ED) Referrals: Maged Sanon MD [Primary Care Provider] - Additional Instructions: Keep Dressing clean and dry and in place for the next 48 hours. After that time you may remove dressing, gently wash wound with soap and water, rinse well and pat dry with clean cloth. Reapply triple antibiotic ointment and clean gauze dressing. Continue this daily until sutures are removed. Call your PCP to schedule wound recheck and suture removal in 10 days. You may rest, ice and elevate as well as take ibuprofen with food for pain and swelling * If you develop redness, swelling, streaking, purulent drainage, fevers or chills, seek medical attention sooner or return to the emergency department. - Billing Disposition and Condition Condition: STABLE Disposition: Home
[2018-01-08 20:16] VITALS: BP 119/67
== END 2018-01-08 20:15 | disposition home or self-care (01) ==
LOC: ED 16:17
DX: S61.512A Laceration without foreign body of left wrist, initial encounter (principal); X78.0XXA Intentional self-harm by sharp glass, initial encounter; Y93.9 Activity, unspecified; Y92.9 Unspecified place or not applicable; Z88.3 Allergy status to other anti-infective agents; Z88.0 Allergy status to penicillin; Z88.2 Allergy status to sulfonamides; Z88.8 Allergy status to other drugs, medicaments and biological substances; Z82.49 Family history of ischemic heart disease and other diseases of the circulatory system; Z83.6 Family history of other diseases of the respiratory system; Z81.8 Family history of other mental and behavioral disorders; F17.210 Nicotine dependence, cigarettes, uncomplicated
CPT/HCPCS: 12002; 99282

== ENCOUNTER 2018-07-18 21:57 | Inpatient (IN) | payer OTHER ==
[2018-07-18 22:30] LABS: Urine Appearance Clear; Urine Bacteria Absent (Absent); Urine Bilirubin Negative (Negative); Urine Blood 1+ (Negative); Urine Color Yellow; Urine Glucose Negative (Negative); Urine Ketones Trace (Negative); Urine Nitrite Negative (Negative); Urine Protein Negative (Negative); Urine Red Blood Cell Trace(0-2/hpf) (Absent); Urine Specific Gravity 1.017 (1.010-1.030); Urine Squamous Epithelial Cell Present (Absent); Urine Urobilinogen Negative (Negative); Urine White Blood Cell Trace(0-5/hpf) (Absent)
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
[2018-07-18 22:45] LABS: Barbiturates Urine Screen None Detected (None Detect); Benzodiazepine Urine Screen None Detected (None Detect); Urine Cannabinoids Screen Presumptive Positive (None Detect)
[2018-07-18 22:48] LABS: ABS Basophils 0.1 10^3/ul (0-0.2); ABS Eosinophils 0.1 10^3/ul (0-0.6); ABS Lymphocytes 2.7 10^3/ul (1.0-4.8); ABS Monocytes 0.6 10^3/ul (0-0.8); ABS Nucleated RBC 0 10^3/ul; Eosinophil % 1.1 %; Hematocrit 42 % (35-47); Hemoglobin 14.5 g/dl (12.0-16.0); Lymphocyte % 25.5 %; Mean Corpuscular HGB Conc 34 g/dl (31-36); Mean Corpuscular Hemoglobin 32 pg (27-31); Mean Corpuscular Volume 93 fL (80-97); Mean Platelet Volume 7.1 fL (7.4-10.4); Nucleated Red Blood Cells % 0; Platelet Count 316 10^3/ul (150-450); Red Blood Count 4.55 10^6/ul (4.00-5.40); Red Cell Distribution Width 13 % (10.5-15); White Blood Count 10.5 10^3/ul (3.5-10.8)
[2018-07-18 23:04] LABS: ALT 13 U/L (7-52); AST 18 U/L (13-39); Albumin 4.3 g/dL (3.2-5.2); Albumin/Globulin Ratio 1.5 (1-3); Alkaline Phosphatase 55 U/L (34-104); Anion Gap 6 mmol/L (2-11); BUN/Creatinine Ratio 13.6 (8-20); Blood Urea Nitrogen 11 mg/dL (6-24); CO2 Carbon Dioxide 29 mmol/L (22-32); Calcium 9.8 mg/dL (8.6-10.3); Chloride 103 mmol/L (101-111); EGFR African American 101.9 (>60); EGFR Non-African American 84.2 (>60); Globulin 2.9 g/dL (2-4); Glucose 85 mg/dL (70-100); Potassium 3.8 mmol/L (3.5-5.0); Sodium 138 mmol/L (135-145); Total Protein 7.2 g/dL (6.4-8.9)
[2018-07-18 23:33] LABS: Acetaminophen < 15 mcg/mL; Alcohol < 10 mg/dL (<10); Lithium 0.29 mmol/L (0.6-1.2); Salicylate < 2.50 mg/dL (<30)
[2018-07-18 23:48] LABS: TSH (Thyroid Stimulating Horm) 1.68 mcIU/mL (0.34-5.60)
--- NOTE | 2018-07-19 07:24 | ED ---
Progress - Progress Note Progress Note: Receiving sign out from Dr. Prieto, pending MHE. Pt will be admitted with a final dx of mood disorder. - Consult/PCP Time Called: 09:32 Consult/PCP: Surendra Lieberman MD Consult Reason/Comments: Pt will be admitted with a dx of mood disorder. Course/Dx - Course Course Of Treatment: Pt is a 27 y/o female who presents to the ED c/o SI. Received sign out from Dr. Prieto pending MHE. Pt will be admitted as per Dr. Lieberman with a final dx of mood disorder. Pt is agreeable with this plan. - Diagnoses Provider Diagnoses: Mood disorder Discharge - Sign-Out/Discharge Documenting (check all that apply): Patient Departure - Admit, Receiving Sign- Out Receiving patient FROM: Berta Prieto Patient Received Moderate/Deep Sedation with Procedure: No - Discharge Plan Condition: Stable Disposition: ADMITTED TO [facility] - Billing Disposition and Condition Condition: STABLE Disposition: Admitted to [facility] - Attestation Statements Document Initiated by Scribe: Yes Documenting Scribe: Martha Villarreal Provider For Whom Scribe is Documenting (Include Credential): Lee Allen MD Scribe Attestation: Martha Escamilla, scribed for Lee Allen MD on 07/19/18 at 1848. Scribe Documentation Reviewed: Yes Provider Attestation: The documentation as recorded by the scribeMartha accurately reflects the service I personally performed and the decisions made by me, Lee Allen MD Status of Scribe Document: Viewed
[2018-07-19] MEDS ORDERED: Al Hydrox/Mg Hydrox/Simet LIQ* 30 ML UDC PO PRN (09:08)
[2018-07-19] MEDS ORDERED: Nicotine GUM* 2 MG PO PRN (09:08)
[2018-07-19] MEDS ORDERED: Mouth Piece, Nicotine* 1 EACH CARTRIDGE INH PRN (09:22)
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
[2018-07-19] MEDS ORDERED: Mirtazapine TAB* 15 MG PO SCH (21:00)
[2018-07-19] MEDS ORDERED: Lithium Carbonate ER* 450 MG TAB.ER PO SCH (21:00)
[2018-07-19] MEDS ORDERED: QUEtiapine TAB* 300 MG PO SCH (21:00)
[2018-07-20] MEDS ORDERED: LAMOTRIGINE 200 MG PO SCH (09:00)
[2018-07-20] MEDS: clonazePAM TAB(*) 1 MG PO PRN (09:09)
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
[2018-07-20] MEDS: Venlafaxine EXT RELEASE CAP* 75 MG PO SCH (13:54)
[2018-07-21 07:40] LABS: HDL Cholesterol 52.8 mg/dL
[2018-07-21] MEDS: Venlafaxine EXT RELEASE CAP* 75 MG PO SCH (09:04)
[2018-07-21] MEDS: clonazePAM TAB(*) 1 MG PO PRN (09:06)
[2018-07-21] MEDS: Nicotine Inhaler* 10 MG AMP INH PRN ×2 (09:06→13:39)
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
[2018-07-22] MEDS: Venlafaxine EXT RELEASE CAP* 75 MG PO SCH (08:05)
[2018-07-22] MEDS: Nicotine Inhaler* 10 MG AMP INH PRN ×2 (08:44→12:43)
[2018-07-22] MEDS: Acetaminophen TAB* 325 MG PO PRN (09:38)
[2018-07-22] MEDS: clonazePAM TAB(*) 1 MG PO PRN (12:44)
[2018-07-23] MEDS: Venlafaxine EXT RELEASE CAP* 75 MG PO SCH (08:33)
[2018-07-23] MEDS: Nicotine Inhaler* 10 MG AMP INH PRN ×2 (08:33→11:27)
[2018-07-23] MEDS: clonazePAM TAB(*) 1 MG PO PRN (10:54)
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
[2018-07-24 08:25] VITALS: BP 116/63
[2018-07-24] MEDS: Nicotine Inhaler* 10 MG AMP INH PRN (08:28)
[2018-07-24] MEDS: Acetaminophen TAB* 325 MG PO PRN (08:29)
[2018-07-24] MEDS: Venlafaxine EXT RELEASE CAP* 75 MG PO SCH (08:30)
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
== END 2018-07-24 14:45 | disposition home or self-care (01) | DRG 755 ==
LOC: ED 21:57 → BSU 07-19 09:08 → ED 07-19 10:50
PROVIDERS: ADMIT Psychiatry & Neurology Psychiatry; ATTEND Psychiatry & Neurology Psychiatry
DX: F43.10 Post-traumatic stress disorder, unspecified (principal); R45.851 Suicidal ideations; F12.90 Cannabis use, unspecified, uncomplicated; F60.3 Borderline personality disorder; F17.210 Nicotine dependence, cigarettes, uncomplicated; K21.9 Gastro-esophageal reflux disease without esophagitis; Z79.899 Other long term (current) drug therapy; Z91.14 Patient's other noncompliance with medication regimen; Z88.0 Allergy status to penicillin; Z88.8 Allergy status to other drugs, medicaments and biological substances; Z81.1 Family history of alcohol abuse and dependence; Z81.3 Family history of other psychoactive substance abuse and dependence
CPT/HCPCS: 36415; 80053; 80061; 80178; 80307; 80320; 80329; 81003; 81015; 83036; 84443; 85025; 87086; 99222; 99231; 99238; 99283; A9270-GY; G0480

== ENCOUNTER 2019-04-01 22:44 | Inpatient (IN) | payer OTHER ==
[2019-04-01 23:18] LABS: Urine Appearance Clear; Urine Bilirubin Negative (Negative); Urine Blood Negative (Negative); Urine Color Yellow; Urine Glucose Negative (Negative); Urine Ketones Negative (Negative); Urine Nitrite Negative (Negative); Urine Protein Negative (Negative); Urine Urobilinogen Negative (Negative)
[2019-04-01 23:20] LABS: ABS Basophils 0.1 10^3/ul (0-0.2); ABS Eosinophils 0.1 10^3/ul (0-0.6); ABS Lymphocytes 2.8 10^3/ul (1.0-4.8); ABS Monocytes 0.6 10^3/ul (0-0.8); ABS Neutrophils 6.7 10^3/ul (1.5-7.7); Eosinophil % 0.9 %; Hematocrit 39 % (35-47); Hemoglobin 13.8 g/dL (12.0-16.0); Mean Corpuscular HGB Conc 35 g/dL (31-36); Mean Corpuscular Hemoglobin 33 pg (27-31); Mean Corpuscular Volume 93 fL (80-97); Mean Platelet Volume 7.5 fL (7.4-10.4); Platelet Count 282 10^3/uL (150-450); Red Blood Count 4.23 10^6 /uL (3.70-4.87); Red Cell Distribution Width 13 % (10-15); White Blood Count 10.2 10^3/uL (3.5-10.8)
--- NOTE | 2019-04-01 23:33 | ED ---
Psychiatric Complaint - HPI Summary HPI Summary: 28 year old female presents with suicidal thoughts since last week. She states she does have a plan. She will not say the plan. has a history of cutting herself but has not done such in a couple weeks. no drug use. She states that she has been sick past couple weeks. She admits to shortness of breath. No pain or swelling in calf muscles. No recent travel. She states that she was seen at urgent care and was placed on doxycycline which she is currently taking. She states that her is dying which is causing her to have a suicidal thoughts. She sees a therapist and is on Abilify. - History Of Current Complaint Chief Complaint: EDSuicidal Time Seen by Provider: 04/01/19 22:58 Hx Last Menstrual Period: 03/19/17 - Allergies/Home Medications Allergies/Adverse Reactions: Allergies Allergy/AdvReac Type Severity Reaction Status Date / Time zolpidem Allergy Severe "out of Verified 04/01/19 22:48 control sleep walking." bacitracin Allergy Mild Itching Verified 04/01/19 22:48 Penicillins Allergy Hives Verified 04/01/19 22:48 Sulfa (Sulfonamide Allergy Hives Verified 04/01/19 22:48 Antibiotics) trazodone Allergy Hives Verified 04/01/19 22:48 Home Medications: Home Medications Albuterol Sulfate Hfa 2 puff INH Q2HR PRN 04/01/19 [History Confirmed 04/01/19] Benzonatate 100 mg PO TID 04/01/19 [History Confirmed 04/01/19] DOXYcycline 100MG CAP(*) 2 cap PO BID 04/01/19 [History Confirmed 04/01/19] PMH/Surg Hx/FS Hx/Imm Hx Endocrine/Hematology History: Denies: Hx Anticoagulant Therapy, Hx Blood Disorders, Hx Diabetes, Hx Thyroid Disease, Hx Anemia, Hx Unexplained Bleeding Cardiovascular History: Denies: Hx Aneurysm, Hx Angina, Hx Angioplasty, Hx Auto Implanted Cardiovert Defib, Hx Cardiac Arrest, Hx Cardiomegaly, Hx Congenital Heart Disease, Hx Congestive Heart Failure, Hx Coronary Artery Disease, Hx Deep Vein Thrombosis, Hx Hypertension Respiratory History: Denies: Hx Asthma, Hx Chronic Bronchitis, Hx Chronic Obstructive Pulmonary Disease (COPD), Hx Cystic Fibrosis GI History: Denies: Hx Ulcer Sensory History: Reports: Hx Contacts or Glasses Denies: Hx Cataracts, Hx Eye Injury, Hx Hearing Aid Opthamlomology History: Reports: Hx Contacts or Glasses Denies: Hx Cataracts, Hx Eye Injury Neurological History: Reports: Hx Headaches Denies: Hx Dementia, Hx Developmental Delay, Hx Migraine, Hx Nerve Disease, Hx Seizures, Hx Spinal Cord Injury, Hx Transient Ischemic Attacks (TIA), Other Neuro Impairments/Disorders Psychiatric History: Reports: Hx Anxiety, Hx Eating Disorder, Hx Depression, Hx Panic Disorder, Hx Post Traumatic Stress Disorder, Hx Inpatient Treatment, Hx Community Mental Health Tx, Hx Bipolar Disorder, Hx Suicide Attempt, Hx Substance Abuse, Other Psychiatric Issues/Disorders - schizoaffective d/o and hx of SIB Denies: Hx Attention Deficit Hyperactivity Disorder, Hx Schizophrenia, Hx of Violent Episodes Against Others - Cancer History Hx Palliative Cancer Treatment: Yes - Surgical History Surgery Procedure, Year, and Place: "screws and a plate in my right arm in 2012 " Hx Anesthesia Reactions: No - Immunization History Date of Tetanus Vaccine: utd Date of Influenza Vaccine: none Infectious Disease History: No Infectious Disease History: Denies: Hx Clostridium Difficile, Hx Hepatitis, Hx Human Immunodeficiency Virus (HIV), Hx of Known/Suspected MRSA, Hx Shingles, Hx Tuberculosis, Traveled Outside the [place] in Last 30 Days - Family History Known Family History: Positive: Hypertension, Respiratory Disease - COPD, Other - aunt - bipolar disorder, depression. mom/sister/grandmother - anxiety. Family History: FHx of anxiety, depression - Social History Alcohol Use: None Alcohol Amount: PT denies drinking any alcohol Hx Substance Use: Yes Substance Use Type: Reports: Marijuana Substance Use Comment - Amount & Last Used: weekly Hx Tobacco Use: Yes Smoking Status (MU): Heavy Every Day Tobacco Smoker Type: Cigarettes Amount Used/How Often: 1/2 PPD for last 30 days. Length of Time of Smoking/Using Tobacco: several years Have You Smoked in the Last Year: Yes Review of Systems Negative: Fever Negative: Chest Pain Positive: Shortness Of Breath, Cough Positive: Depressed All Other Systems Reviewed And Are Negative: Yes Physical Exam Triage Information Reviewed: Yes Vital Signs On Initial Exam: Initial Vitals Temp Pulse Resp BP Pulse Ox 98 F 84 15 135/77 99 04/01/19 22:46 04/01/19 22:46 04/01/19 22:46 04/01/19 22:46 04/01/19 22:46 Vital Signs Reviewed: Yes Appearance: Positive: Well-Appearing Skin: Positive: Warm, Dry Head/Face: Positive: Normal Head/Face Inspection Eyes: Positive: Normal, EOMI, [place] ROSA, Conjunctiva Clear ENT: Positive: Pharynx normal Respiratory/Lung Sounds: Positive: Clear to Auscultation, Breath Sounds Present Cardiovascular: Positive: Normal, RRR Abdomen Description: Positive: Nontender, Soft Bowel Sounds: Positive: Present Musculoskeletal: Positive: Normal Neurological: Positive: Normal Psychiatric: Positive: Normal Procedures - Sedation Patient Received Moderate/Deep Sedation with Procedure: No Diagnostics - Vital Signs Vital Signs Temp Pulse Resp BP Pulse Ox 04/01/19 22:46 98 F 84 15 135/77 99 - Laboratory Result Diagrams: 04/01/19 23:14 04/01/19 23:14 Lab Statement: Any lab studies that have been ordered have been reviewed, and results considered in the medical decision making process. - Radiology chest Radiology Interpretation Completed By: ED Physician Summary of Radiographic Findings: no pneumonia Course/Dx - Course Course Of Treatment: 28 year old female presents with suicidal thoughts since last week. She states she does have a plan. She will not say the plan. has a history of cutting herself but has not done such in a couple weeks. no drug use. She states that she has been sick past couple weeks. She admits to shortness of breath. No pain or swelling in calf muscles. No recent travel. She states that her is dying which is causing her to have a suicidal thoughts. She sees a therapist and is on Abilify. On exam lungs clear auscultation. Chest x-ray normal. wbc normal. discussed likely bronchitis causing cold symptoms. Medical clear for mental health. patient will be signed out to dr vuong to be held till morning for reevuluation - Differential Dx/Clinical Impression Differential Diagnosis/HQI/PQRI: Positive: Anxiety, Depression, Suicidal Ideation Provider Diagnosis: Depression Discharge ED - Sign-Out/Discharge Documenting (check all that apply): Sign-Out Patient Signing out patient TO: Jude Vuong - Discharge Plan Referrals: Maged Sanon MD [Retired//Other] -
[2019-04-01 23:35] LABS: Urine Benzodiazepine Screen None Detected (None Detect); Urine Opiates Screen None Detected (None Detect)
[2019-04-01 23:37] LABS: ALT 10 U/L (7-52); AST 13 U/L (13-39); Albumin 3.9 g/dL (3.2-5.2); Albumin/Globulin Ratio 1.4 (1-3); Alkaline Phosphatase 44 U/L (34-104); Anion Gap 4 mmol/L (2-11); BUN/Creatinine Ratio 18.7 (8-20); Blood Urea Nitrogen 14 mg/dL (6-24); CO2 Carbon Dioxide 26 mmol/L (22-32); Calcium 9.2 mg/dL (8.6-10.3); Chloride 108 mmol/L (101-111); EGFR African American 110.5 (>60); EGFR Non-African American 91.4 (>60); Globulin 2.8 g/dL (2-4); Glucose 100 mg/dL (70-100); Potassium 3.8 mmol/L (3.5-5.0); Sodium 138 mmol/L (135-145); Total Protein 6.7 g/dL (6.4-8.9)
[2019-04-01 23:43] LABS: Acetaminophen < 15 mcg/mL; Alcohol < 10 mg/dL (<10); Salicylate < 2.50 mg/dL (<30)
[2019-04-01 23:58] LABS: TSH (Thyroid Stimulating Horm) 0.84 mcIU/mL (0.34-5.60)
--- NOTE | 2019-04-02 02:40 | ED ---
Progress - Progress Note Progress Note: This patient is a 28 y/o F sign out from SHAMIR Gross to Jude Napier MD at 0230 on 04/02/19 at shift change pending MHE. Patient will be signed out from Jude Napier MD to Darien Barone MD at 0700 on 04/02/19 at shift change pending MHE. Course/Dx - Course Course Of Treatment: This patient is a 28 y/o F sign out from SHAMIR Gross to Jude Napier MD at 0230 on 04/02/19 at shift change pending MHE. Patient will be signed out from Jude Napier MD to Darien Barone MD at 0700 on 04/02/19 at shift change pending MHE. - Diagnoses Provider Diagnoses: Depression Discharge ED - Sign-Out/Discharge Documenting (check all that apply): Sign-Out Patient, Receiving Sign-Out Signing out patient TO: Darien Barone Receiving patient FROM: Vlaery Cobb - Discharge Plan Condition: Stable Disposition: [facility]YCHIATRIC FACILITY[place] [place] - Billing Disposition and Condition Condition: STABLE Disposition: Psychiatric Facility [facility] [place] - Attestation Statements Document Initiated by Scribe: Yes Documenting Scribe: Andrew Johnson Provider For Whom Scribe is Documenting (Include Credential): Jude aNpier MD Scribe Attestation: Andrew Escamilla, scribed for Jude Napier MD on 04/09/19 at 0931. Scribe Documentation Reviewed: Yes Provider Attestation: The documentation as recorded by the Andrew crouch accurately reflects the service I personally performed and the decisions made by nc, Jude Napier MD Status of Scribe Document: Viewed Procedures - Sedation Patient Received Moderate/Deep Sedation with Procedure: No
--- NOTE | 2019-04-02 07:07 | ED ---
Progress - Progress Note Progress Note: Patient is a sign out from Dr. Jude Napier to Dr. Darien Barone at 0700 on at shift change, pending evaluation. Chest X-ray IMPRESSION: NO ACTIVE CARDIOPULMONARY DISEASE. Reviewed by ED physician. At 1003, administrative resources associate reports that pts case was reviewed by Dr. Lieberman who will voluntarily admit the pt with a diagnosis of unspecified depression. - EKG/XRAY/CT XRAY: chest Xray Comments: Chest X-ray IMPRESSION: NO ACTIVE CARDIOPULMONARY DISEASE. Reviewed by ED p - Consult/PCP Time Called: 00:42 Course/Dx - Course Course Of Treatment: Patient is a sign out from Dr. Jude Napier to Dr. Darien Barone at 0700 on 04/02/19 at shift change, pending evaluation. Chest X-ray IMPRESSION: NO ACTIVE CARDIOPULMONARY DISEASE. At 1003, administrative resources associate reports that pts case was reviewed by Dr. Lieberman who will voluntarily admit the pt with a diagnosis of unspecified depression. - Diagnoses Provider Diagnoses: Depression - Provider Notifications Discussed Care Of Patient With: Surendra Lieberman - 1003 on 04/02/19 Time Discussed With Above Provider: 10:03 Instructed by Provider To: Admit As Inpatient Discharge ED - Sign-Out/Discharge Documenting (check all that apply): Patient Departure - Admit, Receiving Sign- Out Receiving patient FROM: Jude Napier - 0700 on 04/02/19 - Discharge Plan Condition: Stable Disposition: [facility]CHIATRIC FAC[place] [place] - Billing Disposition and Condition Condition: STABLE Disposition: Psychiatric Facility [facility] [place] - Attestation Statements Document Initiated by Kulwinderibe: Yes Documenting Scribe: Peggy Esteban Provider For Whom Kulwinderibniels is Documenting (Include Credential): Darien Barone MD Scribe Attestation: Peggy Escamilla, scribed for Darien Barone MD on 04/09/19 at 0932. Scribe Documentation Reviewed: Yes Provider Attestation: The documentation as recorded by the Peggy crouch accurately reflects the service I personally performed and the decisions made by , Darien Barone MD Status of Scribe Document: Viewed
[2019-04-02] MEDS ORDERED: Diazepam TAB(*) 5 MG ONE (12:19)
[2019-04-02] MEDS ORDERED: Diazepam TAB(*) 5 MG PO PRN (12:30)
[2019-04-02] MEDS ORDERED: Artificial Tears* 15 ML BTL BOTH EYES PRN (16:49)
[2019-04-02] MEDS ORDERED: Nicotine Lozenge* mini 2 MG LOZNG.MINI MT PRN (16:50)
[2019-04-02] MEDS ORDERED: Nicotine* 2MG (FRUIT FLAVOR) GUM PO PRN (16:50)
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
[2019-04-03] MEDS: DOXYcycline CAP(*) 100 MG PO SCH ×3 (00:49→20:24)
[2019-04-03] MEDS: QUEtiapine TAB* 100 MG PO SCH ×2 (00:50→20:24)
[2019-04-03] MEDS: Diazepam TAB(*) 5 MG PO SCH ×3 (09:08→20:24)
--- NOTE | 2019-04-03 13:12 | PN ---
Subjective - Subjective Date of Service: 04/03/19 Service Type: 46591 Hosp care 35 min high complexity Subjective: Jamia is not doing well. She is found in the corner of the milieu sitting on an end table with her feet on the arm of the couch. She doesn't want to talk, but she doesn't want to be in her room. Jamia's affect is blunted, and she isn't interested in talking. Reena Liu and I strategized Jamia's discharge and are hoping that Jamia will coalesce quickly. The ACT team is not enthusiastic about her being in the hospital, and she historically decompensates when in the hospital for long periods. Objective - General Observations Appearance: Disheveled Appears Stated Age: Yes Stature: WNL Posture: Slumped Eye Contact: Avoidant Behavior/Activity: Slowed, Peculiar - Interaction Observations Attitude Towards Examiner: Cooperative, Defensive Stated Mood: Dysphoric, Irritable, Anxious Affect: Blunted Speech Pattern/Tone: Clear Thought Process: Coherent Thought Content: Preoccupation/Ruminations, Depressive Thought Process: Lethality: Suicidal Planning Hallucination Type: Denies Delusion Type: Denies - Cognitive Function Orientation: A&O x 4 Level of Consciousness: Awake, Alert, Appropriate Cognition: Impaired Cognition Estimated Intelligence: Normal Insight: Mostly Blames Others for Problems Judgment Within Normal Limits: Yes Ability to Make Reasonable Decisions: Serverely Impaired - Group Participation Participates in Group Activities: No Assessment - Assessment Merits Inpatient Hospitalization: For Immediate Safety Clinical Impression: Jamia is a 28-year-old white female with diagnoses of PTSD and borderline personality disorder who comes to the hospital with suicidal ideation after an argument with her boyfriend and his subsequent admission to the hospital and reported refusal of treatment which could end his life. Plan - Plan Treatment Plan: Name: GREG CRAWFORD Birthdate: 1990 [id number] Start scheduled Valium (5 mg TID) and 2.5 mg PRN q8h Monitor for safety. Coordinate with ACT team. Consider discharge to Jamia's mother. Continued Medication Management: Continue Outpt Medication Medications: Current Medications Aripiprazole Lauroxil (Aristada) 662 mg IM ONCE ONE Stop: 04/23/19 16:48 Diazepam (Valium Tab(*)) 5 mg PO TID ROYA Last Admin: 04/03/19 09:08 Dose: 5 mg Diazepam (Valium Tab(*)) 2.5 mg PO Q8H PRN PRN Reason: ANXIETY Doxycycline Hyclate (Vibramycin Cap(*)) 100 mg PO BID [facility] Stop: 04/13/19 20:59 Last Admin: 04/03/19 09:08 Dose: 100 mg Nicotine Polacrilex (Nicotine Gum*) 2 mg PO Q2H PRN PRN Reason: CRAVING Nicotine Polacrilex (Nicotine Lozenge Mini) 2 mg MT Q2H PRN PRN Reason: CRAVING Polyvinyl Alcohol (Polyvinyl Alcohol 1.4% Opth*) 1 drop BOTH EYES Q1H PRN PRN Reason: DRY EYE Quetiapine Fumarate (Seroquel Tab*) 200 mg PO BEDTIME [facility] Last Admin: 04/03/19 00:50 Dose: Not Given - Discharge Plan Discharge Plan: Outpatient Follow Up
[2019-04-03] MEDS: Diazepam TAB(*) 5 MG PO PRN (16:32)
[2019-04-04] MEDS: DOXYcycline CAP(*) 100 MG PO SCH ×2 (08:24→21:50)
[2019-04-04] MEDS: Diazepam TAB(*) 5 MG PO SCH ×3 (08:24→21:50)
[2019-04-04 08:29] LABS: HDL Cholesterol 46.9 mg/dL
[2019-04-04] MEDS: Diazepam TAB(*) 5 MG PO PRN (12:37)
--- NOTE | 2019-04-04 15:23 | PN ---
Subjective - Subjective Date of Service: 04/04/19 Service Type: [id number] Hosp care 25 min moderate complexity Subjective: Jamia is struggling with concentration. She is so distressed that she can't read or sketch or write. These things used to make her feel better, but now she can't even find the desire to start them. Time remains on her mind. Apparently she is calling him and he is sending back mixed and hurtful messages. Objective - General Observations Appearance: Disheveled Appears Stated Age: Yes Stature: WNL Posture: Slumped, Tense Eye Contact: Avoidant Behavior/Activity: Agitated, Other (See Comment) - Interaction Observations Attitude Towards Examiner: Defensive, Evasive, Manipulative, Mistrustful Stated Mood: Dysphoric, Anxious, Angry Affect: Labile Speech Pattern/Tone: Clear, Quiet Volume Thought Process: Coherent, Circumstantial, [place] Perception: Derealization, Reexperiencing Thought Content: Preoccupation/Ruminations, Obsessional, Depressive, Self- Deprecatory Thought Process: Lethality: Suicidal Planning Hallucination Type: Denies Delusion Type: None - Cognitive Function Orientation: A&O x 4 Level of Consciousness: Awake, Alert, Appropriate Cognition: Impaired Cognition, Impaired Attention/Concentration, Impaired Reading, Impaired Writing Estimated Intelligence: Normal Insight: Mostly Blames Others for Problems Judgment Within Normal Limits: No Ability to Make Reasonable Decisions: Serverely Impaired - Medication Compliance Cooperative with Inpatient Medication Regimen: Yes - Group Participation Participates in Group Activities: No Assessment - Assessment Merits Inpatient Hospitalization: For Immediate Safety Clinical Impression: Jamia is a 28-year-old white female with diagnoses of PTSD and borderline personality disorder who comes to the hospital with suicidal ideation after an argument with her boyfriend and his subsequent admission to the hospital and reported refusal of treatment which could end his life. Plan - Plan Treatment Plan: Name: RGEG CRAWFORD Birthdate: 1990 [id number] Start scheduled Valium (5 mg TID) and 2.5 mg PRN q8h Monitor for safety. Coordinate with ACT team. Consider discharge to Jamia's mother. 04/04/19 Monitor for safety. Contrinue discharge planning as inpatient hospitalization has historically been difficult for Jamia and she tends to decompensate. Continued Medication Management: Continue Outpt Medication Medications: Current Medications Aripiprazole Lauroxil (Aristada) 662 mg IM ONCE ONE Stop: 04/23/19 16:48 Diazepam (Valium Tab(*)) 5 mg PO TID [facility] Last Admin: 04/04/19 08:24 Dose: 5 mg Diazepam (Valium Tab(*)) 2.5 mg PO Q8H PRN PRN Reason: ANXIETY Last Admin: 04/04/19 12:37 Dose: 2.5 mg Doxycycline Hyclate (Vibramycin Cap(*)) 100 mg PO BID [facility] Stop: 04/13/19 20:59 Last Admin: 04/04/19 08:24 Dose: 100 mg Nicotine Polacrilex (Nicotine Gum*) 2 mg PO Q2H PRN PRN Reason: CRAVING Nicotine Polacrilex (Nicotine Lozenge Mini) 2 mg MT Q2H PRN PRN Reason: CRAVING Polyvinyl Alcohol (Polyvinyl Alcohol 1.4% Opth*) 1 drop BOTH EYES Q1H PRN PRN Reason: DRY EYE Quetiapine Fumarate (Seroquel Tab*) 200 mg PO BEDTIME [facility] Last Admin: 04/03/19 20:24 Dose: 200 mg - Discharge Plan Discharge Plan: Outpatient Follow Up
[2019-04-04] MEDS: QUEtiapine TAB* 100 MG PO SCH (21:50)
[2019-04-05] MEDS: Diazepam TAB(*) 5 MG PO SCH ×3 (08:47→21:11)
[2019-04-05] MEDS: DOXYcycline CAP(*) 100 MG PO SCH ×2 (08:47→21:12)
[2019-04-05] MEDS: Diazepam TAB(*) 5 MG PO PRN (11:04)
[2019-04-05] MEDS ORDERED: Diazepam TAB(*) 5 MG PO ONE (16:03)
[2019-04-05] MEDS ORDERED: Diazepam TAB(*) 5 MG ONE (16:11)
--- NOTE | 2019-04-05 16:51 | PN ---
Subjective - Subjective Date of Service: 04/05/19 Service Type: [id number] Hosp care 35 min high complexity Subjective: Jamia continues to talk about suicide. She says,, "I'd rather do it outside of here than F up other people's jobs." She also is thinking in terms of life and as relates to suicide and her Baltazar's : "This is so trivial...I feel so empty, so hollow." Some reality testing was tried, as Jamia's self image has been further erased by her perception of Baltazar's commentary on her. Earlier, she had tied a bed sheet over the bathroom door, but she did not attempt. She stated she fell asleep or dissociated before she tried. She states , "It was my only way out." She is now on constant observation. Objective - General Observations Appearance: Disheveled Appears Stated Age: Yes Stature: WNL Posture: Slumped Eye Contact: Intermittent Behavior/Activity: Impulsive, Agitated - Interaction Observations Attitude Towards Examiner: Cooperative, Defensive, Evasive, Mistrustful Stated Mood: Dysphoric, Irritable, Anxious, Angry Affect: Labile Speech Pattern/Tone: Clear, Normal Volume Thought Process: Goal Directed Perception: Depersonalization Thought Content: Preoccupation/Ruminations, Self-Deprecatory Thought Process: Lethality: Suicidal Planning Hallucination Type: Denies Delusion Type: Denies - Cognitive Function Orientation: A&O x 4 Level of Consciousness: Awake, Alert Cognition: Impaired Attention/Concentration Estimated Intelligence: Normal Insight: Mostly Blames Others for Problems Judgment Within Normal Limits: No Ability to Make Reasonable Decisions: Moderately Impaired - Medication Compliance Cooperative with Inpatient Medication Regimen: Yes - Group Participation Participates in Group Activities: No Assessment - Assessment Merits Inpatient Hospitalization: For Immediate Safety Clinical Impression: Jamia is a 28-year-old white female with diagnoses of PTSD and borderline personality disorder who comes to the hospital with suicidal ideation after an argument with her boyfriend and his subsequent admission to the hospital and reported refusal of treatment which could end his life. Jamia's ideation has turned into gestures which are being assessed on constant observation. Plan - Plan Treatment Plan: Name: GREG CRAWFORD Birthdate: 1990 [id number] Start scheduled Valium (5 mg TID) and 2.5 mg PRN q8h Monitor for safety. Coordinate with ACT team. Consider discharge to Jamia's mother. Continued Medication Management: Continue Outpt Medication Medications: Current Medications Aripiprazole Lauroxil (Aristada) 662 mg IM ONCE ONE Stop: 04/23/19 16:48 Diazepam (Valium Tab(*)) 5 mg PO TID [facility] Last Admin: 04/05/19 13:57 Dose: 5 mg Diazepam (Valium Tab(*)) 2.5 mg PO Q8H PRN PRN Reason: ANXIETY Last Admin: 04/05/19 11:04 Dose: 2.5 mg Diazepam (Valium Tab(*)) 5 mg PO ONCE ONE Stop: 04/05/19 16:04 Doxycycline Hyclate (Vibramycin Cap(*)) 100 mg PO BID [facility] Stop: 04/13/19 20:59 Last Admin: 04/05/19 08:47 Dose: 100 mg Nicotine Polacrilex (Nicotine Gum*) 2 mg PO Q2H PRN PRN Reason: CRAVING Nicotine Polacrilex (Nicotine Lozenge Mini) 2 mg MT Q2H PRN PRN Reason: CRAVING Ondansetron HCl (Zofran Tab*) 4 mg PO Q6H PRN PRN Reason: NAUSEA/VOMITING Polyvinyl Alcohol (Polyvinyl Alcohol 1.4% Opth*) 1 drop BOTH EYES Q1H PRN PRN Reason: DRY EYE Quetiapine Fumarate (Seroquel Tab*) 200 mg PO BEDTIME [facility] Last Admin: 04/04/19 21:50 Dose: 200 mg
[2019-04-05] MEDS: QUEtiapine TAB* 100 MG PO SCH (21:12)
[2019-04-06] MEDS: Ondansetron TAB* 4 MG PO PRN (08:48)
[2019-04-06] MEDS: DOXYcycline CAP(*) 100 MG PO SCH ×2 (08:48→22:00)
[2019-04-06] MEDS: Diazepam TAB(*) 5 MG PO SCH ×3 (08:48→22:01)
[2019-04-06] MEDS: Acetaminophen TAB* 325 MG PO PRN (14:57)
[2019-04-06] MEDS: QUEtiapine TAB* 100 MG PO SCH (22:01)
--- NOTE | 2019-04-06 23:38 | PN ---
Subjective - Subjective Date of Service: 04/06/19 Service Type: [id number] Hosp care 25 min moderate complexity Subjective: Jamia, her mom "Cathy", Reenawilfrid Liu, HEALTH CENTER ASSOCIATE, and I meet together. Jamia would like to go home and has wanted to for several days. She asserts that the best plan would be to go home with her mom. She states she isn't from here in [place] , her supports aren't here. She has the perception that people are talking about her. She also doesn't trust her outpatient team, she says. She does not want to tell her mom about the incident that occurred with the bedsheet in specifics, but she does acknowledge that it was "stupid." Her mom would like to take her home, but not before a few days have elapsed between the episode and her discharge. Jamia seems satisfied with that. She also talks about her willingness to reengage in DBT work. She acknowledges that it is helpful to her and that she has been considering doing it, as well. Objective - General Observations Appearance: Neat Appears Stated Age: Yes Stature: WNL Posture: Slumped Eye Contact: Average Behavior/Activity: WNL - Interaction Observations Attitude Towards Examiner: Cooperative, Anxious, Defensive Attitude Towards Parent/Guardian: Positive Interaction Stated Mood: Dysphoric, Anxious Affect: Full Speech Pattern/Tone: Clear, Appropriate, Normal Volume Thought Process: Coherent Perception: Derealization Thought Content: Preoccupation/Ruminations, Depressive, Self-Deprecatory Thought Process: Lethality: Passive Wish Hallucination Type: None Delusion Type: None - Cognitive Function Orientation: A&O x 4 Level of Consciousness: Awake, Alert, Appropriate Cognition: WNL Estimated Intelligence: Normal Judgment Within Normal Limits: No Ability to Make Reasonable Decisions: Moderately Impaired - Medication Compliance Cooperative with Inpatient Medication Regimen: Yes - Group Participation Participates in Group Activities: Partial Assessment - Assessment Merits Inpatient Hospitalization: For Immediate Safety Clinical Impression: Jamia is a 28-year-old white female with diagnoses of PTSD and borderline personality disorder who comes to the hospital with suicidal ideation after an argument with her boyfriend and his subsequent admission to the hospital and reported refusal of treatment which could end his life. Plan - Plan Treatment Plan: Name: GREG CRAWFORD Birthdate: 1990 [id number] Start scheduled Valium (5 mg TID) and 2.5 mg PRN q8h Monitor for safety. Coordinate with ACT team. Consider discharge to Jamia's mother. Discharge is planned for Jamia on Tuesday or Tuesday with her mom to [place]. Continued Medication Management: Continue Outpt Medication Medications: Current Medications Acetaminophen (Tylenol Tab*) 650 mg PO Q4H PRN PRN Reason: PAIN - MILD Last Admin: 04/06/19 14:57 Dose: 650 mg Aripiprazole Lauroxil (Aristada) 662 mg IM ONCE ONE Stop: 04/23/19 16:48 Diazepam (Valium Tab(*)) 5 mg PO TID [facility] Last Admin: 04/06/19 22:01 Dose: 5 mg Diazepam (Valium Tab(*)) 2.5 mg PO Q8H PRN PRN Reason: ANXIETY Last Admin: 04/05/19 11:04 Dose: 2.5 mg Doxycycline Hyclate (Vibramycin Cap(*)) 100 mg PO BID [facility] Stop: 04/13/19 20:59 Last Admin: 04/06/19 22:00 Dose: 100 mg Nicotine Polacrilex (Nicotine Gum*) 2 mg PO Q2H PRN PRN Reason: CRAVING Nicotine Polacrilex (Nicotine Lozenge Mini) 2 mg MT Q2H PRN PRN Reason: CRAVING Ondansetron HCl (Zofran Tab*) 4 mg PO Q6H PRN PRN Reason: NAUSEA/VOMITING Last Admin: 04/06/19 08:48 Dose: 4 mg Polyvinyl Alcohol (Polyvinyl Alcohol 1.4% Opth*) 1 drop BOTH EYES Q1H PRN PRN Reason: DRY EYE Quetiapine Fumarate (Seroquel Tab*) 200 mg PO BEDTIME [facility] Last Admin: 04/06/19 22:01 Dose: Not Given
[2019-04-07] MEDS: Ondansetron TAB* 4 MG PO PRN (08:00)
[2019-04-07] MEDS: Diazepam TAB(*) 5 MG PO SCH ×3 (09:17→20:39)
[2019-04-07] MEDS: DOXYcycline CAP(*) 100 MG PO SCH ×2 (09:17→20:40)
[2019-04-07] MEDS: Acetaminophen TAB* 325 MG PO PRN (10:08)
--- NOTE | 2019-04-07 12:26 | PN ---
Subjective - Subjective Date of Service: 04/07/19 Service Type: [id number] Hosp care 15 min low complexity Subjective: Jamia is seen in weekend coverage for NPP, Ivette Denis. The patient is linares but denies SI and states "I'll be fine as long as I keep myself from being alone in my room." She states that she is done living in the [facility] and has plans to move in with her mother in [place] early this coming week. The patient is c/o nausea from her anxiety and requests switching to the dissolvable form of ondansatron. Objective - General Observations Appearance: Well Groomed Appears Stated Age: Yes Stature: WNL Posture: WNL Eye Contact: Average Behavior/Activity: WNL - Interaction Observations Attitude Towards Examiner: Cooperative Stated Mood: Anxious Affect: Restricted Speech Pattern/Tone: Clear Thought Process: Coherent Perception: Derealization Thought Content: Self-Deprecatory Hallucination Type: None Delusion Type: None - Cognitive Function Orientation: A&O x 4 Level of Consciousness: Awake Cognition: WNL Estimated Intelligence: Normal Insight: WNL Judgment Within Normal Limits: Yes - Medication Compliance Cooperative with Inpatient Medication Regimen: Yes - Group Participation Participates in Group Activities: No Assessment - Assessment Merits Inpatient Hospitalization: Consolidate Improvements, Pending Safe DC Plan Inpatient DSM-V Dx: F43.10 Clinical Impression: Jamia is a 28-year-old white female with diagnoses of PTSD and borderline personality disorder who comes to the hospital with suicidal ideation after an argument with her boyfriend and his subsequent admission to the hospital and reported refusal of treatment which could end his life. BSU: Problem List - Patient Problems (1) PTSD (post-traumatic stress disorder) Current Visit: No Status: Acute Code(s): F43.10 - POST-TRAUMATIC STRESS DISORDER, UNSPECIFIED SNOMED Code(s): 28651906 Plan - Plan Treatment Plan: Name: GREG CRAWFORD Birthdate: 1990 [id number] Start scheduled Valium (5 mg TID) and 2.5 mg PRN q8h Monitor for safety. Coordinate with ACT team. Consider discharge to Jamia's mother. Discharge is planned for Jamia on Tuesday or Tuesday with her mom to [place]. Continued Medication Management: Continue Outpt Medication Medications: Current Medications Acetaminophen (Tylenol Tab*) 650 mg PO Q4H PRN PRN Reason: PAIN - MILD Last Admin: 04/07/19 10:08 Dose: 650 mg Aripiprazole Lauroxil (Aristada) 662 mg IM ONCE ONE Stop: 04/23/19 16:48 Diazepam (Valium Tab(*)) 5 mg PO TID [facility] Last Admin: 04/07/19 09:17 Dose: 5 mg Diazepam (Valium Tab(*)) 2.5 mg PO Q8H PRN PRN Reason: ANXIETY Last Admin: 04/05/19 11:04 Dose: 2.5 mg Doxycycline Hyclate (Vibramycin Cap(*)) 100 mg PO BID [facility] Stop: 04/13/19 20:59 Last Admin: 04/07/19 09:17 Dose: 100 mg Nicotine Polacrilex (Nicotine Gum*) 2 mg PO Q2H PRN PRN Reason: CRAVING Nicotine Polacrilex (Nicotine Lozenge Mini) 2 mg MT Q2H PRN PRN Reason: CRAVING Ondansetron HCl (Zofran Odt Tab*) 4 mg PO Q6H PRN PRN Reason: NAUSEA Polyvinyl Alcohol (Polyvinyl Alcohol 1.4% Opth*) 1 drop BOTH EYES Q1H PRN PRN Reason: DRY EYE Quetiapine Fumarate (Seroquel Tab*) 200 mg PO BEDTIME [facility] Last Admin: 04/06/19 22:01 Dose: Not Given - Discharge Plan Discharge Plan: Outpatient Follow Up
[2019-04-07] MEDS: Ondansetron ODT TAB* 4 MG PO PRN ×2 (13:46→21:39)
[2019-04-07] MEDS: Diazepam TAB(*) 5 MG PO PRN (16:48)
[2019-04-07] MEDS: QUEtiapine TAB* 100 MG PO SCH (20:41)
[2019-04-08] MEDS: Diazepam TAB(*) 5 MG PO PRN ×3 (03:40→19:23)
[2019-04-08] MEDS: Ondansetron ODT TAB* 4 MG PO PRN ×3 (07:11→17:22)
[2019-04-08] MEDS: Diazepam TAB(*) 5 MG PO SCH ×3 (08:19→21:46)
[2019-04-08] MEDS: DOXYcycline CAP(*) 100 MG PO SCH ×2 (08:20→21:42)
[2019-04-08] MEDS: QUEtiapine TAB* 100 MG PO SCH (21:46)
[2019-04-09] MEDS: Ondansetron ODT TAB* 4 MG PO PRN (07:32)
[2019-04-09] MEDS: Diazepam TAB(*) 5 MG PO SCH ×3 (08:42→22:06)
[2019-04-09] MEDS: DOXYcycline CAP(*) 100 MG PO SCH ×2 (08:42→22:06)
--- NOTE | 2019-04-09 15:30 | PN ---
Subjective - Subjective Date of Service: 04/09/19 Service Type: [id number] Hosp care 35 min high complexity Subjective: Jamia was scheduled to be discharged today, but due to concerns about her safety and her admission that she was acting disingenuously happy on Tuesday, discharge is delayed until tomorrow. She does well wth her mother, to whom she will be discharged, but she also runs the risk of seeing her brother who is a "trigger" for her due to prior behavior. Jamia is struggling with the things Baltazar is saying to her. She believes he is dying, but she also acknowledges that he has lied before and may be lying again. Further, he is being discharged and he wants her at home to take care of him. She repeatedly states, "I feel like a piece of shit. I've felt so bad for three years..." but that doesn't mean she loves him less or wants to hurt him now. She states she is confused, but we discuss that perhaps she is not confused but instead does not want to do what she needs to do. She agrees to talk to her mother about discharge and discuss with her sister if she can arrange to provide child and youth program assistant and to not take calls from Baltazar and to be discharged tomorrow. Objective - General Observations Appearance: Disheveled Appears Stated Age: Yes Stature: WNL Posture: Slumped Eye Contact: Average Behavior/Activity: Agitated - Interaction Observations Attitude Towards Examiner: Cooperative, Anxious, Defensive Stated Mood: Dysphoric, Anxious Affect: Labile Speech Pattern/Tone: Clear Thought Process: Coherent Perception: WNL Thought Content: Depressive, Self-Deprecatory Thought Process: Lethality: Passive Wish, Suicidal Planning Hallucination Type: None Delusion Type: None - Cognitive Function Orientation: A&O x 4 Level of Consciousness: Awake, Alert, Appropriate Cognition: Impaired Attention/Concentration Estimated Intelligence: Normal Insight: WNL Judgment Within Normal Limits: No Ability to Make Reasonable Decisions: Moderately Impaired - Medication Compliance Cooperative with Inpatient Medication Regimen: Yes - Group Participation Participates in Group Activities: Partial Assessment - Assessment Merits Inpatient Hospitalization: For Immediate Safety, For Discharge Planning, Pending Safe DC Plan Inpatient DSM-V Dx: F43.10 Clinical Impression: Jamia is a 28-year-old white female with diagnoses of PTSD and borderline personality disorder who comes to the hospital with suicidal ideation after an argument with her boyfriend and his subsequent admission to the hospital and reported refusal of treatment which could end his life. She is preparing for a safe discharge. Plan - Plan Treatment Plan: Name: GREG CRAWFORD Birthdate: 1990 [id number] Start scheduled Valium (5 mg TID) and 2.5 mg PRN q8h Monitor for safety. Coordinate with ACT team. Consider discharge to Jamia's mother. Discharge is planned for Jamia on Tuesday or Tuesday with her mom to [place]. Discharge is planned for tomorrow (Tuesday 04/10) to Jamia's mom's in [place] with new treatment team to be in place. Medications: Current Medications Acetaminophen (Tylenol Tab*) 650 mg PO Q4H PRN PRN Reason: PAIN - MILD Last Admin: 04/07/19 10:08 Dose: 650 mg Aripiprazole Lauroxil (Aristada) 662 mg IM ONCE ONE Stop: 04/23/19 16:48 Diazepam (Valium Tab(*)) 5 mg PO TID [facility] Last Admin: 04/09/19 13:32 Dose: 5 mg Diazepam (Valium Tab(*)) 2.5 mg PO Q8H PRN PRN Reason: ANXIETY Last Admin: 04/08/19 19:23 Dose: 2.5 mg Doxycycline Hyclate (Vibramycin Cap(*)) 100 mg PO BID [facility] Stop: 04/13/19 20:59 Last Admin: 04/09/19 08:42 Dose: 100 mg Nicotine Polacrilex (Nicotine Gum*) 2 mg PO Q2H PRN PRN Reason: CRAVING Nicotine Polacrilex (Nicotine Lozenge Mini) 2 mg MT Q2H PRN PRN Reason: CRAVING Ondansetron HCl (Zofran Odt Tab*) 4 mg PO Q4H PRN PRN Reason: NAUSEA Last Admin: 04/09/19 07:32 Dose: 4 mg Polyvinyl Alcohol (Polyvinyl Alcohol 1.4% Opth*) 1 drop BOTH EYES Q1H PRN PRN Reason: DRY EYE Quetiapine Fumarate (Seroquel Tab*) 200 mg PO BEDTIME [facility] Last Admin: 04/08/19 21:46 Dose: 200 mg - Discharge Plan Discharge Plan: Outpatient Follow Up Outpatient Program: [facility]
[2019-04-09] MEDS: QUEtiapine TAB* 100 MG PO SCH (22:06)
[2019-04-10] MEDS: Diazepam TAB(*) 5 MG PO PRN (01:47)
[2019-04-10 09:15] VITALS: BP 115/68
[2019-04-10] MEDS: Diazepam TAB(*) 5 MG PO SCH (09:15)
[2019-04-10] MEDS: DOXYcycline CAP(*) 100 MG PO SCH (09:15)
[2019-04-10] MEDS: Ondansetron ODT TAB* 4 MG PO PRN (09:30)
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
== END 2019-04-10 12:20 | disposition home or self-care (01) | DRG 755 ==
LOC: ED 22:44 → BSU 04-02 11:29
PROVIDERS: ADMIT Psychiatry & Neurology Psychiatry; ATTEND Psychiatry & Neurology Psychiatry
DX: F43.10 Post-traumatic stress disorder, unspecified (principal); R45.851 Suicidal ideations; F60.3 Borderline personality disorder; K21.9 Gastro-esophageal reflux disease without esophagitis; F17.210 Nicotine dependence, cigarettes, uncomplicated; Z62.810 Personal history of physical and sexual abuse in childhood; Z91.410 Personal history of adult physical and sexual abuse; Z79.899 Other long term (current) drug therapy; Z88.0 Allergy status to penicillin; Z88.8 Allergy status to other drugs, medicaments and biological substances; Z81.3 Family history of other psychoactive substance abuse and dependence; Z81.1 Family history of alcohol abuse and dependence; F12.90 Cannabis use, unspecified, uncomplicated
CPT/HCPCS: 36415; 71046; 80053; 80061; 80307; 80320; 80329; 81003; 83036; 84443; 85025; 99222; 99231; 99232; 99233; 99238; 99285; A9270-GY; G0480

== ENCOUNTER 2019-06-09 01:30 | Inpatient (IN) | payer OTHER ==
--- NOTE | 2019-06-09 01:45 | ED ---
Psychiatric Complaint - HPI Summary HPI Summary: This pt is a 28 Y/O F presenting to [facility] as a 941. She states tht she was texting the secondary school regist[employer] ACT team phone. She states that she feels like she is looking through plastic wrap and that her hands arent real. She states that she was sitting with a bread knife for an hour and states that she didnt realize what she was doing. She states that she has been cutting recently and has multiple lacerations on her L arm that are healing. She denies any alcohol or drug consumption tonight. She states that she has been stressed but would not disclose why. She states no alleviating symptoms. She has a PMHx of headaches, SI, and bipolar disorder. - History Of Current Complaint Chief Complaint: EDMentalHealth Time Seen by Provider: 06/09/19 01:47 Accompanied By: EMS Hx Obtained From: Patient Hx Last Menstrual Period: 03/19/17 Onset/Duration: Sudden Onset Timing: Constant Severity Initially: Severe Severity Currently: Severe Character: Depressed, Anxious Aggravating Factor(s): Recent Stress Alleviating Factor(s): Nothing Related History: Positive For: Prior Psychiatric Issues - bipolar disorder, prior suicide attempts Has Suicidal: Reports: Thoughts - Allergies/Home Medications Allergies/Adverse Reactions: Allergies Allergy/AdvReac Type Severity Reaction Status Date / Time zolpidem Allergy Severe "out of Verified 06/09/19 13:49 control sleep walking." bacitracin Allergy Mild Itching Verified 06/09/19 13:49 Penicillins Allergy Hives Verified 06/09/19 13:49 Sulfa (Sulfonamide Allergy Hives Verified 06/09/19 13:49 Antibiotics) trazodone Allergy Hives Verified 06/09/19 13:49 PMH/Surg Hx/FS Hx/Imm Hx Previously Healthy: Yes Endocrine/Hematology History: Denies: Hx Anticoagulant Therapy, Hx Blood Disorders, Hx Diabetes, Hx Thyroid Disease, Hx Anemia, Hx Unexplained Bleeding Cardiovascular History: Denies: Hx Aneurysm, Hx Angina, Hx Angioplasty, Hx Auto Implanted Cardiovert Defib, Hx Cardiac Arrest, Hx Cardiomegaly, Hx Congenital Heart Disease, Hx Congestive Heart Failure, Hx Coronary Artery Disease, Hx Deep Vein Thrombosis, Hx Hypertension Respiratory History: Denies: Hx Asthma, Hx Chronic Bronchitis, Hx Chronic Obstructive Pulmonary Disease (COPD), Hx Cystic Fibrosis GI History: Denies: Hx Ulcer Sensory History: Denies: Hx Cataracts, Hx Contacts or Glasses, Hx Eye Injury, Hx Hearing Aid Opthamlomology History: Denies: Hx Cataracts, Hx Contacts or Glasses, Hx Eye Injury Neurological History: Reports: Hx Headaches Denies: Hx Dementia, Hx Developmental Delay, Hx Migraine, Hx Nerve Disease, Hx Seizures, Hx Spinal Cord Injury, Hx Transient Ischemic Attacks (TIA), Other Neuro Impairments/Disorders Psychiatric History: Reports: Hx Anxiety, Hx Eating Disorder, Hx Depression, Hx Panic Disorder, Hx Post Traumatic Stress Disorder, Hx Inpatient Treatment, Hx Community Mental Health Tx, Hx Bipolar Disorder, Hx Suicide Attempt, Hx Substance Abuse, Other Psychiatric Issues/Disorders - schizoaffective d/o and hx of SIB Denies: Hx Attention Deficit Hyperactivity Disorder, Hx Schizophrenia, Hx of Violent Episodes Against Others - Cancer History Hx Palliative Cancer Treatment: Yes - Surgical History Surgical History: Yes Surgery Procedure, Year, and Place: "screws and a plate in my right arm in 2012 " Hx Anesthesia Reactions: No - Immunization History Date of Tetanus Vaccine: utd Date of Influenza Vaccine: none Immunizations Up to Date: Yes Infectious Disease History: Denies: Hx Clostridium Difficile, Hx Hepatitis, Hx Human Immunodeficiency Virus (HIV), Hx of Known/Suspected MRSA, Hx Shingles, Hx Tuberculosis - Family History Known Family History: Positive: Hypertension, Respiratory Disease - COPD, Other - aunt - bipolar disorder, depression. mom/sister/grandmother - anxiety. Family History: FHx of anxiety, depression - Social History Occupation: Employed Full-time Lives: Alone Alcohol Use: None Alcohol Amount: PT denies drinking any alcohol Hx Substance Use: Yes Substance Use Type: Reports: Marijuana Substance Use Comment - Amount & Last Used: weekly Hx Tobacco Use: Yes Smoking Status (MU): Heavy Every Day Tobacco Smoker Type: Cigarettes Amount Used/How Often: 1/2 PPD for last 30 days. Length of Time of Smoking/Using Tobacco: several years Have You Smoked in the Last Year: Yes Review of Systems Negative: Fever, Chills Negative: Cough Skin: Other - multiple healing self-inflicted lacerations on her L arm Negative: Headache Positive: Anxious, Depressed All Other Systems Reviewed And Are Negative: Yes Physical Exam Triage Information Reviewed: Yes Vital Signs On Initial Exam: Temp Pulse Resp BP SpO2 FiO2 97.6 F 110 18 106/71 97 06/09/19 01:39 06/09/19 01:39 06/09/19 01:39 06/09/19 01:39 06/09/19 01:39 Vital Signs Reviewed: Yes Procedures - Sedation Patient Received Moderate/Deep Sedation with Procedure: No Diagnostics - Laboratory Result Diagrams: 06/09/19 01:52 06/09/19 01:52 Lab Statement: Any lab studies that have been ordered have been reviewed, and results considered in the medical decision making process. Course/Dx - Course Course Of Treatment: This pt is a 28 Y/O F presenting to [facility] as a 941. She states tht she was texting the secondary school registrar ACT team phone. She states that she feels like she is looking through plastic wrap and that her hands arent real. She states that she was sitting with a bread knife for an hour and states that she didnt realize what she was doing. She states that she has been cutting recently and has multiple lacerations on her L arm that are healing. She denies any alcohol or drug consumption tonight. Her PE found that she has superficial cutting kelley on the L forearm, some of which are fairly recent. None are open or bleeding presently. She will be admitted to [facility] for further evaluations voluntarily with a Dx of Major Depressive Disorder by Dr. Grant, psychiatrist, at 0350. - Differential Dx/Clinical Impression Provider Diagnosis: Major depressive disorder - Physician Notifications Discussed Care Of Patient With: Sina Rudy Time Discussed With Above Provider: 03:51 Instructed by Provider To: Admit As Inpatient Admit/Transition Orders Completed By ED Provider: Yes Discharge ED - Sign-Out/Discharge Documenting (check all that apply): Patient Departure - admitted - Discharge Plan Condition: Stable Disposition: [place]ATR[place] [place] Disposition and Condition Condition: STABLE Disposition: Psychiatric [place] [facility] [place] Attestation Statements Document Initiated by Scribe: Yes Documenting Scribe: Eulogio Morales Provider For Whom Kulwinderibniels is Documenting (Include Credential): Jude Napier MD Scribe Attestation: Eulogio Escamilla, stephened for Jude Napier MD on 06/09/19 at 1923. Scribe Documentation Reviewed: Yes Provider Attestation: The documentation as recorded by the Eulogio crouch accurately reflects the service I personally performed and the decisions made by meJude MD Status of Scribe Document: Viewed
[2019-06-09 01:59] LABS: ABS Eosinophils 0.1 10^3/ul (0-0.6); ABS Lymphocytes 1.6 10^3/ul (1.0-4.8); ABS Monocytes 0.6 10^3/ul (0-0.8); ABS Neutrophils 3.8 10^3/ul (1.5-7.7); Eosinophil % 1.2 %; Hematocrit 40 % (35-47); Lymphocyte % 26.4 %; Mean Corpuscular HGB Conc 35 g/dL (31-36); Mean Corpuscular Hemoglobin 33 pg (27-31); Mean Corpuscular Volume 94 fL (80-97); Mean Platelet Volume 7.6 fL (7.4-10.4); Nucleated Red Blood Cells % 0.1; Platelet Count 216 10^3/uL (150-450); Red Blood Count 4.26 10^6 /uL (3.70-4.87); Red Cell Distribution Width 13 % (10-15); White Blood Count 6.1 10^3/uL (3.5-10.8)
[2019-06-09 02:18] LABS: ALT 9 U/L (7-52); Albumin 3.9 g/dL (3.2-5.2); Albumin/Globulin Ratio 1.4 (1-3); Alkaline Phosphatase 52 U/L (34-104); BUN/Creatinine Ratio 15.9 (8-20); Blood Urea Nitrogen 10 mg/dL (6-24); CO2 Carbon Dioxide 24 mmol/L (22-32); Calcium 8.6 mg/dL (8.6-10.3); Chloride 106 mmol/L (101-111); EGFR African American 135.2 (>60); EGFR Non-African American 111.7 (>60); Globulin 2.7 g/dL (2-4); Glucose 110 mg/dL (70-100); Sodium 135 mmol/L (135-145); Total Protein 6.6 g/dL (6.4-8.9)
[2019-06-09 02:25] LABS: HCG Pregnancy < 0.60 mIU/mL
[2019-06-09 02:35] LABS: Acetaminophen < 15 mcg/mL; Alcohol < 10 mg/dL (<10); Salicylate < 2.50 mg/dL (<30)
[2019-06-09 02:50] LABS: TSH (Thyroid Stimulating Horm) 0.74 mcIU/mL (0.34-5.60)
[2019-06-09 03:11] LABS: AST 16 U/L (13-39); Anion Gap 5 mmol/L (2-11); Potassium 3.9 mmol/L (3.5-5.0)
[2019-06-09] MEDS ORDERED: Nicotine* 2MG (FRUIT FLAVOR) GUM PO PRN (06:43)
[2019-06-09] MEDS ORDERED: Al Hydrox/Mg Hydrox/Simet LIQ* 30 ML UDC PO PRN (06:43)
[2019-06-09] MEDS: Vitamin THERAPEUTIC TAB PO SCH (09:33)
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
[2019-06-10 07:00] LABS: HDL Cholesterol 45.2 mg/dL
[2019-06-10] MEDS: Vitamin THERAPEUTIC TAB PO SCH (09:05)
[2019-06-10] MEDS: Gabapentin CAP(*) 300 MG PO SCH ×2 (17:58→22:34)
[2019-06-11] MEDS: QUEtiapine TAB* 25 MG PO PRN ×2 (06:20→14:55)
[2019-06-11] MEDS: Sertraline* 25 MG TAB PO SCH (08:32)
[2019-06-11] MEDS: Vitamin THERAPEUTIC TAB PO SCH (08:32)
[2019-06-11] MEDS: Gabapentin CAP(*) 300 MG PO SCH ×3 (08:32→20:48)
[2019-06-11] MEDS ORDERED: Ondansetron ODT TAB* 4 MG SL PRN (13:40)
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
[2019-06-12] MEDS: Sertraline* 25 MG TAB PO SCH (08:56)
[2019-06-12] MEDS: Gabapentin CAP(*) 300 MG PO SCH ×3 (08:56→21:11)
[2019-06-12] MEDS: Vitamin THERAPEUTIC TAB PO SCH (08:57)
[2019-06-12] MEDS: QUEtiapine TAB* 25 MG PO PRN (09:13)
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
[2019-06-12] MEDS: Ondansetron ODT TAB* 4 MG SL PRN (17:34)
[2019-06-12] MEDS: Benzocaine/Menthol LOZ* 1 LOZENGE PO PRN (21:12)
[2019-06-13] MEDS: QUEtiapine TAB* 25 MG PO PRN ×2 (03:38→09:19)
[2019-06-13] MEDS: Benzocaine/Menthol LOZ* 1 LOZENGE PO PRN ×4 (03:38→21:14)
[2019-06-13] MEDS: Gabapentin CAP(*) 300 MG PO SCH ×3 (08:23→21:12)
[2019-06-13] MEDS: Sertraline* 25 MG TAB PO SCH (08:23)
[2019-06-13] MEDS: Acetaminophen TAB* 325 MG PO PRN (08:24)
[2019-06-13] MEDS: Vitamin THERAPEUTIC TAB PO SCH (08:25)
[2019-06-13] MEDS: Ondansetron ODT TAB* 4 MG SL PRN (14:59)
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
[2019-06-13] MEDS ORDERED: chlorproMAZINE TAB* 50 MG ONE (18:57)
[2019-06-13] MEDS ORDERED: chlorproMAZINE TAB* 50 MG PO ONE (20:00)
[2019-06-14] MEDS: Benzocaine/Menthol LOZ* 1 LOZENGE PO PRN ×3 (02:20→23:03)
[2019-06-14] MEDS: QUEtiapine TAB* 25 MG PO PRN ×2 (03:36→10:07)
[2019-06-14] MEDS: Gabapentin CAP(*) 300 MG PO SCH ×3 (08:20→23:02)
[2019-06-14] MEDS: Sertraline* 25 MG TAB PO SCH (08:21)
[2019-06-14] MEDS: Vitamin THERAPEUTIC TAB PO SCH (08:21)
[2019-06-14] MEDS: Ondansetron ODT TAB* 4 MG SL PRN ×2 (08:22→18:31)
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
[2019-06-14] MEDS: Acetaminophen TAB* 325 MG PO PRN (14:51)
[2019-06-15] MEDS: QUEtiapine TAB* 25 MG PO PRN ×2 (04:45→12:34)
[2019-06-15] MEDS: Sertraline* 50 MG TAB PO SCH (08:05)
[2019-06-15] MEDS: Gabapentin CAP(*) 300 MG PO SCH ×3 (08:05→22:51)
[2019-06-15] MEDS: Ondansetron ODT TAB* 4 MG SL PRN (08:46)
[2019-06-15] MEDS: Acetaminophen TAB* 325 MG PO PRN (10:42)
[2019-06-15] MEDS: cloNIDine TAB* 0.1 MG PO PRN ×2 (13:04→18:59)
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
[2019-06-15] MEDS: QUEtiapine TAB* 100 MG PO SCH (22:55)
[2019-06-16] MEDS: cloNIDine TAB* 0.1 MG PO PRN ×3 (03:22→18:22)
[2019-06-16] MEDS: QUEtiapine TAB* 25 MG PO PRN (06:41)
[2019-06-16] MEDS: Benzocaine/Menthol LOZ* 1 LOZENGE PO PRN (06:41)
[2019-06-16] MEDS: Ondansetron ODT TAB* 4 MG SL PRN (08:10)
[2019-06-16] MEDS: Gabapentin CAP(*) 300 MG PO SCH ×2 (08:11→16:14)
[2019-06-16] MEDS: Sertraline* 50 MG TAB PO SCH (08:11)
[2019-06-17] MEDS: Gabapentin CAP(*) 300 MG PO SCH ×4 (01:08→20:49)
[2019-06-17] MEDS: QUEtiapine TAB* 100 MG PO SCH (01:09)
[2019-06-17] MEDS: cloNIDine TAB* 0.1 MG PO PRN ×2 (08:26→16:24)
[2019-06-17] MEDS: Ondansetron ODT TAB* 4 MG SL PRN ×2 (08:26→16:24)
[2019-06-17] MEDS: Sertraline* 50 MG TAB PO SCH (08:27)
[2019-06-17] MEDS ORDERED: Diazepam TAB(*) 10 MG ONE (10:10)
[2019-06-17] MEDS ORDERED: QUEtiapine TAB* 100 MG PO ONE (21:00)
[2019-06-18] MEDS: Gabapentin CAP(*) 300 MG PO SCH ×3 (08:11→20:30)
[2019-06-18] MEDS: Sertraline* 50 MG TAB PO SCH (08:11)
[2019-06-18] MEDS: cloNIDine TAB* 0.1 MG PO PRN ×2 (08:12→15:34)
[2019-06-18] MEDS ORDERED: Aripiprazole LAUROXIL 1,064 MG/3.9 ML SYRINGE IM ONE (10:06)
[2019-06-18] MEDS: Benzocaine/Menthol LOZ* 1 LOZENGE PO PRN (10:36)
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
[2019-06-18] MEDS ORDERED: QUEtiapine TAB* 100 MG PO SCH (21:00)
[2019-06-19] MEDS: cloNIDine TAB* 0.1 MG PO PRN ×3 (03:02→13:39)
[2019-06-19] MEDS: Gabapentin CAP(*) 300 MG PO SCH ×3 (08:05→21:08)
[2019-06-19] MEDS: Sertraline* 50 MG TAB PO SCH (08:05)
[2019-06-19] MEDS: Ondansetron ODT TAB* 4 MG SL PRN ×2 (09:56→21:08)
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
[2019-06-19] MEDS: Acetaminophen TAB* 325 MG PO PRN (13:38)
[2019-06-20] MEDS: cloNIDine TAB* 0.1 MG PO PRN ×3 (00:30→12:26)
[2019-06-20] MEDS: Gabapentin CAP(*) 300 MG PO SCH (08:09)
[2019-06-20] MEDS: Sertraline* 50 MG TAB PO SCH (08:09)
[2019-06-20] MEDS: Ondansetron ODT TAB* 4 MG SL PRN (10:20)
--- NOTE | 2019-06-20 12:03 | PN ---
BSU: Group Therapy Note - Service Type Service Type: [id number] Group Psychotherapy - Cognitive Behavioral Group Therapy ( CBT):Patient was attentive and participatory in CBT programming this morning, and remained in good behavioral control. Patient expressed positive insights regarding relevant treatment interventions and goals.
[2019-06-20 12:25] VITALS: BP 114/73
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
[2019-06-20] MEDS ORDERED: QUEtiapine TAB* 100 MG PO SCH (21:00)
== END 2019-06-20 12:40 | disposition home or self-care (01) | DRG 755 ==
LOC: ED 01:30 → BSU 03:57
PROVIDERS: ADMIT Psychiatry & Neurology Psychiatry; ATTEND Psychiatry & Neurology Psychiatry
DX: F43.10 Post-traumatic stress disorder, unspecified (principal); R45.851 Suicidal ideations; F12.90 Cannabis use, unspecified, uncomplicated; F60.3 Borderline personality disorder; F17.210 Nicotine dependence, cigarettes, uncomplicated; S01.01XA Laceration without foreign body of scalp, initial encounter; X83.8XXA Intentional self-harm by other specified means, initial encounter; Y92.9 Unspecified place or not applicable; Z81.4 Family history of other substance abuse and dependence; Z79.899 Other long term (current) drug therapy; Z88.0 Allergy status to penicillin; Z88.8 Allergy status to other drugs, medicaments and biological substances
CPT/HCPCS: 36415; 80053; 80061; 80320; 80329; 83036; 84443; 84702; 85025; 90853; 99222; 99231; 99232; 99238; 99285; A9270-GY; G0480

== ENCOUNTER 2021-11-26 18:34 | Inpatient (IN) ==
[2021-11-26 20:46] LABS: ABS Basophils 0.1 10^3/ul (0-0.2); ABS Eosinophils 0.1 10^3/ul (0-0.6); ABS Lymphocytes 2.6 10^3/ul (1.0-4.8); ABS Monocytes 0.5 10^3/ul (0-0.8); ABS Neutrophils 6.5 10^3/ul (1.5-7.7); Eosinophil % 1.4 %; Hematocrit 42 % (35-47); Hemoglobin 14.1 g/dL (12.0-16.0); Lymphocyte % 26.2 %; Mean Corpuscular HGB Conc 34 g/dL (31-36); Mean Corpuscular Hemoglobin 32 pg (27-31); Mean Corpuscular Volume 94 fL (80-97); Mean Platelet Volume 7.5 fL (7.4-10.4); Platelet Count 256 10^3/uL (150-450); Red Blood Count 4.49 10^6 /uL (3.70-4.87); Red Cell Distribution Width 14 % (10-15); White Blood Count 9.8 10^3/uL (3.5-10.8)
[2021-11-26 20:58] LABS: Urine Appearance Turbid; Urine Bilirubin Negative (Negative); Urine Blood Negative (Negative); Urine Color Yellow; Urine Glucose Negative (Negative); Urine Ketones Negative (Negative); Urine Nitrite Negative (Negative); Urine Protein Negative (Negative); Urine Specific Gravity 1.015 (1.002-1.030); Urine Urobilinogen Negative (Negative)
[2021-11-26 21:02] LABS: Urine Benzodiazepine Screen None Detected (None Detect); Urine Cannabinoids Screen Presumptive Positive (None Detect); Urine Opiates Screen None Detected (None Detect)
[2021-11-26 21:06] LABS: ALT 16 U/L (7-52); AST 16 U/L (13-39); Acetaminophen < 15 mcg/mL; Albumin/Globulin Ratio 1.6 (1-3); Alcohol, S < 13 mg/dL (<13); Alkaline Phosphatase 67 U/L (35-149); Anion Gap 6 mmol/L (2-11); Blood Urea Nitrogen 14 mg/dL (6-24); CO2 Carbon Dioxide 28 mmol/L (22-32); Calcium 9.5 mg/dL (8.6-10.3); Chloride 105 mmol/L (101-111); Globulin 2.5 g/dL (2-4); Glucose 107 mg/dL (70-100); Potassium 4.2 mmol/L (3.5-5.0); Salicylate < 2.50 mg/dL (<30); Sodium 139 mmol/L (135-145); Total Protein 6.5 g/dL (6.4-8.9); eGFR CKD-EPI 118.2 (>60)
[2021-11-26 21:14] LABS: Urine Amorphous Crystals Present (Absent); Urine Bacteria Absent (Absent); Urine Red Blood Cell Trace(0-2/hpf) (Absent); Urine Squamous Epithelial Cell Present (Absent); Urine White Blood Cell Trace(0-5/hpf) (Absent)
[2021-11-26 21:20] LABS: TSH Ultra Thyroid Stim Horm 0.43 mcIU/mL (0.34-5.60)
[2021-11-27 03:20] LABS: HCG Pregnancy < 0.60 mIU/mL
[2021-11-27] MEDS: Vitamin THERAPEUTIC TAB PO SCH (08:07)
[2021-11-27 08:58] LABS: Cholesterol 176 mg/dL; HDL Cholesterol 47.8 mg/dL; LDL Cholesterol 102 mg/dL; Triglycerides 131 mg/dL
[2021-11-27] MEDS ORDERED: Amphetamine/Dextroam ER 10(NF) 10 mg CAP.ER PO SCH (09:00)
[2021-11-27 09:03] LABS: HCG Pregnancy < 0.60 mIU/mL
[2021-11-27] MEDS: Al Hydrox/Mg Hydrox/Simet LIQ 30 ML UDC PO PRN (09:20)
[2021-11-27] MEDS: Nicotine Lozenge mini 2 MG LOZNG.MINI MT PRN (17:11)
[2021-11-28] MEDS: LISDEXAMFETAMINE 10 MG PO SCH (08:02)
[2021-11-28] MEDS: Vitamin THERAPEUTIC TAB PO SCH (08:06)
[2021-11-28] MEDS: Nicotine Lozenge mini 2 MG LOZNG.MINI MT PRN ×4 (08:31→16:48)
[2021-11-29] MEDS: Nicotine Lozenge mini 2 MG LOZNG.MINI MT PRN ×4 (05:23→13:23)
[2021-11-29] MEDS: LISDEXAMFETAMINE 10 MG PO SCH (07:37)
[2021-11-29] MEDS: Vitamin THERAPEUTIC TAB PO SCH (07:38)
[2021-11-29] MEDS: Al Hydrox/Mg Hydrox/Simet LIQ 30 ML UDC PO PRN (09:41)
[2021-11-29] MEDS: Nicotine GUM 4MG FRUIT FLAVOR PO PRN (15:40)
[2021-11-30] MEDS: Nicotine GUM 4MG FRUIT FLAVOR PO PRN ×4 (06:06→16:26)
[2021-11-30] MEDS: Vitamin THERAPEUTIC TAB PO SCH ×2 (07:34→07:36)
[2021-11-30] MEDS: LISDEXAMFETAMINE 10 MG PO SCH (07:34)
[2021-12-01] MEDS: Vitamin THERAPEUTIC TAB PO SCH (07:20)
[2021-12-01] MEDS: LISDEXAMFETAMINE 10 MG PO SCH (07:20)
[2021-12-01] MEDS: Nicotine GUM 4MG FRUIT FLAVOR PO PRN ×5 (07:23→17:11)
[2021-12-01] MEDS: Al Hydrox/Mg Hydrox/Simet LIQ 30 ML UDC PO PRN (08:36)
[2021-12-01] MEDS ORDERED: Lisdexamfetamine 10 mg CAP(NF) PO ONE (13:00)
[2021-12-02] MEDS: Nicotine GUM 4MG FRUIT FLAVOR PO PRN ×5 (06:19→18:28)
[2021-12-02] MEDS: Lisdexamfetamine 10 mg CAP(NF) PO SCH (07:20)
[2021-12-02] MEDS: Vitamin THERAPEUTIC TAB PO SCH (07:23)
[2021-12-03] MEDS: Nicotine GUM 4MG FRUIT FLAVOR PO PRN ×4 (04:52→13:21)
[2021-12-03] MEDS: Vitamin THERAPEUTIC TAB PO SCH (07:23)
[2021-12-03] MEDS: Lisdexamfetamine 10 mg CAP(NF) PO SCH (07:23)
[2021-12-03] MEDS: Al Hydrox/Mg Hydrox/Simet LIQ 30 ML UDC PO PRN (12:43)
[2021-12-04] MEDS: Nicotine GUM 4MG FRUIT FLAVOR PO PRN ×4 (05:49→13:48)
[2021-12-04] MEDS: Lisdexamfetamine 10 mg CAP(NF) PO SCH (07:37)
[2021-12-04] MEDS: Vitamin THERAPEUTIC TAB PO SCH (07:37)
[2021-12-04 08:20] VITALS: BP 110/65
== END 2021-12-04 15:00 | disposition home or self-care (01) | DRG 751 ==
LOC: ED 18:34 → EDHOLD 22:10 → BSU 23:46
PROVIDERS: ADMIT Psychiatry & Neurology Psychiatry; ATTEND Psychiatry & Neurology Psychiatry